=== PATIENT | female | born 1960 | race Caucasian/White ===

== ENCOUNTER 2020-05-02 07:59 | Emergency (ER) | payer OTHER, SELFPAY ==
--- NOTE | 2020-05-02 | ECG_ITS ---
Test Reason : CHEST PAIN Blood Pressure : / mmHG Vent. Rate : 090 BPM Atrial Rate : 090 BPM P-R Int : 146 ms QRS Dur : 078 ms QT Int : 366 ms P-R-T Axes : 066 068 040 degrees QTc Int : 447 ms Normal sinus rhythm Nonspecific ST abnormality Abnormal ECG When compared with ECG of 01-SEP-2017 07:54, ST more depressed Inferior leads Referred By: Generic ED Physician Electronically Signed By:TOYIN BECKETT MD
[2020-05-02 08:13] VITALS: BP 153/79; PULSE 85; RESP 18; TEMP 36.8; O2SAT 98; BMI 23.3
--- NOTE | 2020-05-02 08:16 | ED.CHESTPAIN ---
HPI - Chest Pain General Chief Complaint: Chest Pain Stated Complaint: Multiple Complaints Time Seen by Provider: 05/02/20 08:15 Source: patient Mode of arrival: ambulatory Limitations: no limitations History of Present Illness complaint: chest pain Onset (ago): day(s) (occurred last night after making dinner) Timing of current episode: now resolved Prior episodes: No Onset: during rest Pain location: substernal Pain radiation: none Severity: severe Quality: sharp Relieving factors: other (used her fiance's O2) Exacerbating factors: nothing Associated symptoms: nausea, vomiting, diaphoresis and dyspnea Treatment prior to arrival: oxygen Related Data Allergies Allergy/AdvReac Type Severity Reaction Status Date / Time No Known Allergies Allergy Verified 05/02/20 11:40 Review of Systems Review of Systems: Constitutional : No Weight loss, No Fever, No Chills ENT/Mouth : No sore throat, No Rhinorrhea Eyes: No Eye Pain, No Swelling Cardiovascular : pos Chest Pain, pos SOB, no Dyspnea on Exertion, No Orthopnea, No Edema, No Palpitations Respiratory : No Cough, No Sputum Gastrointestinal : pos Nausea, pos Vomiting, No Diarrhea, No abdominal Pain, No Hematochezia, No Melena Genitourinary : No Dysuria, No Urinary Frequency Musculoskeletal : No joint pain, No Myalgias, No Joint Swelling Skin : No Skin Lesions, No rash Neuro : No Weakness, No Numbness, pos Dizziness, No Headache Psych : No Anxiety/Panic, No Depression Heme/Lymph: No Bruising, No Lymphadenopathy Endocrine : No Polyuria, No Polydipsia All other systems reviewed and are negative [facility] Past Medical History Medical History ADHD Anxiety delivery delivered Hypertension Surgical History H/O: hysterectomy Social History Social History Alcohol intake: current Alcohol intake frequency: a few times a month Smoking Status: Current every day smoker Substance Use Type: Marijuana Advance Directives: No Advance Directives Information Provided: No Physical Exam Vital Signs: Vital Signs: Last Vital Signs Temp 98.3 F 05/02/20 08:13 Pulse 74 05/02/20 09:30 Resp 16 05/02/20 09:30 BP 116/56 L 05/02/20 09:30 Pulse Ox 98 05/02/20 09:30 Body Mass Index 23.3 Appearance: Alert. Oriented X3. No acute distress. Eyes: Pupils equal, round and reactive to light. ENT: Pharynx normal. Neck: Normal inspection. Neck supple. CVS: Normal heart rate and rhythm. Pulses normal. Respiratory: No respiratory distress. Breath sounds normal. Abdomen: Soft and nontender. Skin: Skin warm and dry. Normal skin color. Normal skin turgor. Extremities: No lower extremity edema. No calf ttp Neuro: Oriented X 3. No motor deficit. No sensory deficit. Course Course Course Narrative: [facility] cath August 2017 LMCA: normal LAD mild diffuse disease <30% LCx: normal RCA: miminal luminal irregularities Ramus: normal non obstructive CAD with no more than mild disease given chest pain will obtain CTA chest to r/o dissection, EKG and troponin negative at this time negative CT scan, EKG nonischemic, negative troponin x 2 MDM - Chest Pain MDM Narrative Medical decision making narrative: 59 yo female with hx of HTN and smoker with fam hx of [place] in mom, dad, brother, has had negative cath almost 3 years ago had episode last night of sharp chest pain substernal with n/v diaphoresis/dyspnea resolved but today still feels off the episode lasted a minute, she has no pain now, took ASA this AM, will need EKG, ddimer, troponin, call to [facility] for report, dispo per results and findings. Lab Data Result diagrams: 05/02/20 08:32 05/02/20 08:32 Labs: Lab Results 05/02/20 05/02/20 05/02/20 Range/Units 08:32 08:32 08:32 WBC 11.0 H (4.8-10.8) X10*3/uL RBC 4.51 (4.20-5.50) X10*6/uL Hgb 14.1 (12.0-16.0) g/dl Hct 41.0 (37-47) % MCV 90.9 (80-98) fL MCH 31.3 (27.0-33.0) pg MCHC 34.4 (31.0-35.0) g/dl RDW 13.3 (11.0-16.0) % Plt Count 355 (160-400) X10*3/uL MPV 9.1 L (9.4-12.3) fL Immature Gran % (Auto) 0.6 H (0.0-0.4) % Neut % (Auto) 60.2 (45-73) % Lymph % (Auto) 26.6 (20-40) % Emmet % (Auto) 11.3 H (2-11) % Eos % (Auto) 0.9 (0-4) % Baso % (Auto) 0.4 (0-2) % Lymph # (Auto) 2.9 (1.2-4.9) X10*3/uL Emmet # (Auto) 1.2 (0.1-1.2) X10*3/uL Eos # (Auto) 0.1 (0.0-0.4) X10*3/uL Baso # (Auto) 0.0 (0.0-0.2) X10*3/uL Abs Immat Gran (auto) 0.07 H (0.00-0.03) X10*3/uL Absolute Neuts (auto) 6.6 (2.0-8.3) X10*3/uL Absolute Nucleated RBC 0.000 (0.0-0.012) X10*3/uL Nucleated RBC % (auto) 0.0 (0.0-0.2) /100WBC D-Dimer < 200 NG/ML Sodium 135 (135-145) mmol/L Potassium 3.8 (3.3-5.1) mmol/l Chloride 101 (96-108) mmol/L Carbon Dioxide 23 (22-29) mmol/L Anion Gap 15 (12-20) BUN 13 (9-16) mg/dL Creatinine 0.75 (0.5-1.4) mg/dL Estim Creat Clear Calc 66.8 Estimated GFR > 60 Random Glucose 110 (60-115) mg/dL Calcium 9.4 (8.4-10.2) mg/dL Magnesium 2.1 (1.6-2.6) mg/dL Total Bilirubin 0.2 (0.0-1.0) mg/dL Direct Bilirubin < 0.2 (0.0-0.5) mg/dL AST 20 (5-31) U/L ALT 31 (0-31) U/L Alkaline Phosphatase 82 (39-117) U/L Troponin I High Sens (<3.5-17.0) ng/L B-Natriuretic Peptide (<100) pg/mL Total Protein 7.2 (6.5-8.0) g/dL Albumin 4.6 (3.5-5.0) g/dL Lipase 43 (8-78) U/L 05/02/20 05/02/20 Range/Units 08:32 11:01 WBC (4.8-10.8) X10*3/uL RBC (4.20-5.50) X10*6/uL Hgb (12.0-16.0) g/dl Hct (37-47) % MCV (80-98) fL MCH (27.0-33.0) pg MCHC (31.0-35.0) g/dl RDW (11.0-16.0) % Plt Count (160-400) X10*3/uL MPV (9.4-12.3) fL Immature Gran % (Auto) (0.0-0.4) % Neut % (Auto) (45-73) % Lymph % (Auto) (20-40) % Emmet % (Auto) (2-11) % Eos % (Auto) (0-4) % Baso % (Auto) (0-2) % Lymph # (Auto) (1.2-4.9) X10*3/uL Emmet # (Auto) (0.1-1.2) X10*3/uL Eos # (Auto) (0.0-0.4) X10*3/uL Baso # (Auto) (0.0-0.2) X10*3/uL Abs Immat Gran (auto) (0.00-0.03) X10*3/uL Absolute Neuts (auto) (2.0-8.3) X10*3/uL Absolute Nucleated RBC (0.0-0.012) X10*3/uL Nucleated RBC % (auto) (0.0-0.2) /100WBC D-Dimer NG/ML Sodium (135-145) mmol/L Potassium (3.3-5.1) mmol/l Chloride (96-108) mmol/L Carbon Dioxide (22-29) mmol/L Anion Gap (12-20) BUN (9-16) mg/dL Creatinine (0.5-1.4) mg/dL Estim Creat Clear Calc Estimated GFR Random Glucose (60-115) mg/dL Calcium (8.4-10.2) mg/dL Magnesium (1.6-2.6) mg/dL Total Bilirubin (0.0-1.0) mg/dL Direct Bilirubin (0.0-0.5) mg/dL AST (5-31) U/L ALT (0-31) U/L Alkaline Phosphatase (39-117) U/L Troponin I High Sens < 3.5 < 3.5 (<3.5-17.0) ng/L B-Natriuretic Peptide 27 (<100) pg/mL Total Protein (6.5-8.0) g/dL Albumin (3.5-5.0) g/dL Lipase (8-78) U/L ECG Data ECG #1: Attestation: I personally reviewed and interpreted this ECG as follows: ECG interpretation date: 05/02/20 ECG interpretation time: 08:19 Interpretation: Rate: 90 Rhythm: NSR [place]: normal Normal P waves. Normal MILENA. Normal QRS complex. ST T wave : nonspecific qTC: normal prior studies: no acute ischemia The study has been interpreted contemporaneously by me. . Discharge Plan Discharge Clinical Impression: Chest pain Patient Disposition: Home, Self-Care Instructions: Chest Pain (ED) Additional Instructions: return to ED for any worsening symptoms or concerns call your doctor they might want to repeat a stress test Referrals: Name,MD Deven [Primary Care Provider] - 2 days Stand Alone Forms: Work/School Release
--- NOTE | 2020-05-02 08:17 | XR_ITS ---
EXAMINATION: XR CHEST CLINICAL INFORMATION: Pain. COMPARISON: 08/31/17. TECHNIQUE: Frontal view of the chest was obtained. FINDINGS: No significant abnormality is noted involving the heart, lungs, mediastinum, bony thorax or soft tissues. XR/XR chest 1V IMPRESSION: Unremarkable examination.
[2020-05-02 08:41] LABS: Basophils Percent Auto 0.4 % (0-2); Eosinophils Absolute Auto 0.1 X10*3/uL (0.0-0.4); Eosinophils Percent Auto 0.9 % (0-4); Hemoglobin 14.1 g/dl (12.0-16.0); Imm Gran Abs Auto 0.07 X10*3/uL (0.00-0.03); Imm Gran Pct Auto 0.6 % (0.0-0.4); Lymphocytes Absolute Auto 2.9 X10*3/uL (1.2-4.9); Lymphocytes Percent Auto 26.6 % (20-40); MANUAL DIFF FLAG NO; Mean Corpuscular HGB Conc 34.4 g/dl (31.0-35.0); Mean Corpuscular Hemoglobin 31.3 pg (27.0-33.0); Mean Corpuscular Volume 90.9 fL (80-98); Mean Platelet Volume 9.1 fL (9.4-12.3); Monocytes Absolute Auto 1.2 X10*3/uL (0.1-1.2); Monocytes Percent Auto 11.3 % (2-11); Neutrophils Absolute Auto 6.6 X10*3/uL (2.0-8.3); Neutrophils Percent Auto 60.2 % (45-73); Platelet Count 355 X10*3/uL (160-400); Red Blood Count 4.51 X10*6/uL (4.20-5.50); Red Cell Distribution Width 13.3 % (11.0-16.0)
[2020-05-02] MEDS: ondansetron HCL 4 MG/2 ML VIAL IVPUSH (08:45)
[2020-05-02] MEDS: 0.9 % Sodium Chloride 1,000 ML 999 ML IVCONT (08:47)
[2020-05-02 08:55] LABS: D Dimer < 200 NG/ML
[2020-05-02 09:22] LABS: B Type Natriuretic Peptide 27 pg/mL (<100); Troponin-I High Sensitivity < 3.5 ng/L (<3.5-17.0)
[2020-05-02 09:23] LABS: Alanine Aminotransferase 31 U/L (0-31); Albumin Level 4.6 g/dL (3.5-5.0); Alkaline Phosphatase 82 U/L (39-117); Anion Gap 15 (12-20); Aspartate Amino Transferase 20 U/L (5-31); Bilirubin Direct < 0.2 mg/dL (0.0-0.5); Bilirubin Total 0.2 mg/dL (0.0-1.0); Blood Urea Nitrogen 13 mg/dL (9-16); Calcium 9.4 mg/dL (8.4-10.2); Carbon Dioxide 23 mmol/L (22-29); Chloride 101 mmol/L (96-108); Creatinine Clr Calc Pharmacy 66.8; Estimated Glomerular Filt Rate > 60; Glucose Random 110 mg/dL (60-115); Lipase 43 U/L (8-78); Magnesium 2.1 mg/dL (1.6-2.6); Potassium 3.8 mmol/l (3.3-5.1); Sodium 135 mmol/L (135-145); Total Protein 7.2 g/dL (6.5-8.0)
[2020-05-02 09:30] VITALS: BP 116/56; PULSE 74; RESP 16; O2SAT 98
--- NOTE | 2020-05-02 09:31 | CT_ITS ---
EXAMINATION: CT ANGIOGRAM CHEST CLINICAL INFORMATION: Chest pain. Rule out dissection. COMPARISON: Chest x-ray of same day. TECHNIQUE: Multiple axial images were obtained through the chest after the administration of 70 mL of Omnipaque 350 intravenous contrast. Postprocessing imaging was performed on the acquisition workstation. This CT examination was performed using dose optimization techniques as appropriate, variously including the following: *Automated exposure control *Adjustment of mA and/or kV according to patient size (this includes techniques or standardized protocols for targeted exams where dose is matched to indication/reason for exam; i.e. extremities or head) *Use of iterative reconstruction technique DLP: 317 mGy-cm FINDINGS: There is no evidence of thoracic or abdominal aortic aneurysm. There is no evidence of thoracic aortic dissection. No pulmonary artery embolus identified. LUNGS: There are mild changes of centrilobular emphysema within the upper lobes. There are apical blebs present. There are multiple sub-4 mm density seen bilaterally which are most prominent within the left upper lobe peripherally with a tree-in-bud configuration. No significant bronchial wall thickening. No bronchiectasis. No confluent parenchymal disease. Within the left lower lobe there is a 4 mm subpleural noncalcified density seen on image 391 of 691. Mediastinum: Heart normal size. No pericardial effusion. There are some coronary artery calcifications present. No mediastinal or hilar lymphadenopathy. No significant thoracic aortic abnormality appreciated. There is calcified thrombus seen at the origin of the arch vessels. There appear to be stenoses seen origin of the left carotid and left subclavian arteries which may be greater than 50%. Pleura: No pleural effusion. Upper abdomen: There is fatty infiltration of the liver. Otherwise unremarkable. Osseous structures: No acute destructive bony lesions identified. CT/CT angio chest IMPRESSION: No thoracic aortic aneurysm or dissection. No pulmonary artery embolus.
[2020-05-02] MEDS: iohexoL 350 MG/ML 100 ML INFUS..BTL 70 ML IV (10:21)
[2020-05-02 11:35] LABS: Troponin-I High Sensitivity < 3.5 ng/L (<3.5-17.0)
== END 2020-05-02 11:53 | disposition home or self-care (01) ==
PROVIDERS: Emergency Provider Emergency Medicine; PCP Internal Medicine Geriatric Medicine
DX: R07.9 Chest pain, unspecified (principal); F12.90 Cannabis use, unspecified, uncomplicated; F17.200 Nicotine dependence, unspecified, uncomplicated; Z71.6 Tobacco abuse counseling
CPT/HCPCS: 36415; 71045; 71275; 80048; 80076; 83690; 83735; 83880; 84484; 85025; 85379; 93005; 96361; 96374; 99285; J2405; Q9967

== ENCOUNTER 2020-08-10 15:29 | Emergency (ER) | payer OTHER, SELFPAY ==
--- NOTE | ~2020-08-10 | XR_ITS ---
EXAMINATION: XR CHEST CLINICAL INFORMATION: Pain COMPARISON: Chest x-ray and CTA chest 05/02/2020 TECHNIQUE: Frontal view of the chest was obtained. FINDINGS: Cardiac silhouette is normal in size. Lungs are well aerated. There is no lobar consolidation. No pleural effusion or pneumothorax. XR/XR chest 1V IMPRESSION: Stable examination demonstrating no acute pulmonary pathology.
[2020-08-10 16:29] VITALS: BP 186/79; PULSE 82; RESP 18; TEMP 36.9; O2SAT 99; BMI 25.2
[2020-08-10 16:46] VITALS: BP 148/67; PULSE 74; RESP 20; O2SAT 97
--- NOTE | 2020-08-10 16:55 | ED.GENADULT ---
HPI - General Adult General Chief complaint: General Medical Stated complaint: covid symptoms Time Seen by Provider: 08/10/20 16:54 History of Present Illness HPI narrative: Patient with 2 complaints First complaint is today she has had chest pain that has been lasting for several minutes at a time that feels like pressure that is not related to exertion that does not radiate with no accompanying shortness of breath no sweating no vomiting no palpitations no fainting no syncope Second complaint is 2-3 days of runny nose and cough, no sputum with feeling fatigued and body aches, no known COVID exposure, no shortness of breath no vomiting Related Data Previous Rx's Medication Instructions Recorded doxycycline hyclate 100 mg PO BID 7 Days #14 cap 08/10/20 Allergies Allergy/AdvReac Type Severity Reaction Status Date / Time No Known Allergies Allergy Verified 08/10/20 16:29 Review of Systems Review of Systems: Positives are episodes of pressure-like chest pain today, cough runny nose body aches and fatigue Are no fever no chills no dizziness no weakness no fainting no confusion no headache no neck pain no shortness of breath no heart racing no palpitations no abdominal pain no nausea vomiting no sore throat no flank pain no dysuria no leg swelling no calf pain or swelling, no rash Yes all other systems are reviewed and are negative PMFSH Past Medical History Source: nursing notes reviewed Medical History ADHD Anxiety delivery delivered Hypertension Surgical History H/O: hysterectomy Social History Social History Alcohol intake: current Alcohol intake frequency: a few times a month Smoking Status: Current every day smoker Substance Use Type: Marijuana Advance Directives: No Advance Directives Information Provided: No Physical Exam Vital Signs: Vital Signs: Last Vital Signs Temp 98.5 F 08/10/20 16:29 Pulse 72 08/10/20 20:35 Resp 20 08/10/20 20:35 BP 128/65 08/10/20 20:35 Pulse Ox 98 08/10/20 20:35 Body Mass Index 25.2 General appearance is no acute distressed, comfortable, cooperative, a and O x3 The head is normocephalic atraumatic The pharynx is clear The neck is supple The chest wall is nontender with no pain with a deep breath, the patient is speaking full sentences with no evidence of extra respiratory effort Breath sounds are clear and equal and symmetrical with no adventitious sounds Heart rate and rhythm regular, no murmur heard Abdomen soft nontender Extremities no calf swelling or tenderness, no edema Neuro no facial asymmetry, no motor deficit no sensory deficit, balance and gait are normal, verbal interaction and comprehension are normal Course Course Course Narrative: Patient's workup for her upper respiratory infection had a negative x-ray, COVID testing was negative, and as patient is started coughing and is a long-time smoker she was treated for possible bronchitis with antibiotic First troponin was negative for the patient's chest pain as well as an EKG that showed a normal sinus rhythm with no acute ST changes, the rate 67, QRS was normal duration QT was normal Patient remained comfortable throughout ER visit 21:30 case is signed out to physician billing and accounting staff assistant cecil to follow 2nd troponin results and discharge patient if it is unchanged Medical Decision Making Lab Data Lab results reviewed: Yes I reviewed the patient's lab results. Result diagrams: 08/10/20 18:28 08/10/20 18:28 Labs: Lab Results 08/10/20 08/10/20 08/10/20 Range/Units 18:28 18:28 18:28 WBC 13.1 H (4.8-10.8) X10*3/uL RBC 4.66 (4.20-5.50) X10*6/uL Hgb 14.5 (12.0-16.0) g/dl Hct 42.3 (37-47) % MCV 90.8 (80-98) fL MCH 31.1 (27.0-33.0) pg MCHC 34.3 (31.0-35.0) g/dl RDW 12.7 (11.0-16.0) % Plt Count 381 (160-400) X10*3/uL MPV 9.4 (9.4-12.3) fL Immature Gran % (Auto) 0.6 H (0.0-0.4) % Neut % (Auto) 65.4 (45-73) % Lymph % (Auto) 23.8 (20-40) % [place] % (Auto) 9.0 (2-11) % Eos % (Auto) 0.8 (0-4) % Baso % (Auto) 0.4 (0-2) % Lymph # (Auto) 3.1 (1.2-4.9) X10*3/uL [place] # (Auto) 1.2 (0.1-1.2) X10*3/uL Eos # (Auto) 0.1 (0.0-0.4) X10*3/uL Baso # (Auto) 0.1 (0.0-0.2) X10*3/uL Abs Immat Gran (auto) 0.08 H (0.00-0.03) X10*3/uL Absolute Neuts (auto) 8.5 H (2.0-8.3) X10*3/uL Absolute Nucleated RBC 0.000 (0.0-0.012) X10*3/uL Nucleated RBC % (auto) 0.0 (0.0-0.2) /100WBC Sodium 140 (135-145) mmol/L Potassium 3.4 (3.3-5.1) mmol/L Chloride 102 (96-108) mmol/L Carbon Dioxide 24 (22-29) mmol/L Anion Gap 17 (12-20) BUN 22 H D (9-16) mg/dL Creatinine 0.77 (0.5-1.4) mg/dL Estim Creat Clear Calc 67.6 Estimated GFR > 60 Random Glucose 94 (60-115) mg/dL Calcium 9.5 (8.4-10.2) mg/dL Troponin I High Sens < 3.5 (<3.5-17.0) ng/L Coronavirus (PCR) (Negative) SARS-CoV-2 (PCR) Influenza Type A (PCR) (Negative) Influenza Type B (PCR) (Negative) RSV RNA Qual (PCR) (Negative) 08/10/20 08/10/20 Range/Units 18:28 18:28 WBC (4.8-10.8) X10*3/uL RBC (4.20-5.50) X10*6/uL Hgb (12.0-16.0) g/dl Hct (37-47) % MCV (80-98) fL MCH (27.0-33.0) pg MCHC (31.0-35.0) g/dl RDW (11.0-16.0) % Plt Count (160-400) X10*3/uL MPV (9.4-12.3) fL Immature Gran % (Auto) (0.0-0.4) % Neut % (Auto) (45-73) % Lymph % (Auto) (20-40) % [place] % (Auto) (2-11) % Eos % (Auto) (0-4) % Baso % (Auto) (0-2) % Lymph # (Auto) (1.2-4.9) X10*3/uL [place] # (Auto) (0.1-1.2) X10*3/uL Eos # (Auto) (0.0-0.4) X10*3/uL Baso # (Auto) (0.0-0.2) X10*3/uL Abs Immat Gran (auto) (0.00-0.03) X10*3/uL Absolute Neuts (auto) (2.0-8.3) X10*3/uL Absolute Nucleated RBC (0.0-0.012) X10*3/uL Nucleated RBC % (auto) (0.0-0.2) /100WBC Sodium (135-145) mmol/L Potassium (3.3-5.1) mmol/L Chloride (96-108) mmol/L Carbon Dioxide (22-29) mmol/L Anion Gap (12-20) BUN (9-16) mg/dL Creatinine (0.5-1.4) mg/dL Estim Creat Clear Calc Estimated GFR Random Glucose (60-115) mg/dL Calcium (8.4-10.2) mg/dL Troponin I High Sens (<3.5-17.0) ng/L Coronavirus (PCR) NEGATIVE (Negative) SARS-CoV-2 (PCR) Cancelled Influenza Type A (PCR) NEGATIVE (Negative) Influenza Type B (PCR) NEGATIVE (Negative) RSV RNA Qual (PCR) NEGATIVE (Negative) Discharge Plan Discharge Clinical Impression: Bronchitis Patient Disposition: Home, Self-Care Additional Instructions: Your COVID test was negative, chest x-ray did not show any obvious pneumonia We are treating with doxycycline antibiotic for bronchitis Follow with her doctor for help to try to quit smoking Your chest pain was evaluated with an EKG and troponin testing which were negative, so very unlikely that you have had a heart attack today But very important for further evaluation see your doctor to determine if you need stress testing or any other cardiac workup Return any time any worse condition or any concerns Prescriptions: New doxycycline hyclate 100 mg capsule 100 mg PO BID 7 Days Qty: 14 RF: 0
[2020-08-10 18:18] VITALS: BP 170/81; PULSE 83; RESP 22; O2SAT 100
[2020-08-10 18:38] LABS: MANUAL DIFF FLAG NO
[2020-08-10 18:39] LABS: Basophils Absolute Auto 0.1 X10*3/uL (0.0-0.2); Basophils Percent Auto 0.4 % (0-2); Eosinophils Absolute Auto 0.1 X10*3/uL (0.0-0.4); Eosinophils Percent Auto 0.8 % (0-4); Hematocrit 42.3 % (37-47); Hemoglobin 14.5 g/dl (12.0-16.0); Imm Gran Abs Auto 0.08 X10*3/uL (0.00-0.03); Imm Gran Pct Auto 0.6 % (0.0-0.4); Lymphocytes Absolute Auto 3.1 X10*3/uL (1.2-4.9); Lymphocytes Percent Auto 23.8 % (20-40); Mean Corpuscular HGB Conc 34.3 g/dl (31.0-35.0); Mean Corpuscular Hemoglobin 31.1 pg (27.0-33.0); Mean Corpuscular Volume 90.8 fL (80-98); Mean Platelet Volume 9.4 fL (9.4-12.3); Monocytes Absolute Auto 1.2 X10*3/uL (0.1-1.2); Neutrophils Absolute Auto 8.5 X10*3/uL (2.0-8.3); Neutrophils Percent Auto 65.4 % (45-73); Platelet Count 381 X10*3/uL (160-400); Red Blood Count 4.66 X10*6/uL (4.20-5.50); Red Cell Distribution Width 12.7 % (11.0-16.0); White Blood Count 13.1 X10*3/uL (4.8-10.8)
[2020-08-10 19:08] LABS: Anion Gap 17 (12-20); Blood Urea Nitrogen 22 mg/dL (9-16); Calcium 9.5 mg/dL (8.4-10.2); Carbon Dioxide 24 mmol/L (22-29); Chloride 102 mmol/L (96-108); Creatinine Clr Calc Pharmacy 67.6; Estimated Glomerular Filt Rate > 60; Glucose Random 94 mg/dL (60-115); Potassium 3.4 mmol/L (3.3-5.1); Sodium 140 mmol/L (135-145)
--- NOTE | 2020-08-10 19:10 | ECG_ITS ---
Test Reason : PAIN Blood Pressure : / mmHG Vent. Rate : 067 BPM Atrial Rate : 067 BPM P-R Int : 164 ms QRS Dur : 084 ms QT Int : 428 ms P-R-T Axes : 054 058 033 degrees QTc Int : 452 ms Normal sinus rhythm Nonspecific ST abnormality Abnormal ECG When compared with ECG of 02-MAY-2020 08:12, No significant change was found Referred By: Homer Kamara Electronically Signed By:Kurtis Mcgrath
[2020-08-10 19:14] LABS: Troponin-I High Sensitivity < 3.5 ng/L (<3.5-17.0)
[2020-08-10 19:42] VITALS: BP 128/65; PULSE 71; RESP 12; O2SAT 98
[2020-08-10 20:33] LABS: Influenza A PCR NEGATIVE (Negative); Influenza B PCR NEGATIVE (Negative); Resp Syncy Virus RNA Qual PCR NEGATIVE (Negative); SARS COV2 PCR INHOUSE NEGATIVE (Negative)
[2020-08-10 20:35] VITALS: BP 128/65; PULSE 72; RESP 20; O2SAT 98
[2020-08-10] MEDS: Acetaminophen 325 MG TABLET 650 MG PO (21:11)
[2020-08-10 21:48] LABS: Troponin-I High Sensitivity < 3.5 ng/L (<3.5-17.0)
== END 2020-08-10 23:13 | disposition home or self-care (01) ==
PROVIDERS: Physician Assistant Medical; Emergency Provider Internal Medicine
DX: J40 Bronchitis, not specified as acute or chronic (principal); Z20.822 Contact with and (suspected) exposure to COVID-19; R07.9 Chest pain, unspecified; I10 Essential (primary) hypertension; F17.200 Nicotine dependence, unspecified, uncomplicated
CPT/HCPCS: 0241U; 36415; 71045; 80048; 84484; 85025; 93005; 99283; 99284; U0003

== ENCOUNTER 2020-12-04 11:44 | Emergency (ER) | payer OTHER, SELFPAY ==
--- NOTE | ~2020-12-04 | US_ITS ---
EXAMINATION: RIGHT HIP. ULTRASOUND RIGHT LOWER EXTREMITY VENOUS STUDY. CLINICAL INFORMATION: Right leg pain. COMPARISON: None TECHNIQUE: Right hip and AP pelvis 3 views. Routine grayscale, color and Doppler imaging of right lower extremity was performed. FINDINGS: RIGHT HIP AND AP PELVIS: There is normal symmetry of bilateral SI joints and hip joints. No fracture seen involving the pelvic bones. There are phleboliths seen throughout the pelvis. The soft tissues are normal. ULTRASOUND RIGHT LOWER EXTREMITY: There is normal color flow, compression and augmentation seen in the right common femoral, greater saphenous, superficial femoral, popliteal, posterior tibial and peroneal veins. Small fluid collection medial femoral fossa likely a small Springer's cyst There is no calf edema. Incidental finding of the hypoechoic lymph node measuring 1.5 cm in the proximal thigh region. US/US venous duplex LE RT IMPRESSION: Remarkable AP pelvis and right hip exam. Unremarkable right lower extremity venous study Except for small fluid collection along the medial popliteal fossa any benign-appearing right proximal thigh lymph node.
[2020-12-04 12:19] VITALS: BP 120/70; PULSE 78; RESP 18; TEMP 37.1; O2SAT 98; BMI 24.1
--- NOTE | 2020-12-04 14:21 | ED_ITS ---
HPI - Extremity Problem General Chief complaint: Extremity Injury, Lower Stated complaint: LEG PAIN Time Seen by Provider: 12/04/20 12:59 Source: patient Mode of arrival: ambulatory Limitations: no limitations History of Present Illness HPI Narrative: 60-year-old female with a past medical history of hypertension, anxiety, ADHD presenting to the ED with complaints of right hip pain radiating to her right lower extremity with numbness to the right foot for the past few days worse today. Denies any trauma. Denies any dizziness, headaches, chest pain, shortness of breath, palpitations, dyspnea on exertion, orthopnea, lower extremity edema or any other symptom complaints or concerns at this time. She is requesting an ultrasound of her lower extremity to rule out a DVT. MD Complaint: extremity pain Onset (ago): day(s) Pain Consistency: constant Location: right and lower extremity Quality: other (Intermittent numbness sensation/pain) Radiation: distal Relieving factors: nothing Exacerbating factors: nothing Associated symptoms: denies other symptoms Related Data Previous Rx's Medication Instructions Recorded doxycycline hyclate 100 mg PO BID 7 Days #14 cap 08/10/20 acetaminophen [Tylenol Extra 1,000 mg PO QID PRN #14 tab 12/04/20 Strength] lidocaine HCl [Aspercreme 1 appl TOPICAL BID PRN #120 g 12/04/20 (lidocaine HCl)] naproxen 500 mg PO BID PRN #10 tab 12/04/20 oxycodone 5 mg PO BID PRN #10 tab 12/04/20 prednisone 40 mg PO DAILY 5 Days #10 tab 12/04/20 Allergies Allergy/AdvReac Type Severity Reaction Status Date / Time No Known Allergies Allergy Verified 08/10/20 16:29 Review of Systems Review of Systems: Constitutional : No changes in activity, No lethargy, No recent prior head injury, No agitation, No increased fussiness ENT/Mouth : No Ear Pain, No Nasal discharge/drainage Eyes: No Eye Pain, No Swelling, No Redness, No Foreign Body, No Vision Changes Cardiovascular : No Chest Pain, No SOB Respiratory : No Cough Gastrointestinal : No Nausea, No Vomiting, No abdominal Pain Genitourinary : No Dysuria, No Urinary Frequency, No Urinary Incontinence, No Urgency, No Flank Pain Musculoskeletal : + joint pain, No neck stiffness, No back pain/injury Skin : No lacerations Neuro : Positive numbness, No unsteady gait, No Paresthesias, No Loss of Consciousness, No altered mental status, No Headache Yes all other systems are reviewed and are negative [facility] Past Medical History Attestation statement: The following information was validated with the patient. Medical History ADHD Anxiety delivery delivered Hypertension Surgical History H/O: hysterectomy Social History Social History Alcohol intake: current Alcohol intake frequency: a few times a month Substance Use Type: Marijuana Advance Directives: No Advance Directives Information Provided: Yes Patient : No Physical Exam Vital Signs: Vital Signs: Last Vital Signs Temp 98.7 F 12/04/20 12:19 Pulse 78 12/04/20 12:19 Resp 18 12/04/20 12:19 BP 120/70 12/04/20 12:19 Pulse Ox 98 12/04/20 12:19 Body Mass Index 24.1 vital signs have been reviewed as normal and appeared to be correct. Blood pressure normal. Heart rate normal. Respiration rate normal. Temperature normal. Oxygen saturation normal. Appearance: Alert. Oriented X3. No acute distress. Head: Normal external exam. Normocephalic. Atraumatic. Eyes: PERRLA. EOMI. Conjunctiva and sclera normal. Eyelids normal. ENT: EAC normal. TM's Normal. Pharynx normal. Uvula midline. Moist mucous membranes. Neck: Normal inspection. Neck supple. FROM. No adenopathy. Thyroid Normal. No meningeal signs. No neck mass noted. CVS: Normal heart rate and rhythm. Heart sound normal. Pulses normal throughout. No murmurs/rales/gallops. Respiratory: No respiratory distress. Painless inspiration. Breath sounds normal. No wheezes/rales/rhonchi noted. Chest nontender. No accessory muscle usage noted or decreased air movement noted. Abdomen: Soft and nontender. Bowel sounds normal in all 4 quadrants. No distention noted. No organomegaly noted. No visible injury noted. Back: No CVA tenderness. Full range of motion noted. No rashes/lesion/indura tion/fluctuance or signs of infection noted. Skin: Skin warm and dry. Normal skin color. Normal skin turgor. No rashes/lesions/lacerations noted. Extremities: Patient with tenderness to palpation to right hip joint although patient has full range of motion lacks is severe signs of infection or rashes noted. No lower extremity edema. No calf tenderness is noted. Otherwise all other Extremities exhibit normal range of motion and nontender. Neuro: Oriented X 3. No motor deficit. No sensory deficit. Reflexes normal. Normal steady gait. No focal neuro deficits noted. Vascular: + radial pulses/+ 2 distal pedal pulses/+2 dorsalis pedis b/l. Normal cap refill. No cyanosis noted to upper extremity nails and lower extremity toes nails. Course Course Course Narrative: 60-year-old female with atraumatic right hip pain radiating to her right lower extremity she reports numbness although has full sensation. ultrasound obtained and negative for DVT although revealed Springer cyst. Will DC home with symptomatic treatment along with instructions to return if any new or worsening symptoms to follow up with primary care provider. Patient understands agrees with this plan. MDM - Extremity (Nontraumatic) Imaging Data Ultrasound of right lower extremity and x-ray of righ: Attestation: I personally reviewed and interpreted this imaging study as follows: Radiologist's impression: FINDINGS: RIGHT HIP AND AP PELVIS: There is normal symmetry of bilateral SI joints and hip joints. No fracture seen involving the pelvic bones. There are phleboliths seen throughout the pelvis. The soft tissues are normal. ULTRASOUND RIGHT LOWER EXTREMITY: There is normal color flow, compression and augmentation seen in the right common femoral, greater saphenous, superficial femoral, popliteal, posterior tibial and peroneal veins. Small fluid collection medial femoral fossa likely a small Springer's cyst There is no calf edema. Incidental finding of the hypoechoic lymph node measuring 1.5 cm in the proximal thigh region. XR/XR hip RT w PEL1V IMPRESSION: Remarkable AP pelvis and right hip exam. Unremarkable right lower extremity venous study Except for small fluid collection along the medial popliteal fossa any benign-appearing right proximal thigh lymph node. Discharge Plan Discharge Clinical Impression: Bursitis of hip, right, Springer's cyst of knee, Radiculopathy of leg Patient Disposition: Home, Self-Care Instructions: Hip Bursitis (ED), Bakers Cyst (ED), Lumbar Radiculopathy (ED), Lower Back Exercises (ED) Prescriptions: New prednisone 20 mg tablet 40 mg PO DAILY 5 Days Qty: 10 RF: 0 lidocaine HCl [Aspercreme (lidocaine HCl)] 4 % cream 1 appl topical BID PRN (Reason: pain) Qty: 120 RF: 0 acetaminophen [Tylenol Extra Strength] 500 mg tablet 1,000 mg PO QID PRN (Reason: fever or pain) Qty: 14 RF: 0 naproxen 500 mg tablet 500 mg PO BID PRN (Reason: pain) Qty: 10 RF: 0 oxycodone 5 mg tablet 5 mg PO BID PRN (Reason: pain) Qty: 10 RF: 0 No Action doxycycline hyclate 100 mg capsule 100 mg PO BID 7 Days Qty: 14 RF: 0 Referrals: Deven Solis MD [Primary Care Provider] - 2 days Stand Alone Forms: Work/School Release Discharge Date/Time: 12/04/20 14:56 Print Language: Upper Sorbian
== END 2020-12-04 14:56 | disposition home or self-care (01) ==
PROVIDERS: Emergency Provider Emergency Medicine Emergency Medical Services; PCP Internal Medicine Geriatric Medicine
DX: M70.71 Other bursitis of hip, right hip (principal); M71.21 Synovial cyst of popliteal space [Baker], right knee; M54.10 Radiculopathy, site unspecified; M79.604 Pain in right leg; I10 Essential (primary) hypertension
CPT/HCPCS: 73502; 93971; 99283; 99284

== ENCOUNTER 2020-12-12 07:49 | Emergency (ER) | payer OTHER, SELFPAY ==
[2020-12-12 08:57] VITALS: BP 161/76; PULSE 83; RESP 16; TEMP 36.5; O2SAT 98
--- NOTE | 2020-12-12 09:39 | ED.LOWEXIN ---
HPI - Extremity Injury (Lower) General Chief Complaint: Extremity Injury, Lower Stated Complaint: severe leg pain Time Seen by Provider: 12/12/20 08:41 Source: patient Mode of arrival: ambulatory History of Present Illness HPI Narrative: 60-year-old female with past medical history of hypertension, anxiety, ADHD presenting to the ED complaining of acute on chronic right buttock pain radiating down right lower extremity times months with associated numbness/tingling and weakness. Admits to similar symptoms in the past which she was evaluated in the ED for, diagnosed with hip arthritis and right knee Springer cyst. Denies known injury, trauma or falls. Reports has been taking multiple medications from the ED and PCP without relief. Denies urinary incontinence/retention, fever, chills complaint: hip injury and leg injury Related Data Previous Rx's Medication Instructions Recorded doxycycline hyclate 100 mg PO BID 7 Days #14 cap 08/10/20 acetaminophen [Tylenol Extra 1,000 mg PO QID PRN #14 tab 12/04/20 Strength] lidocaine HCl [Aspercreme 1 appl TOPICAL BID PRN #120 g 12/04/20 (lidocaine HCl)] naproxen 500 mg PO BID PRN #10 tab 12/04/20 oxycodone 5 mg PO BID PRN #10 tab 12/04/20 prednisone 40 mg PO DAILY 5 Days #10 tab 12/04/20 acetaminophen [Tylenol Extra 500 mg PO Q6H PRN #20 tab 12/12/20 Strength] cyclobenzaprine 5 mg PO Q8H PRN 5 Days #14 tab 12/12/20 lidocaine [Lidoderm] 1 patch TOPICAL DAILY PRN #30 ea 12/12/20 MDD remove after 12 hours naproxen 500 mg PO BID PRN 10 Days #20 tab 12/12/20 Allergies Allergy/AdvReac Type Severity Reaction Status Date / Time No Known Allergies Allergy Verified 08/10/20 16:29 Review of Systems Review of Systems: Constitutional: No Fever, No Chills Cardiovascular: No Chest Pain, No SOB Respiratory: No Cough, No Sputum, No Wheezing Gastrointestinal: No Nausea, No Vomiting, No Abdominal pain Genitourinary: No Urinary Incontinence/retention Musculoskeletal: + joint pain, No Myalgias, No Joint Swelling Skin: No Skin Lesions, No rash Neuro: + Weakness, + Numbness, + Paresthesias Yes all other systems are reviewed and are negative Neurologic: Denies Sensory deficit (Neuro) [facility] Past Medical History Attestation statement: The following information was validated with the patient. Medical History ADHD Anxiety delivery delivered Hypertension Surgical History H/O: hysterectomy Social History Social History Alcohol intake: current Alcohol intake frequency: a few times a month Substance Use Type: Marijuana Advance Directives: Yes Advance Directives Information Provided: Yes Advance Directives on File: No Patient : No Physical Exam Vital Signs: Vital Signs: Last Vital Signs Temp 97.7 F 12/12/20 08:57 Pulse 83 12/12/20 08:57 Resp 16 12/12/20 08:57 BP 161/76 H 12/12/20 08:57 Pulse Ox 98 12/12/20 08:57 Body Mass Index 0.2 Const: General: cooperative, healthy appearing and no acute distress Orientation/consciousness: patient oriented x3 Limitations: no limitations HENMT: Head: Yes normal to inspection Ears: hearing grossly normal bilaterally General nose exam: Normal external nose present Face and sinus: Yes normal facial exam Eyes: General: appearance normal, both eyes and all related structures EOM: EOMs intact bilaterally Neck: Neck: Yes normal visual inspection Resp: Effort & Inspection: normal respiratory effort Cardio: Rate: regular rate Peripheral pulses: dorsalis pedis present Back/Spine/Pelvis: Other: No midline thoracic/lumbar spinous tenderness or step-offs. + right buttock tenderness to palpation Skin: Rashes: no rashes Wounds: no wounds Neuro: Other: Strength intact throughout. Sensation intact to light touch. No saddle anesthesia. Ambulating at baseline with cane General: patient oriented x3, gait normal, tone normal and moves all extremities Gait exam (Neuro): Normal gait present Motor exam (neuro): 5/5 motor strength present throughout Sensory Exam: No Sensory deficit (Neuro) Extrem: General: Yes normal to inspection MDM - Extremity Injury (Lower) MDM Narrative Medical decision making narrative: 60-year-old female with past medical history of hypertension, anxiety, ADHD presenting to the ED complaining of acute on chronic right buttock pain radiating down right lower extremity times months with associated numbness/tingling and weakness. On exam vital signs stable, NAD, nontoxic appearing, no midline spinous tenderness throughout, right buttock pain, no saddle anesthesia, sensation intact to light touch, no appreciable weakness. Likely sciatica in addition to patient's previously diagnosed Springer cyst Discussed with patient we will add on muscle relaxers/Lidoderm patches to regimen and have her follow-up with orthopedics Medical Records Attestation: I reviewed the patient's medical records. Discharge Plan Discharge Clinical Impression: Sciatica Qualifiers: Laterality: right Qualified Code(s): M54.31 - Sciatica, right side Patient Disposition: Home, Self-Care Instructions: Sciatica (ED) Additional Instructions: Your pain is likely musculoskeletal Flexeril is a muscle relaxer, take at night as it makes you drowsy, do not drive, drink alcohol, or operate machinery while taking it Naproxen as an anti-inflammatory / pain medication, take with food Lidoderm patches are numbing patches, apply to painful area In addition take Tylenol at home If symptoms persist or worsen, pain becomes unbearable, you developed urinary retention or incontinence, or weakness return to the ED Prescriptions: New lidocaine [Lidoderm] 5 % adhesive patch,medicated 1 patch topical DAILY MDD remove after 12 hours PRN (Reason: pain) Qty: 30 RF: 0 cyclobenzaprine 5 mg tablet 5 mg PO Q8H PRN (Reason: pain (scale score 7-10)) 5 Days Qty: 14 RF: 0 acetaminophen [Tylenol Extra Strength] 500 mg tablet 500 mg PO Q6H PRN (Reason: pain or fever) Qty: 20 RF: 0 naproxen 500 mg tablet 500 mg PO BID PRN (Reason: pain) 10 Days Qty: 20 RF: 0 No Action doxycycline hyclate 100 mg capsule 100 mg PO BID 7 Days Qty: 14 RF: 0 prednisone 20 mg tablet 40 mg PO DAILY 5 Days Qty: 10 RF: 0 lidocaine HCl [Aspercreme (lidocaine HCl)] 4 % cream 1 appl topical BID PRN (Reason: pain) Qty: 120 RF: 0 acetaminophen [Tylenol Extra Strength] 500 mg tablet 1,000 mg PO QID PRN (Reason: fever or pain) Qty: 14 RF: 0 naproxen 500 mg tablet 500 mg PO BID PRN (Reason: pain) Qty: 10 RF: 0 oxycodone 5 mg tablet 5 mg PO BID PRN (Reason: pain) Qty: 10 RF: 0 Referrals: Isabel Rogers PA-C [Physician Entry Level Marketing Representative] - 1 week
[2020-12-12] MEDS: Ketorolac Tromethamine 30 MG/ML VIAL IM (09:48)
== END 2020-12-12 09:59 | disposition home or self-care (01) ==
PROVIDERS: Emergency Provider Emergency Medicine; PCP Internal Medicine Geriatric Medicine
DX: M54.31 Sciatica, right side (principal); I10 Essential (primary) hypertension
CPT/HCPCS: 96372; 99283; 99284; J1885

== ENCOUNTER 2021-01-17 09:00 | Outpatient (RCR) | payer OTHER, SELFPAY ==
--- NOTE | 2021-01-10 11:33 | MHC.PT.EP ---
[facility] [place] [facility] [place] [facility] [place] [facility] [address] Dennis Graham [address] [phone] F: [phone] F: [phone] F: [phone] F: [phone] Physical Therapy Plan of Care Date of Evaluation: Date of Surgery: NA Diagnosis: right hip pain Assessment: The patient arrived with pain in her right hip and associated right radicular pain. She has reduced lumbar ROM, reduced core strength, poor body mechanics and poor posture mechanics which is limited by pain. The pt was given posture recommendations, body mechanics education, and she is showing signs of a posterolateral derangement. I will attempt the Alicja Method with her to alleviate her pain followed by core stabilization. I will give education on proper lifting, sitting, and sleeping mechanics to help prevent future occurrence. Frequency and Duration: The patient will be seen 2x/week x 4 weeks Short Term Goals: 1.Pt to able to demonstrate proper sitting posture with the use of a lumbar roll to decrease aggravating factors. 2.Pt to be able to demonstrate proper posture for common leisure activities such as crocheting and phone/tablet use. 3.For the patient to demonstrate proper upright sitting posture with use of the lumbar roll to improve compliance and carryover. Mcfp Goals: 1.The patient to demonstrate proper lifting mechanics for household chore activities to show improved functional mobility. 2.The patient to report no leg or hip pain in order to show centralization of pain and reduction of lumbar derangement 3. Pt to be able to demonstrate self management of lumbar pain by demonstration of HEP. Treatment Plan: Modalities to reduce pain, spasms and effusion. Manual therapy to restore motion and function. Therapeutic exercise to improve strength and flexibility. Neuromuscular re-education for posture and balance. Therapeutic activities to return to functional activities of daily living. Electronically signed by: Marilou Manuel PT DPT Please sign and return to therapist. Thank you for your referral.
== END 2021-04-29 07:58 | disposition home or self-care (01) ==
LOC: HO.PT 09:00
PROVIDERS: PCP Internal Medicine Geriatric Medicine; Visit Provider Internal Medicine
DX: M25.551 Pain in right hip (principal)
CPT/HCPCS: 97110; 97112; 97140; 97162

== ENCOUNTER 2021-10-03 08:18 | Outpatient (REF) | payer OTHER, SELFPAY ==
--- NOTE | ~2021-10-03 | MM_ITS ---
EXAMINATION: MM SCREENING DIGITAL BREAST TOMOSYNTHESIS, BILATERAL CLINICAL INFORMATION: Screening. Asymptomatic. The lifetime risk of breast cancer based on the Tyrer-Cuzick Model is 8%. COMPARISON: Mammography: 11/21/2018, 09/26/2017, 09/04/2016, 06/04/2015, 02/10/2019, 10/20/2009 TECHNIQUE: Digital breast tomosynthesis is performed in both the craniocaudal and mediolateral oblique views along with computer-aided detection (CAD). Synthesized 2D images are generated from the tomosynthesis. FINDINGS: There are scattered areas of fibroglandular density (ACR BI-RADS breast composition Category b). There are no significant masses, abnormal calcifications, or other abnormalities. There are scattered bilateral stable asymmetries. No developing density. The axilla are unremarkable. Skin contours are smooth. MM/MM tomosynthesis screening BI IMPRESSION: No mammographic evidence of malignancy. ASSESSMENT: BI-RADS 2: Benign RECOMMENDATION: Routine annual mammography screening. This patient's information was entered into a reminder system with a target due date for their next mammogram.
== END 2021-10-03 08:19 | disposition home or self-care (01) ==
LOC: HO.MAMMO 08:18
PROVIDERS: Visit Provider Internal Medicine Geriatric Medicine
DX: Z12.31 Encounter for screening mammogram for malignant neoplasm of breast (principal)
CPT/HCPCS: 77063; 77067

== ENCOUNTER 2021-12-05 07:22 | Outpatient (REF) | payer OTHER, SELFPAY ==
--- NOTE | ~2021-12-05 | XR_ITS ---
EXAMINATION: KNEE, BILATERAL KNEE STANDING, BILATERAL CLINICAL INFORMATION: Pain bilateral knee. COMPARISON: None TECHNIQUE: AP bilateral knee standing. 2 views each knee. FINDINGS: AP Bilateral Knee: There is moderate reduction in medial and lateral compartment joint space both knees without periarticular spurring or bony erosive changes. No visible acute fracture or dislocation seen. Left Knee: There is mild loss of lateral patellofemoral compartment joint space with minimal periarticular spurring. No abnormal joint effusion, loose bodies or bony erosive changes. No fracture or dislocation seen. Right Knee: There is mild reduction in the patellofemoral compartment joint space. No visible acute fracture, dislocation or subluxation seen. No bony erosive changes. No abnormal joint effusion. XR/XR knee standing BI IMPRESSION: Mild degenerative changes medial and lateral compartment and right patellofemoral compartment. No abnormal joint effusion, loose bodies or acute fracture seen.
--- NOTE | ~2021-12-05 | XR_ITS ---
EXAMINATION: KNEE, BILATERAL KNEE STANDING, BILATERAL CLINICAL INFORMATION: Pain bilateral knee. COMPARISON: None TECHNIQUE: AP bilateral knee standing. 2 views each knee. FINDINGS: AP Bilateral Knee: There is moderate reduction in medial and lateral compartment joint space both knees without periarticular spurring or bony erosive changes. No visible acute fracture or dislocation seen. Left Knee: There is mild loss of lateral patellofemoral compartment joint space with minimal periarticular spurring. No abnormal joint effusion, loose bodies or bony erosive changes. No fracture or dislocation seen. Right Knee: There is mild reduction in the patellofemoral compartment joint space. No visible acute fracture, dislocation or subluxation seen. No bony erosive changes. No abnormal joint effusion. XR/XR knee LT 2V IMPRESSION: Mild degenerative changes medial and lateral compartment and right patellofemoral compartment. No abnormal joint effusion, loose bodies or acute fracture seen.
--- NOTE | ~2021-12-05 | XR_ITS ---
EXAMINATION: KNEE, BILATERAL KNEE STANDING, BILATERAL CLINICAL INFORMATION: Pain bilateral knee. COMPARISON: None TECHNIQUE: AP bilateral knee standing. 2 views each knee. FINDINGS: AP Bilateral Knee: There is moderate reduction in medial and lateral compartment joint space both knees without periarticular spurring or bony erosive changes. No visible acute fracture or dislocation seen. Left Knee: There is mild loss of lateral patellofemoral compartment joint space with minimal periarticular spurring. No abnormal joint effusion, loose bodies or bony erosive changes. No fracture or dislocation seen. Right Knee: There is mild reduction in the patellofemoral compartment joint space. No visible acute fracture, dislocation or subluxation seen. No bony erosive changes. No abnormal joint effusion. XR/XR knee RT 2V IMPRESSION: Mild degenerative changes medial and lateral compartment and right patellofemoral compartment. No abnormal joint effusion, loose bodies or acute fracture seen.
== END 2021-12-05 07:23 | disposition home or self-care (01) ==
LOC: HO.HOSX 07:22
PROVIDERS: Visit Provider Physician Assistant
DX: M17.0 Bilateral primary osteoarthritis of knee (principal)
CPT/HCPCS: 73560; 73565; 99202

== ENCOUNTER 2022-04-14 09:24 | Outpatient (REF) | payer OTHER, SELFPAY ==
[2022-04-14 13:16] LABS: Influenza A PCR NEGATIVE (Negative); Influenza B PCR NEGATIVE (Negative); Resp Syncy Virus RNA Qual PCR NEGATIVE (Negative); SARS COV2 PCR INHOUSE POSITIVE (Negative)
== END 2022-04-14 09:25 | disposition home or self-care (01) ==
LOC: HO.LAB 09:24
PROVIDERS: Visit Provider Nurse Practitioner Family
DX: Z20.822 Contact with and (suspected) exposure to COVID-19 (principal); R09.89 Other specified symptoms and signs involving the circulatory and respiratory systems
CPT/HCPCS: 0241U

== ENCOUNTER 2022-10-09 08:14 | Outpatient (REF) | payer OTHER, SELFPAY ==
--- NOTE | ~2022-10-09 | MM_ITS ---
EXAMINATION: MM SCREENING DIGITAL BREAST TOMOSYNTHESIS, BILATERAL CLINICAL INFORMATION: Screening. Asymptomatic. The lifetime risk of breast cancer based on the Tyrer-Cuzick Model is 9.4%. COMPARISON: Mammography: October 03, 2021 and studies dating back to June 04, 2015 TECHNIQUE: Digital breast tomosynthesis is performed in both the craniocaudal and mediolateral oblique views along with computer-aided detection (CAD). Synthesized 2D images are generated from the tomosynthesis. FINDINGS: The breasts are heterogeneously dense, which may obscure small masses (ACR BI-RADS breast composition Category c). There are no significant masses, abnormal calcifications, or other abnormalities. MM/MM tomosynthesis screening BI IMPRESSION: No significant changes from prior exam. ASSESSMENT: BI-RADS 1: Negative RECOMMENDATION: Routine annual mammography screening. This patient's information was entered into a reminder system with a target due date for their next mammogram.
== END 2022-10-09 08:15 | disposition home or self-care (01) ==
LOC: HO.MAMMO 08:14
PROVIDERS: Visit Provider Internal Medicine Geriatric Medicine
DX: Z12.31 Encounter for screening mammogram for malignant neoplasm of breast (principal)
CPT/HCPCS: 77063; 77067

== ENCOUNTER 2023-02-16 10:36 | Outpatient (REF) | payer OTHER, SELFPAY ==
[2023-02-16 13:04] LABS: Vitamin D 25-OH Total 39.9 ng/mL (>30)
== END 2023-02-16 10:37 | disposition home or self-care (01) ==
LOC: HO.HHCL 10:36
PROVIDERS: Visit Provider Internal Medicine Geriatric Medicine
DX: T46.6X5A Adverse effect of antihyperlipidemic and antiarteriosclerotic drugs, initial encounter (principal); G72.0 Drug-induced myopathy
CPT/HCPCS: 36415; 82306

== ENCOUNTER 2023-03-29 13:22 | Outpatient (REF) | payer OTHER, SELFPAY ==
[2023-03-29 14:13] LABS: MANUAL DIFF FLAG NO
[2023-03-29 15:00] LABS: Basophils Absolute Auto 0.1 X10*3/uL (0.0-0.2); Basophils Percent Auto 0.6 % (0-2); Eosinophils Absolute Auto 0.1 X10*3/uL (0.0-0.4); Eosinophils Percent Auto 1.4 % (0-4); Hematocrit 39.8 % (37.0-47.0); Hemoglobin 13.1 g/dl (12.0-16.0); Imm Gran Abs Auto 0.06 X10*3/uL (0.00-0.03); Imm Gran Pct Auto 0.6 % (0.0-0.4); Lymphocytes Absolute Auto 3.1 X10*3/uL (1.2-4.9); Lymphocytes Percent Auto 32.2 % (20-40); Mean Corpuscular HGB Conc 32.9 g/dl (31.0-35.0); Mean Corpuscular Hemoglobin 31.3 pg (27.0-33.0); Mean Corpuscular Volume 95.2 fL (80.0-98.0); Mean Platelet Volume 10.3 fL (9.4-12.3); Monocytes Absolute Auto 1.1 X10*3/uL (0.1-1.2); Monocytes Percent Auto 11.4 % (2-11); Neutrophils Absolute Auto 5.2 x10*3/uL (2.0-8.3); Neutrophils Percent Auto 53.8 % (45-73); Platelet Count 391 X10*3/uL (160-400); Red Blood Count 4.18 X10*6/uL (4.20-5.50); White Blood Count 9.7 X10*3/uL (4.8-10.8)
[2023-03-29 15:37] LABS: Alanine Aminotransferase 21 U/L (0-31); Albumin Level 4.5 g/dL (3.5-5.0); Alkaline Phosphatase 77 U/L (39-117); Anion Gap 16 (12-20); Aspartate Amino Transferase 19 U/L (5-31); Bilirubin Total 0.3 mg/dL (0.0-1.0); Blood Urea Nitrogen 15 mg/dL (9-16); Calcium 9.6 mg/dL (8.4-10.2); Carbon Dioxide 21 mmol/L (22-29); Chloride 105 mmol/L (96-108); Estimated Glomerular Filt Rate > 60; Glucose Random 90 mg/dL (60-115); Sodium 138 mmol/L (135-145); Total Protein 7.2 g/dL (6.5-8.0)
[2023-03-29 15:47] LABS: Thyroid Stimulating Hormone 1.46 uIU/mL (0.32-4.0)
[2023-04-01 15:08] LABS: HCV Log PCR <1.18 NOT DETECTED Log IU/mL (NOT DETECTED); HepC Viral Load <15 NOT DETECTED IU/mL (NOT DETECTED)
== END 2023-03-29 13:23 | disposition home or self-care (01) ==
LOC: HO.LAB 13:22
PROVIDERS: PCP Internal Medicine Geriatric Medicine; Visit Provider Physician Assistant
DX: Z01.818 Encounter for other preprocedural examination (principal); F41.9 Anxiety disorder, unspecified; K58.9 Irritable bowel syndrome, unspecified; R19.8 Other specified symptoms and signs involving the digestive system and abdomen; B19.20 Unspecified viral hepatitis C without hepatic coma; Z79.899 Other long term (current) drug therapy
CPT/HCPCS: 36415; 80053; 84443; 85025; 87522

== ENCOUNTER 2023-03-29 13:22 | Outpatient (AMB) | payer OTHER, SELFPAY ==
[2023-03-29 13:27] VITALS: BP 139/67; PULSE 69; BMI 25.2
--- NOTE | 2023-03-29 13:27 | MHC.OFFVIS ---
Intake Vital Signs 03/29/23 13:27 Height 5 ft 2 in Weight 138 lb 0.15 oz BMI 25.2 BP 139/67 Blood Pressure Location Lt brachial Position Sitting Pulse 69 Intake Visit Reasons: Colonoscopy Screening Intake Note: Patient presents to in office visit today as a new patient for colonoscopy screening. Patient report she believes she had last colonoscopy 10 years ago at [facility]. CC: Patient report she had diarrhea for about 2 months in a row but this subsided about a month and a half ago. She is now having regular BMs. Denies other GI concerns today. 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 she has no nausea, vomiting, hematemesis, hematochezia fevers chills [facility] Medical History delivery delivered Anxiety ADHD Hypertension Surgical History History of carpal tunnel surgery S/P section H/O: hysterectomy Family History Brother Cancer Social History Alcohol intake: current Alcohol intake frequency: a few times a month Tobacco use type: Cigarette Cigarette Packs Per Day: 1 Years Smoked: 30 years Substance Use Type: Marijuana Review of Systems Const Details: All systems reviewed new negative All systems reviewed & are unremarkable except as noted in HPI and below Card Denies chest pain and Denies dyspnea Resp Denies dyspnea Physical Exam Vital Signs: Last Vital Signs Pulse 69 03/29/23 13:27 BP 139/67 1005/23 13:27 BMI result Body Mass Index 25.2 Const General: cooperative, healthy appearing, comfortable and no acute distress Limitations: no limitations Eyes Sclerae: sclerae normal Resp Effort & Inspection: normal respiratory effort and able to speak in complete sentences Auscultation: clear to auscultation bilaterally, no rales, no rhonchi and no wheezes Cardio Rate: regular rate Rhythm: regular rhythm Heart sounds: S1 normal heart sound present and S2 normal heart sound present GI Palpation (GI): Soft to palpation and nontender Auscultation: normal bowel sounds Skin General skin exam: no rashes or lesions noted Extrem General: Yes full ROM Psych Appearance: grossly normal Mental Status: mental status grossly normal Speech and movement: Normal speech and movement present and Clear speech present Affect: normal affect Attitude: cooperative Thought process: Normal thought process present Thought content: Normal thought content present Insight: Good insight present (Psych) Judgement: Good judgement present (Psych) Assessment & Plan Assessment & Plan (1) Encounter for screening colonoscopy: Code(s): Z12.11 - Encounter for screening for malignant neoplasm of colon Plan: Discussed procedure, rare risks, need for escort due to anesthesia Plan Screening colonoscopy MiraLax Gatorade split prep Orders: Orders Complete Blood Count Auto Diff 03/29/23 F41.9 - Anxiety disorder, unspecified, Z12.11 - Encounter for screening for malignant neoplasm of colon Comprehensive Met. Panel 03/29/23 K58.9 - Irritable bowel syndrome without diarrhea Hepatitis C Viral Load 03/29/23 B19.20 - Unspecified viral hepatitis C without hepatic coma Colonoscopy - GI Use Only 03/29/23 Z12.11 - Encounter for screening for malignant neoplasm of colon Thyroid Stimulating Hormone 03/29/23 R19.8 - Other specified symptoms and signs involving the digestive system and abdomen Medications: New bisacodyl (Dulcolax (bisacodyl)) Day before procedure, prep day Take 4 tablets by mouth upon awakening followed by large glass of water 20 mg (4 x 5 mg) PO ONCE 1 day 4 tabs 0RF colonoscopy prep Z12.11 - Encounter for screening for malignant neoplasm of colon polyethylene glycol 3350 (Miralax) Take as directed by mouth the day before your procedure. 238 grams PO ONCE 1 day PRN 238 grams 0RF laxative effect Patient Instructions: Pleasant, somewhat anxious 62-year-old female referred for index screening colonoscopy she has no GI complaints Discussed procedure, rare risks, need for escorted due to anesthesia MiraLax Gatorade split prep literature given Opportunity for questions, agrees to proceed Encourage to call questions or concerns Coding Level of Care Code New Pt Level 3 (37879) Diagnoses Encounter for screening colonoscopy Z12.11 Time Spent (min) 30
== END 2023-03-29 14:25 | disposition home or self-care (01) ==
PROVIDERS: PCP Internal Medicine Geriatric Medicine; Visit Provider Physician Assistant
DX: Z12.11 Encounter for screening for malignant neoplasm of colon (principal); Z01.818 Encounter for other preprocedural examination
CPT/HCPCS: 99203

== ENCOUNTER 2023-07-06 11:34 | Outpatient (REF) | payer OTHER, SELFPAY ==
--- NOTE | ~2023-07-06 | XR_ITS ---
EXAMINATION: XR CHEST CLINICAL INFORMATION: History of smoking, shortness of breath. COMPARISON: Chest radiograph 08/10/2020. TECHNIQUE: 2 views of the chest were obtained. FINDINGS: Normal appearance of the cardiomediastinal silhouette. No focal airspace opacities, pleural effusion or pneumothorax. No acute osseous findings. Visualized upper abdomen is within normal limits. XR/XR chest 2V IMPRESSION: No acute cardiopulmonary findings.
--- NOTE | ~2023-07-06 | XR_ITS ---
EXAMINATION: XR KNEE, RIGHT CLINICAL INFORMATION: Knee pain. COMPARISON: Radiograph right knee 12/05/2021. TECHNIQUE: Four views of the right knee. FINDINGS: No fracture or malalignment. Mild joint space narrowing of the medial and patellofemoral compartments. Subtle vacuum phenomena in the medial compartment. No osseous erosions. No chondrocalcinosis. No joint effusion. XR/XR knee RT 4V IMPRESSION: 1. Subtle vacuum phenomena in the medial compartment that could be seen with underlying meniscal injuries, further evaluation with an MRI as clinically warranted. 2. Mild degenerative osteoarthritis of the medial and patellofemoral compartments.
== END 2023-07-06 11:35 | disposition home or self-care (01) ==
LOC: HO.HHCX 11:34
PROVIDERS: Visit Provider Internal Medicine Geriatric Medicine
DX: R06.09 Other forms of dyspnea (principal); M25.561 Pain in right knee; G89.29 Other chronic pain; F17.210 Nicotine dependence, cigarettes, uncomplicated
CPT/HCPCS: 71046; 73564

== ENCOUNTER 2023-07-06 12:03 | Outpatient (REF) | payer OTHER, SELFPAY ==
[2023-07-06 13:11] LABS: MANUAL DIFF FLAG NO
[2023-07-06 13:23] LABS: Basophils Absolute Auto 0.1 X10*3/uL (0.0-0.2); Basophils Percent Auto 0.6 % (0-2); Eosinophils Absolute Auto 0.1 X10*3/uL (0.0-0.4); Hematocrit 38.4 % (37.0-47.0); Hemoglobin 12.8 g/dl (12.0-16.0); Imm Gran Abs Auto 0.07 X10*3/uL (0.00-0.03); Imm Gran Pct Auto 0.7 % (0.0-0.4); Lymphocytes Absolute Auto 2.6 X10*3/uL (1.2-4.9); Lymphocytes Percent Auto 26.9 % (20-40); Mean Corpuscular HGB Conc 33.3 g/dl (31.0-35.0); Mean Corpuscular Hemoglobin 30.6 pg (27.0-33.0); Mean Corpuscular Volume 91.9 fL (80.0-98.0); Mean Platelet Volume 9.9 fL (9.4-12.3); Monocytes Percent Auto 9.8 % (2-11); Neutrophils Absolute Auto 5.9 x10*3/uL (2.0-8.3); Platelet Count 360 X10*3/uL (160-400); Red Blood Count 4.18 X10*6/uL (4.20-5.50); Red Cell Distribution Width 13.2 % (11.0-16.0); White Blood Count 9.7 X10*3/uL (4.8-10.8)
[2023-07-06 14:09] LABS: Alanine Aminotransferase 24 U/L (0-31); Albumin Level 4.6 g/dL (3.5-5.0); Alkaline Phosphatase 74 U/L (39-117); Anion Gap 13 (12-20); Aspartate Amino Transferase 17 U/L (5-31); Bilirubin Total 0.4 mg/dL (0.0-1.0); Blood Urea Nitrogen 16 mg/dL (9-16); Calcium 9.5 mg/dL (8.4-10.2); Carbon Dioxide 23 mmol/L (22-29); Chloride 105 mmol/L (96-108); Cholesterol 239 mg/dL (<200); Estimated Glomerular Filt Rate > 60; Glucose Random 104 mg/dL (60-115); HDL Cholesterol 88 mg/dL (>40); LDL Cholesterol Calculated 142 mg/dL (<100); Potassium 3.9 mmol/L (3.3-5.1); Sodium 137 mmol/L (135-145); Total Protein 7.4 g/dL (6.5-8.0); Triglycerides 48 mg/dL (<150)
== END 2023-07-06 12:04 | disposition home or self-care (01) ==
LOC: HO.HHCL 12:03
PROVIDERS: Visit Provider Internal Medicine Geriatric Medicine
DX: R07.9 Chest pain, unspecified (principal); R20.2 Paresthesia of skin; R06.09 Other forms of dyspnea
CPT/HCPCS: 36415; 80053; 80061; 85025

== ENCOUNTER 2023-07-20 14:44 | Outpatient (AMB) | payer OTHER, SELFPAY ==
--- NOTE | 2023-07-20 14:46 | AM.OFFWIN_ITS ---
Intake Intake Visit Reasons: EP cough bronchitis masked in lobby Allergies Penicillins Adverse Reaction (Verified 03/29/23 13:31) thrush [facility] Medical History delivery delivered Anxiety ADHD Hypertension Surgical History History of carpal tunnel surgery S/P section H/O: hysterectomy Family History Brother Cancer Social History Alcohol intake: current Alcohol intake frequency: a few times a month Tobacco use type: Cigarette Cigarette Packs Per Day: 1 Years Smoked: 30 years Substance Use Type: Marijuana Coding
[2023-07-20 14:47] VITALS: BP 122/70; PULSE 96; O2SAT 94; BMI 25.6
--- NOTE | 2023-07-20 14:47 | MHC.OFFWIV ---
Intake Vital Signs 07/20/23 14:47 Height 5 ft 2 in Weight 63.503 kg BMI 25.6 BP 122/70 Blood Pressure Location Lt brachial Position Sitting Pulse 96 Pulse Source Pulse Oximeter Pulse Oximetry (%) 94 Oxygen Delivery Method Room Air Intake Visit Reasons: EP cough bronchitis masked in lobby Intake Note: pt is here today for cough bronchitis started 1 week ago Patient Tobacco Use Status: Former Tobacco user Allergies Penicillins Adverse Reaction (Verified 07/20/23 14:52) thrush Do you need a note to return to daycare/school/sports/work: No HPI HPI Comments History of Present Illness Details 1448 63 year old female former smoker, hx of htn presents w/ fatigue, malaise, dry cough on going for a week not improving it was a productive cough now dry and very uncomfortable. Reports its wors at night. Denies fevers, chills, cp , sob, weezing, headache, dizziness, n/v/d, abd pain. No sick contacts . PE faint expiratory wheezing b/l History and physical exam concerning for bronchitis versus viral illness. Unlikely PE, ACS, dissection. No signs of acute respiratory distress Plan- dc w/ atbx, inhaler, steroids. Educated patient on diagnosis and treatment plan, answered all question, patient verbalizes understanding. At this time patient will be discharged home, advised to return with new or worsening symptoms. Educated on worrisome signs and symptoms and when to return. At this time I feel comfortable discharge home. [facility] Medical History delivery delivered Anxiety ADHD Hypertension Surgical History History of carpal tunnel surgery S/P section H/O: hysterectomy Family History Brother Cancer Social History Alcohol intake: current Alcohol intake frequency: a few times a month Patient Tobacco Use Status: Former Tobacco user Tobacco use type: Cigarette Cigarette Packs Per Day: 1 Years Smoked: 30 years Substance Use Type: Marijuana Review of Systems Const Details: Constitutional : No Weight loss, No Fever, No Chills, + Fatigue, + Malaise ENT/Mouth : No sore throat, No Rhinorrhea Eyes: No Eye Pain, No Swelling, No Redness Cardiovascular : No Chest Pain, No SOB, No Dyspnea on Exertion, No Orthopnea, No Edema, No Palpitations Respiratory : + Cough, No Sputum, No Wheezing Gastrointestinal : No Nausea, No Vomiting, No Diarrhea, No Constipation, No abdominal Pain, No Hematochezia, No Melena Genitourinary : No Dysuria, No Urinary Frequency, No Hematuria, Musculoskeletal : No joint pain, No Myalgias, No Joint Swelling Skin : No Skin Lesions, No rash Neuro : No Weakness, No Numbness, No Dizziness, No Headache Psych : No Anxiety/Panic, No Depression All other systems reviewed and are negative All systems reviewed & are unremarkable except as noted in HPI and below Physical Exam Vital Signs: Last Vital Signs Pulse 96 07/20/23 14:47 BP 122/70 07/20/23 14:47 Pulse Ox 94 07/20/23 14:47 Oxygen Delivery Method Room Air 07/20/23 14:47 BMI result Body Mass Index 25.6 vss Appearance: Alert.? Oriented X3.? No acute distress.? Head: Normocephalic, atraumatic, no step-offs or deformities Eyes: Pupils equal, round and reactive to light.? Neck: Normal inspection.? Neck supple.? CVS: Normal heart rate and rhythm.? Pulses normal.? Respiratory: No respiratory distress.? Breath sounds faint expiratory wheezng b/l. .? Abdomen: Soft and nontender.? Skin: Skin warm and dry.? Normal skin color.? Normal skin turgor.? Extremities: No lower extremity edema.? No calf ttp. 5/5 strength to bilateral upper and lower extremities Back: No midline tenderness, no C-spine tenderness, full range of motion, no CVA tenderness bilaterally Neuro: Oriented X 3.? No motor deficit.? No sensory deficit. CN 2-12 intact Assessment & Plan Assessment & Plan (1) Viral illness: Code(s): B34.9 - Viral infection, unspecified Plan Take your medications as prescribed. If you were prescribed antibiotics today, it is important that you take your medication to their entirety, do not skip any doses, do not finish them early. Follow-up with your primary care provider this week. Return to the emergency department with new or worsening symptoms. Such as fevers, chills, chest pain, shortness of breath, nausea, vomiting, dizziness, headache, vision changes, lethargy In case of emergency call 911 Medications: New doxycycline hyclate 100 mg PO BID 14 caps 0RF 7 days benzonatate 100 mg PO BID PRN 14 caps 0RF cough prednisone 40 mg (2 x 20 mg) PO DAILY 10 tabs 0RF 5 days albuterol sulfate 90 mcg/actuation 2 puffs inhalation Q6H PRN 6.7 grams 0RF shortness of breath or wheezing Coding Level of Care Code Est Pt Level 3 (08572) Diagnoses Viral illness B34.9
== END 2023-07-20 16:02 | disposition home or self-care (01) ==
PROVIDERS: PCP Internal Medicine Geriatric Medicine; Visit Provider Physician Assistant
DX: B34.9 Viral infection, unspecified (principal)
CPT/HCPCS: 99213

== ENCOUNTER 2023-07-24 05:15 | Emergency (ER) | payer OTHER, SELFPAY ==
--- NOTE | ~2023-07-24 | XR_ITS ---
EXAMINATION: CHEST 2 VIEWS CLINICAL INFORMATION: productive cough. COMPARISON: 07/06/2023. TECHNIQUE: PA and lateral views of the chest obtained. FINDINGS: The lungs are well expanded. No focal infiltrate, effusion, edema, or pneumothorax. Cardiac and mediastinal silhouettes are within normal limits for technique. No acute bony abnormality seen XR/XR chest 2V IMPRESSION: No evidence of acute disease
[2023-07-24 05:36] VITALS: BP 150/70; PULSE 79; RESP 16; TEMP 37.2; O2SAT 97
[2023-07-24 05:52] VITALS: BMI 24.8
[2023-07-24 06:10] LABS: COVID-19 Test Negative (Negative); IDNOW Serial# 08D9AD1C; IDNOW Serial# 152EDE1D; Influenza A Negative (Negative); Influenza B2 Negative (Negative)
--- NOTE | 2023-07-24 06:36 | ED.GENADULT ---
HPI - General Adult General Chief complaint: Dyspnea Stated complaint: flu like symptoms Time Seen by Provider: 07/24/23 06:35 Source: patient Mode of arrival: ambulatory Limitations: no limitations History of Present Illness HPI narrative: 63 year old female, 30 pack year smoker (recently quit 1 mo ago- using nicotine patch), ADHD, anxiety, hypertension presents to the ED this morning for evaluation of persistent productive cough and shortness of breath x 8 days. Cough is productive of yellow sputum. She was seen at urgent care 5 days ago for these symptoms and prescribed doxycycline, prednisone, albuterol inhaler, and Tessalon Perles that she has been taking without relief of symptoms. Endorses frustration with cough as it is keeping her up at night. Adds that she has bilateral rib pain from coughing. Denies fever, chills, sore throat, ear pain, chest pain, wheezing, dyspnea, hemoptysis, hematemesis, post-tussive vomiting, nausea/vomiting, abdominal pain. Denies recent travel or long car rides. Denies known sick contacts. Related Data Home Medications Medication Instructions Recorded Confirmed amlodipine 10 mg tablet 10 mg PO DAILY 04/29/22 lisinopril 20 mg tablet 20 mg PO DAILY 03/29/23 Previous Rx's Medication Instructions Recorded albuterol sulfate 90 mcg/actuation 2 puff inhalation Q6H PRN 07/20/23 aerosol inhaler shortness of breath or wheezing #6.7 grams benzonatate 100 mg capsule 100 mg PO BID PRN cough #14 caps 07/20/23 doxycycline hyclate 100 mg capsule 100 mg PO BID 7 days #14 caps 07/20/23 lidocaine 4 % topical patch 1 patch topical DAILY PRN pain #15 07/20/23 (AsperFlex (lidocaine)) ea prednisone 20 mg tablet 40 mg (2 x 20 mg) PO DAILY 5 days 07/20/23 #10 tabs Allergies Allergy/AdvReac Type Severity Reaction Status Date / Time Penicillins AdvReac thrush Verified 07/24/23 05:51 Review of Systems Review of Systems: Constitutional: No fever, chills, fatigue, night sweats, weight changes ENT/Mouth: No ear pain, hearing loss, nasal congestion, sinus pain, rhinorrhea, +sore throat, +odynophagia, No dysphagia Eyes: No eye pain, swelling, redness, vision changes, discharge Cardio: No chest pain, palpitations, FLOREZ, orthopnea, peripheral edema Pulm: No SOB, +cough, +sputum, No wheezing, dyspnea, hemoptysis GI: No nausea, vomiting, hematemesis, abdominal pain, diarrhea, constipation, hematochezia, melena : No irregular bleeding, dysuria, frequency, urgency, hesitancy, hematuria, flank pain MSK: No back pain, neck pain, joint pain, myalgias, +rib pain Skin: No lesions, rashes Neuro: No weakness, numbness, paresthesias, LOC, dizziness, headache All other systems reviewed and are negative. [facility] Past Medical History Attestation statement: The following information was validated with the patient. Source: old records reviewed and nursing notes reviewed Medical History delivery delivered Anxiety ADHD Hypertension Surgical History History of carpal tunnel surgery S/P section H/O: hysterectomy Family History Family History Brother Cancer Social History Social History Alcohol intake: current Alcohol intake frequency: a few times a month Patient Tobacco Use Status: Former Tobacco user Tobacco use type: Cigarette Cigarette Packs Per Day: 1 Years Smoked: 30 years Substance Use Type: Marijuana Advance Directives: No Advance Directives Information Provided: No Physical Exam ED Vital Signs: Vital Signs - 24 hr 07/24/23 05:36 Temperature 98.9 F Pulse Rate 79 Respiratory Rate 16 Blood Pressure 150/70 H Pulse Oximetry 97 Oxygen Delivery Method Room Air BMI result Body Mass Index 24.8 Hypertensive, vitals otherwise WNL. Const General: cooperative, healthy appearing, comfortable, no acute distress, alert and awake Orientation/consciousness: patient oriented x3 Limitations: no limitations HENMT Other: + posterior oropharynx without erythema or edema, uvula is midline, no tonsilar exudates or peritonsillar masses, controlling secretions and speaking in complete sentences. Head: Yes normal to inspection, Yes normocephalic and Yes atraumatic General nose exam: Normal external nose present and No nasal discharge present Face and sinus: Yes normal facial exam and Yes sinuses nontender Eyes General: appearance normal, both eyes and all related structures Conjunctivae: conjunctivae normal Sclerae: sclerae normal Pupils: Equal, round and reactive pupils present Neck Other: + no cervical, submandibular or submental LAD. Neck: Yes normal visual inspection and Yes full ROM Chest Chest palpation & inspection: normal inspection of the chest and normal palpation of entire chest wall Resp Effort & Inspection: normal respiratory effort and able to speak in complete sentences Auscultation: clear to auscultation bilaterally, no crackles and no wheezes Cardio Jugular venous distension: no JVD Rate: regular rate Rhythm: regular rhythm Skin General skin exam: no rashes or lesions noted Neuro General: patient oriented x3 and gait normal Cranial nerves: Yes Equal, round and reactive pupils present Extrem General: Yes normal to inspection Course Course Course Narrative: 0750-- patient tested negative for both COVID and influenza. Her checks x-ray does not demonstrate infiltrate or consolidation to suggest pneumonia. There are no signs of pleural effusion on either physical exam or chest x-ray. Patient likely has an upper respiratory infection. She was prescribed doxycycline, prednisone and Tessalon Perles by urgent care a few days ago. I encouraged her to continue these medications to completion. I explained to her that symptoms can last anywhere from 1-3 weeks. She has remained stable throughout her stay in the ED today. Discussed worrisome signs and symptoms of when to return to the ED. All questions answered at this time. Patient is agreeable with disposition and stable for discharge. > given her history of smoking tobacco, I have provided her with a referral to a learning support specialist to establish care. Medications Administered Discontinued Medications Generic Name Dose Route Start Last Admin Trade Name Freq PRN Reason Stop Dose Admin Acetaminophen 975 mg 07/24/23 05:16 07/24/23 06:53 Acetaminophen 325 Mg Tablet PO 07/24/23 05:17 975 mg ONCE ONE Administration Ibuprofen 400 mg 07/24/23 05:16 07/24/23 06:54 Ibuprofen 400 Mg Tablet PO 07/24/23 05:17 400 mg ONCE ONE Administration Medical Decision Making Medical Decision Making [facility] Narrative: 63 year old female, 30 pack year smoker (recently quit 1 mo ago), ADHD, anxiety, hypertension presents to the ED this morning for evaluation of persistent productive cough and shortness of breath x 8 days. Patient hypertensive to 150/70, vitals otherwise WNL. Afebrile. Patient is nontoxic-appearing and in no acute distress. Voice is hoarse. Actively coughing on exam. Anterior, lateral, posterior chest wall nontender to palpation. No crepitus. Lungs are clear to auscultation bilaterally. No wheezes, rhonchi or crackles. RRR. Posterior oropharynx without erythema or edema, uvula midline, no tonsillar edema or exudates, controlling secretions and speaking in complete sentences. No calf tenderness or erythema. Ambulating with steady gait. Clinical concern for viral syndrome, acute bronchitis, upper respiratory infection, pneumonia. Lower suspicion for pleural effusion, electrolyte abnormality, anemia. Unlikely pulmonary embolism, lung abscess, ACS, arrhythmia. Plan for flu and COVID swabs, chest x-ray, re-evaluation. Differential Diagnosis Differential Diagnoses: The differential diagnosis associated with the presentation includes as above. Admission/Observation Not indicated Lab Data MDM Lab Attestation statement: I reviewed the patient's lab results. as above Labs: Lab Results 07/24/23 Range/Units 05:48 COVID-19 ([facility]ER) Negative (Negative) COVID-19 Clin Com See Note Influenza Type A ([facility]) Negative (Negative) Influenza Type B ([facility]) Negative (Negative) Influenza A & B Note See Note Independent Interpretation I performed an independent interpretation of an: Plain X-Ray Interpretation: I personally reviewed chest x-ray and agree with radiologist's interpretation. Radiology Impression Discussion of test interpretation with radiology: I have reviewed the radiologist's reading. Radiologist Impression: XR chest 2V IMPRESSION: No evidence of acute disease External Record Review External record reviewed: Inpatient record Prescription Management I considered prescription management with: Pain Medication, Antibiotic and Other (steroid) Chronic Conditions Patient?s care impacted by: Other (30 pack-year history) Social Determinants Patient?s care significantly limited by Social Determinants of Health including: Other Social Determinant of Health Critical Care Time Critical Care Time Critical Care Time: No Discharge Plan Discharge Clinical Impression: Upper respiratory infection Patient Disposition: Home, Self-Care Instructions: Upper Respiratory Infection (ED), Acute Bronchitis (ED), Viral Syndrome (ED) Additional Instructions: You were evaluated for persistent cough and shortness of breath in the ED today. Your physical exam is benign and your lungs sound clear. You tested negative for both influenza and COVID. Your chest x-ray was normal and does not demonstrate signs of pneumonia, fluid in your lungs, or acute rib fracture. Your symptoms are consistent with an upper respiratory infection. Your symptoms can last anywhere from 1-3 weeks. You may continue taking the medications that were prescribed to you at urgent care. Take Tylenol and ibuprofen as needed for body aches or fevers. If symptoms persist longer than 3 weeks, please follow-up with your primary care provider, return to urgent care, or return to the ED. Given your history tobacco smoking, I have provided you with a referral to a learning support specialist (lung doctor) to establish care. You may call them to make an appointment. They will not call you. [facility] Pulmonology Services: [phone] Prescriptions: No Action amlodipine 10 mg tablet 10 mg PO DAILY doxycycline hyclate 100 mg capsule 100 mg PO BID 7 Days Qty: 14 0RF prednisone 20 mg tablet 40 mg PO DAILY 5 Days Qty: 10 0RF albuterol sulfate 90 mcg/actuation HFA aerosol inhaler 2 puff inhalation Q6H PRN (Reason: shortness of breath or wheezing) Qty: 6.7 0RF benzonatate 100 mg capsule 100 mg PO BID PRN (Reason: cough) Qty: 14 0RF lidocaine [AsperFlex (lidocaine)] 4 % adhesive patch,medicated 1 patch topical DAILY PRN (Reason: pain) Qty: 15 0RF lisinopril 20 mg tablet 20 mg PO DAILY Referrals: [facility] Pulmonology Services [Provider Group] - 10 days Stand Alone Forms: Work/School Release
[2023-07-24] MEDS: Acetaminophen 325 MG TABLET 975 MG PO (06:53)
[2023-07-24] MEDS: Ibuprofen 400 MG TABLET PO (06:54)
== END 2023-07-24 07:58 | disposition home or self-care (01) ==
PROVIDERS: Student in an Organized Health Care Education/Training Program; Emergency Provider Emergency Medicine Emergency Medical Services; PCP Internal Medicine Geriatric Medicine
DX: J06.9 Acute upper respiratory infection, unspecified (principal); R06.02 Shortness of breath; R05.9 Cough, unspecified; Z11.52 Encounter for screening for COVID-19; Z87.891 Personal history of nicotine dependence
CPT/HCPCS: 71046; 87502; 87635; 99283

== ENCOUNTER 2023-09-05 07:30 | Day surgery (SDC) | payer OTHER, SELFPAY ==
[2023-09-03 10:50] VITALS: BMI 25.2
--- NOTE | 2023-09-03 13:38 | HO.ANESPROP2 ---
Documented by User: Francine Oliver NP 09/03/23 13:39 HPI - Anesthesia Eval Consult details Narrative: 63yo F for Colonoscopy PMFSH Active Problems Active Problems: All Active Problems (Updated 09/03/23 @ 10:51 by Elba Ricardo RN) Encounter for screening colonoscopy (Acute) Impacted cerumen, left ear (Acute) Sinusitis (Acute) Viral upper respiratory illness (Acute) Osteoarthritis of knees, bilateral (Acute) Hypertension (Acute) Anxiety (Acute) ADHD (Acute) Past Medical History Medical History Elevated cholesterol delivery delivered Anxiety ADHD Hypertension Family History Family History Brother Cancer Surgical History Surgical History H/O colonoscopy History of carpal tunnel surgery S/P section H/O: hysterectomy Social History Social History Alcohol intake: current Alcohol intake frequency: a few times a month Patient Tobacco Use Status: Former Tobacco user Tobacco use type: Cigarette Cigarette Packs Per Day: 1 Years Smoked: 30 years Substance Use Type: Marijuana Advance Directives: No Advance Directives Information Provided: Yes Meds Allergies Allergy/AdvReac Type Severity Reaction Status Date / Time Penicillins AdvReac thrush Verified 09/05/23 07:56 Home Medications Medication Instructions Recorded Confirmed Last Taken Type lisinopril 20 mg tablet 20 mg PO DAILY 03/29/23 09/05/23 Unknown History amlodipine 10 mg-valsartan 160 mg 1 tab PO QAM 09/03/23 09/05/23 Unknown History tablet atorvastatin 20 mg tablet 20 mg PO Q OTHER DAY 09/03/23 09/05/23 Unknown History dextroamphetamine-amphetamine 15 1 tab PO BID attention deficit 09/03/23 09/05/23 Unknown History mg tablet (Adderall) hyperactivity disorder ezetimibe 10 mg tablet 10 mg PO QAM 09/03/23 09/05/23 Unknown History hydrochlorothiazide 12.5 mg tablet 12.5 mg PO DAILY 09/03/23 09/05/23 Unknown History Exam Height,Weight and Vital Signs: Height 5 ft 2 in Weight 62.596 kg Pertinent Lab Results Pertinent Lab Results: Laboratory Tests 07/06/23 12:07 WBC 9.7 Hgb 12.8 Hct 38.4 Plt Count 360 Sodium 137 Potassium 3.9 Chloride 105 Carbon Dioxide 23 BUN 16 Creatinine 0.74 Assessment and Plan Assessment Anesthesia Assessment: Chart Reviewed Documented by User: Jose Manuel Tinoco MD 09/05/23 08:12 [facility] Past Medical History Medical History Elevated cholesterol delivery delivered Anxiety ADHD Hypertension Family History Family History Brother Cancer Family history of problems with anesthesia: No Surgical History Surgical History H/O colonoscopy History of carpal tunnel surgery S/P section H/O: hysterectomy History of Problems with Anesthesia: No Social History Social History Alcohol intake: current Alcohol intake frequency: a few times a month Patient Tobacco Use Status: Former Tobacco user Tobacco use type: Cigarette Cigarette Packs Per Day: 1 Years Smoked: 30 years Substance Use Type: Marijuana Advance Directives: No Advance Directives Information Provided: Yes Meds Allergies Allergy/AdvReac Type Severity Reaction Status Date / Time Penicillins AdvReac thrush Verified 09/05/23 07:56 Home Medications Medication Instructions Recorded Confirmed Last Taken Type lisinopril 20 mg tablet 20 mg PO DAILY 03/29/23 09/05/23 Unknown History amlodipine 10 mg-valsartan 160 mg 1 tab PO QAM 09/03/23 09/05/23 Unknown History tablet atorvastatin 20 mg tablet 20 mg PO Q OTHER DAY 09/03/23 09/05/23 Unknown History dextroamphetamine-amphetamine 15 1 tab PO BID attention deficit 09/03/23 09/05/23 Unknown History mg tablet (Adderall) hyperactivity disorder ezetimibe 10 mg tablet 10 mg PO QAM 09/03/23 09/05/23 Unknown History hydrochlorothiazide 12.5 mg tablet 12.5 mg PO DAILY 09/03/23 09/05/23 Unknown History Exam Airway Mallampati Class: I TM Dist: >3cm Neck ROM: Full Loose/Missing/Broken Teeth: No Heart: ok Lungs: ok Assessment and Plan Assessment Anesthesia Assessment: Anesthesia Plan Discussed Final Anesthetic Review Family History of Problems with Anesthesia: No History of Problems with Anesthesia: No NPO: Yes ASA Class: II Final Preanesthetic Review: No Changes in Pt Med Stat, Meds/Allgs Chart Reviewed, Consent Obtained/Reviewed and Anes Risks/Benef Reviewed Patient Risk: Low Procedure Risk: Low Anesthetic Plan Anesthetic Plan: MAC: and Agree w/ Assess. and Plan Disposition: Standard PACU
[2023-09-05 08:09] VITALS: BP 114/68; PULSE 85; RESP 16; TEMP 36.8; O2SAT 98; BMI 25.1
[2023-09-05] MEDS: Lactated Ringers 1,000 ML 100 ML IVCONT (08:22)
--- NOTE | 2023-09-05 08:34 | MHC.SHP ---
Pre-Procedural Eval Section A - 24 Hr Update-Section A only Date of Service: 09/05/23 Section B - Complete if H&P > 30 days Chief Complaint: Encounter for screening for malignant neoplasm of Relevant Family History (Specify if Yes): No Relevant Social History: Tobacco Use Present Medications: see Short Stay Collaborative assessment Medical History: Significant History (Elevated cholesterol delivery delivered Anxiety ADHD Hypertension) History of Previous Operations: Relevant previous surgery/procedure and date(s) (H/O colonoscopy History of carpal tunnel surgery S/P section H/O: hysterectomy) Allergies: Allergies Allergy/AdvReac Type Severity Reaction Status Date / Time Penicillins AdvReac thrush Verified 09/05/23 07:56 Review of Systems Sugical H&P ROS: Negative: Constitution, Cardiovascular, Respiratory, Neurological, Psychiatric, Hem-Onc, Allergic/Immunologic, Gastrointestinal, Genitourinary, Musculoskeletal, Integumentary, Endocrine and Eyes/Ears/Nose/Throat Exam Surgical H&P Exam: Normal: HEENT, Normal: Heart, Normal: Lungs, Normal: Extremities, Normal: Abdomen, Normal: Skin and Normal: Neurological Plan Diagnosis/Plan: Unchanged I have reviewed the history and physical and performed a pertinent physical examination on my patient. No changes have occurred unless specified. Time Spent With Patient Time: Total time managing care of this patient today ____ minutes.
--- NOTE | 2023-09-05 08:35 | W.PM.OPN ---
Operative Note Operative Note Date of Service: 09/05/23 Narrative: Operative Information Procedure Description: Colonoscopy Indication: screening Anesthesia: MAC COLONOSCOPY Instrument: Olympus variable stiffness pediatric scope 190L Colonoscopy Monitoring: Vital signs and clinical assessment, continuous EKG monitoring, Pulse oximetry, Carbon Dioxide monitoring and blood pressure monitoring were done throughout the procedure. Colon withdrawal time was 11 minutes. Procedure: The patient was placed in the left lateral decubitis position and pre-procedure medications were administered. After a digital rectal examination of the ano-rectum, the video colonoscope was inserted into the rectum and advanced through the colon to the cecum/TI. The colonoscope was slowly withdrawn in a retrograde panoramic fashion and the colon mucosa was carefully examined including a retroflexed view of the rectum. Findings and interventions are described below. Procedure Difficulty: easy Findings: Terminal Ileum-normal Cecum:normal Ascending Colon: 5-6 mm sessile polyp removed with cold forceps, 8-9 mm sessile polyp removed with cold snare Transverse Colon -normal Descending Colon:normal Sigmoid Colon: moderate diverticulosis Rectum: Retroflexion with small internal hemorrhoids seen, grade I with skin tags, 10 mm sessile polyp removed with cold snare and 5-6 mm sessile polyp removed with cold forceps Anorectum - normal Intervention: cold forceps, cold snare Colon preparation: [place] Bowel Preparation Scale Right colon; 2 Transverse colon: 3 Left colon; 3 (0 = Unprepared colon segment with mucosa not seen due to solid stool that cannot be cleared. 1 = Portion of mucosa of the colon segment seen, but other areas of the colon segment not well seen due to staining, residual stool and/or opaque liquid. 2 = Minor amount of residual staining, small fragments of stool and/or opaque liquid, but mucosa of colon segment seen well. 3 = Entire mucosa of colon segment seen well with no residual staining, small fragments of stool or opaque liquid) Impression and Post Procedure Diagnosis: diverticulosis colon polyps internal hemorrhoids Plan: High fiber diet leaflet Avoid straining at stool, epsom salts and sitz bath, anusol supps or cream Repeat Colonoscopy in 5 years due to polyps or earlier if clinically indicated Above findings were reviewed with the patient and relevant handouts were provided if indicated.
[2023-09-05 08:59] VITALS: BP 101/52; PULSE 74; RESP 16; TEMP 36.3; O2SAT 98
[2023-09-05 09:18] VITALS: BP 103/61; PULSE 67; RESP 18; TEMP 36.1; O2SAT 99
== END 2023-09-05 09:50 | disposition home or self-care (01) ==
PROVIDERS: PCP Internal Medicine Geriatric Medicine; Visit Provider Internal Medicine Gastroenterology
PROC: 0DJD8ZZ Inspection of Lower Intestinal Tract, Via Natural or Artificial Opening Endoscopic (ICD-10-PCS; CPT 45378; principal; 2023-09-05 09:00)
DX: Z12.11 Encounter for screening for malignant neoplasm of colon (principal); D12.2 Benign neoplasm of ascending colon; K62.1 Rectal polyp; K57.30 Diverticulosis of large intestine without perforation or abscess without bleeding; K64.0 First degree hemorrhoids; K64.4 Residual hemorrhoidal skin tags; I10 Essential (primary) hypertension; E78.5 Hyperlipidemia, unspecified; F17.210 Nicotine dependence, cigarettes, uncomplicated; F12.90 Cannabis use, unspecified, uncomplicated; F90.9 Attention-deficit hyperactivity disorder, unspecified type; Z90.710 Acquired absence of both cervix and uterus; Z79.02 Long term (current) use of antithrombotics/antiplatelets; Z79.899 Other long term (current) drug therapy
CPT/HCPCS: 45385; 45380; 88305; J2704

== ENCOUNTER → 2023-09-05 07:30 | Outpatient (BNV) | payer OTHER, SELFPAY | PROVIDERS: PCP Internal Medicine Geriatric Medicine; Visit Provider Internal Medicine Gastroenterology | DX: Z12.11 Encounter for screening for malignant neoplasm of colon (principal); K62.1 Rectal polyp; D12.2 Benign neoplasm of ascending colon; K64.0 First degree hemorrhoids; K57.30 Diverticulosis of large intestine without perforation or abscess without bleeding | CPT/HCPCS: 45380; 45385 ==

== ENCOUNTER 2023-09-12 13:38 | Outpatient (AMB) | payer OTHER, SELFPAY ==
--- NOTE | 2023-09-12 13:42 | A.OFFVIS_ITS ---
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 Accompanied by: Self / Same As Patient Allergies Penicillins Adverse Reaction (Verified 09/12/23 13:47) thrush Medication List - Last Reconciled 09/12/23 by Dana Madden LPN albuterol sulfate 90 mcg/actuation 2 puffs inhalation Q6H PRN amlodipine-valsartan 10-160 mg 1 tab PO QAM aspirin 81 mg PO DAILY atorvastatin 20 mg PO Q OTHER DAY dextroamphetamine-amphetamine 15 mg (Adderall) 1 tab PO BID ezetimibe 10 mg PO QAM hydrochlorothiazide 25 mg PO DAILY lidocaine 4% (AsperFlex (lidocaine)) 1 patch topical DAILY PRN HPI shortness of breath HPI Details Elena is a pleasant 63-year-old female, current 1ppd smoker, with 45+ pack-year history and underlying emphysema, HTN and hyperlipidemia. She was referred by PCP for pulmonary evaluation. She reports worsening dyspnea on moderate exertion, productive cough and intermittent wheezing for the last 3 months. Her PCP also referred her to cardiology for evaluation as she also reports associated dizziness and palpitations. She denies orthopnea, PND or bilateral lower extremity edema. She denies any prior respiratory conditions. She denies any seasonal allergies. She reports multiple family members with asthma. 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 She was a part of the lung screening program through [facility], reporting small nodules that have been stable. Last CT is not available today, however notes it has been over a year since her last scan. . Of note, she has an appointment next week to establish with [facility] lung screening program. [facility] Medical History (Updated 09/12/23 @ 19:51 by Cassandra Boyd NP) Elevated cholesterol delivery delivered Anxiety ADHD Hypertension Surgical History (Updated 09/07/23 @ 09:22 by Kaila Mojica) H/O colonoscopy History of carpal tunnel surgery S/P section H/O: hysterectomy Family History Brother Cancer Social History (Updated 09/12/23 @ 13:50 by Dana Madden LPN) Alcohol intake: current Alcohol intake frequency: a few times a month Patient Tobacco Use Status: Current everyday Tobacco user Tobacco use type: Cigarette Cigarette Packs Per Day: 1 Years Smoked: 30 years Substance Use Type: Marijuana Review of Systems Const Denies chills, Denies excessive sweating, Denies fever(s), Denies headache(s) and Denies night sweats Eyes Denies dry eyes, Denies irritation and Denies itchy eyes ENT Reports Normal hearing present, Denies headache(s), Denies nasal congestion, Denies nasal discharge, Denies post nasal drip and Denies sore throat Card Denies chest pain, Denies chest pain at rest, Denies chest pain with activity, Denies claudication, Denies leg edema, Denies orthopnea and Denies paroxysmal nocturnal dyspnea Resp Denies chest congestion, Denies excessive phlegm production, Denies pain on inspiration, Denies pain with cough, Denies stridor and Reports wheezing Musc Denies myalgias Neuro Reports Normal hearing present and Denies headache(s) Endo Denies excessive sweating Anselmo/Lymph Denies lymphadenopathy Aller/Immun Denies itchy eyes, Denies seasonal rhinorrhea and Reports wheezing Physical Exam Vital Signs: Last Vital Signs Pulse 100 09/12/23 13:43 BP 134/66 09/12/23 13:43 Pulse Ox 100 09/12/23 13:43 Oxygen Delivery Method Room Air 09/12/23 13:43 BMI result Body Mass Index 25.8 Const General: cooperative, healthy appearing, comfortable, no acute distress, well developed and alert Orientation/consciousness: patient oriented x3 Limitations: no limitations HEENT Head: Yes normal to inspection, Yes normocephalic and Yes atraumatic Ears: hearing grossly normal bilaterally and external ears normal Eyes General: appearance normal, both eyes and all related structures Eyelids: Yes eyelids normal Sclerae: sclerae normal EOM: EOMs intact bilaterally Neck Neck: Yes normal visual inspection and Yes no lymphadenopathy Lymphatic: no lymphadenopathy noted Chest Chest palpation & inspection: normal inspection of the chest Resp Effort & Inspection: normal respiratory effort, able to speak in complete sentences, no audible wheezes, no cough, no stridor, not tachypneic, no tripod positioning and no use of accessory muscles Auscultation: clear to auscultation bilaterally Cardio Jugular venous distension: no JVD Rate: regular rate Rhythm: regular rhythm Skin Other: warm, dry General skin exam: no rashes or lesions noted Neuro General: patient oriented x3 Cranial nerves: Yes Normal hearing present Cognition (Neuro): normal cognition Gait exam (Neuro): Normal gait present Extrem General: Yes normal to inspection, Yes capillary refill normal, Yes no clubbing, cyanosis or edema and Yes no pedal edema Psych Appearance: grossly normal and well kempt Speech and movement: Normal speech and movement present and Clear speech present Affect: normal affect Attitude: cooperative Thought process: Normal thought process present Thought content: Normal thought content present Insight: Good insight present (Psych) Judgement: Good judgement present (Psych) Assessment & Plan Assessment & Plan (1) Emphysema of lung: Code(s): J43.9 - Emphysema, unspecified (2) Dyspnea: Code(s): R06.00 - Dyspnea, unspecified (3) Cough: Code(s): R05.9 - Cough, unspecified Plan Elena symptoms are likely due to underlying COPD, unclear severity. Will send for PFT to evaluate. Will empirically trial Breo and she is requesting a refill on albuterol. Inhaler technique reviewed and discussed importance good oral hygiene. Patient would like to hold off on any blood work to rule out possible hypersensitivity pneumonitis related to bird exposure at this time. Patient has upcoming chest CT scheduled next Sunday will review at next visit. All questions were answered and patient is in agreement of plan. Will follow-up to review results and response to inhaler. Orders: Orders PFT pulmonary function test Today J43.9 - Emphysema, unspecified, R06.00 - Dyspnea, unspecified Medications: New fluticasone furoate-vilanterol 100-25 mcg/dose (Breo Ellipta) 1 inh inhalation DAILY 60 ea 3RF Refilled albuterol sulfate 90 mcg/actuation 2 puffs inhalation Q6H PRN 1 ea 3RF shortness of breath or wheezing Coding Level of Care Code New Pt Level 4 (43455) Diagnoses Emphysema of lung J43.9 Dyspnea R06.00 Cough R05.9
[2023-09-12 13:43] VITALS: BP 134/66; PULSE 100; O2SAT 100; BMI 25.8
== END 2023-09-12 14:34 | disposition home or self-care (01) ==
PROVIDERS: PCP Internal Medicine Geriatric Medicine; Visit Provider Nurse Practitioner Family
DX: J43.9 Emphysema, unspecified (principal); R06.00 Dyspnea, unspecified; R05.9 Cough, unspecified
CPT/HCPCS: 99204

== ENCOUNTER → 2023-09-12 13:38 | Outpatient (BNVA) | payer OTHER, SELFPAY | PROVIDERS: PCP Internal Medicine Geriatric Medicine; Visit Provider Nurse Practitioner Family | DX: J43.9 Emphysema, unspecified (principal); R06.00 Dyspnea, unspecified; R05.9 Cough, unspecified | CPT/HCPCS: 99202 ==

== ENCOUNTER 2023-09-18 09:23 | Outpatient (REF) | payer OTHER, SELFPAY ==
[2023-09-18 11:16] LABS: Anion Gap 11 (12-20); Blood Urea Nitrogen 22 mg/dL (9-16); Calcium 9.6 mg/dL (8.4-10.2); Carbon Dioxide 26 mmol/L (22-29); Chloride 104 mmol/L (96-108); Estimated Glomerular Filt Rate > 60; Glucose Random 94 mg/dL (60-115); Potassium 4.1 mmol/L (3.3-5.1); Sodium 137 mmol/L (135-145)
== END 2023-09-18 09:24 | disposition home or self-care (01) ==
LOC: HO.LAB 09:23
PROVIDERS: Absent Provider Internal Medicine Geriatric Medicine; PCP Internal Medicine Geriatric Medicine; Visit Provider Internal Medicine
DX: I10 Essential (primary) hypertension (principal); R06.00 Dyspnea, unspecified; I25.10 Atherosclerotic heart disease of native coronary artery without angina pectoris; F17.200 Nicotine dependence, unspecified, uncomplicated
CPT/HCPCS: 36415; 80048; 93005; 99202

== ENCOUNTER 2023-09-18 09:23 | Outpatient (AMB) | payer OTHER, SELFPAY ==
--- NOTE | 2023-09-18 09:28 | A.OFFVIS_ITS ---
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: No Accompanied by: Self / Same As Patient Allergies Penicillins Adverse Reaction (Verified 09/18/23 09:30) thrush Medication List - Last Reconciled 09/18/23 by Farhat Ashley MD albuterol sulfate 90 mcg/actuation 2 puffs inhalation Q6H PRN amlodipine-valsartan 10-160 mg 1 tab PO QAM aspirin 81 mg PO DAILY atorvastatin 20 mg PO Q OTHER DAY dextroamphetamine-amphetamine 15 mg (Adderall) 1 tab PO BID ezetimibe 10 mg PO QAM fluticasone furoate-vilanterol 100-25 mcg/dose (Breo Ellipta) 1 inh inhalation DAILY hydrochlorothiazide 25 mg PO DAILY lidocaine 4% (AsperFlex (lidocaine)) 1 patch topical DAILY PRN HPI HPI Comments History of Present Illness Details Elena is here for consultation regarding various symptoms. She is a chronic smoker. Based on reason pulmonary notes, she has had dyspnea on exertion accompanied by cough and wheezing. There is suspicion for COPD. From the cardiac standpoint she is concerned that there might be cardiac issues. She does not have any known coronary disease myocardial infarction. She does get short of breath somewhat randomly. Can happen any time. Then it seems that she does cough a lot of mucus. Not having classic angina pectoris. Otherwise, randomly gets dizzy as well. She is here for further evaluation. [facility] Medical History (Updated 09/18/23 @ 09:55 by Farhat Ashley MD) Smoker Elevated cholesterol delivery delivered Anxiety ADHD Hypertension Surgical History H/O colonoscopy History of carpal tunnel surgery S/P section H/O: hysterectomy Family History Brother Cancer Social History Alcohol intake: current Alcohol intake frequency: a few times a month Patient Tobacco Use Status: Current everyday Tobacco user Tobacco use type: Cigarette Cigarette Packs Per Day: 1 Years Smoked: 30 years Substance Use Type: Marijuana Review of Systems Const Denies chills, Denies daytime sleepiness, Reports fatigue, Denies fever(s), Denies frequent falls, Denies night sweats, Denies snoring, Denies weakness, Denies weight gain and Denies weight loss Eyes Denies loss of vision ENT Denies dizziness and Denies hearing loss Card Reports chest pain, Denies chest pain with activity, Denies syncope, Denies rapid heart rate, Denies edema, Denies claudication, Reports leg edema, Reports lightheadedness, Reports palpitations, Reports dyspnea, Denies dyspnea on exertion and Denies orthopnea Resp Denies cough, Denies excessive phlegm production, Reports dyspnea, Denies dyspnea on exertion, Denies snoring and Denies wheezing GI Denies abdominal pain, Denies hematochezia, Denies change in bowel habits, Denies change in stool character, Denies heartburn, Denies nausea and Denies vomiting Denies hematuria, Denies urinary frequency and Denies dysuria Musc Denies arthralgias, Denies muscle weakness, Denies numbness and Denies tingling Skin/Breast Denies nail changes and Denies rash Neuro Denies Abnormal speech present, Denies dizziness, Denies syncope, Denies frequent falls, Denies loss of vision, Denies memory loss, Denies numbness, Denies tingling and Denies weakness Psych Denies depression and Denies memory loss Endo Reports fatigue and Reports palpitations Aller/Immun Denies wheezing Physical Exam Vital Signs: Last Vital Signs Pulse 81 09/18/23 09:30 BP 120/62 09/18/23 09:30 BMI result Body Mass Index 27.0 Const General: comfortable and no acute distress Orientation/consciousness: patient oriented x3 HEENT Other: Unremarkable Head: Yes normal to inspection Neck Neck: Yes normal visual inspection Chest Chest palpation & inspection: normal inspection of the chest Resp Auscultation: clear to auscultation bilaterally Cardio Palpation: normal PMI Heart sounds: S1 normal heart sound present, S2 normal heart sound present, no gallops, no murmurs and no rubs GI Palpation (GI): Soft to palpation Back/Spine/Pelvis Other: unremarkable Skin General skin exam: no rashes or lesions noted Neuro General: patient oriented x3 Speech: No Abnormal speech present Extrem General: Yes normal to inspection Psych Mental Status: mental status grossly normal Office Procedures EKG Details: EKG with sinus rhythm at 75/Min; no significant ST-T changes and otherwise unremarkable[place] [id number], Complete Assessment & Plan Assessment & Plan (1) Dyspnea: Code(s): R06.00 - Dyspnea, unspecified (2) Atherosclerotic cardiovascular disease: Code(s): I25.10 - Atherosclerotic heart disease of [place] coronary artery without angina pectoris (3) Smoker: Code(s): F17.200 - Nicotine dependence, unspecified, uncomplicated Plan Baseline EKG is unremarkable. Symptoms somewhat atypical for coronary disease. However, a prior CTA from 2019 already had reported coronary artery calcification as well as moderate stenosis at the origin of left carotid/subclavian arteries. As it has been several years and she is still smoking, we will pursue further workup for ischemic heart disease. We will get an echocardiogram/stress perfusion imaging study. Carotid Dopplers. Follow-up after the above. Orders: Orders CA echo transthoracic complete Today I25.10 - Atherosclerotic heart disease of [place] coronary artery without angina pectoris, R06.00 - Dyspnea, unspecified CA stress test Today R06.00 - Dyspnea, unspecified, R07.2 - Precordial pain NM cardiolite stress test Today R06.00 - Dyspnea, unspecified, R07.2 - Precordial pain US carotid duplex BI Today I65.23 - Occlusion and stenosis of bilateral carotid arteries Coding Level of Care Code New Pt Level 4 (78112) Diagnoses Dyspnea R06.00 Atherosclerotic cardiovascular disease I25.10 Smoker F17.200 CPT Codes EKG - CPT: 77826-[id number], Complete ([id number])
[2023-09-18 09:30] VITALS: BP 120/62; PULSE 81; BMI 27.0
== END 2023-09-18 09:52 | disposition home or self-care (01) ==
PROVIDERS: PCP Internal Medicine Geriatric Medicine; Visit Provider Internal Medicine
DX: R06.00 Dyspnea, unspecified (principal); I25.10 Atherosclerotic heart disease of native coronary artery without angina pectoris; F17.200 Nicotine dependence, unspecified, uncomplicated
CPT/HCPCS: 93010; 99204

== ENCOUNTER 2023-09-20 10:28 | Outpatient (AMB) | payer OTHER, SELFPAY ==
--- NOTE | 2023-09-20 10:30 | A.OFFVIS_ITS ---
Intake Vital Signs 09/20/23 10:34 Height 5 ft 3 in Weight 141 lb 1.533 oz BMI 25.0 BP 109/54 L Blood Pressure Location Lt brachial Position Sitting Pulse 88 Intake Visit Reasons: S/P [place]; Varela Intake Note: Elena presents in the office as a colonoscopy. CC: No concerns just here for the colonoscopy. Allergies Penicillins Adverse Reaction (Verified 09/20/23 10:34) thrush Medication List - Last Reconciled 09/20/23 by Mara Ray PA-C albuterol sulfate 90 mcg/actuation 2 puffs inhalation Q6H PRN amlodipine-valsartan 10-160 mg 1 tab PO QAM aspirin 81 mg PO DAILY atorvastatin 20 mg PO Q OTHER DAY dextroamphetamine-amphetamine 15 mg (Adderall) 1 tab PO BID ezetimibe 10 mg PO QAM fluticasone furoate-vilanterol 100-25 mcg/dose (Breo Ellipta) 1 inh inhalation DAILY hydrochlorothiazide 25 mg PO DAILY lidocaine 4% (AsperFlex (lidocaine)) 1 patch topical DAILY PRN lorazepam 0.5 mg PO DAILY HPI HPI Comments History of Present Illness Details A 63 y/o female f/u after colonoscopy with polypectomy- Tolerated well No GI complaints Reviewed procedure, path and recommendations No N/V/D/ abdominal pain- PFSH Medical History (Updated 09/20/23 @ 10:43 by Mara Ray PA-C) Smoker Elevated cholesterol delivery delivered Anxiety ADHD Hypertension Surgical History H/O colonoscopy History of carpal tunnel surgery S/P section H/O: hysterectomy Family History Brother Cancer Social History Alcohol intake: current Alcohol intake frequency: a few times a month Patient Tobacco Use Status: Current everyday Tobacco user Tobacco use type: Cigarette Cigarette Packs Per Day: 1 Years Smoked: 30 years Substance Use Type: Marijuana Review of Systems Const All systems reviewed & are unremarkable except as noted in HPI and below Card Denies chest pain GI Denies abdominal pain Physical Exam Vital Signs: Last Vital Signs Pulse 88 09/20/23 10:34 BP 109/54 L 09/20/23 10:34 BMI result Body Mass Index 25.0 Const General: cooperative, healthy appearing, comfortable and no acute distress Orientation/consciousness: patient oriented x3 Limitations: no limitations Resp Effort & Inspection: normal respiratory effort and able to speak in complete sentences Skin General skin exam: no rashes or lesions noted Neuro General: patient oriented x3 Extrem General: Yes full ROM Psych Appearance: grossly normal and well kempt Mental Status: mental status grossly normal Speech and movement: Normal speech and movement present and Clear speech present Affect: normal affect Attitude: cooperative Thought process: Normal thought process present Thought content: Normal thought content present Insight: Good insight present (Psych) Judgement: Good judgement present (Psych) Results Reviewed Results Reviewed: Impression and Post Procedure Diagnosis: diverticulosis colon polyps internal hemorrhoids Plan: High fiber diet leaflet Avoid straining at stool, epsom salts and sitz bath, anusol supps or cream Repeat Colonoscopy in 5 years due to polyps or earlier if clinically indicated Above findings were reviewed with the patient and relevant handouts were provided if indicated. ge/Sex: 63/F Attending: Payton Varela MD : 1960 Submitted by: Payton Varela MD Copies to: Deven Solis MD MR #: [id number] Status: [facility] Collected: 09/05/23 Location: [facility] Received: 09/05/23 Diagnosis A. Colon, ascending, polypectomies: Fragments of tubular adenomata; negative for high-grade dysplasia or carcinoma. B. Rectum, polypectomy: Hyperplastic mucosal polyp. Clinical History Pre-Op Dx: Encounter for screening for malignant neoplasm of colon Post-Op Dx: Colon polyps, diverticulosis, internal hemorrhoids, skin tags Microscopic Description A, B. Microscopic sections reviewed. Material Received A. Ascending colon polyps B. Rectal polyp Gross Description Received in 2 parts. A. Received in formalin labeled ?ascending colon polyps? are fragments of yellow-huynh, pink-huynh and red pink tissue ranging from 0.1-0.5 cm in greatest dimension, forming an aggregate measuring 1.0 x 0.8 x 0.2 cm which is wrapped in lens paper and entirely submitted for microscopic examination, multiple pieces in cassette A. B received in formalin labeled ?rectal polyp? are 4 fragments of pink white and red pink tissue measuring 0.3-1.1 cm in greatest dimension which are wrapped in lens paper and entirely submitted for microscopic examination, 4 pieces in cassette B. [facility] Copies To Payton Varela MD [address] [place] [address] Dr. Salgado, ROBERTA [id number] Patient: Elena Solis Age/Sex: 63/F MR#: [id number] Page 1 of 2 Assessment & Plan Assessment & Plan (1) Tubular adenoma of colon: Code(s): D12.6 - Benign neoplasm of colon, unspecified Plan: 5 year repeat (2) Diverticulosis of colon: Code(s): K57.30 - Diverticulosis of large intestine without perforation or abscess without bleeding Plan: ER protocol HFD (3) Hyperplastic colon polyp: Code(s): K63.5 - Polyp of colon Plan 5 years repeat colon ER protocol/ diver tic Patient Instructions: HFD Avoid strain with hemorrhoids Diverticulosis/itis- ER protocol Repeat colonoscopy 5 years Coding Level of Care Code Est Pt Level 3 (69913) Diagnoses Tubular adenoma of colon D12.6 Diverticulosis of colon K57.30 Hyperplastic colon polyp K63.5 Time Spent (min) 20
[2023-09-20 10:34] VITALS: BP 109/54; PULSE 88; BMI 25.0
== END 2023-09-20 11:04 | disposition home or self-care (01) ==
PROVIDERS: PCP Internal Medicine Geriatric Medicine; Visit Provider Physician Assistant
DX: D12.6 Benign neoplasm of colon, unspecified (principal); K57.30 Diverticulosis of large intestine without perforation or abscess without bleeding; K63.5 Polyp of colon
CPT/HCPCS: 99213

== ENCOUNTER 2023-09-20 14:51 | Outpatient (REF) | payer OTHER, SELFPAY ==
--- NOTE | ~2023-09-20 | US_ITS ---
EXAMINATION: US EXTRACRANIAL CAROTID DUPLEX, BILATERAL CLINICAL INFORMATION: Carotid arteries, occlusion COMPARISON: None available. TECHNIQUE: Real-time ultrasound and Doppler techniques (integrating B-mode 2-D vascular images, Doppler spectral analysis and color-flow Doppler imaging) were utilized to interrogate the extracranial carotid arteries, the vertebral arteries and proximal subclavian arteries bilaterally. The degree of stenosis is determined by criteria similar to NASCET. FINDINGS: Right Side: 1. There is mild atherosclerotic plaque seen in the bifurcation/proximal ICA region. 2. The common carotid artery PSV proximally is 87 cm/s and distally 84 cm/s. 3. The proximal internal carotid artery velocities are 86 cm/s systolic and 24 cm/s diastolic. 4. The proximal external carotid artery PSV is 151 cm/s. 5. The vertebral artery shows antegrade flow. 6. The subclavian artery waveforms are normal. Left Side: 1. There is mild atherosclerotic plaque seen in the bifurcation/proximal ICA region. 2. The common carotid artery PSV proximally is 101 cm/s and distally 93 cm/s. 3. The proximal internal carotid artery velocities are 114 cm/s systolic and 37 cm/s diastolic. 4. The proximal external carotid artery PSV is 126 cm/s. 5. The vertebral artery shows antegrade flow. 6. The subclavian artery waveforms are normal. US/US carotid duplex BI IMPRESSION: 1. RIGHT: Minimal, non-hemodynamically significant stenosis of the proximal right internal carotid artery corresponding to a 0-49% stenosis by velocity criteria. 2. LEFT: Minimal, non-hemodynamically significant stenosis of the proximal left internal carotid artery corresponding to a 0-49% stenosis by velocity criteria.
== END 2023-09-20 14:52 | disposition home or self-care (01) ==
LOC: HO.US 14:51
PROVIDERS: PCP Internal Medicine Geriatric Medicine; Visit Provider Internal Medicine
DX: I65.23 Occlusion and stenosis of bilateral carotid arteries (principal)
CPT/HCPCS: 93880; 99212

== ENCOUNTER → 2023-10-19 07:58 | Outpatient (REF) | payer OTHER, SELFPAY ==
--- NOTE | ~2023-10-19 | NM_ITS ---
Exercise Myocardial perfusion study Indication: Precordial chest pain Technique: The patient was brought in for an exercise perfusion study on 10/19/2023. Patient performed exercise as per Jose David protocol and was injected 25 mCi of sestamibi was given intravenously one target HR was achieved. Images were obtained using the SPECT gamma camera interlaced with the gating device. Images were obtained in supine position. Resting perfusion study was performed on 10/25/2023. Patient was administered 25 mCi of sestamibi intravenously at rest. Images were then obtained in supine position. Images obtained with and without CT attenuation. Total DLP 90 mGy-cm. Images were processed with the software and compared side to side in short axis, horizontal long axis and vertical long axis views. Findings: The stress perfusion study showed non attenuated images show minimally reduced uptake in the basal septum of the LV myocardium as well as the basal inferior wall and very small area. Remainder of the LV myocardium is normally perfused. Attenuation corrected images show normal uptake of radiotracer in all segments of LV myocardium.. The gated study shows normal LV systolic function with calculated LVEF of 68%. LV cavity is normal in size. The gated study shows normal systolic wall thickening and contraction of all segments. There is no transient ischemic dilation. Resting study shows both attenuated as well as images show overall normal uptake of radiotracer in all segments of LV myocardium.. Gating at rest reveals normal systolic wall motion with ejection fraction at 73%. The findings are consistent with likely normal myocardial perfusion. NM/NM cardiolite stress test Impression: 1. Normal myocardial perfusion 2. Gated LVEF is 68% 3. Transient ischemic dilatation not present Stress EKG is negative for ischemia
--- NOTE | 2023-10-19 08:02 | CA_ITS ---
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 Study Quality: Adequate ECG Rhythm: Sinus Conclusions: - 1. Normal LV ejection fraction 60 65% with grade 1 diastolic dysfunction 2. Normal cardiac valvular Dopplers 3. Normal RV systolic pressure 4. No gross pericardial effusion Findings Left Ventricle Normal left ventricular size, thickness, and systolic function. The visually estimated ejection fraction is between 60-65%. Spectral Doppler is indicative of an impaired relaxation filling pattern. E/E prime ratio is <8, consistent with normal filling pressures. Right Ventricle Normal right ventricular cavity size and systolic function. Atria Both atria are normal in size. There is lipomatous hypertrophy of the interatrial septum. There is no evidence of interatrial shunt. Aortic Valve Normal aortic valve structure and function. There is no aortic valve stenosis. There is no aortic valve regurgitation. Mitral Valve Normal mitral valve structure and function. There is trace mitral valve regurgitation. There is no mitral valve stenosis. Pulmonic Valve The pulmonic valve is likely normal. Tricuspid Valve Normal tricuspid valve structure. There is trace tricuspid valve regurgitation. The right ventricular systolic pressure is normal. The right ventricular systolic pressure is 15 mmHg. Normal right atrial pressure. There is no evidence of pulmonary hypertension. Great Vessels All visible segments of the aorta are normal in size. The pulmonary artery was not well visualized. Small plaque is seen in the sino tubular ridge. Venous The inferior vena cava is normal in size and collapses greater than 50% with inspiration. Pericardium/Pleural There is no evidence of pericardial effusion. Prior Study Comparison No significant change compared to prior study dated: 09/04/2017. Measurements 2D Linear Measurements IVSd: 1.00 0.6-0.9/0.6-1.0 cm LVIDd: 3.55 3.9-5.3/4.2-5.9 cm LVIDd Index: 2.18 2.4-3.2/2.2-3.1 cm/m2 LVIDs: 2.22 2.0-3.6 cm LVPWd: 1.06 0.7-1.1 cm Ao Root: 2.40 2.1-3.5 cm LA Diam: 3.20 2.7-3.8/3.0-4.0 cm LAIDs Index: 1.96 1.5-2.3 cm/m2 LV Mass: 136.80 67-162/88-224 g LV Mass Index: 83.93 43-95/49-115 g/m2 LVOT Diam: 2.00 3.0+(-)1.3 cm Mitral Valve MV Pk E: 0.53 MV PK A: 0.73 MV Decel Time: 180.00 E/A: 0.70 E'Lateral: 8.49 E'Medial: 6.09 E/E' Med: 8.70 E/E' Lat: 6.20 PHT: 63.00 MVA PHT: 3.49 Decel [place]: 2.80 Aortic Valve AoV Pk Vik: 1.47 AoV Mn Vik: 0.89 AoV VTI: 0.27 AoV Pk Grad: 9.00 Aov Mn Grad: 4.00 LIZBETH Cont.VTI: 2.73 LVOT LVOT Pk Vik: 1.26 LVOT Mn Vik: 0.78 LVOT VTI: 0.24 LVOT Pk Grad: 6.00 LVOT Mn Grad: 3.00 LVOT Diam: 2.00 LVOT Area: 3.14 Diastolic Function MV Pk E: 0.53 MV Pk A: 0.73 E/A: 0.70 E'Medial: 6.09 E/E' Med: 8.70 E' Laterial: 8.49 E/E' Lat: 6.20 Right Ventricle TAPSE (mm): 17.00 TVS' Vik: 9.00 Tricuspid Valve TR Pk Vik: 1.70 TR Pk Grad: 12.00 RA Press: 3.00 RVSP: 15.00 Great Vessels Aorta Ao Root-2D: 2.40 2.0-3.7 cm Ao Asc: 2.60 2.1-3.4 cm Pulmonary Valve PV Pk Vik: 1.17 Peak PV Grad: 5.00 Updated in Other Vendor System with Status of Final Peter Hagen MD electronically signed on 10/20/2023 5:38:33 AM with status of Final
--- NOTE | 2023-10-19 08:02 | CA_ITS ---
Acquisition Time: 2023-10-19 09:48:49 Total Exercise Time: 00:06:10 Test Indications: Dyspnea CP Medications: ALBUTEROL AMLODIPINE/VALSARTAN ASA ADDERALL EZITIMIBE BREO ELLIPTA Protocol: AMRITA Max HR: 148 BPM 94% of Pred: 157 BPM Max BP: 144/072 mmHG Max Work Load: 7.2 METS Exercise stress test with exercise 6 min 10 sec of Amrita protocol achieving 88% MPHR, with mild to moderate SOB, without arrhythmias, wityh normotensive resposne to exercise, without EKG changes. Breathing returned to baseline with rest. Nuclear images pending. Test reviewed with Dr. Hagen. Referred By: Farhat Ashley Overread By: Imani Castellanos
== END ==
LOC: HO.CARD 07:58
PROVIDERS: PCP Internal Medicine Geriatric Medicine; Visit Provider Internal Medicine
DX: R07.2 Precordial pain (principal); R06.00 Dyspnea, unspecified; I25.10 Atherosclerotic heart disease of native coronary artery without angina pectoris
CPT/HCPCS: 78452; 93017; 93306; A9500

== ENCOUNTER → 2023-10-19 08:02 | Outpatient (BNV) | payer OTHER, SELFPAY | PROVIDERS: PCP Internal Medicine Geriatric Medicine; Visit Provider Internal Medicine Cardiovascular Disease | DX: R07.2 Precordial pain (principal) | CPT/HCPCS: 78452; 93016; 93018; 93306; 93320; 93350 ==

== ENCOUNTER 2023-10-26 09:41 | Outpatient (REF) | payer OTHER, SELFPAY ==
--- NOTE | 2023-10-26 14:47 | PFT_ITS ---
Flows: FEV1: 100 % of predicted at 2.33 L FVC: 102 % of predicted at 2.96 L FEV1/FVC: 77 % Bronchodilator response: Absent Volumes: Total lung capacity: 126 % of predicted at 6.17 L Residual volume: 183 % of predicted at 3.17 L Slow vital capacity: 95 % of predicted at 3.00 L Expiratory reserve volume: 93 % of predicted at 0.71 L Diffusion capacity: Normal Impression: No obstructive or restrictive ventilatory defect. No bronchodilator response. Increased residual volume suggests air trapping. Increased total lung capacity suggests hyperinflation. MTDD
[2023-10-26 15:48] VITALS: PULSE 77; RESP 16; O2SAT 100
== END 2023-10-26 09:42 | disposition home or self-care (01) ==
LOC: HO.RESP 09:41
PROVIDERS: PCP Internal Medicine Geriatric Medicine; Visit Provider Nurse Practitioner Family
DX: R06.00 Dyspnea, unspecified (principal); J43.9 Emphysema, unspecified
CPT/HCPCS: 94010; 94640; 94727; 94729

== ENCOUNTER → 2023-10-26 14:47 | Outpatient (BNV) | payer OTHER, SELFPAY | PROVIDERS: PCP Internal Medicine Geriatric Medicine; Visit Provider Internal Medicine Pulmonary Disease | DX: J43.9 Emphysema, unspecified (principal) | CPT/HCPCS: 94060; 94727; 94729 ==

== ENCOUNTER 2023-11-09 10:53 | Outpatient (AMB) | payer OTHER, SELFPAY ==
--- NOTE | 2023-11-09 08:23 | MHC.OFFVIS ---
Intake Visit Reasons: Former Smoker Intake Note: Initial visit for this 63yo current smoker with a 40+PYH. Patient started smoking at age 16 for 47 years at 1ppd. . Denies marijuana use. Denies second hand smoke exposure. Denies exposure to chemicals or substances like asbestos. . Denies known family history of lung cancer. Denies personal history of cancers. . Reports chest CT in prior in 2021. Was previously in the [facility]. CTA of chest 05/02/2020 at [facility] showed no suspicious nodules . Denies recent travel outside the [place]. Denies recent respiratory illness or recent hospitalization for respiratory issues. Reports testing positive for COVID. 03/2022 Admits receiving COVID Vaccine. x 4. . Denies fever, chills, new/worsening cough, hemoptysis, hoarseness or dysphagia. Denies significant chest pain, significant dyspnea or unintentional weight loss. Patient Lung Cancer Screening Questionnaire reviewed with patient by provider. . Shared Decision Making Completed. Patient meets criteria. Discussed in detail with patient, the risk vs benefit of LDCT screening. Patient consents to proceed with scan. Discussed smoking cessation. Allergies Penicillins Adverse Reaction (Verified 09/20/23 10:34) thrush [facility] Medical History (Updated 11/09/23 @ 11:12 by Mayra Akhtar PA-C) Atherosclerotic cardiovascular disease Hypertension Elevated cholesterol Nicotine dependence, cigarettes, uncomplicated Emphysema of lung ADHD Anxiety Tubular adenoma of colon Surgical History (Updated 11/09/23 @ 11:08 by Mayra Akhtar PA-C) History of colonoscopy History of hysterectomy History of History of carpal tunnel surgery Family History Brother Cancer Social History (Updated 11/09/23 @ 11:13 by Mayra Akhtar PA-C) Alcohol intake: current Alcohol intake frequency: a few times a month Patient Tobacco Use Status: Current everyday Tobacco user Tobacco use type: Cigarette Cigarette Packs Per Day: 1 Years Smoked: (onset 16yo, 1ppd x 47yrs, 40+PYH) Substance Use Type: Marijuana Assessment & Plan Assessment & Plan (1) Nicotine dependence, cigarettes, uncomplicated: Comment: (current smoker, onset 16yo, 1ppd x 47yrs, 40pyh) Code(s): F17.210 - Nicotine dependence, cigarettes, uncomplicated Category: Medical Plan: - SDM visit completed today in office. - Patient meets criteria for LDCT for lung cancer screening purposes and is asymptomatic. - Smoking cessation counseling offered. Patients can always call [phone]. - Will arrange for a LDCT scan of the chest for screening purposes at [facility]. - Risks, benefits, and alternatives were discussed in detail and the patient agrees to proceed. - Risks discussed include but are not limited to: radiation exposure, anxiety during testing and while awaiting results, false negatives, false positives and possibility of additional intervention such as further imaging or surgical procedures for benign disease. - Benefits are obviously detection of lung cancer at an early stage which can lead to improved outcomes. - Discussed the importance of screening program compliance with adherence to yearly LDCT scan as scheduled - or sooner interval scans for personalized screening regimen. - Discussed follow up plan. Our office will send a letter discussing results and if needed set up phone call and office visit based on CT findings. - Patient educated on results categorization and the management decisions for suspicious findings potentially found on the screening LDCT scan. Any patient with a Lung RADS score of 3 or 4 will be reviewed by a multidisciplinary team at [facility] to form a plan of action in regards to scan findings. - If further work up is warranted for a suspicious lung finding this will be followed by the Lung Cancer Screening program in conjunction with the Thoracic Surgery Department at [facility]. - A copy of the office note and LDCT will be sent to the patient's PCP - as well as documentation on any associated further plans of care. - Incidental findings on LDCT are the PCP's responsibility. These findings are indicated with an S finding on the LDCT Assessment. A note discussing the findings will be sent to the PCP who is then responsible for further management. - All questions answered.? Coding Level of Care Code Lung Cancer Screening G0296 Diagnoses Nicotine dependence, cigarettes, uncomplicated F17.210
== END 2023-11-09 11:18 | disposition home or self-care (01) ==
PROVIDERS: PCP Internal Medicine Geriatric Medicine; Referring Provider Internal Medicine Geriatric Medicine; Visit Provider Physician Assistant Medical
DX: F17.210 Nicotine dependence, cigarettes, uncomplicated (principal)
CPT/HCPCS: G0296

== ENCOUNTER → 2023-11-09 10:53 | Outpatient (BNVA) | payer OTHER, SELFPAY | PROVIDERS: PCP Internal Medicine Geriatric Medicine; Visit Provider Physician Assistant Medical | DX: Z12.2 Encounter for screening for malignant neoplasm of respiratory organs (principal); F17.210 Nicotine dependence, cigarettes, uncomplicated; Z86.16 Personal history of COVID-19; Z71.6 Tobacco abuse counseling | CPT/HCPCS: G0296 ==

== ENCOUNTER 2023-11-09 11:32 | Outpatient (REF) | payer OTHER, SELFPAY ==
--- NOTE | ~2023-11-09 | CT_ITS ---
EXAMINATION: CT LOW-DOSE SCREENING CHEST WITHOUT CONTRAST CLINICAL INFORMATION: Personal history of nicotine dependence. The patient is a current smoker with a 35 pack-year history of smoking. COMPARISON: X-ray chest 07/24/2023. CT chest 05/02/2020. TECHNIQUE: Multidetector volumetric CT imaging of the chest is performed on a Siemens SOMATOM Definition scanner without contrast using low dose technique. Additional 2D coronal and sagittal reformatted images and axial 3D maximum intensity projection (MIP) images are generated on the CT workstation. This CT examination was performed using dose optimization techniques as appropriate, variously including the following: *Automated exposure control *Adjustment of mA and/or kV according to patient size (this includes techniques or standardized protocols for targeted exams where dose is matched to indication/reason for exam; i.e. extremities or head) *Use of iterative reconstruction technique TOTAL EXAM DLP: 41 mGy-cm. CTDIvol: 1.21 mGy. FINDINGS: PULMONARY NODULES: At least 4-5 pulmonary nodules are present the largest measuring 3 mm. As an example, there is a 3 mm left upper lobe nodule abutting the major fissure which is unchanged (5:144 compare prior 6:168). At the time of the prior study, there was some tree-in-bud nodularity seen in the upper lobes which has resolved. LUNGS: Lungs bilaterally symmetrically expanded. Linear scarring is present at the right lung base. Mild emphysematous changes are present. Mild diffuse bronchial thickening is seen. No effusion or pneumothorax. Central airways patent. MEDIASTINUM: No mediastinal, hilar or axillary adenopathy or free fluid collection. CORONARY ARTERY CALCIFICATION: Mild. THYROID GLAND: Unremarkable to the extent seen. CARDIOVASCULAR STRUCTURES: Aortic and heart size normal. No pericardial effusion. CHEST WALL/AXILLA: Unremarkable. UPPER ABDOMEN: Hepatic steatosis is again seen. Included portions of the solid organs in the upper abdomen otherwise unremarkable on noncontrast imaging. OSSEOUS STRUCTURES: No suspicious focal findings. CT/CT lung screening IMPRESSION: 1. Pulmonary nodules measuring up to 3 mm. 2. Mild emphysema and bronchial thickening. 3. Hepatic steatosis. 4. Incidental findings (s category): No significant new incidental findings. ASSESSMENT: 1. Lung-RADS Category 2: Benign appearance or behavior of nodules. N/A RECOMMENDATION: Continued routine annual low-dose CT lung screening in 1 year is recommended. An order for CT CHEST LOW DOSE CANCER SCREENING ([id number]) can be placed.
== END 2023-11-09 11:33 | disposition home or self-care (01) ==
LOC: HO.CT 11:32
PROVIDERS: PCP Internal Medicine Geriatric Medicine; Visit Provider Nurse Practitioner Family
DX: Z87.891 Personal history of nicotine dependence (principal)
CPT/HCPCS: 71271

== ENCOUNTER 2023-12-05 09:54 | Outpatient (AMB) | payer OTHER, SELFPAY ==
[2023-12-05 10:05] VITALS: BP 110/58; PULSE 70; O2SAT 100; BMI 23.6
--- NOTE | 2023-12-05 10:05 | MHC.OFFVIS ---
Vital Signs 12/05/23 10:05 Height 5 ft 3 in Weight 133 lb 6 oz BMI 23.6 BP 110/58 L Blood Pressure Location Rt brachial Position Sitting Pulse 70 Pulse Source Pulse Oximeter Pulse Oximetry (%) 100 Oxygen Delivery Method Room Air Intake Visit Reasons: shortness of breath Allergies Penicillins Adverse Reaction (Verified 12/05/23 10:09) thrush HPI HPI shortness of breath: Details: Elena is a pleasant 63-year-old female, current 1ppd smoker, with 45+ pack-year history and underlying emphysema, HTN and hyperlipidemia. She was started on Breo for dyspnea on moderate exertion, productive cough and intermittent wheezing. She was able to use Breo x 1 month with good relief of symptoms, however had issues with insurance coverage. Today she presents to review PFT and chest CT. She denies any visits to urgent care or hospitalizations since the last visit. At this time patient denies any respiratory symptoms. Of note, she reports left sided neck pain that developed a week ago with associated radiating pain towards left shoulder which started after quick movements while driving. She denies any accidents or trauma. She denies any weakness, numbness or tingling of BUE. She ahs been using heat, stretching, ibuprofen and tylenol PRN with moderate effect. On exam patient with significant taut bands of left trapezius muscle. Will send tizanidine to use PRN. Advised to start with 1/2 tab as medication can be sedating and instructed patient to avoid operating heavy machinery after using. She is aware if symptoms persist to follow up with PCP and if worsen seek urgent/emergent care. [facility] Medical History (Updated 11/09/23 @ 11:12 by Mayra Akhtar PA-C) Atherosclerotic cardiovascular disease Hypertension Elevated cholesterol Nicotine dependence, cigarettes, uncomplicated Emphysema of lung ADHD Anxiety Tubular adenoma of colon Surgical History (Updated 11/09/23 @ 11:08 by Mayra Akhtar PA-C) History of colonoscopy History of hysterectomy History of History of carpal tunnel surgery Family History Brother Cancer Social History Alcohol intake: current Alcohol intake frequency: a few times a month Patient Tobacco Use Status: Current everyday Tobacco user Tobacco use type: Cigarette Cigarette Packs Per Day: 1 Years Smoked: (onset 16yo, 1ppd x 47yrs, 40+PYH) Substance Use Type: Marijuana Review of Systems Const Denies chills, Denies excessive sweating, Denies fever(s), Denies headache(s) and Denies night sweats Eyes Denies dry eyes, Denies irritation and Denies itchy eyes ENT Reports Normal hearing present, Denies headache(s), Denies nasal congestion, Denies nasal discharge, Reports neck pain, Denies post nasal drip and Denies sore throat Card Denies chest pain, Denies chest pain at rest, Denies chest pain with activity, Denies claudication, Denies leg edema, Denies dyspnea, Denies dyspnea on exertion, Denies orthopnea and Denies paroxysmal nocturnal dyspnea Resp Denies chest congestion, Denies cough, Denies excessive phlegm production, Denies pain on inspiration, Denies pain with cough, Denies dyspnea, Denies dyspnea on exertion, Denies stridor and Denies wheezing Musc Reports neck pain Neuro Reports Normal hearing present and Denies headache(s) Endo Denies excessive sweating Anselmo/Lymph Denies lymphadenopathy Aller/Immun Denies itchy eyes, Denies seasonal rhinorrhea and Denies wheezing Physical Exam Vital Signs: Last Vital Signs Pulse 70 12/05/23 10:05 BP 110/58 L 12/05/23 10:05 Pulse Ox 100 12/05/23 10:05 Oxygen Delivery Method Room Air 12/05/23 10:05 BMI result Body Mass Index 23.6 Const General: cooperative, healthy appearing, comfortable, no acute distress, well developed and alert Orientation/consciousness: patient oriented x3 Limitations: no limitations HEENT Head: Yes normal to inspection, Yes normocephalic and Yes atraumatic Ears: hearing grossly normal bilaterally and external ears normal Eyes General: appearance normal, both eyes and all related structures Eyelids: Yes eyelids normal Sclerae: sclerae normal EOM: EOMs intact bilaterally Neck Other: decreased ROM with left lateral movement, equal strength of BUE. Neck: Yes normal visual inspection and Yes no lymphadenopathy Lymphatic: no lymphadenopathy noted Chest Chest palpation & inspection: normal inspection of the chest Resp Effort & Inspection: normal respiratory effort, able to speak in complete sentences, no audible wheezes, no cough, no stridor, not tachypneic, no tripod positioning and no use of accessory muscles Auscultation: clear to auscultation bilaterally Cardio Jugular venous distension: no JVD Rate: regular rate Rhythm: regular rhythm Skin Other: warm, dry General skin exam: no rashes or lesions noted Neuro General: patient oriented x3 Cranial nerves: Yes Normal hearing present Cognition (Neuro): normal cognition Gait exam (Neuro): Normal gait present Extrem General: Yes normal to inspection, Yes capillary refill normal, Yes no clubbing, cyanosis or edema and Yes no pedal edema Psych Appearance: grossly normal and well kempt Speech and movement: Normal speech and movement present and Clear speech present Affect: normal affect Attitude: cooperative Thought process: Normal thought process present Thought content: Normal thought content present Insight: Good insight present (Psych) Judgement: Good judgement present (Psych) Assessment & Plan Assessment & Plan (1) COPD (chronic obstructive pulmonary disease): Code(s): J44.9 - Chronic obstructive pulmonary disease, unspecified Category: Medical (2) Emphysema of lung: Code(s): J43.9 - Emphysema, unspecified Category: Medical (3) Nicotine dependence, cigarettes, uncomplicated: Comment: (current smoker, onset 16yo, 1ppd x 47yrs, 40pyh) Code(s): F17.210 - Nicotine dependence, cigarettes, uncomplicated Category: Medical Plan Reviewed PFT which revealed no obstructive or restrictive ventilatory defect. FEV1/FVC 77%, FEV1 100% There was no bronchodilator response. Increased residual volume, 183%, suggests air trapping. Increased total lung capacity, 126%, suggests hyperinflation. DLCO 83%. Given the amount of air trapping and hyperinflation, will send in inhaler to use. Will send AirDuo in place of Breo. Chest CT results not officially read by radiologist, however no signs of ILD seen. Will call patient with results once read. Patient apart of of [facility] program and will have scan next year. All questions were answered and patient is in agreement of plan. Will follow-up to review results and response to inhaler. Medications: New tizanidine 4 mg PO Q6-8H PRN 20 tabs 0RF muscle spasticity fluticasone propion-salmeterol 113-14 mcg/actuation (AirDuo RespiClick) 1 inh inhalation BID 1 ea 6RF Coding Level of Care Code Est Pt Level 4 (20027) Diagnoses COPD (chronic obstructive pulmonary disease) J44.9 Emphysema of lung J43.9 Nicotine dependence, cigarettes, uncomplicated F17.210
== END 2023-12-05 10:37 | disposition home or self-care (01) ==
PROVIDERS: PCP Internal Medicine Geriatric Medicine; Visit Provider Nurse Practitioner Family
DX: J44.9 Chronic obstructive pulmonary disease, unspecified (principal); J43.9 Emphysema, unspecified; F17.210 Nicotine dependence, cigarettes, uncomplicated
CPT/HCPCS: 99214

== ENCOUNTER → 2023-12-05 09:54 | Outpatient (BNVA) | payer OTHER, SELFPAY | PROVIDERS: PCP Internal Medicine Geriatric Medicine; Visit Provider Nurse Practitioner Family | DX: J44.9 Chronic obstructive pulmonary disease, unspecified (principal); J43.9 Emphysema, unspecified; F17.210 Nicotine dependence, cigarettes, uncomplicated | CPT/HCPCS: 99212 ==

== ENCOUNTER 2023-12-14 17:00 | Emergency (ER) | payer OTHER, SELFPAY ==
--- NOTE | 2023-12-14 | ECG_ITS ---
Test Reason : neck and left arm pain Blood Pressure : / mmHG Vent. Rate : 098 BPM Atrial Rate : 098 BPM P-R Int : 146 ms QRS Dur : 068 ms QT Int : 324 ms P-R-T Axes : 041 037 051 degrees QTc Int : 413 ms Normal sinus rhythm Normal ECG When compared with ECG of 10-AUG-2020 19:38, No significant change was found Referred By: Generic ED Physician Electronically Signed By:Kurtis Mcgrath
[2023-12-14 17:13] VITALS: BP 129/100; PULSE 88; RESP 18; TEMP 36.8; O2SAT 100; BMI 22.7
--- NOTE | 2023-12-14 17:13 | ED_ITS ---
HPI - General Adult General Chief complaint: Chest Pain Stated complaint: Chest pain with L arm pain and numbness Source: patient Mode of arrival: ambulatory Limitations: no limitations History of Present Illness ED Provider: Rosalva Shah PA-C HPI narrative: Patient is a 63 year old assigned female at with a history of HTN, CAD, COPD, and diverticulosis presenting to the emergency department today with back pain that radiates into her chest and neck. Patient states that she was given a shot of Toradol yesterday and that helped briefly. Patient denies any dizziness, lightheadedness, abdominal pain, nausea, vomiting, fever, chills, blurry vision, double vision, loss of vision, difficulty breathing, shortness of breath, night sweats, pain with urination, increased urinary frequency, increased urinary urgency, blood in her urine or stool, syncope or a near syncopal episode, recent trauma or falls, bowel incontinence, bladder incontinence, or any other complaints at this time. Relieving factors: none Exacerbating factors: none Associated symptoms: denies other symptoms Treatments prior to arrival: none Related Data Home Medications ?Medication ?Instructions ?Recorded ?Confirmed amlodipine 10 mg-valsartan 160 mg 1 tab PO QAM 09/03/23 09/18/23 tablet atorvastatin 20 mg tablet 20 mg PO Q OTHER DAY 09/03/23 09/18/23 dextroamphetamine-amphetamine 15 1 tab PO BID attention deficit 09/03/23 09/18/23 mg tablet (Adderall) hyperactivity disorder ezetimibe 10 mg tablet 10 mg PO QAM 09/03/23 09/18/23 aspirin 81 mg chewable tablet 81 mg PO DAILY 09/12/23 09/18/23 hydrochlorothiazide 12.5 mg tablet 25 mg PO DAILY 09/12/23 09/18/23 lorazepam 0.5 mg tablet 0.5 mg PO DAILY 09/20/23 Previous Rx's ?Medication ?Instructions ?Recorded lidocaine 4 % topical patch 1 patch topical DAILY PRN pain #15 07/20/23 (AsperFlex (lidocaine)) ea albuterol sulfate 90 mcg/actuation 2 puff inhalation Q6H PRN 09/12/23 aerosol inhaler shortness of breath or wheezing #1 ea fluticasone furoate 100 1 inh inhalation DAILY #60 ea 09/12/23 mcg-vilanterol 25 mcg/dose inhalation powder (Breo Ellipta) fluticasone 113 mcg-salmeterol 14 1 inh inhalation BID #1 ea 12/05/23 mcg/actuation breath activated powdr (AirDuo RespiClick) tizanidine 4 mg tablet 4 mg PO Q6-8H PRN muscle 12/05/23 spasticity #20 tabs Allergies Allergy/AdvReac Type Severity Reaction Status Date / Time Penicillins AdvReac thrush Verified 12/14/23 17:16 Review of Systems 2 Constitutional: Constitutional: Reports no additional constitutional complaints, Denies chills, Denies fever(s) and Denies night sweats Eyes: Eyes: Reports no additional eye complaints, Denies blurry vision, Denies change in vision, Denies diplopia, Denies eye discharge, Denies loss of vision and Denies eye pain ENT: Denies dizziness Cardiovascular: Cardiovascular: Reports no additional cardiovascular complaints, Reports chest pain, Denies lightheadedness, Denies Loss of Consciousness and Denies dyspnea Respiratory: Respiratory: Reports no additional respiratory complaints and Denies dyspnea Gastrointestinal: Gastrointestinal: Reports no additional gastrointestinal complaints, Denies abdominal pain, Denies melena, Denies hematochezia, Denies change in bowel habits and Denies change in stool character Genitourinary: Genitourinary: Denies hematuria, Denies urinary frequency, Denies dysuria, Denies urinary incontinence, Denies urinary hesitancy and Denies urinary urgency Musculoskeletal: Musculoskeletal: Reports no additional musculoskeletal complaints, Reports back pain, Denies numbness and Denies tingling Neurologic: Denies dizziness, Denies loss of vision, Denies numbness and Denies tingling Psychiatric: Psychiatric: Reports no additional psychiatric complaints Endocrine: Endocrine: Reports no additional endocrine complaints Hematologic/Lymphatic: Hematologic/Lymphatic: Reports no additional hematologic/lymphatic complaints Allergic/Immunologic: Allergic/Immunologic: Reports no additional allergic/immunologic complaints [facility] Past Medical History Attestation statement: The following information was validated with the patient. Source: old records reviewed and nursing notes reviewed Medical History Atherosclerotic cardiovascular disease Hypertension Elevated cholesterol Nicotine dependence, cigarettes, uncomplicated Emphysema of lung ADHD Anxiety Tubular adenoma of colon Surgical History History of colonoscopy History of hysterectomy History of History of carpal tunnel surgery Family History Family History Brother Cancer Social History Social History Alcohol intake: current Alcohol intake frequency: a few times a month Patient Tobacco Use Status: Current everyday Tobacco user Tobacco use type: Cigarette Cigarette Packs Per Day: 1 Years Smoked: (onset 16yo, 1ppd x 47yrs, 40+PYH) Substance Use Type: Marijuana Advance Directives: No Advance Directives Information Provided: No Do you have a plan to hurt others: No Plan Physical Exam ED Vital Signs: Vital Signs - 24 hr 12/14/23 17:13 Temperature 98.3 F Pulse Rate 88 Respiratory Rate 18 Blood Pressure 129/100 H Pulse Oximetry 100 Oxygen Delivery Method Room Air BMI result Body Mass Index 22.7 Const General: cooperative, no acute distress, alert and awake Nutritional Appearance: well nourished Orientation/consciousness: patient oriented x3 Limitations: no limitations HENMT Head: Yes normal to inspection and Yes atraumatic Ears: hearing grossly normal bilaterally and external ears normal General nose exam: Normal external nose present, no nasal discharge noted and no epistaxis Face and sinus: Yes normal facial exam, No abrasion and No laceration Mouth: Normal oral and palatal mucosa present, no drooling and no muffled voice Eyes General: appearance normal, both eyes and all related structures Periorbital: periorbital findings normal Eyelids: Yes eyelids normal Conjunctivae: conjunctivae normal Pupils: Equal, round and reactive pupils present EOM: EOMs intact bilaterally Neck Neck: Yes normal visual inspection, Yes full ROM and Yes no lymphadenopathy Chest Chest palpation & inspection: normal inspection of the chest Resp Effort & Inspection: normal respiratory effort and able to speak in complete sentences GI Inspection: Yes normal to inspection Neuro General: patient oriented x3 and moves all extremities Cranial nerves: Yes Equal, round and reactive pupils present Cognition (Neuro): normal cognition Motor exam (neuro): 5/5 motor strength present throughout Sensory Exam: Normal double simultaneous stimulation for sensation Coordination: [id number] test normal Extrem General: Yes normal to inspection, Yes full ROM and Yes capillary refill normal Psych Appearance: grossly normal Mental Status: mental status grossly normal Affect: normal affect Attitude: cooperative Thought process: Normal thought process present Thought content: Normal thought content present Insight: Good insight present (Psych) Course Course Course Narrative: RME performed by Rosalva Shah PA-C. Patient is a 63 year old assigned female at presenting to the emergency department with back pain. Patient states she is having severe back pain that radiates into her entire spine and into her neck. Patient states it has been worse over the last 2 days but has been going on for 2 weeks. Detailed physical exam and review of systems are deferred to the can striper. EKG and labs ordered. Patient placed back in the waiting room pending room availability and results. Medical Decision Making Medical Decision Making MDM Narrative: Patient is a 63 year old assigned female at with a history of HTN, CAD, COPD, and diverticulosis presenting to the emergency department today with back pain. Patient's limited physical exam performed in triage was unremarkable. Patient's blood work showed an elevated WBC count of 18.4, BUN 36, CR of 2.34, elevated AST of 93, ALT of 123, and alk phos of 146. Patient's EKG was unremarkable. Patient left the department without completing treatment. Patient left the department before myself or any of the other emergency department clinicians could explain to or review with the patient; physical exam findings, test results, need or lack there of for additional testing, need or lack there of for a procedure to be performed, need or lack there of for hospital admission / transfer, need or lack there of for prescription medication, treatment options, or a treatment plan. Given the patient's concerning labs, I attempted to call her to instruct her to return to the ER however, she did not answer and her voicemail would not let me leave a message. I called her primary contact listed, Diandra her daughter, who is currently in [place] but stated she would try to get ahold of her mother (the patient) and tell her to return to the ER. radar signal processing engineer aware of contact attempts made. Differential Diagnosis Differential Diagnoses: The differential diagnosis associated with the presentation includes Kidney failure [facility]IGUEL [facility]GEL Back pain Pyelonephritis Admission/Observation Consideration of admission/observation: Escalation of care including admission/observation considered Patient would have been admitted to the hospital had she completed her work up and it had any findings where hospital admission was appropriate, her clinical presentation warranted hospital admission, had myself or any other emergency laborer drying department had the ability to discuss need or lack there of for hospital admission, and the patient hadn't left the department without completing treatment. Lab Data [facility] Lab Attestation statement: I reviewed the patient's lab results. My interpretation of these results are in the [facility] Rationale portion of this note. 12/14/23 18:10 12/14/23 18:10 Labs: Lab Results 12/14/23 Range/Units 18:10 WBC 18.4 H (4.8-10.8) X10*3/uL RBC 4.21 (4.20-5.50) X10*6/uL Hgb 13.4 (12.0-16.0) g/dl Hct 38.4 (37.0-47.0) % MCV 91.2 (80.0-98.0) fL MCH 31.8 (27.0-33.0) pg MCHC 34.9 (31.0-35.0) g/dl RDW 13.2 (11.0-16.0) % Plt Count 386 (160-400) X10*3/uL MPV 9.4 (9.4-12.3) fL Immature Gran % (Auto) 1.0 H (0.0-0.4) % Neut % (Auto) 75.1 H (45-73) % Lymph % (Auto) 12.7 L (20-40) % [place] % (Auto) 10.1 (2-11) % Eos % (Auto) 0.7 (0-4) % Baso % (Auto) 0.4 (0-2) % Lymph # (Auto) 2.3 (1.2-4.9) X10*3/uL [place] # (Auto) 1.9 H (0.1-1.2) X10*3/uL Eos # (Auto) 0.1 (0.0-0.4) X10*3/uL Baso # (Auto) 0.1 (0.0-0.2) X10*3/uL Abs Immat Gran (auto) 0.18 H (0.00-0.03) X10*3/uL Absolute Neuts (auto) 13.8 H (2.0-8.3) x10*3/uL Absolute Nucleated RBC 0.000 (0.0-0.012) X10*3/uL Nucleated RBC % (auto) 0.0 (0.0-0.2) /100WBC Smear Tech's Comments VERIFIED Sodium 135 (135-145) mmol/L Potassium 4.9 (3.3-5.1) mmol/L Chloride 103 (96-108) mmol/L Carbon Dioxide 19 L (22-29) mmol/L Anion Gap 18 (12-20) BUN 36 H (9-16) mg/dL Creatinine 2.34 H (0.5-1.4) mg/dL Estim Creat Clear Calc 20.3 Estimated GFR 21 Random Glucose 101 (60-115) mg/dL Calcium 9.8 (8.4-10.2) mg/dL Magnesium 2.6 (1.6-2.6) mg/dL Total Bilirubin 0.3 (0.0-1.0) mg/dL AST 93 H (5-31) U/L ALT 123 H (0-31) U/L Alkaline Phosphatase 146 H (39-117) U/L Troponin I High Sens < 2.7 (<3.5-17.0) ng/L Total Protein 7.5 (6.5-8.0) g/dL Albumin 4.4 (3.5-5.0) g/dL Influenza Type A (PCR) NEGATIVE (Negative) Influenza Type B (PCR) NEGATIVE (Negative) RSV RNA Qual (PCR) NEGATIVE (Negative) SARS-CoV-2 RNA (RT-PCR) NEGATIVE (Negative) Independent Interpretation I performed an independent interpretation of an: EKG Interpretation: Vent. Rate: 098 BPM Atrial Rate: 098 BPM P-R Int: 146 ms QRS Dur: 068 ms QT Int: 324 ms P-R-T Axes: 041 037 051 degrees QTc Int: 413 ms Normal sinus rhythm Normal ECG When compared with ECG of 10-AUG-2020 19:38, No significant change was found DD/ [id number] Discharge Plan Discharge Clinical Impression: Back pain Patient Disposition: Left W/O Completing Treatment Prescriptions: No Action atorvastatin 20 mg tablet 20 mg PO Q OTHER DAY dextroamphetamine-amphetamine [Adderall] 15 mg tablet 1 tab PO BID ezetimibe 10 mg tablet 10 mg PO QAM amlodipine-valsartan 10-160 mg tablet 1 tab PO QAM hydrochlorothiazide 12.5 mg tablet 25 mg PO DAILY lidocaine [AsperFlex (lidocaine)] 4 % adhesive patch,medicated 1 patch topical DAILY PRN (Reason: pain) Qty: 15 0RF tizanidine 4 mg tablet 4 mg PO Q6-8H PRN (Reason: muscle spasticity) Qty: 20 0RF fluticasone propion-salmeterol [AirDuo RespiClick] 113-14 mcg/actuation aerosol powdr breath activated 1 inh inhalation BID Qty: 1 6RF lorazepam 0.5 mg tablet 0.5 mg PO DAILY aspirin 81 mg tablet,chewable 81 mg PO DAILY albuterol sulfate 90 mcg/actuation HFA aerosol inhaler 2 puff inhalation Q6H PRN (Reason: shortness of breath or wheezing) Qty: 1 3RF fluticasone furoate-vilanterol [Breo Ellipta] 100-25 mcg/dose blister with device 1 inh inhalation DAILY Qty: 60 3RF Discharge Date/Time: 12/14/23 18:32
[2023-12-14 18:18] LABS: Basophils Absolute Auto 0.1 X10*3/uL (0.0-0.2); Basophils Percent Auto 0.4 % (0-2); Eosinophils Absolute Auto 0.1 X10*3/uL (0.0-0.4); Eosinophils Percent Auto 0.7 % (0-4); Hematocrit 38.4 % (37.0-47.0); Hemoglobin 13.4 g/dl (12.0-16.0); Imm Gran Abs Auto 0.18 X10*3/uL (0.00-0.03); Lymphocytes Absolute Auto 2.3 X10*3/uL (1.2-4.9); Lymphocytes Percent Auto 12.7 % (20-40); MANUAL DIFF FLAG SCAN; Mean Corpuscular HGB Conc 34.9 g/dl (31.0-35.0); Mean Corpuscular Hemoglobin 31.8 pg (27.0-33.0); Mean Corpuscular Volume 91.2 fL (80.0-98.0); Mean Platelet Volume 9.4 fL (9.4-12.3); Monocytes Absolute Auto 1.9 X10*3/uL (0.1-1.2); Monocytes Percent Auto 10.1 % (2-11); Neutrophils Absolute Auto 13.8 x10*3/uL (2.0-8.3); Neutrophils Percent Auto 75.1 % (45-73); Platelet Count 386 X10*3/uL (160-400); Red Blood Count 4.21 X10*6/uL (4.20-5.50); Red Cell Distribution Width 13.2 % (11.0-16.0); SCAN SMEAR FLAG 1; White Blood Count 18.4 X10*3/uL (4.8-10.8)
[2023-12-14 18:41] LABS: Alanine Aminotransferase 123 U/L (0-31); Albumin Level 4.4 g/dL (3.5-5.0); Alkaline Phosphatase 146 U/L (39-117); Anion Gap 18 (12-20); Aspartate Amino Transferase 93 U/L (5-31); Bilirubin Total 0.3 mg/dL (0.0-1.0); Blood Urea Nitrogen 36 mg/dL (9-16); Calcium 9.8 mg/dL (8.4-10.2); Carbon Dioxide 19 mmol/L (22-29); Chloride 103 mmol/L (96-108); Creatinine Clr Calc Pharmacy 20.3; Estimated Glomerular Filt Rate 21; Glucose Random 101 mg/dL (60-115); Magnesium 2.6 mg/dL (1.6-2.6); Potassium 4.9 mmol/L (3.3-5.1); Sodium 135 mmol/L (135-145); Total Protein 7.5 g/dL (6.5-8.0)
[2023-12-14 18:51] LABS: SLIDE REVIEW VERIFIED
[2023-12-14 18:52] LABS: Troponin-I High Sensitivity < 2.7 ng/L (<3.5-17.0)
[2023-12-14 19:06] LABS: Influenza A PCR NEGATIVE (Negative); Influenza B PCR NEGATIVE (Negative); Resp Syncy Virus RNA Qual PCR NEGATIVE (Negative); SARS COV2 PCR INHOUSE NEGATIVE (Negative)
== END 2023-12-14 18:32 | disposition left against medical advice (07) ==
PROVIDERS: Physician Assistant Medical; Emergency Provider Emergency Medicine; PCP Internal Medicine Geriatric Medicine
DX: R07.89 Other chest pain (principal); M54.2 Cervicalgia; M54.50 Low back pain, unspecified; M79.602 Pain in left arm; I25.10 Atherosclerotic heart disease of native coronary artery without angina pectoris; Z03.818 Encounter for observation for suspected exposure to other biological agents ruled out; Z79.899 Other long term (current) drug therapy
CPT/HCPCS: 0241U; 36415; 80053; 83735; 84484; 85025; 93005; 99283

== ENCOUNTER → 2023-12-14 17:02 | Outpatient (BNV) | payer OTHER, SELFPAY | PROVIDERS: Emergency Provider Emergency Medicine; PCP Internal Medicine Geriatric Medicine; Visit Provider Internal Medicine Cardiovascular Disease | DX: I10 Essential (primary) hypertension (principal); M54.2 Cervicalgia | CPT/HCPCS: 93010 ==

== ENCOUNTER 2023-12-14 21:07 | Inpatient (IN) | payer OTHER, SELFPAY ==
--- NOTE | ~2023-12-14 | XR_ITS ---
EXAMINATION: XR CHEST CLINICAL INFORMATION: Pain. COMPARISON: 07/24/2023 TECHNIQUE: Frontal view of the chest was obtained. FINDINGS: The cardiomediastinal silhouette is within normal limits and stable. There is lingular and right lung base scarring and/or minimal subsegmental atelectasis. The lungs are otherwise clear. There are no significant pleural effusions. The bony structures are osteopenic. Soft tissues are unremarkable XR/XR chest 1V IMPRESSION: Lingular and right lung base scarring and/or minimal subsegmental atelectasis. No evidence for active cardiopulmonary disease.
--- NOTE | ~2023-12-14 | CT_ITS ---
EXAMINATION: CT ABDOMEN AND PELVIS WITHOUT CONTRAST CLINICAL INFORMATION: Renal failure. COMPARISON: 01/19/2020. TECHNIQUE: Multidetector volumetric imaging was performed from the superior aspect of the liver through the pubic symphysis. Sagittal and coronal reformatted images were obtained on the technologist's workstation. This CT examination was performed using dose optimization techniques as appropriate, variously including the following: *Automated exposure control *Adjustment of mA and/or kV according to patient size (this includes techniques or standardized protocols for targeted exams where dose is matched to indication/reason for exam; i.e. extremities or head) *Use of iterative reconstruction technique DLP: 398 mGy-cm FINDINGS: LUNG BASES: There is scarring at the lung bases. LIVER, GALLBLADDER, AND BILIARY TREE: The liver is normal in size, shape, and attenuation. No focal hepatic lesion or biliary ductal dilatation is present. Gallbladder appears to be mildly distended. No definite calcified gallstones are seen. PANCREAS: Unremarkable. SPLEEN: Unremarkable. ADRENAL GLANDS: There is left adrenal gland thickening and nodularity KIDNEYS AND URETERS: The kidneys are normal in size, shape, and attenuation. No hydronephrosis, hydroureter, or calculi seen. No perinephric stranding. BLADDER: Unremarkable. GASTROINTESTINAL TRACT: There is retained stool. The appendix is visualized and is within normal limits. ABDOMINAL WALL: No significant hernia is appreciated. LYMPH NODES: Normal. VASCULAR: There is atherosclerotic plaque of the abdominal aorta. PELVIC VISCERA: Unremarkable. OSSEOUS STRUCTURES: There is mild bilateral hip degenerative change. CT/CT abdomen pelvis wo IV con IMPRESSION: 1. No evidence of renal stone or hydronephrosis. 2. Mildly distended gallbladder. No definite calcified gallstones are seen. If there is clinical concern of cholecystitis, this could be further evaluated with ultrasound. 3. Retained stool throughout the colon. Fleischner guidelines were followed.
[2023-12-14 21:09] VITALS: BP 126/63; PULSE 86; RESP 20; TEMP 37; O2SAT 99; BMI 24.1
--- NOTE | 2023-12-14 23:27 | ED.GENADULT ---
HPI - General Adult General Chief complaint: Recheck/Abnormal Lab/Rx Stated complaint: Abnormal labs Time Seen by Provider: 12/14/23 23:21 Source: patient Mode of arrival: ambulatory Limitations: no limitations History of Present Illness ED Provider: audrey LEON narrative: Complaining of pain in left upper back in the shoulder area for last 1 week was seen at PCP office yesterday was given Toradol shot was seen here earlier today but left without been treated lab showed leukocytosis of 18,000 with left shift and creatinine of 2.34 from previous 0.77 in 09/15 no fever no chills no cough no use of steroid no urinary complaint no prolonged use of NSAIDs patient noted to have decreased urine output for last few weeks Related Data Home Medications ?Medication ?Instructions ?Recorded ?Confirmed amlodipine 10 mg-valsartan 160 mg 1 tab PO QAM 09/03/23 09/18/23 tablet atorvastatin 20 mg tablet 20 mg PO Q OTHER DAY 09/03/23 09/18/23 dextroamphetamine-amphetamine 15 1 tab PO BID attention deficit 09/03/23 09/18/23 mg tablet (Adderall) hyperactivity disorder ezetimibe 10 mg tablet 10 mg PO QAM 09/03/23 09/18/23 aspirin 81 mg chewable tablet 81 mg PO DAILY 09/12/23 09/18/23 hydrochlorothiazide 12.5 mg tablet 25 mg PO DAILY 09/12/23 09/18/23 lorazepam 0.5 mg tablet 0.5 mg PO DAILY 09/20/23 Previous Rx's ?Medication ?Instructions ?Recorded lidocaine 4 % topical patch 1 patch topical DAILY PRN pain #15 07/20/23 (AsperFlex (lidocaine)) ea albuterol sulfate 90 mcg/actuation 2 puff inhalation Q6H PRN 09/12/23 aerosol inhaler shortness of breath or wheezing #1 ea fluticasone furoate 100 1 inh inhalation DAILY #60 ea 09/12/23 mcg-vilanterol 25 mcg/dose inhalation powder (Breo Ellipta) fluticasone 113 mcg-salmeterol 14 1 inh inhalation BID #1 ea 12/05/23 mcg/actuation breath activated powdr (AirDuo RespiClick) tizanidine 4 mg tablet 4 mg PO Q6-8H PRN muscle 12/05/23 spasticity #20 tabs Allergies Allergy/AdvReac Type Severity Reaction Status Date / Time Penicillins AdvReac thrush Verified 12/14/23 21:13 [facility] Past Medical History Medical History Atherosclerotic cardiovascular disease Hypertension Elevated cholesterol Nicotine dependence, cigarettes, uncomplicated Emphysema of lung ADHD Anxiety Tubular adenoma of colon Surgical History History of colonoscopy History of hysterectomy History of History of carpal tunnel surgery Family History Family History Brother Cancer Social History Social History Alcohol intake: current Alcohol intake frequency: does not drink Patient Tobacco Use Status: Current everyday Tobacco user Tobacco use type: Cigarette Cigarette Packs Per Day: 1 Years Smoked: (onset 16yo, 1ppd x 47yrs, 40+PYH) Smoked in Last 30 Days: Yes Use of substances other than those prescribed or required for medical reasons: No Substance Use Type: Marijuana Advance Directives: No Advance Directives Information Provided: No Do you have a plan to hurt others: No Plan Nutrition Risks: No Nutritional Risk Physical Exam ED Vital Signs: Vital Signs - 24 hr 12/14/23 21:09 12/15/23 01:41 12/15/23 02:21 Temperature 98.6 F 97.7 F 98.2 F Pulse Rate 86 65 65 Respiratory Rate 20 16 16 Blood Pressure 126/63 97/51 L 104/57 L Pulse Oximetry 99 98 98 Oxygen Delivery Method Room Air Room Air Room Air BMI result Body Mass Index 24.1 Appearance: Alert. Oriented X3. No acute distress. Eyes: No pallor or icterus ENT: Pharynx normal. Oral Mucosa moist Neck: Normal inspection. Neck supple. CVS: Normal heart rate and rhythm. Pulses normal. Respiratory: No respiratory distress. Equal air entry bilateral, no wheezing/rales/rhonchi Abdomen: Soft and nontender. Bowel sounds are present, no mass palpable, no CVA tenderness Skin: Skin warm and dry. Normal skin color. Normal skin turgor. Extremities: No lower extremity edema. No calf tenderness diffuse tenderness left scapular area Neuro: Oriented X 3. No motor deficit. No sensory deficit.No cerebellar signs , cranial nerves II-XII intact Medications Administered Generic Name Dose Route Start Last Admin Trade Name Freq PRN Reason Stop Dose Admin Acetaminophen 650 mg 12/15/23 03:54 12/15/23 06:35 Acetaminophen 325 Mg Tablet PO 650 mg Q6H PRN Administration Pain, Mild (Pain Scale 1-3), fever or headache Nicotine 14 mg 12/15/23 04:05 12/15/23 06:02 Nicotine 14 Mg Patch.Td24 TRANSDERMA 14 mg DAILY RICARDO Administration Discontinued Medications Generic Name Dose Route Start Last Admin Trade Name Freq PRN Reason Stop Dose Admin Sodium Chloride 1,000 mls @ 999 mls/hr 12/15/23 00:34 12/15/23 02:20 Ns IV 12/15/23 01:34 Infused .Q1H1M ONE Infusion Lorazepam 1 mg 12/15/23 06:20 12/15/23 06:35 Lorazepam 1 Mg Tablet PO 12/15/23 06:21 1 mg ONCE ONE Administration Morphine Sulfate 4 mg 12/15/23 02:13 12/15/23 02:20 Morphine Sulfate 4 Mg/Ml Cartridge IVPUSH 12/15/23 02:14 4 mg ONCE ONE Administration Protocol Medical Decision Making Medical Decision Making [facility] Narrative: Patient's history of hypertension noted to have MIGUEL ANGEL which which is new year's lab showed normal kidney functions in 09/15 no known nephrotoxic agent use does not take NSAIDs very often urine shows significant proteinuria CT scan negative for any obstructive uropathy. Patient is asymptomatic will admit for further evaluation Differential Diagnosis Differential Diagnoses: The differential diagnosis associated with the presentation includes MIGUEL ANGEL/CKD/obstructive uropathy Admission/Observation Consideration of admission/observation: Escalation of care including admission/observation considered Consult Healthcare Provider Management of the patient was discussed with: Hospitalist Lab Data [facility] Lab Attestation statement: I reviewed the patient's lab results. 12/15/23 05:02 12/15/23 05:02 Labs: Lab Results 12/14/23 12/14/23 12/15/23 Range/Units 23:52 23:53 00:41 Sodium 136 (135-145) mmol/L Potassium 4.3 (3.3-5.1) mmol/L Chloride 103 (96-108) mmol/L Carbon Dioxide 21 L (22-29) mmol/L Anion Gap 16 (12-20) BUN 37 H (9-16) mg/dL Creatinine 2.56 H (0.5-1.4) mg/dL Estim Creat Clear Calc 20.2 Estimated GFR 19 Random Glucose 99 (60-115) mg/dL Lactic Acid 0.5 (0.5-2.0) mmol/L Calcium 9.0 D (8.4-10.2) mg/dL Urine Color Yellow Urine Appearance Cloudy Urine pH 5.5 (5.0-9.0) Ur Specific [place] 1.015 (1.005-1.025) Urine Protein 30 (1+) H (Neg-Trace) mg/dL Urine Glucose (UA) Negative (Negative) mg/dL Urine Ketones Negative (Negative) mg/dL Urine Blood Trace H (Negative) Urine Nitrite Negative (Negative) Ur Leukocyte Esterase Trace H (Negative) Urine RBC 0-2 (0-2) /HPF Urine WBC 11-20 H (0-5) /HPF Ur Squamous Epith Cells >20 (0-2) /HPF Urine Bacteria None Seen (None Seen) Hyaline Casts 11-20 (0-2) /LPF U Random Total Protein 30 H (<12) mg/dL Ur Random Sodium 42.0 mmol/L Urine Creatinine 99.49 mg/dL Radiology Impression Discussion of test interpretation with radiology: I have reviewed the radiologist's reading. Radiologist Impression: [place] [id number] CT Scan Report Signed Patient: Elena Solis MR#: [id number] : 1960 Acct:[id number] Age/Sex: 63 / F ADM Date: 12/14/23 Loc: HO.ED Attending Dr: Ordering Physician: Kirk Cuello MD Date of Service: 12/15/23 Procedure(s): CT abdomen pelvis wo IV con Accession Number(s): [id number] cc: Will,Deven THOMPSON; Kirk Cuello MD~ EXAMINATION: CT ABDOMEN AND PELVIS WITHOUT CONTRAST CLINICAL INFORMATION: Renal failure. COMPARISON: 01/19/2020. TECHNIQUE: Multidetector volumetric imaging was performed from the superior aspect of the liver through the pubic symphysis. Sagittal and coronal reformatted images were obtained on the technologist's workstation. This CT examination was performed using dose optimization techniques as appropriate, variously including the following: *Automated exposure control *Adjustment of mA and/or kV according to patient size (this includes techniques or standardized protocols for targeted exams where dose is matched to indication/reason for exam; i.e. extremities or head) *Use of iterative reconstruction technique DLP: 398 mGy-cm FINDINGS: LUNG BASES: There is scarring at the lung bases. LIVER, GALLBLADDER, AND BILIARY TREE: The liver is normal in size, shape, and attenuation. No focal hepatic lesion or biliary ductal dilatation is present. Gallbladder appears to be mildly distended. No definite calcified gallstones are seen. PANCREAS: Unremarkable. SPLEEN: Unremarkable. ADRENAL GLANDS: There is left adrenal gland thickening and nodularity KIDNEYS AND URETERS: The kidneys are normal in size, shape, and attenuation. No hydronephrosis, hydroureter, or calculi seen. No perinephric stranding. BLADDER: Unremarkable. GASTROINTESTINAL TRACT: There is retained stool. The appendix is visualized and is within normal limits. ABDOMINAL WALL: No significant hernia is appreciated. LYMPH NODES: Normal. VASCULAR: There is atherosclerotic plaque of the abdominal aorta. PELVIC VISCERA: Unremarkable. OSSEOUS STRUCTURES: There is mild bilateral hip degenerative change. CT/CT abdomen pelvis wo IV con IMPRESSION: 1. No evidence of renal stone or hydronephrosis. 2. Mildly distended gallbladder. No definite calcified gallstones are seen. If there is clinical concern of cholecystitis, this could be further evaluated with ultrasound. 3. Retained stool throughout the colon. Fleischner guidelines were followed. Discharge Plan Discharge Clinical Impression: Acute kidney injury Patient Disposition: Admitted As Inpatient
[2023-12-15] LABS: Appearance Urine Cloudy; Color Urine Yellow; Glucose Urine UA Negative (Negative); Leukocyte Esterase Urine Trace (Negative); Nitrite Urine Negative (Negative); PH 5.5 (5.0-9.0); Specific Gravity - Urine 1.015 (1.005-1.025); UMIC TRIGGER UACC YES; Urine Blood Trace (Negative); Urine Ketones Negative (Negative); Urine Protein 30 (1+) mg/dL (Neg-Trace)
[2023-12-15 00:11] LABS: Bacteria Urine None Seen (None Seen); RBC Urine 0-2 /HPF (0-2); Squamous Epithelial Cell Urine >20 /HPF (0-2); UACC Culture Trigger YES
[2023-12-15 00:11] LABS: Lactic Acid 0.5 mmol/L (0.5-2.0)
[2023-12-15] MEDS: 0.9 % Sodium Chloride 1,000 ML 999 ML IV (00:42)
[2023-12-15 01:02] LABS: Anion Gap 16 (12-20); Blood Urea Nitrogen 37 mg/dL (9-16); Carbon Dioxide 21 mmol/L (22-29); Chloride 103 mmol/L (96-108); Creatinine Clr Calc Pharmacy 20.2; Estimated Glomerular Filt Rate 19; Glucose Random 99 mg/dL (60-115); Potassium 4.3 mmol/L (3.3-5.1); Sodium 136 mmol/L (135-145)
[2023-12-15 01:41] VITALS: BP 97/51; PULSE 65; RESP 16; TEMP 36.5; O2SAT 98
[2023-12-15] MEDS: Morphine Sulfate 4 MG/ML CARTRIDGE IVPUSH (02:20)
[2023-12-15 02:21] VITALS: BP 104/57; PULSE 65; RESP 16; TEMP 36.8; O2SAT 98
--- NOTE | 2023-12-15 03:56 | P.HPHOSP_ITS ---
History of Present Illness Date of Service: 12/15/23 Chief Complaint: Abnormal labs This is a 63-year-old female with pertinent history of tobacco use disorder, COPD not on home oxygen, hypertension, mood disorder, mixed hyperlipidemia who was brought to the emergency department for evaluation of abnormal labs. Patient presented to the ER in the morning on the day of presentation but left without being seen. She was called back to the ER as her creatinine was found to be elevated. Patient states she is been having neck pain that has been ongoing for the last 2 weeks. It has gotten progressively worse over the last 1 week. Patient has occasional shooting pain in her left upper extremity. Patient went to her PCP's office and was given Toradol shot. Patient states she never has had any kidney issues. No fever, chills, cough, chest discomfort, palpitations, shortness of breath, abdominal pain, dysuria, changes in urinary habits. In the emergency department, creatinine found to be 2.56 Review of Systems 2 Constitutional: Constitutional: Reports no additional constitutional complaints Cardiovascular: Cardiovascular: Reports no additional cardiovascular complaints Respiratory: Respiratory: Reports no additional respiratory complaints Gastrointestinal: Gastrointestinal: Reports no additional gastrointestinal complaints Genitourinary: Genitourinary: Reports no additional female genitourinary complaints [facility] Medical History Atherosclerotic cardiovascular disease Hypertension Elevated cholesterol Nicotine dependence, cigarettes, uncomplicated Emphysema of lung ADHD Anxiety Tubular adenoma of colon Family History Brother Cancer Surgical History History of colonoscopy History of hysterectomy History of History of carpal tunnel surgery Social History Alcohol intake: current Alcohol intake frequency: a few times a month Patient Tobacco Use Status: Current everyday Tobacco user Tobacco use type: Cigarette Cigarette Packs Per Day: 1 Years Smoked: (onset 16yo, 1ppd x 47yrs, 40+PYH) Substance Use Type: Marijuana Advance Directives: No Advance Directives Information Provided: No Do you have a plan to hurt others: No Plan Meds Allergies Allergy/AdvReac Type Severity Reaction Status Date / Time Penicillins AdvReac thrush Verified 12/14/23 21:13 Home Medications ?Medication ?Instructions ?Recorded ?Confirmed ?Last Taken ?Type amlodipine 10 mg-valsartan 160 mg 1 tab PO QAM 09/03/23 09/18/23 Unknown History tablet atorvastatin 20 mg tablet 20 mg PO Q OTHER DAY 09/03/23 09/18/23 Unknown History dextroamphetamine-amphetamine 15 1 tab PO BID attention deficit 09/03/23 09/18/23 Unknown History mg tablet (Adderall) hyperactivity disorder ezetimibe 10 mg tablet 10 mg PO QAM 09/03/23 09/18/23 Unknown History aspirin 81 mg chewable tablet 81 mg PO DAILY 09/12/23 09/18/23 Unknown History hydrochlorothiazide 12.5 mg tablet 25 mg PO DAILY 09/12/23 09/18/23 Unknown History lorazepam 0.5 mg tablet 0.5 mg PO DAILY 09/20/23 Unknown History Physical Exam 2 Vital Signs and Narrative: Vital Signs: Last Vital Signs Temp 97.7 F 12/15/23 01:41 Pulse 65 12/15/23 01:41 Resp 16 12/15/23 01:41 BP 97/51 L 12/15/23 01:41 Pulse Ox 98 12/15/23 01:41 O2 Del Method Room Air 12/15/23 01:41 BMI result Body Mass Index 24.1 Middle-aged female lying in bed in no distress Neck supple, no JVD Regular rate and rhythm, S1-S2 heard Regular breath sounds bilaterally, no wheezing or crackles appreciated Abdomen soft nontender, no guarding, no rigidity Patient is awake, alert and oriented to self, place, time and person ; no focal motor deficit Psych: Normal mood No pedal edema Results Labs 12/15/23 00:41 Labs: Laboratory Results - last 24 hr 12/14/23 12/14/23 12/15/23 23:52 23:53 00:41 Anion Gap 16 Estim Creat Clear Calc 20.2 Estimated GFR 19 Random Glucose 99 Lactic Acid 0.5 Calcium 9.0 D Urine Color Yellow Urine Appearance Cloudy Urine pH 5.5 Ur Specific [place] 1.015 Urine Protein 30 (1+) H Urine Glucose (UA) Negative Urine Ketones Negative Urine Blood Trace H Urine Nitrite Negative Ur Leukocyte Esterase Trace H Urine RBC 0-2 Urine WBC 11-20 H Ur Squamous Epith Cells >20 Urine Bacteria None Seen Hyaline Casts 11-20 Imaging Radiologist's Impressions: Impressions Chest X-Ray 12/15/23 00:10 IMPRESSION: Lingular and right lung base scarring and/or minimal subsegmental atelectasis. No evidence for active cardiopulmonary disease. Abdomen/Pelvis CT 12/15/23 00:55 IMPRESSION: 1. No evidence of renal stone or hydronephrosis. 2. Mildly distended gallbladder. No definite calcified gallstones are seen. If there is clinical concern of cholecystitis, this could be further evaluated with ultrasound. 3. Retained stool throughout the colon. Fleischner guidelines were followed. Assessment and Plan (1) Acute kidney injury: Status: Acute Plan This is a 63-year-old female with pertinent history of tobacco use disorder, COPD not on home oxygen, hypertension, mood disorder, mixed hyperlipidemia who was brought to the emergency department for evaluation of abnormal labs. #. Acute kidney injury stage II: Given IV crystalloids in the ER. No obstruction on imaging. Consulting Nephrology. Received Toradol shot at PCP's office. Urine studies pending. Avoid nephrotoxins #. Leukocytosis, likely reactive. No indication of bacterial infection #. Asymptomatic pyuria: No indication for antibiotics #. Neck pain with ?neuropathy: Tylenol p.r.n.. Avoid NSAIDs. Will need outpatient imaging and follow-up #. Mixed hyperlipidemia: On statin and ezetimibe #. Tobacco use disorder: Counseled regarding cessation. Ordered nicotine patch while in the hospital #. COPD: No exacerbation during admission. Continue home inhaler #. Hypertension: Hold valsartan and hydrochlorothiazide in the setting of MIGUEL ANGEL #. Mood disorder: Continue home mood stabilizers Med rec pending DVT prophylaxis: Lovenox Full code Admit as inpatient and will require two night minimum hospital stay for with monitoring of kidney function (as above), which is not possible in a lesser acute setting. Quality Stroke Does the patient have a stroke diagnosis?: No VTE Prior VTE?: No VTE Risk Level:: Medical - moderate - high VTE Device Contraindication: Treatment Not Indicated VTE Drug Contraindication: N/A - Med Ordered
[2023-12-15 04:35] LABS: Creatinine Urine 99.49 mg/dL; Total Protein Urine Random 30 mg/dL (<12)
[2023-12-15 05:18] LABS: Basophils Absolute Auto 0.1 X10*3/uL (0.0-0.2); Basophils Percent Auto 0.5 % (0-2); Eosinophils Absolute Auto 0.2 X10*3/uL (0.0-0.4); Eosinophils Percent Auto 1.1 % (0-4); Hematocrit 32.8 % (37.0-47.0); Hemoglobin 11.5 g/dl (12.0-16.0); Imm Gran Abs Auto 0.08 X10*3/uL (0.00-0.03); Imm Gran Pct Auto 0.6 % (0.0-0.4); Lymphocytes Absolute Auto 1.8 X10*3/uL (1.2-4.9); MANUAL DIFF FLAG SCAN; Mean Corpuscular HGB Conc 35.1 g/dl (31.0-35.0); Mean Corpuscular Hemoglobin 31.9 pg (27.0-33.0); Mean Corpuscular Volume 91.1 fL (80.0-98.0); Mean Platelet Volume 9.5 fL (9.4-12.3); Monocytes Absolute Auto 1.5 X10*3/uL (0.1-1.2); Monocytes Percent Auto 11.7 % (2-11); Neutrophils Absolute Auto 9.4 x10*3/uL (2.0-8.3); Neutrophils Percent Auto 72.1 % (45-73); Platelet Count 307 X10*3/uL (160-400); Red Cell Distribution Width 13.2 % (11.0-16.0); SCAN SMEAR FLAG 1; White Blood Count 13.1 X10*3/uL (4.8-10.8)
[2023-12-15 05:30] LABS: Anion Gap 14 (12-20); Blood Urea Nitrogen 34 mg/dL (9-16); Calcium 8.5 mg/dL (8.4-10.2); Carbon Dioxide 19 mmol/L (22-29); Chloride 108 mmol/L (96-108); Creatinine Clr Calc Pharmacy 24.9; Estimated Glomerular Filt Rate 24; Glucose Random 88 mg/dL (60-115); Potassium 4.2 mmol/L (3.3-5.1); Sodium 137 mmol/L (135-145)
[2023-12-15 05:36] LABS: SLIDE REVIEW VERIFIED
[2023-12-15 05:50] VITALS: BP 123/65; PULSE 71; RESP 16; TEMP 36.6; O2SAT 97
[2023-12-15] MEDS: Nicotine 14 MG PATCH.TD24 TRANSDERMA (06:02)
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
[2023-12-15] MEDS: LORazepam 1 MG TABLET PO (06:35)
[2023-12-15] MEDS: Acetaminophen 325 MG TABLET 650 MG PO (06:35)
[2023-12-15] MEDS: 0.9 % Sodium Chloride Flush 3 ML SYRINGE IVFLUSH (07:19)
[2023-12-15 08:00] VITALS: BP 114/56; PULSE 71; RESP 18; TEMP 36; O2SAT 98
--- NOTE | 2023-12-15 08:40 | PHA.MEDREC ---
Pharmacy Consult ? Medication Reconciliation Pharmacy has completed the medication reconciliation. Spoke with patient to confirm medications. She no longer takes atorvastatin or ezetimibe. Currently not taking any muscle relaxers. Uses her inhalers prn and not using Breo. She last took her pain medications yesterday and her maintenance medications day before yesterday. Patient reported that she is aware her prescription for Adderall is BID but she forgets to take her second dose so has been taking once daily.
[2023-12-15 09:11] VITALS: BMI 23.4
[2023-12-15] MEDS: Amphetamine Mixed Salts 10 MG TABLET 15 MG PO (09:23)
[2023-12-15] MEDS: Enoxaparin Sodium 30 MG/0.3 ML SYRINGE SUBCUT (09:23)
[2023-12-15] MEDS: Aspirin 81 MG TAB.CHEW PO (09:23)
--- NOTE | 2023-12-15 10:56 | PM.DS ---
DS: Providers Provider Date of Service: 12/15/23 Date of admission: 12/15/23 03:55 Primary care physician: Deven Solis MD Consults: 12/15/23 03:54 Consult to Nephrology Routine Consulting Provider: [facility] Reason for consultation: MIGUEL ANGEL DS: Diagnosis Discharge Diagnosis (1) Acute kidney injury: Status: Acute DS: Summary Hospital Course Hospital Course: from initial hpi: 63-year-old female with pertinent history of tobacco use disorder, COPD not on home oxygen, hypertension, mood disorder, mixed hyperlipidemia who was brought to the emergency department for evaluation of abnormal labs. Patient presented to the ER in the morning on the day of presentation but left without being seen. She was called back to the ER as her creatinine was found to be elevated. Patient states she is been having neck pain that has been ongoing for the last 2 weeks. It has gotten progressively worse over the last 1 week. Patient has occasional shooting pain in her left upper extremity. Patient went to her PCP's office and was given Toradol shot. Patient states she never has had any kidney issues. No fever, chills, cough, chest discomfort, palpitations, shortness of breath, abdominal pain, dysuria, changes in urinary habits. In the emergency department, creatinine found to be 2.56 hospital course: Patient was admitted for acute kidney injury likely due to NSAID use. Her ARB, HCTZ were held as was her ibuprofen. Hemoglobin improved from 2.5 down to 2. She will continue to hold meds and repeat labs next week and follow-up with Nephrology. Her leukocytosis was likely reactive, pyuria was asymptomatic no indication for antibiotics but this should be monitored as outpatient. For hyperlipidemia was continue on statin. For COPD she remained stable. For hypertension meds held as above. Time Attestation Discharge Coordination Time (in mins): 33 Quality: Safe Use of Opioids Does Pt have an Active Cancer Diagnosis on the Problem List?: No Quality: Stroke Does the patient have a stroke diagnosis?: No Physical Exam Vital Signs: Vital Signs: Last Vital Signs Temp 96.8 F 12/15/23 08:00 Pulse 71 12/15/23 08:00 Resp 18 12/15/23 08:00 BP 114/56 L 12/15/23 08:00 Pulse Ox 98 12/15/23 08:00 O2 Del Method Room Air 12/15/23 08:00 BMI result Body Mass Index 23.4 General: AO X 3, no acute distress Resp: CTA bilateral, no accessory muscles used CVS: S1,S2,RRR GI: soft, non tender, non distended Neuro: motor grossly intact, alert Psych: appropriate affect, appropriate insight DS: Data Data Completed and Pending Labs on day of discharge: Laboratory Results - last 24 hr 12/14/23 12/14/23 12/15/23 23:52 23:53 00:41 WBC RBC Hgb Hct MCV MCH MCHC RDW Plt Count MPV Immature Gran % (Auto) Neut % (Auto) Lymph % (Auto) [place] % (Auto) Eos % (Auto) Baso % (Auto) Lymph # (Auto) [place] # (Auto) Eos # (Auto) Baso # (Auto) Abs Immat Gran (auto) Absolute Neuts (auto) Absolute Nucleated RBC Nucleated RBC % (auto) Smear Tech's Comments Sodium 136 Potassium 4.3 Chloride 103 Carbon Dioxide 21 L Anion Gap 16 BUN 37 H Creatinine 2.56 H Estim Creat Clear Calc 20.2 Estimated GFR 19 Random Glucose 99 Lactic Acid 0.5 Calcium 9.0 D Urine Color Yellow Urine Appearance Cloudy Urine pH 5.5 Ur Specific [place] 1.015 Urine Protein 30 (1+) H Urine Glucose (UA) Negative Urine Ketones Negative Urine Blood Trace H Urine Nitrite Negative Ur Leukocyte Esterase Trace H Urine RBC 0-2 Urine WBC 11-20 H Ur Squamous Epith Cells >20 Urine Bacteria None Seen Hyaline Casts 11-20 U Random Total Protein 30 H Ur Random Sodium 42.0 Urine Creatinine 99.49 12/15/23 05:02 WBC 13.1 H RBC 3.60 L Hgb 11.5 L Hct 32.8 L MCV 91.1 MCH 31.9 MCHC 35.1 H RDW 13.2 Plt Count 307 MPV 9.5 Immature Gran % (Auto) 0.6 H Neut % (Auto) 72.1 Lymph % (Auto) 14.0 L [place] % (Auto) 11.7 H Eos % (Auto) 1.1 Baso % (Auto) 0.5 Lymph # (Auto) 1.8 [place] # (Auto) 1.5 H Eos # (Auto) 0.2 Baso # (Auto) 0.1 Abs Immat Gran (auto) 0.08 H Absolute Neuts (auto) 9.4 H Absolute Nucleated RBC 0.000 Nucleated RBC % (auto) 0.0 Smear Tech's Comments VERIFIED Sodium 137 Potassium 4.2 Chloride 108 Carbon Dioxide 19 L Anion Gap 14 BUN 34 H Creatinine 2.08 H Estim Creat Clear Calc 24.9 Estimated GFR 24 Random Glucose 88 Lactic Acid Calcium 8.5 Urine Color Urine Appearance Urine pH Ur Specific [place] Urine Protein Urine Glucose (UA) Urine Ketones Urine Blood Urine Nitrite Ur Leukocyte Esterase Urine RBC Urine WBC Ur Squamous Epith Cells Urine Bacteria Hyaline Casts U Random Total Protein Ur Random Sodium Urine Creatinine Discharge Plan Discharge Anticipated Discharge Date/Time: 12/15/23 10:52 Patient Disposition: Home, Self-Care Discharge Diagnosis: miguel angel from nsaid Referrals: Rober Zhang MD [Physician] - 1 Week Name,MD Deven [Primary Care Provider] - 1 Week Discharge Medications: Continued dextroamphetamine-amphetamine [Adderall] 15 mg tablet 1 tab PO DAILY Patient Comments: patient is aware rx is written for BID but forgets to take second dose. melatonin 3 mg Tablet 3 mg PO BEDTIME PRN (Reason: Sleep) oxycodone-acetaminophen 5-325 mg tablet 1 tab PO Q8H PRN (Reason: severe pain) fluticasone propion-salmeterol [AirDuo RespiClick] 113-14 mcg/actuation aerosol powdr breath activated 1 inh inhalation BID PRN (Reason: Shortness Of Breath Or Wheezing) lorazepam 0.5 mg tablet 0.5 mg PO DAILY PRN (Reason: Anxiety) aspirin 81 mg tablet,chewable 81 mg PO DAILY albuterol sulfate 90 mcg/actuation HFA aerosol inhaler 2 puff inhalation Q6H PRN (Reason: shortness of breath or wheezing) Qty: 1 3RF Held hydrochlorothiazide 25 mg tablet 25 mg PO DAILY Hold Instructions: Resume on 12/21/23. amlodipine-valsartan 10-320 mg tablet 1 tab PO QAM Hold Instructions: Resume on 12/21/23. Discontinued ibuprofen 800 mg tablet 800 mg PO TID PRN (Reason: Pain) Diet: Advance to usual diet Activity on Discharge: As tolerated Stand Alone Forms: Patient Portal Discharge page Print Language: Togolese Other Ambulatory Orders: Basic Metabolic Panel (Routine) Timeframe: 5 Days Facility: [facility] - Location: Laboratory Ordered By: Holger Jesin Care Plan Goals: manage miguel angel Health Concerns: miguel angel Plan of Treatment: hold nsaids and bp meds for now, recheck labs next week Assessment: see above Patient Instructions: Acute Kidney Injury (GEN)
[2023-12-15 11:31] LABS: EOS Counted 0 CELLS; EOS QC POS YES; EOS Stain Quality OK YES; WBC, Counted 100 CELLS
--- NOTE | 2023-12-15 11:46 | MHC.CM.PN ---
PT LIVES ALONE AND IS INDEPENDENT WITH CARE SHE HAS NO DME AND NO SERVICES SHE DECLINES TO COMPLETE A HCP TODAY, BUT DID ACCEPT DOCUMENT AND INFO PCP: KEITH NAME PT WILL DC HOME TODAY WITH NO SERVICES VIA PRIVATE TRANSPORT
--- NOTE | 2023-12-15 11:58 | PM.EVENT ---
Event Note Date of Service: 12/15/23 Event Note: 63 yr old woman with HTN on Amlodipine and HCTZ now with MIGUEL ANGEL Baseline cr 0.67 h/o NSAIDS use Creatinine is improving CT kidneys are unremarkable Keep I > O Avoid NSAIDS Needs out pt followup if discharged Time Spent With Patient Time: Total time managing care of this patient today ____ minutes.
[2023-12-18 23:58] LABS: Urea, Random Urine 262 mg/dL
== END 2023-12-15 12:27 | disposition home or self-care (01) | DRG 469 ==
LOC: HO.ED 23:21 → HO.EDOVER 12-15 03:59 → HO.S3 12-15 08:00
PROVIDERS: Admitting Provider Student in an Organized Health Care Education/Training Program; Emergency Provider Internal Medicine; PCP Internal Medicine Geriatric Medicine; Visit Provider Internal Medicine
DX: N17.9 Acute kidney failure, unspecified (principal); E78.2 Mixed hyperlipidemia; T39.395A Adverse effect of other nonsteroidal anti-inflammatory drugs [NSAID], initial encounter; F17.210 Nicotine dependence, cigarettes, uncomplicated; I25.10 Atherosclerotic heart disease of native coronary artery without angina pectoris; J43.9 Emphysema, unspecified; Z71.6 Tobacco abuse counseling; I10 Essential (primary) hypertension; M54.2 Cervicalgia; Z79.899 Other long term (current) drug therapy
CPT/HCPCS: 36415; 71045; 74176; 80048; 81001; 81003; 82570; 83605; 84156; 84300; 84540; 85025; 85999; 87040; 87086; 99285; J1650; J2270

== ENCOUNTER → 2023-12-15 03:55 | Outpatient (BNV) | payer OTHER, SELFPAY | PROVIDERS: Admitting Provider Student in an Organized Health Care Education/Training Program; Emergency Provider Internal Medicine; PCP Internal Medicine Geriatric Medicine; Visit Provider Student in an Organized Health Care Education/Training Program | DX: N17.9 Acute kidney failure, unspecified (principal) | CPT/HCPCS: 99235; 99499 ==

== ENCOUNTER 2023-12-17 09:02 | Outpatient (AMB) | payer OTHER, SELFPAY ==
[2023-12-17 09:17] VITALS: BP 100/62; PULSE 96; BMI 22.7
--- NOTE | 2023-12-17 09:17 | MHC.OFFVIS ---
Vital Signs 12/17/23 09:17 Height 5 ft 3 in Weight 128 lb 4.944 oz BMI 22.7 BP 100/62 Blood Pressure Location Rt brachial Position Sitting Pulse 96 Pulse Source Pulse Oximeter Intake Visit Reasons: f/up carotid/ echo/ mibi/ HS Compensation And Benefits Advisor Required: No Allergies Penicillins Adverse Reaction (Verified 12/17/23 09:19) thrush Medication List - Last Reconciled 12/17/23 by Mary Cha NP-C dextroamphetamine-amphetamine 15 mg (Adderall) 1 tab PO DAILY oxycodone-acetaminophen 5-325 mg 1 tab PO Q8H PRN HPI HPI f/up carotid/ echo/ mibi/ HS: Details: Elena is a 63-year-old female past medical history of hypertension, hyperlipidemia, smoking who is having cardiac evaluation for her symptom of shortness of breath. On last visit an echocardiogram, stress test and carotid ultrasound were ordered. Today she reports that she continues to have some shortness of breath with activity. She continues to smoke daily. She has been experiencing significant discomfort in her neck and trapezius region. She states that she has a pinched nerve and is currently undergoing evaluation and treatment. She was seen in the emergency room on 12/13 for this pain. They did find that her kidney tests were elevated. She was taken off her antihypertensives and NSAIDs. She continues to have pain at this time. She has no chest discomfort at rest or with activity. No shortness of breath at rest, PND, orthopnea or edema. No presyncope, syncope, falls. She has follow-up with Nephrology later this week. [facility] Medical History Atherosclerotic cardiovascular disease Hypertension Elevated cholesterol Nicotine dependence, cigarettes, uncomplicated Emphysema of lung ADHD Anxiety Tubular adenoma of colon Surgical History History of colonoscopy History of hysterectomy History of History of carpal tunnel surgery Family History Brother Cancer Social History Household Members: None Housing: House Do you presently have visiting nurse or other home services: No Alcohol intake: current Alcohol intake frequency: does not drink Patient Tobacco Use Status: Current everyday Tobacco user Tobacco use type: Cigarette Cigarette Packs Per Day: 1 Years Smoked: (onset 16yo, 1ppd x 47yrs, 40+PYH) Substance Use Type: Marijuana service: No Review of Systems Const All systems reviewed & are unremarkable except as noted in HPI and below ENT Denies dizziness Card Denies chest pain, Denies chest pain at rest, Denies chest pain with activity, Denies rapid heart rate, Denies pedal edema, Denies edema, Denies leg edema, Denies lightheadedness, Denies palpitations, Denies dyspnea, Reports dyspnea on exertion and Denies orthopnea Resp Denies cough, Denies dyspnea and Reports dyspnea on exertion GI Denies hematochezia and Denies change in stool character Musc Details: left lateral neck and trapezius pain Denies abnormal gait, Denies limited range of motion, Denies muscle cramps, Denies muscle weakness, Denies numbness, Denies radiating pain into limb, Denies stiffness and Denies tingling Neuro Denies abnormal gait, Denies dizziness, Denies numbness and Denies tingling Endo Denies palpitations Physical Exam Vital Signs: Last Vital Signs Pulse 96 12/17/23 09:17 BP 100/62 12/17/23 09:17 BMI result Body Mass Index 22.7 Const General: cooperative, healthy appearing, comfortable and no acute distress Orientation/consciousness: patient oriented x3 Neck Neck: Yes normal visual inspection and Yes no JVD Resp Effort & Inspection: normal respiratory effort Auscultation: clear to auscultation bilaterally, no crackles, no rales, no rhonchi and no wheezes Cardio Jugular venous distension: no JVD Rate: regular rate Rhythm: regular rhythm Heart sounds: S1 normal heart sound present, S2 normal heart sound present, no murmurs and no rubs Neuro General: patient oriented x3 Extrem General: Yes normal to inspection and No no pedal edema Psych Appearance: grossly normal Mental Status: mental status grossly normal Speech and movement: Normal speech and movement present Assessment & Plan Assessment & Plan (1) Dyspnea: Code(s): R06.00 - Dyspnea, unspecified Category: Medical Plan: Report of shortness of breath with activity. She has long-term history of smoking and continues to smoke currently. She has undergone cardiac evaluation for this symptom. A chest CTA done 05/02/2020 showed coronary artery calcifications and evidence of left carotid and left subclavian stenosis. Echocardiogram done 10/19/2023 shows EF 60-65%, grade 1 diastolic dysfunction, normal valves. A exercise nuclear stress test done 10/19/2023 showed exercise 6 minutes 10 seconds with [id number] shortness of breath, no EKG changes and normal myocardial perfusion imaging. EKG done 12/14/2023 shows normal sinus rhythm with no acute ST or T-wave abnormalities. Test results reviewed with her in detail. On exam she has no clinical signs of heart failure. She likely has some mild coronary artery atherosclerosis but no significant stenosis identified. She does have mild diastolic dysfunction but no evidence of fluid overload. Overall no clear cardiac causes for her shortness of breath. She most likely has some COPD as she has history of chronic and current smoking. Reviewed this with her and she states understanding. Recommend aspirin 81 mg daily if okay with Nephrology. Recommend use of statin therapy. She tells me she has had difficulty with statin intolerance. This is being followed by her PCP. She has an upcoming PCP visit and will further discuss with him at that time. If she is intolerant to statins, Zetia can be tried or PCSK9 inhibitor used. In follow-up will arrange cardiology visit 6 months, sooner if needed. And to reassess symptoms and cardiac risk factor modification. (2) Atherosclerotic cardiovascular disease: Code(s): I25.10 - Atherosclerotic heart disease of mohe[place] coronary artery without angina pectoris Category: Medical Plan: As above (3) Carotid arterial disease: Code(s): I77.9 - Disorder of arteries and arterioles, unspecified Category: Medical Plan: Carotid ultrasound done on 09/20/2023 showing right and left internal carotid arteries 0-49% stenosis. Recommend aspirin and statin use. (4) Smoker: Code(s): F17.200 - Nicotine dependence, unspecified, uncomplicated Category: Social Hx Plan: Benefit of smoking cessation reviewed with her and she does state understanding. She states she has not able to quit at this time as she is undergoing significant pain with her pinched nerve in the neck. Smoking cessation at this time would cause her increased stress. (5) Hypertension: Code(s): I10 - Essential (primary) hypertension Category: Medical Plan: Her amlodipine/valsartan and hydrochlorothiazide medications were held when she was in the emergency room on 12/13 -12/14 due to MIGUEL ANGEL with creatinine up to 2.56. She was also taking NSAIDs at that time which were placed on hold. She has a follow-up with Nephrology on 12/20. Her blood pressure is low today at 100/62. Will continue to hold her medications. Restarting antihypertensives can be done by her obstetrics nurse. Plan Time spent on chart review, documentation, interview and assessment Coding Level of Care Code Est Pt Level 4 (08396) Diagnoses Dyspnea R06.00 Atherosclerotic cardiovascular disease I25.10 Carotid arterial disease I77.9 Smoker F17.200 Hypertension I10 Time Spent (min) 30
== END 2023-12-17 09:44 | disposition home or self-care (01) ==
PROVIDERS: PCP Internal Medicine Geriatric Medicine; Visit Provider Nurse Practitioner Family
DX: R06.00 Dyspnea, unspecified (principal); I25.10 Atherosclerotic heart disease of native coronary artery without angina pectoris; I77.9 Disorder of arteries and arterioles, unspecified; F17.200 Nicotine dependence, unspecified, uncomplicated; I10 Essential (primary) hypertension
CPT/HCPCS: 99214

== ENCOUNTER → 2023-12-17 09:02 | Outpatient (BNVA) | payer OTHER, SELFPAY | PROVIDERS: PCP Internal Medicine Geriatric Medicine; Visit Provider Nurse Practitioner Family | DX: I25.10 Atherosclerotic heart disease of native coronary artery without angina pectoris (principal); R06.00 Dyspnea, unspecified; I77.9 Disorder of arteries and arterioles, unspecified; I10 Essential (primary) hypertension; F17.200 Nicotine dependence, unspecified, uncomplicated | CPT/HCPCS: 99212 ==

== ENCOUNTER 2023-12-21 10:51 | Outpatient (AMB) | payer OTHER, SELFPAY ==
[2023-12-21 10:56] VITALS: BP 130/60; PULSE 86; O2SAT 98; BMI 24.5
--- NOTE | 2023-12-21 10:56 | HO.NEPHOV ---
Vital Signs 12/21/23 10:56 Height 5 ft 3 in Weight 138 lb 6 oz BMI 24.5 BP 130/60 Blood Pressure Location Rt brachial Position Sitting Pulse 86 Pulse Source Pulse Oximeter Pulse Oximetry (%) 98 Oxygen Delivery Method Room Air Intake Visit Reasons: MIGUEL ANGEL/ Pt seen [place] [facility] [place] 12[place]15.23 Shop Assistant Required: No Accompanied by: Self / Same As Patient Allergies Penicillins Adverse Reaction (Verified 01/03/24 09:50) thrush HPI Comments Details: I had the privilege of seeing Elena in consultation for MIGUEL ANGEL. She has H/O hypertension. She has been having pain in left upper back in the shoulder area for last 1 week and was seen at PCP. She received Toradol . She preented to ER but left without been treated. Blood work showed showed leukocytosis of 18,000 with left shift and creatinine of 2.34 from previous 0.77 in 09/15 . She had no fever, chills , cough, urinary symptoms. She has been taking NSAIDs. She noted to have decreased urine output for last few weeks. She has no edema, hematuria, sore throat, sinusitis, epistaxis, hemoptysis or new skin rashes. She did not have any new active complaints at the time of this office visit. [facility] Medical History Atherosclerotic cardiovascular disease Hypertension Elevated cholesterol Nicotine dependence, cigarettes, uncomplicated Emphysema of lung ADHD Anxiety Tubular adenoma of colon Surgical History History of colonoscopy History of hysterectomy History of History of carpal tunnel surgery Family History Brother Cancer Social History Household Members: None Housing: House Do you presently have visiting nurse or other home services: No Alcohol intake: current Alcohol intake frequency: does not drink Patient Tobacco Use Status: Current everyday Tobacco user Tobacco use type: Cigarette Cigarette Packs Per Day: 1 Years Smoked: (onset 16yo, 1ppd x 47yrs, 40+PYH) Substance Use Type: Marijuana service: No Review of Systems Const All systems reviewed & are unremarkable except as noted in HPI and below Physical Exam Vital Signs: Last Vital Signs Pulse 86 12/21/23 10:56 BP 130/60 12/21/23 10:56 Pulse Ox 98 12/21/23 10:56 Oxygen Delivery Method Room Air 12/21/23 10:56 BMI result Body Mass Index 24.5 Const General: comfortable and no acute distress Orientation/consciousness: patient oriented x3 HEENT Head: Yes normocephalic Mouth: Normal oral and palatal mucosa present Eyes EOM: EOMs intact bilaterally Neck Neck: Yes supple Resp Auscultation: clear to auscultation bilaterally Cardio Jugular venous distension: no JVD Rate: regular rate GI Palpation (GI): Soft to palpation Auscultation: normal bowel sounds General: Yes no CVA tenderness Back/Spine/Pelvis Back: no CVA tenderness Skin General skin exam: no rashes or lesions noted Neuro General: patient oriented x3 and moves all extremities Extrem General: Yes no pedal edema Results Reviewed Nephrology Results: Hgb 10.7 g/dl (12.0-16.0) L 01/04/24 WBC 9.1 X10*3/uL (4.8-10.8) 01/04/24 Plt Count 441 X10*3/uL (160-400) H 01/04/24 Sodium 139 mmol/L (135-145) 01/04/24 Potassium 3.7 mmol/L (3.3-5.1) 01/04/24 Chloride 108 mmol/L (96-108) 01/04/24 Carbon Dioxide 25 mmol/L (22-29) 01/04/24 BUN 18 mg/dL (9-16) H 01/04/24 Creatinine 0.76 mg/dL (0.5-1.4) 01/04/24 Calcium 9.4 mg/dL (8.4-10.2) 01/03/24 Urine Protein Negative mg/dL (Neg-Trace) 12/21/23 Urine Creatinine 48.24 mg/dL 12/21/23 Protein/Creatinin Ratio TNP 12/21/23 Renal US 01/03/24 Assessment & Plan Assessment & Plan (1) Acute kidney injury: Code(s): N17.9 - Acute kidney failure, unspecified Category: Medical Plan Elena has MIGUEL ANGEL likely due to tubular injury. She has H/O vascular disease and hypertension. She has been taking NSAID's. Differential diagnosis include GN/AIN, though unlikely. I asked her not to take any NSAID's, ACEI/ARB/Diuretics and remain well hydrated. Detailed work up including imaging studies has been ordered. All these have been discussed. If she does not clinically improve, she may need a renal biopsy. Further management is pending evolving data. Answered all questions. F/U given for 2 weeks Orders: Orders Complement C4 12/21/23 N17.9 - Acute kidney failure, unspecified Phospholipase A2 Receptor Pnl 12/21/23 N17.9 - Acute kidney failure, unspecified Hepatitis B Surface Antibody 12/21/23 N17.9 - Acute kidney failure, unspecified Creatinine 12/21/23 N17.9 - Acute kidney failure, unspecified Calcium 12/21/23 N17.9 - Acute kidney failure, unspecified Electrolytes 2 Weeks N17.9 - Acute kidney failure, unspecified Anti DNA DS Antibody 12/21/23 N17.9 - Acute kidney failure, unspecified JOSUÉ Reflex Titer and Pattern 12/21/23 N17.9 - Acute kidney failure, unspecified Proteinase 3 PR3 Antibodies 12/21/23 N17.9 - Acute kidney failure, unspecified Myeloperoxidase Antibody 12/21/23 N17.9 - Acute kidney failure, unspecified Anti Glomerular Basement Memb 12/21/23 N17.9 - Acute kidney failure, unspecified Immunofixation Pnl, Serum 12/21/23 N17.9 - Acute kidney failure, unspecified Complement C3 12/21/23 N17.9 - Acute kidney failure, unspecified Hepatitis B Core Antibody 12/21/23 N17.9 - Acute kidney failure, unspecified Blood Urea Nitrogen 12/21/23 N17.9 - Acute kidney failure, unspecified Electrolytes 12/21/23 N17.9 - Acute kidney failure, unspecified UA and rflx microscopic 12/21/23 N17.9 - Acute kidney failure, unspecified Protein Creatinine Ratio, Ur 12/21/23 N17.9 - Acute kidney failure, unspecified US renal BI 12/21/23 N17.9 - Acute kidney failure, unspecified, I77.9 - Disorder of arteries and arterioles, unspecified US renal doppler 12/21/23 N17.9 - Acute kidney failure, unspecified, I77.9 - Disorder of arteries and arterioles, unspecified Creatinine 2 Weeks N17.9 - Acute kidney failure, unspecified Blood Urea Nitrogen 2 Weeks N17.9 - Acute kidney failure, unspecified Complete Blood Count Auto Diff 12/21/23 N17.9 - Acute kidney failure, unspecified Prothrombin Time INR 12/21/23 N17.9 - Acute kidney failure, unspecified Coding Level of Care Code New Pt Level 4 (36431) Diagnoses Acute kidney injury N17.9
== END 2023-12-21 11:35 | disposition home or self-care (01) ==
PROVIDERS: PCP Internal Medicine Geriatric Medicine; Visit Provider Internal Medicine Nephrology
DX: N17.9 Acute kidney failure, unspecified (principal)
CPT/HCPCS: 99204

== ENCOUNTER → 2023-12-21 10:51 | Outpatient (BNVA) | payer OTHER, SELFPAY | PROVIDERS: PCP Internal Medicine Geriatric Medicine; Visit Provider Internal Medicine Nephrology | DX: N17.9 Acute kidney failure, unspecified (principal) | CPT/HCPCS: 99202 ==

== ENCOUNTER 2023-12-21 11:39 | Outpatient (REF) | payer OTHER, SELFPAY ==
[2023-12-21 13:37] LABS: Appearance Urine Clear; Color Urine Yellow; Glucose Urine UA Negative (Negative); Leukocyte Esterase Urine Negative (Negative); Nitrite Urine Negative (Negative); PH 5.5 (5.0-9.0); Specific Gravity - Urine 1.015 (1.005-1.025); Urine Blood Negative (Negative); Urine Ketones Negative (Negative); Urine Protein Negative (Neg-Trace)
[2023-12-21 13:46] LABS: Hemoglobin 10.9 g/dl (12.0-16.0); Mean Corpuscular HGB Conc 34.1 g/dl (31.0-35.0); Mean Corpuscular Hemoglobin 31.4 pg (27.0-33.0); Mean Corpuscular Volume 92.2 fL (80.0-98.0); Mean Platelet Volume 9.7 fL (9.4-12.3); Platelet Count 529 X10*3/uL (160-400); Red Blood Count 3.47 X10*6/uL (4.20-5.50); Red Cell Distribution Width 13.9 % (11.0-16.0)
[2023-12-21 13:51] LABS: INTERNATIONAL NORM RATIO 0.8 (0.9-1.1); Prothrombin Time 9.7 SEC (11.1-13.3)
[2023-12-21 14:21] LABS: Atypical Lymph Absolute Manual 0.3 x10*3/uL; Atypical Lymphs Percent Manual 2 % (0-6); Band Neutrophils Percent 3 % (3-5); Lymphocytes Absolute Manual 3.1 X10*3/uL (1.2-4.9); Lymphocytes Percent Manual 18 % (20-40); Monocytes Absolute Manual 0.7 X10*3/uL (0.1-1.2); Monocytes Percent Manual 4 % (2-11); Neutrophils Absolute Manual 12.9 X10*3/uL (2.0-8.3); Neutrophils Percent Manual 73 % (45-73)
[2023-12-21 14:25] LABS: Acanthocytes 1+ (0-2) /OIF; Platelet Estimate INCREASED (NORMAL); RBC Morphology NOTED
[2023-12-21 14:26] LABS: Platelet Morphology Comment NORMAL
[2023-12-21 14:35] LABS: Anion Gap 12 (12-20); Blood Urea Nitrogen 27 mg/dL (9-16); Calcium 9.2 mg/dL (8.4-10.2); Carbon Dioxide 26 mmol/L (22-29); Chloride 104 mmol/L (96-108); Estimated Glomerular Filt Rate > 60; Potassium 4.2 mmol/L (3.3-5.1); Sodium 138 mmol/L (135-145)
[2023-12-21 14:40] LABS: Creatinine Urine 48.24 mg/dL; Total Protein Urine Random < 7 mg/dL (<12)
[2023-12-21 14:56] LABS: HBS Num1 0.32 mIU/mL (0-7.99); HBc Num1 0.07 S/CO (0.00-0.79); Hepatitis B Core Antibody Nonreactive (Nonreactive); ~Hepatitis B Surface Antibody NONREACTIVE (Nonreactive)
[2023-12-24 08:58] LABS: Complement C3 134 mg/dL (83-193)
[2023-12-25 06:59] LABS: Anti DNA DS Antibody 2 IU/mL; Anti Glomerular Basement Memb <1.0 AI; Myeloperoxidase Antibody <1.0 AI; Proteinase 3 PR3 Antibodies <1.0 AI
[2023-12-25 11:07] LABS: IgA 172 mg/dL (70-320); IgG 643 mg/dL (600-1540); IgM 54 mg/dL (50-300)
[2023-12-25 15:27] LABS: Anti Nuclear Antibody Screen NEGATIVE (NEGATIVE)
[2023-12-30 01:38] LABS: Phospholipase A2 IgG ELISA <4 RU/mL; Phospholipase A2 IgG IFA NEGATIVE (NEGATIVE)
== END 2023-12-21 11:40 | disposition home or self-care (01) ==
LOC: HO.10HDL 11:39
PROVIDERS: Visit Provider Internal Medicine Nephrology
DX: N17.9 Acute kidney failure, unspecified (principal)
CPT/HCPCS: 36415; 80051; 81003; 82310; 82565; 82570; 82784; 83520; 84156; 84520; 85007; 85027; 85610; 86021; 86038; 86160; 86225; 86255; 86334; 86704; 86706

== ENCOUNTER 2024-01-03 08:14 | Outpatient (REF) | payer OTHER, SELFPAY ==
--- NOTE | ~2024-01-03 | US_ITS ---
EXAMINATION: ULTRASOUND RENAL WITH DOPPLER CLINICAL INFORMATION: Acute kidney failure COMPARISON: The abdomen from 12/13/2023 TECHNIQUE: Real-time grayscale, color Doppler, and duplex Doppler evaluation of the kidneys and renal vasculature was performed. FINDINGS: RENAL MEASUREMENTS: Right: 9.8 x 4.3 x 4.3 cm (Sag x AP x TV). Posterior cortex interpolar region measuring 3 mm. No hydronephrosis. Left: 9.4 x 6.8 x 4.4 cm (Sag x AP x TV). No nephrolithiasis or hydronephrosis. DOPPLER INTERROGATION: Aorta: 120 cm/sec (of note velocities greater than 100 cm/s cannot be used to calculate the RAR) RIGHT: Main Renal Artery: Proximal: 116 cm/sec Mid: 103 cm/sec Distal: 70 cm/sec Resistive Index: Upper Pole Segmental: 0.73 Inter Polar Segmental: 0.76 Lower Pole Segmental: 0.74 Right renal vein is patent. LEFT: Main Renal Artery: Proximal: 95 cm/sec Mid: 97 cm/sec Distal: 56 cm/sec Resistive Index: Upper Pole Segmental: 0.74 Inter Polar Segmental: 0.78 Lower Pole Segmental: 0.72 Left renal vein is patent. Renal-Aortic Ratio (RAR): Right: Not applicable secondary to mid aortic velocity greater than 100 cm/s. Left: Not applicable secondary to mid aortic velocity greater than 100 cm/s. US/US renal doppler IMPRESSION: 1. Of note mid aortic velocity greater than 100 cm precluding calculation of RAR. 2. No sonographic evidence of renal artery stenosis. 3. Right-sided nephrolithiasis without hydronephrosis. 4. No left-sided nephrolithiasis or hydronephrosis.
--- NOTE | ~2024-01-03 | US_ITS ---
EXAMINATION: ULTRASOUND RENAL WITH DOPPLER CLINICAL INFORMATION: Acute kidney failure COMPARISON: The abdomen from 12/13/2023 TECHNIQUE: Real-time grayscale, color Doppler, and duplex Doppler evaluation of the kidneys and renal vasculature was performed. FINDINGS: RENAL MEASUREMENTS: Right: 9.8 x 4.3 x 4.3 cm (Sag x AP x TV). Posterior cortex interpolar region measuring 3 mm. No hydronephrosis. Left: 9.4 x 6.8 x 4.4 cm (Sag x AP x TV). No nephrolithiasis or hydronephrosis. DOPPLER INTERROGATION: Aorta: 120 cm/sec (of note velocities greater than 100 cm/s cannot be used to calculate the RAR) RIGHT: Main Renal Artery: Proximal: 116 cm/sec Mid: 103 cm/sec Distal: 70 cm/sec Resistive Index: Upper Pole Segmental: 0.73 Inter Polar Segmental: 0.76 Lower Pole Segmental: 0.74 Right renal vein is patent. LEFT: Main Renal Artery: Proximal: 95 cm/sec Mid: 97 cm/sec Distal: 56 cm/sec Resistive Index: Upper Pole Segmental: 0.74 Inter Polar Segmental: 0.78 Lower Pole Segmental: 0.72 Left renal vein is patent. Renal-Aortic Ratio (RAR): Right: Not applicable secondary to mid aortic velocity greater than 100 cm/s. Left: Not applicable secondary to mid aortic velocity greater than 100 cm/s. US/US renal BI IMPRESSION: 1. Of note mid aortic velocity greater than 100 cm precluding calculation of RAR. 2. No sonographic evidence of renal artery stenosis. 3. Right-sided nephrolithiasis without hydronephrosis. 4. No left-sided nephrolithiasis or hydronephrosis.
== END 2024-01-03 08:15 | disposition home or self-care (01) ==
LOC: HO.US 08:14
PROVIDERS: PCP Internal Medicine Geriatric Medicine; Visit Provider Internal Medicine Nephrology
DX: N17.9 Acute kidney failure, unspecified (principal); I77.9 Disorder of arteries and arterioles, unspecified
CPT/HCPCS: 76775; 93975

== ENCOUNTER 2024-01-03 09:23 | Emergency (ER) | payer OTHER, SELFPAY ==
--- NOTE | ~2024-01-03 | XR_ITS ---
EXAMINATION: XR CERVICAL SPINE CLINICAL INFORMATION: Pain radiating from neck into shoulder and down her left arm. COMPARISON: None available. TECHNIQUE: 3 views of the cervical spine were obtained. FINDINGS: The vertebral bodies and posterior elements are anatomically aligned in the sagittal projection. Vertebral body heights are preserved. There is mild narrowing of the C4-C5 and C5-C6 intervertebral disc spaces. There are endplate sclerotic changes and anterior osteophytosis at these levels. The C1-C2 relationship is anatomic. The dens is intact. The prevertebral soft tissue is normal in appearance. The paraspinal soft tissue is unremarkable. Lung apices are clear. XR/XR cervical spine 2V IMPRESSION: No acute osseous cervical spine abnormality. There is mild degenerative disc disease at C4-C5 and C5-C6.
[2024-01-03 09:47] VITALS: BP 142/103; PULSE 84; RESP 16; TEMP 36.9; O2SAT 96; BMI 23.9
--- NOTE | 2024-01-03 09:51 | ECG_ITS ---
Test Reason : CHEST PAIN Blood Pressure : / mmHG Vent. Rate : 081 BPM Atrial Rate : 081 BPM P-R Int : 170 ms QRS Dur : 072 ms QT Int : 398 ms P-R-T Axes : 053 051 051 degrees QTc Int : 462 ms Normal sinus rhythm Normal ECG When compared with ECG of 14-DEC-2023 17:02, No significant change was found Referred By: Generic ED Physician Electronically Signed By:Kurtis Mcgrath
[2024-01-03 10:12] LABS: MANUAL DIFF FLAG NO
[2024-01-03 10:18] LABS: Basophils Percent Auto 0.5 % (0-2); Eosinophils Absolute Auto 0.1 X10*3/uL (0.0-0.4); Eosinophils Percent Auto 1.8 % (0-4); Hematocrit 31.8 % (37.0-47.0); Hemoglobin 10.7 g/dl (12.0-16.0); Imm Gran Abs Auto 0.08 X10*3/uL (0.00-0.03); Imm Gran Pct Auto 1.1 % (0.0-0.4); Lymphocytes Absolute Auto 1.5 X10*3/uL (1.2-4.9); Lymphocytes Percent Auto 20.2 % (20-40); Mean Corpuscular HGB Conc 33.6 g/dl (31.0-35.0); Mean Corpuscular Hemoglobin 31.7 pg (27.0-33.0); Mean Corpuscular Volume 94.1 fL (80.0-98.0); Mean Platelet Volume 8.8 fL (9.4-12.3); Monocytes Absolute Auto 0.8 X10*3/uL (0.1-1.2); Monocytes Percent Auto 10.4 % (2-11); Neutrophils Absolute Auto 4.8 x10*3/uL (2.0-8.3); Platelet Count 400 X10*3/uL (160-400); Red Blood Count 3.38 X10*6/uL (4.20-5.50); Red Cell Distribution Width 15.7 % (11.0-16.0); White Blood Count 7.3 X10*3/uL (4.8-10.8)
[2024-01-03 10:29] LABS: Anion Gap 11 (12-20); Blood Urea Nitrogen 14 mg/dL (9-16); Calcium 9.4 mg/dL (8.4-10.2); Carbon Dioxide 27 mmol/L (22-29); Chloride 109 mmol/L (96-108); Creatinine Clr Calc Pharmacy 57.4; Estimated Glomerular Filt Rate > 60; Glucose Random 172 mg/dL (60-115); Potassium 3.7 mmol/L (3.3-5.1); Sodium 143 mmol/L (135-145)
[2024-01-03] MEDS: Lidocaine 4 % Patch ADH..PATCH 1 PATCH TRANSDERMA (12:52)
[2024-01-03] MEDS: Acetaminophen 325 MG TABLET 975 MG PO (12:52)
--- NOTE | 2024-01-03 12:54 | PC.NURSE ---
pt medicated for 8/10 pain per order
--- NOTE | 2024-01-03 12:56 | ED_ITS ---
HPI - General Adult General Chief complaint: Back Pain/Injury Stated complaint: upper back pain Time Seen by Provider: 01/03/24 12:38 Source: patient Mode of arrival: ambulatory Limitations: no limitations History of Present Illness ED Provider: Conor RODRIGUEZ HPI narrative: This is a 63 year old female with history of MIGUEL ANGEL, hypertension, COPD, anxiety, ADHD presenting with left sided neck pain and stiffness x 1 month. Denies trauma or injury to the area. She reports she has been seen multiple times for the same chief complaint and has been prescribed multiple medications including diazepam (didnt help with spasms), tramadol ( didnt help the pain), prednisone ( made her hyper), muscle relaxers ( she didnt like the way they made her feel and they didnt help), and gabapentin (didnt tollerate made her feel bad) with minimal relief. She has associated paresthesias going down the left arm intermittently and affected all of the fingers. Denies fevers, chills, chest pain, sob, urinary or bowel dysfunction. Scheduled to have an outpatient MRI for this but has yet to see a specialist. Related Data Home Medications ?Medication ?Instructions ?Recorded ?Confirmed dextroamphetamine-amphetamine 15 1 tab PO DAILY attention deficit 09/03/23 12/17/23 mg tablet (Adderall) hyperactivity disorder oxycodone-acetaminophen 5 mg-325 1 tab PO Q8H PRN severe pain 12/15/23 12/17/23 mg tablet prednisone 20 mg tablet 40 mg PO DAILY 12/21/23 Previous Rx's ?Medication ?Instructions ?Recorded morphine 15 mg immediate release 15 mg PO Q6H PRN pain 5 days #10 01/03/24 tablet tabs Allergies Allergy/AdvReac Type Severity Reaction Status Date / Time Penicillins AdvReac thrush Verified 01/03/24 09:50 Review of Systems 2 Review of Systems: Yes all other systems are reviewed and are negative PMFSH Past Medical History Attestation statement: The following information was validated with the patient. Source: old records reviewed and nursing notes reviewed Medical History Atherosclerotic cardiovascular disease Hypertension Elevated cholesterol Nicotine dependence, cigarettes, uncomplicated Emphysema of lung ADHD Anxiety Tubular adenoma of colon Surgical History History of colonoscopy History of hysterectomy History of History of carpal tunnel surgery Family History Family History Brother Cancer Social History Social History Household Members: None Housing: House Do you presently have visiting nurse or other home services: No Alcohol intake: current Alcohol intake frequency: does not drink Patient Tobacco Use Status: Current everyday Tobacco user Tobacco use type: Cigarette Cigarette Packs Per Day: 1 Years Smoked: (onset 16yo, 1ppd x 47yrs, 40+PYH) Substance Use Type: Marijuana Advance Directives: No Advance Directives Information Provided: Yes service: No Physical Exam ED Vital Signs: Vital Signs - 24 hr 01/03/24 09:47 Temperature 98.4 F Pulse Rate 84 Respiratory Rate 16 Blood Pressure 142/103 H Pulse Oximetry 96 Oxygen Delivery Method Nasal Cannula BMI result Body Mass Index 23.9 vss error patient is 96% on room air not nasal canula. Appearance: Alert.? Oriented X3.? No acute distress.? Head: Normocephalic, atraumatic, no step-offs or deformities Eyes: Pupils equal, round and reactive to light.? Neck: Normal inspection.? Neck supple.?+ ttp along left paraspinous muscles b/l L>R. Neck ROM slightly decreased secondary to pain. No meningeal signs CVS: Normal heart rate and rhythm.? Pulses normal.? Respiratory: No respiratory distress.? Breath sounds normal.? Skin: Skin warm and dry.? Normal skin color.? Normal skin turgor.? Extremities: No lower extremity edema.? No calf ttp. 5/5 strength to bilateral upper and lower extremities. 2+ and symmetric radial pulses bilaterally. Capillary refill < 2 seconds. 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 ROM slightly decreased secondary to pain. Neuro: Oriented X 3.? No motor deficit.? No sensory deficit. CN 2-12 intact Course Reevaluation(s) Reevaluation #1: CBC with a normocytic anemia appears to be around her baseline. Chemistry with no acute findings requiring intervention. Negative troponin, EKG nonischemic. Renal ultrasound from today which was done outpatient results US/US renal doppler IMPRESSION: 1. Of note mid aortic velocity greater than 100 cm precluding calculation of RAR. 2. No sonographic evidence of renal artery stenosis. 3. Right-sided nephrolithiasis without hydronephrosis. 4. No left-sided nephrolithiasis or hydronephrosis. X-ray of the neck was ordered per patient request. Time: 13:40 Reevaluation #2: Patient feels better after morphine, diazepam. On re-evaluation pain 0/10. Patient feeling much better. Educated patient on diagnosis and treatment plan, answered all question, patient verbalizes understanding. At this time patient will be discharged home, advised to return with new or worsening symptoms. Educated on worrisome signs and symptoms and when to return. At this time I feel comfortable discharge home. Time: 15:23 Medications Administered Discontinued Medications Generic Name Dose Route Start Last Admin Trade Name Terrance PRN Reason Stop Dose Admin Acetaminophen 975 mg 01/03/24 12:40 01/03/24 12:52 Acetaminophen 325 Mg Tablet PO 01/03/24 12:41 975 mg ONCE ONE Administration Diazepam 2 mg 01/03/24 12:55 01/03/24 13:24 Diazepam 2 Mg Tablet PO 01/03/24 12:56 2 mg ONCE ONE Administration Lidocaine 1 patch 01/03/24 12:38 01/03/24 12:52 Lidocaine 4 % Patch Adh..Patch TRANSDERMA 01/03/24 12:39 1 patch ONCE ONE Administration Protocol Morphine Sulfate 15 mg 01/03/24 13:07 01/03/24 13:24 Morphine Sulfate Immed Release 15 Mg Tablet PO 01/03/24 13:08 15 mg ONCE ONE Administration Medical Decision Making Medical Decision Making MDM Narrative: 63 year old female presenting with left sided neck pain, stiffness, and paresthetsias down the right arm x 1 month. PE + ttp along left paraspinous muscles. Neck ROM slightly decreased secondary to pain. 2+ and symmetric radial pulses bilaterally. Capillary refill < 2 seconds. Hx and PE concerning for cervical paraspinous muscle spams vs strain vs cervical radiculopathy. Unlikely cervical spine fracture, epidural abscess, cauda equina, neurovascular compromise, cervical mylopathy, meningitis, encephalitis. Unlikley PE or ACS Plan - labs, imaging, pain control Differential Diagnosis Differential Diagnoses: The differential diagnosis associated with the presentation includes Hx and PE concerning for cervical paraspinous muscle spams vs strain vs cervical radiculopathy. Unlikely cervical spine fracture, epidural abscess, cauda equina, neurovascular compromise, cervical mylopathy, meningitis, encephalitis. Unlikley PE or ACS Admission/Observation Consideration of admission/observation: Escalation of care including admission/observation considered possible Lab Data [facility] Lab Attestation statement: I reviewed the patient's lab results. 01/03/24 10:08 01/03/24 10:08 Labs: Lab Results 01/03/24 Range/Units 10:08 WBC 7.3 (4.8-10.8) X10*3/uL RBC 3.38 L (4.20-5.50) X10*6/uL Hgb 10.7 L (12.0-16.0) g/dl Hct 31.8 L (37.0-47.0) % MCV 94.1 (80.0-98.0) fL MCH 31.7 (27.0-33.0) pg MCHC 33.6 (31.0-35.0) g/dl RDW 15.7 (11.0-16.0) % Plt Count 400 (160-400) X10*3/uL MPV 8.8 L (9.4-12.3) fL Immature Gran % (Auto) 1.1 H (0.0-0.4) % Neut % (Auto) 66.0 (45-73) % Lymph % (Auto) 20.2 (20-40) % Eddy % (Auto) 10.4 (2-11) % Eos % (Auto) 1.8 (0-4) % Baso % (Auto) 0.5 (0-2) % Lymph # (Auto) 1.5 (1.2-4.9) X10*3/uL Eddy # (Auto) 0.8 (0.1-1.2) X10*3/uL Eos # (Auto) 0.1 (0.0-0.4) X10*3/uL Baso # (Auto) 0.0 (0.0-0.2) X10*3/uL Abs Immat Gran (auto) 0.08 H (0.00-0.03) X10*3/uL Absolute Neuts (auto) 4.8 (2.0-8.3) x10*3/uL Absolute Nucleated RBC 0.000 (0.0-0.012) X10*3/uL Nucleated RBC % (auto) 0.0 (0.0-0.2) /100WBC Sodium 143 (135-145) mmol/L Potassium 3.7 (3.3-5.1) mmol/L Chloride 109 H (96-108) mmol/L Carbon Dioxide 27 (22-29) mmol/L Anion Gap 11 L (12-20) BUN 14 (9-16) mg/dL Creatinine 0.83 (0.5-1.4) mg/dL Estim Creat Clear Calc 57.4 Estimated GFR > 60 Random Glucose 172 H (60-115) mg/dL Calcium 9.4 (8.4-10.2) mg/dL Troponin I High Sens < 2.7 (<3.5-17.0) ng/L Independent Interpretation I performed an independent interpretation of an: EKG (Vent. Rate : 081 BPM Atrial Rate : 081 BPM P-R Int : 170 ms QRS Dur : 072 ms QT Int : 398 ms P-R-T Axes : 053 051 051 degrees QTc Int : 462 ms Normal sinus rhythm Normal ECG When compared with ECG of 14-DEC-2023 17:02, No significant change was found), Plain X-Ray and Ultrasound (US/US renal doppler IMPRESSION: 1. Of note mid aortic velocity greater than 100 cm precluding calculation of RAR. 2. No sonographic evidence of renal artery stenosis. 3. Right-sided nephrolithiasis without hydronephrosis. 4. No left-sided nephrolithiasis or hydronephrosis.) Radiology Impression Discussion of test interpretation with radiology: I have reviewed the radiologist's reading. Prescription Management I considered prescription management with: Pain Medication (safe narcotic handeling/ consumption gone over w/patient) Chronic Conditions Patient?s care impacted by: Hypertension and Other (ADHD, neck pain chronci , miguel angel, cad, copd, anxiety) Critical Care Time Critical Care Time Critical Care Time: Yes Total Critical Care Time: 35 Attestation: I attest to this time spent taking care of the patient, obtaining history, physical, reviewing labs, imaging, speaking to my attending, specialist or hospitalist. Discharge Plan Discharge Clinical Impression: Cervical radiculopathy Patient Disposition: Home, Self-Care Instructions: Cervical Radiculopathy (ED), Chronic Neck Pain (DC) Additional Instructions: Take your medications as prescribed. If you were prescribed antibiotics today, it is important that you take your medication to their entirety, do not skip any doses, do not finish them early. Follow-up with your primary care provider this week. Return to the emergency department with new or worsening symptoms. Such as fevers, chills, chest pain, shortness of breath, nausea, vomiting, dizziness, headache, vision changes, lethargy In case of emergency call 911 A narcotic has been sent to your pharmacy please take this as prescribed. Do not take more than the prescribed dose. Narcotic medications can cause addiction. Please do not mix them with alcohol. Do not take them while driving or operating machinery. Do not take them with any other narcotics. Do not share them with friends or family. They can cause constipation. Take them only for severe pain. US/US renal doppler ( these were ordered by your PCP but here are the results follow up with PCP) IMPRESSION: 1. Of note mid aortic velocity greater than 100 cm precluding calculation of RAR. 2. No sonographic evidence of renal artery stenosis. 3. Right-sided nephrolithiasis without hydronephrosis. 4. No left-sided nephrolithiasis or hydronephrosis. Prescriptions: New morphine 15 mg tablet 15 mg PO Q6H PRN (Reason: pain) 5 Days Qty: 10 0RF Rx Instructions: Partial Fill upon patient request. No Action dextroamphetamine-amphetamine [Adderall] 15 mg tablet 1 tab PO DAILY Patient Comments: patient is aware rx is written for BID but forgets to take second dose. oxycodone-acetaminophen 5-325 mg tablet 1 tab PO Q8H PRN (Reason: severe pain) prednisone 20 mg tablet 40 mg PO DAILY Referrals: [facility] [Provider Group] - 1 week Name,MD Deven [Primary Care Provider] - 1 day Print Language: Frisian
[2024-01-03 13:04] LABS: Troponin-I High Sensitivity < 2.7 ng/L (<3.5-17.0)
[2024-01-03] MEDS: diazePAM 2 MG TABLET PO (13:24)
[2024-01-03] MEDS: Morphine Sulfate Immed Release 15 MG TABLET PO (13:24)
--- NOTE | 2024-01-03 13:25 | PC.NURSE ---
pt medicated for 8/10 lr shoulder/back pain per order
[2024-01-03 15:25] VITALS: BP 142/103; PULSE 84; RESP 16; TEMP 36.9; O2SAT 96
== END 2024-01-03 15:26 | disposition home or self-care (01) ==
PROVIDERS: Physician Assistant; Emergency Provider Emergency Medicine; PCP Internal Medicine Geriatric Medicine
DX: M54.12 Radiculopathy, cervical region (principal); M54.2 Cervicalgia; F17.210 Nicotine dependence, cigarettes, uncomplicated
CPT/HCPCS: 36415; 72040; 80048; 84484; 85025; 93005; 99283; 99284

== ENCOUNTER → 2024-01-03 09:51 | Outpatient (BNV) | payer OTHER, SELFPAY | PROVIDERS: Emergency Provider Emergency Medicine; PCP Internal Medicine Geriatric Medicine; Visit Provider Internal Medicine Cardiovascular Disease | DX: R07.9 Chest pain, unspecified (principal) | CPT/HCPCS: 93010 ==

== ENCOUNTER 2024-01-04 11:26 | Outpatient (REF) | payer OTHER, SELFPAY ==
[2024-01-04 13:30] LABS: MANUAL DIFF FLAG NO
[2024-01-04 13:38] LABS: Basophils Absolute Auto 0.1 X10*3/uL (0.0-0.2); Basophils Percent Auto 0.7 % (0-2); Eosinophils Absolute Auto 0.2 X10*3/uL (0.0-0.4); Eosinophils Percent Auto 1.7 % (0-4); Hematocrit 32.9 % (37.0-47.0); Hemoglobin 10.7 g/dl (12.0-16.0); Imm Gran Abs Auto 0.06 X10*3/uL (0.00-0.03); Imm Gran Pct Auto 0.7 % (0.0-0.4); Lymphocytes Absolute Auto 2.4 X10*3/uL (1.2-4.9); Lymphocytes Percent Auto 26.7 % (20-40); Mean Corpuscular HGB Conc 32.5 g/dl (31.0-35.0); Mean Corpuscular Hemoglobin 31.3 pg (27.0-33.0); Mean Corpuscular Volume 96.2 fL (80.0-98.0); Mean Platelet Volume 9.2 fL (9.4-12.3); Monocytes Percent Auto 10.8 % (2-11); Neutrophils Absolute Auto 5.4 x10*3/uL (2.0-8.3); Neutrophils Percent Auto 59.4 % (45-73); Platelet Count 441 X10*3/uL (160-400); Red Blood Count 3.42 X10*6/uL (4.20-5.50); Red Cell Distribution Width 15.5 % (11.0-16.0); White Blood Count 9.1 X10*3/uL (4.8-10.8)
[2024-01-04 13:50] LABS: Anion Gap 10 (12-20); Blood Urea Nitrogen 18 mg/dL (9-16); Carbon Dioxide 25 mmol/L (22-29); Chloride 108 mmol/L (96-108); Estimated Glomerular Filt Rate > 60; Potassium 3.7 mmol/L (3.3-5.1); Sodium 139 mmol/L (135-145)
== END 2024-01-04 11:27 | disposition home or self-care (01) ==
LOC: HO.10HDL 11:26
PROVIDERS: Visit Provider Internal Medicine Nephrology
DX: N17.9 Acute kidney failure, unspecified (principal)
CPT/HCPCS: 36415; 80051; 82565; 84520; 85025

== ENCOUNTER 2024-01-07 10:14 | Outpatient (AMB) | payer OTHER, SELFPAY ==
[2024-01-07 10:15] VITALS: BP 140/74; PULSE 89; O2SAT 97; BMI 23.7
--- NOTE | 2024-01-07 10:15 | HO.NEPHOV_ITS ---
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 She has H/O hypertension. She recently had pain in left upper back in the shoulder area and was seen at PCP. She received Toradol at that time. Blood work at that time showed showed leukocytosis of 18,000 with left shift and creatinine of 2.34 from previous 0.77 in 09/15 . She had no fever, chills , cough, urinary symptoms. She has been taking NSAIDs. She noted to have decreased urine output for last few weeks. She has no edema, hematuria, sore throat, sinusitis, epistaxis, hemoptysis or new skin rashes. Her renal function has settled to baseline now [facility] Medical History Atherosclerotic cardiovascular disease Hypertension Elevated cholesterol Nicotine dependence, cigarettes, uncomplicated Emphysema of lung ADHD Anxiety Tubular adenoma of colon Surgical History History of colonoscopy History of hysterectomy History of History of carpal tunnel surgery Family History Brother Cancer Social History Household Members: None Housing: House Do you presently have visiting nurse or other home services: No Alcohol intake: current Alcohol intake frequency: does not drink Patient Tobacco Use Status: Current everyday Tobacco user Tobacco use type: Cigarette Cigarette Packs Per Day: 1 Years Smoked: (onset 16yo, 1ppd x 47yrs, 40+PYH) Substance Use Type: Marijuana service: No Physical Exam Vital Signs: Last Vital Signs Pulse 89 01/07/24 10:15 BP 140/74 H 01/07/24 10:15 Pulse Ox 97 01/07/24 10:15 Oxygen Delivery Method Room Air 01/07/24 10:15 BMI result Body Mass Index 23.7 Const General: comfortable and no acute distress Orientation/consciousness: patient oriented x3 HEENT Head: Yes normocephalic Mouth: Normal oral and palatal mucosa present Eyes EOM: EOMs intact bilaterally Neck Neck: Yes supple Resp Auscultation: clear to auscultation bilaterally Cardio Jugular venous distension: no JVD Rate: regular rate GI Palpation (GI): Soft to palpation Auscultation: normal bowel sounds General: Yes no CVA tenderness Back/Spine/Pelvis Back: no CVA tenderness Skin General skin exam: no rashes or lesions noted Neuro General: patient oriented x3 and moves all extremities Extrem General: Yes no pedal edema Results Reviewed Nephrology Results: Hgb 10.7 g/dl (12.0-16.0) L 01/04/24 WBC 9.1 X10*3/uL (4.8-10.8) 01/04/24 Plt Count 441 X10*3/uL (160-400) H 01/04/24 Sodium 139 mmol/L (135-145) 01/04/24 Potassium 3.7 mmol/L (3.3-5.1) 01/04/24 Chloride 108 mmol/L (96-108) 01/04/24 Carbon Dioxide 25 mmol/L (22-29) 01/04/24 BUN 18 mg/dL (9-16) H 01/04/24 Creatinine 0.76 mg/dL (0.5-1.4) 01/04/24 Calcium 9.4 mg/dL (8.4-10.2) 01/03/24 Urine Protein Negative mg/dL (Neg-Trace) 12/21/23 Urine Creatinine 48.24 mg/dL 12/21/23 Protein/Creatinin Ratio TNP 12/21/23 Renal US 01/03/24 Assessment & Plan Assessment & Plan (1) Hypertension: Code(s): I10 - Essential (primary) hypertension Category: Medical Qualifiers: Hypertension type: primary hypertension Qualified Code(s): I10 - Essential (primary) hypertension (2) Renal stone: Code(s): N20.0 - Calculus of kidney Category: Medical Plan Elena had MIGUEL ANGEL likely due to tubular injury which has resolved. She has H/O vascular disease and hypertension. She has been taking NSAID's. I asked her not to take any NSAID's and remain well hydrated. Detailed work up including imaging studies were negative. she does not need a renal biopsy. She has a renal calculus on the right side. I started her on Amlodipine 5 mg daily. Further management is pending evolving data. Answered all questions. F/U given for 1 month Medications: New amlodipine 5 mg PO DAILY 30 tabs 3RF Coding Level of Care Code Est Pt Level 4 (23203) Diagnoses Primary hypertension I10 Hypertension type: primary hypertension Renal stone N20.0
== END 2024-01-07 10:43 | disposition home or self-care (01) ==
PROVIDERS: PCP Internal Medicine Geriatric Medicine; Visit Provider Internal Medicine Nephrology
DX: I10 Essential (primary) hypertension (principal); N20.0 Calculus of kidney
CPT/HCPCS: 99214

== ENCOUNTER → 2024-01-07 10:14 | Outpatient (BNVA) | payer OTHER, SELFPAY | PROVIDERS: PCP Internal Medicine Geriatric Medicine; Visit Provider Internal Medicine Nephrology | DX: I10 Essential (primary) hypertension (principal); N20.0 Calculus of kidney | CPT/HCPCS: 99212 ==

== ENCOUNTER 2024-01-10 08:45 | Outpatient (AMB) | payer OTHER, SELFPAY ==
--- NOTE | 2024-01-10 08:52 | MHC.OFFVIS ---
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 Pt states she has had this pain/weakness for 3 weeks. Patient rpeorts that she has had pain and weakness until December 02, denies injury. At the beginning she was having severe muscle spasms, which she has taken muscle relaxers for. She has tried and failed prednisone, Tramadol and Morphine. currently she is taking Tizanadine. She has some stiffness of the neck and explains that she is having a deep throbbing pain of the anterior and posterioir aspects of the shoulder that radiates down the left arm. MRI of the neck is booked for January 20, she states that her MRI is booked here at [facility] but I do not see anything. Allergies Penicillins Adverse Reaction (Verified 01/07/24 10:17) thrush Gabapentin Adverse Reaction (Uncoded 01/10/24 08:58) Vomiting Medication List - Last Reconciled 01/10/24 by Negrita Alexander MD amlodipine 5 mg PO DAILY dextroamphetamine-amphetamine 15 mg (Adderall) 1 tab PO DAILY tizanidine mg PO HPI Comments Details: She says that she had gone to ED due to left sided neck pain but found also to have MIGUEL ANGEL due to NSAIDs. No inciting injuries. She maybe was driving in traffic the day before. Started December 02, with severe spasms for 2 weeks. [place] on left anterior chest, left lateral neck, left trapezius, goes down to left hand. Left hand gets numb. 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 When she drives, holding steering wheel, left hand gets numb. Usually gets worse while driving home and stays with her rest of the night. Neck stiffness when she wakes up in the morning. Treatment done so far: TENS Cannot take NSAIDs (see below) and cannot tolerate prednisone or gabapentin. Scheduled January 20 at [facility]. Has been referred to PT, wants to go to [place]. Hospitalist note 12/15/23: Patient was admitted for acute kidney injury likely due to NSAID use. History of tobacco use disorder, COPD, hypertension, mood disorder, mixed hyperlipidemia. 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 Zhang 01/07/24: Elena had MIGUEL ANGEL likely due to tubular injury which has resolved. She has H/O vascular disease and hypertension. She has been taking NSAID's. I asked her not to take any NSAID's and remain well hydrated. [facility] Medical History Atherosclerotic cardiovascular disease Hypertension Elevated cholesterol Nicotine dependence, cigarettes, uncomplicated Emphysema of lung ADHD Anxiety Tubular adenoma of colon Surgical History History of colonoscopy History of hysterectomy History of History of carpal tunnel surgery Family History Brother Cancer Social History Household Members: None Housing: House Do you presently have visiting nurse or other home services: No Alcohol intake: current Alcohol intake frequency: does not drink Patient Tobacco Use Status: Current everyday Tobacco user Tobacco use type: Cigarette Cigarette Packs Per Day: 1 Years Smoked: (onset 16yo, 1ppd x 47yrs, 40+PYH) Substance Use Type: Marijuana service: No Review of Systems Const All systems reviewed & are unremarkable except as noted in HPI and below Physical Exam Vital Signs: BMI result Body Mass Index 23.7 Constitutional: Patient appears to be in no acute distress, well nourished and well developed. Patient was appropriately conversant and oriented. Good historian. MSK: Inspection reveals appropriate head and neck positioning. No pain with palpation over the neck musculature. Trapezius are not tight. No palpable lymph nodes in neck and under arm. No scapular winging. Cervical ROM was full. Spurling's sign positive left, positive cross findings to right. Bilateral shoulder, elbow and wrist ROM WNL. No ligamentous laxity or crepitance. No increased effusion. Negative Gonzalez sign, negative empty can sign, negative speed's test. No specific abnormalities or instability found on inspection and palpation of the spine and extremities. Lumbar ROM was full. Strength is 5/5 in all muscle groups tested. No increased tone noted. Neurological: Neurologic examination of the upper and lower extremities was nonfocal with intact sensation, muscle stretch reflexes and without focal motor deficits . Menjivar?s negative bilaterally. Babinski was down going bilaterally. Clonus was negative. Gait is non-antalgic without loss of balance. Results Reviewed Results Reviewed: I independently reviewed the results of the following: Cervical spine x-ray Showed decreased disc spaces and loss of lordosis. rdering Physician: Ronni Perdomo Date of Service: 01/03/24 Procedure(s): XR cervical spine 2V Accession Number(s): [id number] cc: Ronni Perdomo; Name,Deven THOMPSON~ EXAMINATION: XR CERVICAL SPINE CLINICAL INFORMATION: Pain radiating from neck into shoulder and down her left arm. COMPARISON: None available. TECHNIQUE: 3 views of the cervical spine were obtained. FINDINGS: The vertebral bodies and posterior elements are anatomically aligned in the sagittal projection. Vertebral body heights are preserved. There is mild narrowing of the C4-C5 and C5-C6 intervertebral disc spaces. There are endplate sclerotic changes and anterior osteophytosis at these levels. The C1-C2 relationship is anatomic. The dens is intact. The prevertebral soft tissue is normal in appearance. The paraspinal soft tissue is unremarkable. Lung apices are clear. XR/XR cervical spine 2V IMPRESSION: No acute osseous cervical spine abnormality. There is mild degenerative disc disease at C4-C5 and C5-C6. I reviewed records from the following: Hospitalist Nephrology Assessment & Plan Assessment & Plan (1) Cervical radiculopathy: Code(s): M54.12 - Radiculopathy, cervical region Category: Medical (2) Cervical spondylosis: Code(s): M47.812 - Spondylosis without myelopathy or radiculopathy, cervical region Category: Medical Plan Exam suggestive of left cervical radiculopathy. No signs of myelopathy or neurologic findings on exam. She is scheduled for MRI on January 20 which would be helpful to determine whether there is a left-sided disc herniation and nerve impingement. She is unfortunately unable to take NSAIDs, prednisone or gabapentin. She wants to explore option for injection. She is also leaving for vacation in January 31 and would lose money if she is unable to go. I switched tizanidine to Flexeril; cyclobenzaprine is not renally excreted. She may take 10 mg q.h.s., up to twice a day, side effects and precautions discussed. MRI scheduled for January 20. Requested/referral to pain management, if she can get cervical TFE, on the week after she gets MRI or before January 31. Of course if MRI shows any severe spinal stenosis, she will be referred to neuro spine. In the meantime, no heavy lifting. Advised no prolonged driving. Assessment and plan discussed with patient, and patient was agreeable. All questions were answered thoroughly. We will see her back on January 22. Negrita Alexander MD, MALORIE Board Certified, [place] Board of Physical Medicine and Rehabilitation (ABPMR) Board Certified, [place] Board of Electrodiagnostic Medicine (ABEM) Orders: Referrals Pain Management Referral M47.812 - Spondylosis without myelopathy or radiculopathy, cervical region, M54.12 - Radiculopathy, cervical region Medications: New cyclobenzaprine take at night, can take in the morning if not driving 10 mg PO BID PRN 30 tabs 0RF muscle spasm Coding Level of Care Code New Pt Level 4 (40970) Diagnoses Cervical radiculopathy M54.12 Cervical spondylosis M47.812
[2024-01-10 08:53] VITALS: BMI 23.7
== END 2024-01-10 09:24 | disposition home or self-care (01) ==
PROVIDERS: PCP Internal Medicine Geriatric Medicine; Visit Provider Physical Medicine & Rehabilitation
DX: M54.12 Radiculopathy, cervical region (principal); M47.812 Spondylosis without myelopathy or radiculopathy, cervical region
CPT/HCPCS: 99204

== ENCOUNTER → 2024-01-10 08:45 | Outpatient (BNVA) | payer OTHER, SELFPAY | PROVIDERS: PCP Internal Medicine Geriatric Medicine; Visit Provider Physical Medicine & Rehabilitation | DX: M54.12 Radiculopathy, cervical region (principal); M47.812 Spondylosis without myelopathy or radiculopathy, cervical region | CPT/HCPCS: 99202 ==

== ENCOUNTER 2024-01-21 18:03 | Outpatient (REF) | payer OTHER, SELFPAY ==
--- NOTE | ~2024-01-21 | MR_ITS ---
MR CERVICAL SPINE WITHOUT CONTRAST CLINICAL INFORMATION: Radicular pain in the left arm. COMPARISON: None available. TECHNIQUE: Multiplanar multisequence MR imaging of the cervical spine obtained without IV contrast. FINDINGS: There is mild degenerative anterior subluxation of C7 on T1 in the setting of advanced facet arthropathy at this level. Cervical alignment is otherwise maintained. The vertebral body heights are maintained. There are multilevel endplate osteophytes. Craniocervical junction is unremarkable. The partially visualized intracranial compartment is unremarkable. There is no bone marrow edema. There are no acute fractures. No significant extra spinal soft tissue findings. C2-C3: Disc contour is normal. No central canal stenosis and no foraminal stenosis. C3-C4: Slight annular disc bulge. Uncovertebral joint spurring and facet arthropathy results in mild left-sided foraminal encroachment. No central canal and no right foraminal stenosis. C4-C5: Uncovertebral joint spurring and advanced facet arthropathy results in severe left and mild right foraminal stenosis. No central canal stenosis. C5-C6: Uncovertebral joint spurring and advanced facet arthropathy results in severe left and [id number] right foraminal stenosis. C6-C7: A left foraminal disc protrusion results in severe left-sided foraminal stenosis and compression of the exiting left C7 nerve root. No central canal and right foraminal stenosis. C7-T1: Posterior disc contour is normal. Advanced left-sided facet arthropathy results in mild left-sided foraminal encroachment. At T1-T2, there is mild anterior subluxation along with disc osteophyte advanced facet arthropathy results in severe bilateral foraminal stenosis. MR/MR cervical spine wo con IMPRESSION: * At C6-C7, a left foraminal disc protrusion results in severe left-sided foraminal stenosis and compression of the exiting left C7 nerve root. * Multifactorial degenerative changes result in severe left C4-C5, severe left and [id number]-ps-rnqnkhbb right C5-C6, and severe bilateral T1-T2 foraminal stenosis. * There is mild degenerative anterior subluxation of C7 on T1 in the setting of advanced facet arthropathy at this level. Electronically signed by: Jose Carlos Wade MD 02/15/2024 04:16 PM EDT
== END 2024-01-21 18:04 | disposition home or self-care (01) ==
LOC: HO.MRI 18:03
PROVIDERS: PCP Internal Medicine Geriatric Medicine; Visit Provider Internal Medicine Geriatric Medicine
DX: M79.2 Neuralgia and neuritis, unspecified (principal); R29.898 Other symptoms and signs involving the musculoskeletal system
CPT/HCPCS: 72141

== ENCOUNTER 2024-01-23 11:44 | Outpatient (AMB) | payer OTHER, SELFPAY ==
--- NOTE | 2024-01-23 11:47 | A.OFFVIS_ITS ---
Vital Signs 01/23/24 11:48 Height 5 ft 3 in Weight 134 lb BMI 23.7 Intake Visit Reasons: MRI Review Intake Note: Elena is a 63 yo female who presents today for review of cervical spine MRI. Allergies Penicillins Adverse Reaction (Verified 01/23/24 11:49) thrush Gabapentin Adverse Reaction (Uncoded 01/23/24 11:49) Vomiting HPI Comments Details: She says that she had gone to ED due to left sided neck pain but found also to have MIGUEL ANGEL due to NSAIDs. No inciting injuries. She maybe was driving in traffic the day before. Started December 02, with severe spasms for 2 weeks. [place] on left anterior chest, left lateral neck, left trapezius, goes down to left hand. Left hand gets numb. 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 When she drives, holding steering wheel, left hand gets numb. Usually gets worse while driving home and stays with her rest of the night. Neck stiffness when she wakes up in the morning. Treatment done so far: TENS Cannot take NSAIDs (see below) and cannot tolerate prednisone or gabapentin. Scheduled January 20 at [facility]. Has been referred to PT, wants to go to [place]. Hospitalist note 12/15/23: Patient was admitted for acute kidney injury likely due to NSAID use. History of tobacco use disorder, COPD, hypertension, mood disorder, mixed hyperlipidemia. 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 She has H/O vascular disease and hypertension. She has been taking NSAID's. I asked her not to take any NSAID's and remain well hydrated. Has been feeling better for a week now. No more pain. 0/10 pain. Clicking once in a while on neck. Numbness on left arm, still comes/goes throughout the day. But no more throbbing. Not dropping things. [facility] Medical History (Updated 01/23/24 @ 12:21 by Negrita Alexander MD) Cervical spondylosis Atherosclerotic cardiovascular disease Hypertension Elevated cholesterol Nicotine dependence, cigarettes, uncomplicated Emphysema of lung ADHD Anxiety Tubular adenoma of colon Surgical History History of colonoscopy History of hysterectomy History of History of carpal tunnel surgery Family History Brother Cancer Social History Household Members: None Housing: House Do you presently have visiting nurse or other home services: No Alcohol intake: current Alcohol intake frequency: does not drink Patient Tobacco Use Status: Current everyday Tobacco user Tobacco use type: Cigarette Cigarette Packs Per Day: 1 Years Smoked: (onset 16yo, 1ppd x 47yrs, 40+PYH) Substance Use Type: Marijuana service: No Physical Exam Vital Signs: BMI result Body Mass Index 23.7 Constitutional: Patient appears to be in no acute distress, well nourished and well developed. Patient was appropriately conversant and oriented. Good historian. MSK: Inspection reveals appropriate head and neck positioning. No pain with palpation over the neck musculature. Trapezius are not tight. No palpable lymph nodes in neck and under arm. No scapular winging. Cervical ROM was full. Spurling's sign positive left, positive cross findings to right. Bilateral shoulder, elbow and wrist ROM WNL. No ligamentous laxity or crepitance. No increased effusion. Negative Gonzalez sign, negative empty can sign, negative speed's test. No specific abnormalities or instability found on inspection and palpation of the spine and extremities. Lumbar ROM was full. Strength is 5/5 in all muscle groups tested. No increased tone noted. Neurological: Neurologic examination of the upper and lower extremities was nonfocal with intact sensation, muscle stretch reflexes and without focal motor deficits . Menjivar?s negative bilaterally. Babinski was down going bilaterally. Clonus was negative. Gait is non-antalgic without loss of balance. Results Reviewed Results Reviewed: Independently reviewed MRI films. No official reading it. Left-sided cervical disc prolapse seen, C6-7 level. Resulting moderate stenosis. Assessment & Plan Assessment & Plan (1) Cervical disc herniation: Code(s): M50.20 - Other cervical disc displacement, unspecified cervical region Category: Medical (2) Cervical radiculitis: Code(s): M54.12 - Radiculopathy, cervical region Category: Medical Plan MRI did show a disc prolapse left-sided C6-7 which most likely explains and is consistent with her symptoms. She is getting better though, pain is now resolved. She continues to have paresthesias in left arm and positive Spurling sign. No other signs of myelopathy or neurologic deficits. Pain management has not called her to schedule for injection, but would still encourage her to consider injection if they do call. She is going for vacation to [facility]. Advised against any activity that would cause sudden acceleration/deceleration of cervical spine such as bungee jumping, rigorous slides, etc.. Patient verbalizes understanding and agreement. Discussed red flags watch out for and to seek urgent care if needed. She is unable to take steroids or NSAIDs. She will take with her Flexeril and Tylenol. As she is getting better in terms of pain, we will hold off on your spine surge ry referral. Re-evaluate after vacation. Assessment and plan discussed with patient, and patient was agreeable. All questions were answered thoroughly. Follow up in 2 weeks after her vacation. Total of 30 minutes spent today including chart review, results review, history taking, physical examination, discussion of assessment and plan, and coordination of care. [ ] Negrita Alexander MD, MALORIE Board Certified, [place] Board of Physical Medicine and Rehabilitation (ABPMR) Board Certified, [place] Board of Electrodiagnostic Medicine (ABEM) Coding Level of Care Code Est Pt Level 4 (99141) Diagnoses Cervical disc herniation M50.20 Cervical radiculitis M54.12
[2024-01-23 11:48] VITALS: BMI 23.7
== END 2024-01-23 12:27 | disposition home or self-care (01) ==
PROVIDERS: PCP Internal Medicine Geriatric Medicine; Visit Provider Physical Medicine & Rehabilitation
DX: M50.223 Other cervical disc displacement at C6-C7 level (principal); M54.12 Radiculopathy, cervical region
CPT/HCPCS: 99214

== ENCOUNTER → 2024-01-23 11:44 | Outpatient (BNVA) | payer OTHER, SELFPAY | PROVIDERS: PCP Internal Medicine Geriatric Medicine; Visit Provider Physical Medicine & Rehabilitation | DX: M50.20 Other cervical disc displacement, unspecified cervical region (principal); M54.12 Radiculopathy, cervical region | CPT/HCPCS: 99212 ==

== ENCOUNTER 2024-02-15 08:14 | Outpatient (AMB) | payer OTHER, SELFPAY ==
[2024-02-15 08:28] VITALS: BP 144/68; PULSE 83; O2SAT 99; BMI 23.9
--- NOTE | 2024-02-15 08:28 | MHC.OFFVIS ---
Vital Signs 02/15/24 08:28 Height 5 ft 3 in Weight 135 lb BMI 23.9 BP 144/68 H Blood Pressure Location Lt brachial Position Sitting Pulse 83 Pulse Source Pulse Oximeter Pulse Oximetry (%) 99 Oxygen Delivery Method Room Air Intake Visit Reasons: Radiculopathy, cervical region Allergies Penicillins Adverse Reaction (Verified 02/15/24 08:29) thrush Gabapentin Adverse Reaction (Uncoded 02/15/24 08:29) Vomiting Medication List - Last Reconciled 02/15/24 by Sapna Zazueta amlodipine 5 mg PO DAILY cyclobenzaprine 10 mg PO BID PRN dextroamphetamine-amphetamine 15 mg (Adderall) 1 tab PO DAILY HPI Comments Details: Elena is a very pleasant 63-year-old female who presents to the office today for evaluation management of her left neck pain. She has been suffering with this pain for approximately 8 weeks. Denies inciting injury. Endorses left sided neck pain with radiation down the left arm to the fingers. Multiple episodes daily of shooting electrical pain down the arm to the hand. Also endorses some mild weakness and numbness of the left arm. She was evaluated by physiatry and referred here for consideration of epidural steroid injection at C6-7. Recent x-ray reviewed, results as per below. She had an MRI last month, results are pending. Patient has been taking nonsteroidal anti-inflammatory medications with minimal improvement. She was previously prescribed oral prednisone which did not improve her pain and gave her oral side effects. Recently admitted to the hospital for acute kidney injury secondary to overuse of nonsteroidal anti-inflammatory medications. Therefore she is no longer able to take these. Trialed muscle relaxers which helped with some neck stiffness but did not help with the pain or the radicular symptoms. She has been doing home exercise program with lifting limitations as advised by campground manager without resolution of her symptoms. Pain today is rated as a 4/10, constant throughout the day. In terms of muscle damage condition is described as numbness, aching, hot, burning, shooting, pins and needles. 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 Denies current use of blood thinners. Denies pacemaker, defibrillator or the implantable devices. [facility] Medical History (Updated 01/23/24 @ 12:21 by Negrita Alexander MD) Cervical spondylosis Atherosclerotic cardiovascular disease Hypertension Elevated cholesterol Nicotine dependence, cigarettes, uncomplicated Emphysema of lung ADHD Anxiety Tubular adenoma of colon Surgical History History of colonoscopy History of hysterectomy History of History of carpal tunnel surgery Family History Brother Cancer Social History Household Members: None Housing: House Do you presently have visiting nurse or other home services: No Alcohol intake: current Alcohol intake frequency: does not drink Patient Tobacco Use Status: Current everyday Tobacco user Tobacco use type: Cigarette Cigarette Packs Per Day: 1 Years Smoked: (onset 16yo, 1ppd x 47yrs, 40+PYH) Substance Use Type: Marijuana service: No Review of Systems Const All systems reviewed & are unremarkable except as noted in HPI and below Physical Exam Vital Signs: Last Vital Signs Pulse 83 02/15/24 08:28 BP 144/68 H 02/15/24 08:28 Pulse Ox 99 02/15/24 08:28 Oxygen Delivery Method Room Air 02/15/24 08:28 BMI result Body Mass Index 23.9 General: awake, alert, oriented. Answers questions appropriately. Fully engaged in examination. Skin: warm, dry, intact HEENT: Normocephalic. Hearing intact. Cardiac: External chest normal in appearance. Respiratory: No cough, audible wheezing or stridor. Abdomen: without gross distension. MS: No obvious swelling or deformities. Able to transition from sit to stand unassisted. Ambulates with bilaterally normal heel strike and toe off Cervical Spine: Visible inspection without gross abnormality Nontender to palpation over paraspinal muscles Nontender to palpation over cervical vertebrae ROM intact Spurling compression test negative. Elvey's tension test negative Lhermitte's test negative. BUE strength 5/5 DTR symmetrical and intact bilaterally. 2+ radial pulses. Neurological: Oriented to person, place, time and situation. Thought process intact. No gait abnormalities appreciated. Psychiatric: Appropriate mood and affect. Good judgment and insight. Results Reviewed Results Reviewed: 01/21/24 MRI cervical spine pending 01/03/24 XR/XR cervical spine 2V FINDINGS: The vertebral bodies and posterior elements are anatomically aligned in the sagittal projection. Vertebral body heights are preserved. There is mild narrowing of the C4-C5 and C5-C6 intervertebral disc spaces. There are endplate sclerotic changes and anterior osteophytosis at these levels. The C1-C2 relationship is anatomic. The dens is intact. The prevertebral soft tissue is normal in appearance. The paraspinal soft tissue is unremarkable. Lung apices are clear. IMPRESSION: No acute osseous cervical spine abnormality. There is mild degenerative disc disease at C4-C5 and C5-C6. Assessment & Plan Assessment & Plan (1) Cervical spondylosis: Code(s): M47.812 - Spondylosis without myelopathy or radiculopathy, cervical region Category: Medical (2) Cervical disc herniation: Code(s): M50.20 - Other cervical disc displacement, unspecified cervical region Category: Medical (3) Cervical radiculopathy: Code(s): M54.12 - Radiculopathy, cervical region Category: Medical Plan Elena is a very pleasant 63-year-old female who presented to the office today for evaluation and management of her chronic left neck pain History, physical exam and provocative testing consistent with cervical radiculopathy. Patient has exhausted conservative therapy including home exercise program, nonsteroidal anti-inflammatory medications, oral steroids, ckee-pwa-zntlrar medications, rest and ice. Discussed at length the patient's diagnosis and treatment options. We will schedule for left C6-7 parasagittal epidural steroid injection under fluoroscopy guidance with local anesthetic. All questions and concerns were answered, patient agrees with plan. Follow up after injection, sooner if needed Coding Level of Care Code New Pt Level 4 (53108) Diagnoses Cervical spondylosis M47.812 Cervical disc herniation M50.20 Cervical radiculopathy M54.12
== END 2024-02-15 09:00 | disposition home or self-care (01) ==
PROVIDERS: PCP Internal Medicine Geriatric Medicine; Visit Provider Registered Nurse Emergency
DX: M47.812 Spondylosis without myelopathy or radiculopathy, cervical region (principal); M50.20 Other cervical disc displacement, unspecified cervical region; M54.12 Radiculopathy, cervical region
CPT/HCPCS: 99204

== ENCOUNTER → 2024-02-15 08:14 | Outpatient (BNVA) | payer OTHER, SELFPAY | PROVIDERS: PCP Internal Medicine Geriatric Medicine; Visit Provider Registered Nurse Emergency | DX: M50.20 Other cervical disc displacement, unspecified cervical region (principal); M47.22 Other spondylosis with radiculopathy, cervical region | CPT/HCPCS: 99202 ==

== ENCOUNTER 2024-02-26 13:53 | Outpatient (AMB) | payer OTHER, SELFPAY ==
--- NOTE | 2024-02-26 13:54 | MHC.OFFVIS ---
Intake Visit Reasons: OV-Follow up for the spine Intake Note: Elena is a 63 year old female who presents to the office today for a follow up spine. Pt states she is still experiencing pain and is having issues with neck stiffness which is starting to give her migraines. Pt states the light is starting to bother her eyes. Pt states she saw pain management and will be getting a steroid injection once pain management makes the appt. Allergies Penicillins Adverse Reaction (Verified 02/26/24 13:55) thrush Gabapentin Adverse Reaction (Uncoded 02/26/24 13:55) Vomiting Medication List - Last Reconciled 02/26/24 by Negrita Alexander MD amlodipine 5 mg PO DAILY cyclobenzaprine 10 mg PO BID PRN dextroamphetamine-amphetamine 15 mg (Adderall) 1 tab PO DAILY HPI Comments Details: December 2023 - She says that she had gone to ED due to left sided neck pain but found also to have MIGUEL ANGEL due to NSAIDs. No inciting injuries. She maybe was driving in traffic the day before. Started December 02, with severe spasms for 2 weeks. [place] on left anterior chest, left lateral neck, left trapezius, goes down to left hand. Left hand gets numb. 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 When she drives, holding steering wheel, left hand gets numb. Usually gets worse while driving home and stays with her rest of the night. Neck stiffness when she wakes up in the morning. Treatment done so far: TENS Cannot take NSAIDs (see below) and cannot tolerate prednisone or gabapentin. Scheduled January 20 at [facility]. Has been referred to PT, wants to go to [place]. Hospitalist note 12/15/23: Patient was admitted for acute kidney injury likely due to NSAID use. History of tobacco use disorder, COPD, hypertension, mood disorder, mixed hyperlipidemia. Senior Credit Officer note Dr. Zhang 01/07/24: Elena had MIGUEL ANGEL likely due to tubular injury which has resolved. She has H/O vascular disease and hypertension. She has been taking NSAID's. I asked her not to take any NSAID's and remain well hydrated. 01/23/24 - Has been feeling better for a week now. No more pain. 0/10 pain. Clicking once in a while on neck. Numbness on left arm, still comes/goes throughout the day. But no more throbbing. Not dropping things. Today 02/26/24 - neck stiffness, clicks, difficulty with movement, getting headaches, affecting vision; still with left arm numbness. [facility] Medical History (Updated 01/23/24 @ 12:21 by Negrita Alexander MD) Cervical spondylosis Atherosclerotic cardiovascular disease Hypertension Elevated cholesterol Nicotine dependence, cigarettes, uncomplicated Emphysema of lung ADHD Anxiety Tubular adenoma of colon Surgical History History of colonoscopy History of hysterectomy History of History of carpal tunnel surgery Family History Brother Cancer Social History Household Members: None Housing: House Do you presently have visiting nurse or other home services: No Alcohol intake: current Alcohol intake frequency: does not drink Patient Tobacco Use Status: Current everyday Tobacco user Tobacco use type: Cigarette Cigarette Packs Per Day: 1 Years Smoked: (onset 16yo, 1ppd x 47yrs, 40+PYH) Substance Use Type: Marijuana service: No Physical Exam Constitutional: Patient appears to be in no acute distress, well nourished and well developed. Patient was appropriately conversant and oriented. Good historian. MSK: Inspection reveals appropriate head and neck positioning. Trapezius tender bilateral. No scapular winging. Cervical ROM was full but had difficulty with extension, causing tightness on right side. Spurling's sign positive left, positive cross findings to right. Bilateral shoulder, elbow and wrist ROM WNL. No ligamentous laxity or crepitance. No increased effusion. Negative Gonzalez sign, negative empty can sign, negative speed's test. No specific abnormalities or instability found on inspection and palpation of the spine and extremities. Strength is 5/5 in all muscle groups tested. No increased tone noted. Neurological: Neurologic examination of the upper and lower extremities was nonfocal with intact sensation, muscle stretch reflexes and without focal motor deficits . Menjivar?s negative bilaterally. Babinski was down going bilaterally. Clonus was negative. Gait is non-antalgic without loss of balance. Results Reviewed Results Reviewed: reviewed notes from Pain Management Ordering Physician: Name,Deven THOMPSON Date of Service: 01/21/24 Procedure(s): MR cervical spine wo con Accession Number(s): [id number] cc: Name,Deven THOMPSON~ MR CERVICAL SPINE WITHOUT CONTRAST CLINICAL INFORMATION: Radicular pain in the left arm. COMPARISON: None available. TECHNIQUE: Multiplanar multisequence MR imaging of the cervical spine obtained without IV contrast. FINDINGS: There is mild degenerative anterior subluxation of C7 on T1 in the setting of advanced facet arthropathy at this level. Cervical alignment is otherwise maintained. The vertebral body heights are maintained. There are multilevel endplate osteophytes. Craniocervical junction is unremarkable. The partially visualized intracranial compartment is unremarkable. There is no bone marrow edema. There are no acute fractures. No significant extra spinal soft tissue findings. C2-C3: Disc contour is normal. No central canal stenosis and no foraminal stenosis. C3-C4: Slight annular disc bulge. Uncovertebral joint spurring and facet arthropathy results in mild left-sided foraminal encroachment. No central canal and no right foraminal stenosis. C4-C5: Uncovertebral joint spurring and advanced facet arthropathy results in severe left and mild right foraminal stenosis. No central canal stenosis. C5-C6: Uncovertebral joint spurring and advanced facet arthropathy results in severe left and bwmc-mz-vliaxcge right foraminal stenosis. C6-C7: A left foraminal disc protrusion results in severe left-sided foraminal stenosis and compression of the exiting left C7 nerve root. No central canal and right foraminal stenosis. C7-T1: Posterior disc contour is normal. Advanced left-sided facet arthropathy results in mild left-sided foraminal encroachment. At T1-T2, there is mild anterior subluxation along with disc osteophyte advanced facet arthropathy results in severe bilateral foraminal stenosis. MR/MR cervical spine wo con IMPRESSION: * At C6-C7, a left foraminal disc protrusion results in severe left-sided foraminal stenosis and compression of the exiting left C7 nerve root. * Multifactorial degenerative changes result in severe left C4-C5, severe left and xtfo-pf-opcoazby right C5-C6, and severe bilateral T1-T2 foraminal stenosis. * There is mild degenerative anterior subluxation of C7 on T1 in the setting of advanced facet arthropathy at this level. Electronically signed by: Jose Carlos Wade MD 02/15/2024 04:16 PM EDT RP Assessment & Plan Assessment & Plan (1) Cervical disc herniation: Code(s): M50.20 - Other cervical disc displacement, unspecified cervical region Category: Medical (2) Cervical radiculitis: Code(s): M54.12 - Radiculopathy, cervical region Category: Medical Plan MRI showed a disc prolapse left-sided C6-7 consistent with her symptoms. Though either better or she has adapted, her exam continues to show positive spurling sign and she have paresthesias in left arm and positive Spurling sign. No other signs of myelopathy or neurologic deficits. Seen by Pain Management, TFE pending insurance approval. She is unable to take gabapentin, steroids or NSAIDs. She admits needing to take Flexeril QID without relief. Will change to baclofen 5mg TID prn. Discussed side effects. At this point, referring her to neurospine to get their opinion for surgical need. Assessment and plan discussed with patient, and patient was agreeable. All questions were answered thoroughly. Follow up after injection or neurospine consult. Negrita Alexander MD, MALORIE Board Certified, [place] [employer] and Rehabilitation (ABPMR) Board Certified, [place] [employer] Electrodiagnostic Medicine (ABEM) Orders: Referrals Neurosurgery Referral M50.20 - Other cervical disc displacement, unspecified cervical region, M54.12 - Radiculopathy, cervical region Medications: New baclofen 5 mg PO TID PRN 30 tabs 0RF muscle spasm Discontinued cyclobenzaprine take at night, can take in the morning if not driving Discontinued Reason: Doctor's Order 10 mg PO BID PRN 30 tabs 0RF muscle spasm Coding Level of Care Code Est Pt Level 4 (26899) Diagnoses Cervical disc herniation M50.20 Cervical radiculitis M54.12
== END 2024-02-26 14:23 | disposition home or self-care (01) ==
PROVIDERS: PCP Internal Medicine Geriatric Medicine; Visit Provider Physical Medicine & Rehabilitation
DX: M50.20 Other cervical disc displacement, unspecified cervical region (principal); M54.12 Radiculopathy, cervical region
CPT/HCPCS: 99214

== ENCOUNTER → 2024-02-26 13:53 | Outpatient (BNVA) | payer OTHER, SELFPAY | PROVIDERS: PCP Internal Medicine Geriatric Medicine; Visit Provider Physical Medicine & Rehabilitation | DX: M50.20 Other cervical disc displacement, unspecified cervical region (principal); M54.12 Radiculopathy, cervical region | CPT/HCPCS: 99212 ==

== ENCOUNTER 2024-03-03 10:11 | Outpatient (REF) | payer OTHER, SELFPAY ==
[2024-03-03 12:21] LABS: Anion Gap 13 (12-20); Blood Urea Nitrogen 14 mg/dL (9-16); Calcium 9.7 mg/dL (8.4-10.2); Carbon Dioxide 26 mmol/L (22-29); Chloride 105 mmol/L (96-108); Estimated Glomerular Filt Rate > 60; Glucose Random 111 mg/dL (60-115); Potassium 3.9 mmol/L (3.3-5.1); Sodium 140 mmol/L (135-145)
== END 2024-03-03 10:12 | disposition home or self-care (01) ==
LOC: HO.HHCL 10:11
PROVIDERS: Referring Provider Internal Medicine; Visit Provider Internal Medicine Geriatric Medicine
DX: I10 Essential (primary) hypertension (principal)
CPT/HCPCS: 36415; 80048

== ENCOUNTER 2024-03-05 15:07 | Emergency (ER) | payer OTHER, SELFPAY ==
--- NOTE | ~2024-03-05 | CT_ITS ---
EXAMINATION: CT HEAD WITHOUT CONTRAST CLINICAL INFORMATION: Hypertension and headaches COMPARISON: None available. TECHNIQUE: Contiguous axial imaging was performed from the skull base to vertex without intravenous administration of contrast. This CT examination was performed using dose optimization techniques as appropriate, variously including the following: *Automated exposure control *Adjustment of mA and/or kV according to patient size (this includes techniques or standardized protocols for targeted exams where dose is matched to indication/reason for exam; i.e. extremities or head) *Use of iterative reconstruction technique DLP: 544 mGy-cm FINDINGS: No intra or extra-axial fluid collection or hemorrhage, mass, or mass effect. Calvarium intact. CT/CT head/brain wo IV con IMPRESSION: No acute intracranial pathology. Electronically signed by: Jacob Cooper MD 03/05/2024 04:54 PM EDT
--- NOTE | 2024-03-05 15:26 | ECG_ITS ---
Test Reason : HTN Blood Pressure : / mmHG Vent. Rate : 088 BPM Atrial Rate : 088 BPM P-R Int : 168 ms QRS Dur : 064 ms QT Int : 358 ms P-R-T Axes : 059 041 012 degrees QTc Int : 433 ms Poor data quality, interpretation may be adversely affected Normal sinus rhythm Possible Left atrial enlargement Nonspecific ST abnormality Abnormal ECG When compared with ECG of 03-JAN-2024 09:58, Nonspecific ST abnormality is now Present Referred By: Ronni Perdomo Electronically Signed By:SHAWNA ENGLE
[2024-03-05 15:31] VITALS: BP 169/78; PULSE 92; RESP 16; TEMP 36.7; O2SAT 99; BMI 24.1
--- NOTE | 2024-03-05 15:31 | ED.GENADULT ---
HPI - General Adult General Chief complaint: General Medical Stated complaint: ref by pcp for hypertension Time Seen by Provider: 03/05/24 18:01 Source: patient Mode of arrival: ambulatory Limitations: no limitations History of Present Illness ED Provider: audrey LEON narrative: Patient's history of hypertension taking amlodipine recently added losartan 1 week ago 50 mg daily comes here as blood pressure been elevated in 170/80 range with diffuse headache patient does have history of migraine not taking any medication no nausea no vomiting no focal deficit Related Data Home Medications ?Medication ?Instructions ?Recorded ?Confirmed dextroamphetamine-amphetamine 15 1 tab PO DAILY attention deficit 09/03/23 02/26/24 mg tablet (Adderall) hyperactivity disorder Previous Rx's ?Medication ?Instructions ?Recorded amlodipine 5 mg tablet 5 mg PO DAILY #30 tabs 01/07/24 baclofen 5 mg tablet 5 mg PO TID PRN muscle spasm #30 02/26/24 tabs tdaujecmfq-dgwkypnxulxwk-oimpsfeg 1 tab PO Q6H PRN haeadace #20 tabs 03/05/24 50 mg-325 mg-40 mg tablet hydrochlorothiazide 25 mg tablet 25 mg PO QAM #30 tabs 03/05/24 Allergies Allergy/AdvReac Type Severity Reaction Status Date / Time Penicillins AdvReac thrush Verified 03/05/24 15:34 Gabapentin AdvReac Vomiting Uncoded 03/05/24 15:34 Review of Systems Review of Systems: Yes all other systems are reviewed and are negative [facility] Past Medical History Medical History Cervical spondylosis Atherosclerotic cardiovascular disease Hypertension Elevated cholesterol Nicotine dependence, cigarettes, uncomplicated Emphysema of lung ADHD Anxiety Tubular adenoma of colon Surgical History History of colonoscopy History of hysterectomy History of History of carpal tunnel surgery Family History Family History Brother Cancer Social History Social History Household Members: None Housing: House Do you presently have visiting nurse or other home services: No Alcohol intake: current Alcohol intake frequency: does not drink Patient Tobacco Use Status: Current everyday Tobacco user Tobacco use type: Cigarette Cigarette Packs Per Day: 1 Years Smoked: (onset 16yo, 1ppd x 47yrs, 40+PYH) Substance Use Type: Marijuana Advance Directives: No Advance Directives Information Provided: Yes service: No Physical Exam ED Vital Signs: Vital Signs - 24 hr 03/05/24 15:31 03/05/24 18:57 03/05/24 18:57 Temperature 98.1 F 98.2 F 98.2 F Pulse Rate 92 82 82 Respiratory Rate 16 18 18 Blood Pressure 169/78 H 179/73 H 179/73 H Pulse Oximetry 99 Oxygen Delivery Method Room Air BMI result Body Mass Index 24.1 Appearance: Alert. Oriented X3. No acute distress. Eyes: PERRLA, No Nystagmus ENT: Pharynx normal. Oral Mucosa moist Neck: Normal inspection. Neck supple. CVS: Normal heart rate and rhythm. Pulses normal. Respiratory: No respiratory distress. Equal air entry bilateral, no wheezing/rales/rhonchi Abdomen: Soft and nontender. Bowel sounds are present, no mass palpable, no CVA tenderness Skin: Skin warm and dry. Normal skin color. Normal skin turgor. Extremities: No lower extremity edema. No calf tenderness Neuro: Oriented X 3. No motor deficit. No sensory deficit.No cerebellar signs , cranial nerves II-XII intact Course Course Course Narrative: This is an RME done by PINKY Perdomo: Additional HPI, ROS, PE not included below will be deferred to primary provider. 63yo F with PMHx HTN, MIGUEL ANGEL, COPD presenting upon referral from PCP for HTN, CP, LARA with photophobia. [id number]. Endorses palpitations, dizziness. Denies fevers, chills, N/V, SOB, dyspnea. Appearance: Alert.? Oriented X3.? No acute cardiopulmonary distress distress.? Head: Normocephalic, atraumatic CVS: Pulses normal.?BP 169/78 Respiratory: No respiratory distress.? Skin: ? Normal skin color. Neuro: Oriented X 3.? Medical Decision Making Medical Decision Making MDM Narrative: Patient's headache with history of migraine headache with elevated blood pressure on losartan and amlodipine will add hydrochlorothiazide repeat blood pressure was 139/79 will prescribe Fioricet for headaches CT head is negative for SAH Differential Diagnosis Differential Diagnoses: The differential diagnosis associated with the presentation includes Lab Data MDM Lab Attestation statement: I reviewed the patient's lab results. 03/05/24 16:07 03/05/24 16:07 Labs: Lab Results 03/05/24 Range/Units 16:07 WBC 10.7 (4.8-10.8) X10*3/uL RBC 4.16 L D (4.20-5.50) X10*6/uL Hgb 13.1 D (12.0-16.0) g/dl Hct 37.8 (37.0-47.0) % MCV 90.9 (80.0-98.0) fL MCH 31.5 (27.0-33.0) pg MCHC 34.7 (31.0-35.0) g/dl RDW 13.7 (11.0-16.0) % Plt Count 363 (160-400) X10*3/uL MPV 9.2 L (9.4-12.3) fL Immature Gran % (Auto) 0.6 H (0.0-0.4) % Neut % (Auto) 65.9 (45-73) % Lymph % (Auto) 21.0 (20-40) % [place] % (Auto) 10.8 (2-11) % Eos % (Auto) 1.1 (0-4) % Baso % (Auto) 0.6 (0-2) % Lymph # (Auto) 2.2 (1.2-4.9) X10*3/uL [place] # (Auto) 1.2 (0.1-1.2) X10*3/uL Eos # (Auto) 0.1 (0.0-0.4) X10*3/uL Baso # (Auto) 0.1 (0.0-0.2) X10*3/uL Abs Immat Gran (auto) 0.06 H (0.00-0.03) X10*3/uL Absolute Neuts (auto) 7.1 (2.0-8.3) x10*3/uL Absolute Nucleated RBC 0.000 (0.0-0.012) X10*3/uL Nucleated RBC % (auto) 0.0 (0.0-0.2) /100WBC PT 11.1 (11.1-13.3) SEC INR 0.9 (0.9-1.1) Sodium 139 (135-145) mmol/L Potassium 3.7 (3.3-5.1) mmol/L Chloride 106 (96-108) mmol/L Carbon Dioxide 27 (22-29) mmol/L Anion Gap 10 L (12-20) BUN 23 H (9-16) mg/dL Creatinine 0.81 (0.5-1.4) mg/dL Estim Creat Clear Calc 58.7 Estimated GFR > 60 Random Glucose 136 H (60-115) mg/dL Calcium 9.5 (8.4-10.2) mg/dL Magnesium 2.1 (1.6-2.6) mg/dL Total Bilirubin 0.3 (0.0-1.0) mg/dL AST 20 (5-31) U/L ALT 26 (0-31) U/L Alkaline Phosphatase 87 (39-117) U/L Troponin I High Sens < 2.7 (<3.5-17.0) ng/L Total Protein 7.1 (6.5-8.0) g/dL Albumin 4.3 (3.5-5.0) g/dL Independent Interpretation I performed an independent interpretation of an: EKG and CT Scan Interpretation: Normal sinus rhythm heart rate 88 beats per minute nonspecific STT wave changes no acute ischemia Radiology Impression Discussion of test interpretation with radiology: I have reviewed the radiologist's reading. Discharge Plan Discharge Clinical Impression: Migraine Hypertension Qualifiers: Hypertension type: primary hypertension Qualified Code(s): I10 - Essential (primary) hypertension Patient Disposition: Home, Self-Care Instructions: Migraine Headache (ED), Chronic Hypertension (ED) Additional Instructions: Continue your medication for blood pressure as prescribed by PCP Will add hydrochlorothiazide 25 mg daily in a.m. for better control of blood pressure Fioricet 1 tablet every 8hours for headache Follow with PCP Prescriptions: New dewcakbrxm-xrcvswszghtgy-prkj 50-325-40 mg tablet 1 tab PO Q6H PRN (Reason: haeadace) Qty: 20 0RF hydrochlorothiazide 25 mg tablet 25 mg PO QAM Qty: 30 0RF No Action dextroamphetamine-amphetamine [Adderall] 15 mg tablet 1 tab PO DAILY Patient Comments: patient is aware rx is written for BID but forgets to take second dose. amlodipine 5 mg tablet 5 mg PO DAILY Qty: 30 3RF baclofen 5 mg tablet 5 mg PO TID PRN (Reason: muscle spasm) Qty: 30 0RF Interventions: ED Discharge Assessment Last Done: 03/05/24 18:57 Discharge Date/Time: 03/05/24 18:58 Print Language: Greenlandic
[2024-03-05 16:13] LABS: MANUAL DIFF FLAG NO
[2024-03-05 16:14] LABS: Basophils Absolute Auto 0.1 X10*3/uL (0.0-0.2); Basophils Percent Auto 0.6 % (0-2); Eosinophils Absolute Auto 0.1 X10*3/uL (0.0-0.4); Eosinophils Percent Auto 1.1 % (0-4); Hematocrit 37.8 % (37.0-47.0); Hemoglobin 13.1 g/dl (12.0-16.0); Imm Gran Abs Auto 0.06 X10*3/uL (0.00-0.03); Imm Gran Pct Auto 0.6 % (0.0-0.4); Lymphocytes Absolute Auto 2.2 X10*3/uL (1.2-4.9); Mean Corpuscular HGB Conc 34.7 g/dl (31.0-35.0); Mean Corpuscular Hemoglobin 31.5 pg (27.0-33.0); Mean Corpuscular Volume 90.9 fL (80.0-98.0); Mean Platelet Volume 9.2 fL (9.4-12.3); Monocytes Absolute Auto 1.2 X10*3/uL (0.1-1.2); Monocytes Percent Auto 10.8 % (2-11); Neutrophils Absolute Auto 7.1 x10*3/uL (2.0-8.3); Neutrophils Percent Auto 65.9 % (45-73); Platelet Count 363 X10*3/uL (160-400); Red Blood Count 4.16 X10*6/uL (4.20-5.50); Red Cell Distribution Width 13.7 % (11.0-16.0); White Blood Count 10.7 X10*3/uL (4.8-10.8)
[2024-03-05 16:19] LABS: INTERNATIONAL NORM RATIO 0.9 (0.9-1.1); Prothrombin Time 11.1 SEC (11.1-13.3)
[2024-03-05 16:29] LABS: Alanine Aminotransferase 26 U/L (0-31); Albumin Level 4.3 g/dL (3.5-5.0); Alkaline Phosphatase 87 U/L (39-117); Anion Gap 10 (12-20); Aspartate Amino Transferase 20 U/L (5-31); Bilirubin Total 0.3 mg/dL (0.0-1.0); Blood Urea Nitrogen 23 mg/dL (9-16); Calcium 9.5 mg/dL (8.4-10.2); Carbon Dioxide 27 mmol/L (22-29); Chloride 106 mmol/L (96-108); Creatinine Clr Calc Pharmacy 58.7; Estimated Glomerular Filt Rate > 60; Glucose Random 136 mg/dL (60-115); Magnesium 2.1 mg/dL (1.6-2.6); Potassium 3.7 mmol/L (3.3-5.1); Sodium 139 mmol/L (135-145); Total Protein 7.1 g/dL (6.5-8.0)
[2024-03-05 16:40] LABS: Troponin-I High Sensitivity < 2.7 ng/L (<3.5-17.0)
[2024-03-05 18:57] VITALS: BP 179/73; PULSE 82; RESP 18; TEMP 36.8
== END 2024-03-05 18:58 | disposition home or self-care (01) ==
PROVIDERS: Physician Assistant; Emergency Provider Internal Medicine; PCP Internal Medicine Geriatric Medicine
DX: G43.909 Migraine, unspecified, not intractable, without status migrainosus (principal); I10 Essential (primary) hypertension; F90.9 Attention-deficit hyperactivity disorder, unspecified type; Z79.899 Other long term (current) drug therapy
CPT/HCPCS: 36415; 70450; 80053; 83735; 84484; 85025; 85610; 93005; 99284

== ENCOUNTER 2024-03-07 08:53 | Outpatient (AMB) | payer OTHER, SELFPAY ==
--- NOTE | 2024-03-07 08:55 | HO.SPINEOV ---
Intake Visit Reasons: neck pain, left arm numbness Intake Note: Ms. Solis is here today c/o neck pain and numbness on the left arm. 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 HPI: On 12/03/2023 she developed acute pain in her neck radiating to his shoulder down to her left arm into her hand. The pain was excruciating. The patient was crying. She was put on steroids which gave her side effects and anti-inflammatory drugs which resulted in acute kidney failure. Kidney function has recovered. The pain improved and is now present intermittently but frequently during the day. She may turn her head towards the right side and developed radiating pain down her left arm with numbness. No weakness. She also developed severe migraine-type headaches. She also notices pain under her right axilla. She scheduled to undergo an epidural steroid injection on April 10. 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 She currently is asymptomatic. She is able to move her neck in all directions without difficulties. Neurological exam is intact for motor sensation reflexes. Radiological Studies: MRI done at [facility] shows severe left C6 and C7 foraminal stenosis due to disc osteophyte complex. At C6-7 there is also moderate right C7 foraminal stenosis. Impression/Plan: This 63-year-old female is clinically suffering from a C7 radiculopathy. Her clinical symptoms have improved over time but they are still significant when they occur. I advised her to continue her conservative measurements in the hope that further improvement occurs. I would like to follow up in 6 weeks. I advised against chiropractic therapy. Thank you for allowing me to participate in your patients care. total time spent was 50 minutes in counseling ,coordination of plan, personal review of imaging, surgical decision making and subsequent plan Connor Rodgers MD, PhD Spine Fellowship Trained Neurosurgeon Director, [facility] Coding Level of Care Code New Pt Level 4 (81007) Diagnoses Cervical disc herniation M50.20
== END 2024-03-07 09:33 | disposition home or self-care (01) ==
PROVIDERS: PCP Internal Medicine Geriatric Medicine; Referring Provider Physical Medicine & Rehabilitation; Visit Provider Neurological Surgery
DX: M50.20 Other cervical disc displacement, unspecified cervical region (principal)
CPT/HCPCS: 99204

== ENCOUNTER → 2024-03-07 08:53 | Outpatient (BNVA) | payer OTHER, SELFPAY | PROVIDERS: PCP Internal Medicine Geriatric Medicine; Visit Provider Neurological Surgery | DX: M50.20 Other cervical disc displacement, unspecified cervical region (principal) | CPT/HCPCS: 99202 ==

== ENCOUNTER 2024-04-04 11:20 | Outpatient (AMB) | payer OTHER, SELFPAY ==
--- NOTE | 2024-04-04 11:38 | A.SPINEOV_ITS ---
Intake Visit Reasons: Discuss sx Intake Note: Ms. 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 She developed an acute cervical radiculopathy in November and fortunately her symptoms have greatly improved to a point that she has intermittent headaches and minimal intermittent discomfort in her left arm. Her question is if she should go an epidural steroid injection that was scheduled for next week. I told her to hold off as her body seems to take care of the symptoms. She will revisit me when symptoms returned. I spent 50 minutes in this consult. Connor Rodgers MD, PhD Spine Fellowship Trained Neurosurgeon Director, [facility] Coding Level of Care Code Est Pt Level 2 (93875) Diagnoses Cervical radiculitis M54.12
== END 2024-04-04 12:00 | disposition home or self-care (01) ==
PROVIDERS: PCP Internal Medicine Geriatric Medicine; Visit Provider Neurological Surgery
DX: M54.12 Radiculopathy, cervical region (principal)
CPT/HCPCS: 99212

== ENCOUNTER → 2024-04-04 11:20 | Outpatient (BNVA) | payer OTHER, SELFPAY | PROVIDERS: PCP Internal Medicine Geriatric Medicine; Visit Provider Neurological Surgery | DX: M54.12 Radiculopathy, cervical region (principal) | CPT/HCPCS: 99212 ==

== ENCOUNTER 2024-04-08 06:16 | Outpatient (REF) | payer OTHER, SELFPAY | END 2024-04-08 06:17 | disposition home or self-care (01) | LOC: CF 06:16 | PROVIDERS: Visit Provider Anesthesiology | DX: Z13.89 Encounter for screening for other disorder (principal) ==

== ENCOUNTER 2024-06-06 09:55 | Outpatient (AMB) | payer OTHER, SELFPAY ==
[2024-06-06 09:56] VITALS: BP 118/64; PULSE 84; O2SAT 98; BMI 23.8
--- NOTE | 2024-06-06 09:56 | A.OFFVIS_ITS ---
Vital Signs 06/06/24 09:56 Height 5 ft 3 in Weight 134 lb 4 oz BMI 23.8 BP 118/64 Blood Pressure Location Lt brachial Position Sitting Pulse 84 Pulse Source Pulse Oximeter Pulse Oximetry (%) 98 Oxygen Delivery Method Room Air Intake Visit Reasons: shortness of breath Allergies Penicillins Adverse Reaction (Verified 06/06/24 09:59) thrush Gabapentin Adverse Reaction (Uncoded 06/06/24 09:59) Vomiting HPI HPI shortness of breath: Details: Elena is a pleasant 63-year-old female, current 1ppd smoker, with 45+ pack-year history and underlying emphysema, HTN and hyperlipidemia. She was started on Breo however had issues with insurance coverage, switched to AirDuo and albuterol MDI witht suboptimal effect. She continues to reports dyspnea, wheezing and productive cough with yellow sputum with associated chest congestion. She denies any fevers, or chills. Of note, she is struggling with s moking cessation, has a prescription for Wellbutrin but has not used consistently, not interested in NRT at this time. [facility] Medical History Cervical spondylosis Atherosclerotic cardiovascular disease Hypertension Elevated cholesterol Nicotine dependence, cigarettes, uncomplicated Emphysema of lung ADHD Anxiety Tubular adenoma of colon Surgical History History of colonoscopy History of hysterectomy History of History of carpal tunnel surgery Family History Brother Cancer Social History Household Members: None Housing: House Do you presently have visiting nurse or other home services: No Alcohol intake: current Alcohol intake frequency: does not drink Patient Tobacco Use Status: Current everyday Tobacco user Tobacco use type: Cigarette Cigarette Packs Per Day: 1 Years Smoked: (onset 16yo, 1ppd x 47yrs, 40+PYH) Substance Use Type: Marijuana service: No Review of Systems Const Denies chills, Denies excessive sweating, Denies fever(s), Denies headache(s) and Denies night sweats Eyes Denies dry eyes, Denies irritation and Denies itchy eyes ENT Reports Normal hearing present, Denies headache(s), Denies nasal congestion, Denies nasal discharge, Denies post nasal drip and Denies sore throat Card Denies chest pain, Denies chest pain at rest, Denies chest pain with activity, Denies claudication, Denies leg edema, Denies orthopnea and Denies paroxysmal nocturnal dyspnea Resp Denies excessive phlegm production, Denies pain on inspiration, Denies pain with cough and Denies stridor Musc Denies myalgias Neuro Reports Normal hearing present and Denies headache(s) Endo Denies excessive sweating Anselmo/Lymph Denies lymphadenopathy Aller/Immun Denies itchy eyes and Denies seasonal rhinorrhea Physical Exam Vital Signs: Last Vital Signs Pulse 84 06/06/24 09:56 BP 118/64 06/06/24 09:56 Pulse Ox 98 06/06/24 09:56 Oxygen Delivery Method Room Air 06/06/24 09:56 BMI result Body Mass Index 23.8 Const General: cooperative, healthy appearing, comfortable, no acute distress, well developed and alert Orientation/consciousness: patient oriented x3 Limitations: no limitations HEENT Head: Yes normal to inspection, Yes normocephalic and Yes atraumatic Ears: hearing grossly normal bilaterally and external ears normal Eyes General: appearance normal, both eyes and all related structures Eyelids: Yes eyelids normal Sclerae: sclerae normal EOM: EOMs intact bilaterally Neck Neck: Yes normal visual inspection and Yes no lymphadenopathy Lymphatic: no lymphadenopathy noted Chest Chest palpation & inspection: normal inspection of the chest Resp Effort & Inspection: normal respiratory effort, able to speak in complete sentences, no audible wheezes, Actively coughing Quality: productive, no stridor, not tachypneic, no tripod positioning and no use of accessory muscles Auscultation: diminished lung sounds Cardio Jugular venous distension: no JVD Rate: regular rate Rhythm: regular rhythm Skin Other: warm, dry General skin exam: no rashes or lesions noted Neuro General: patient oriented x3 Cranial nerves: Yes Normal hearing present Cognition (Neuro): normal cognition Gait exam (Neuro): Normal gait present Extrem General: Yes normal to inspection, Yes capillary refill normal, Yes no clubbing, cyanosis or edema and Yes no pedal edema Psych Appearance: grossly normal and well kempt Speech and movement: Normal speech and movement present and Clear speech present Affect: normal affect Attitude: cooperative Thought process: Normal thought process present Thought content: Normal thought content present Insight: Good insight present (Psych) Judgement: Good judgement present (Psych) Assessment & Plan Assessment & Plan (1) COPD (chronic obstructive pulmonary disease): Code(s): J44.9 - Chronic obstructive pulmonary disease, unspecified Category: Medical (2) Emphysema of lung: Code(s): J43.9 - Emphysema, unspecified Category: Medical (3) Nicotine dependence, cigarettes, uncomplicated: Comment: (current smoker, onset 16yo, 1ppd x 47yrs, 40pyh) Code(s): F17.210 - Nicotine dependence, cigarettes, uncomplicated Category: Medical Plan Will treat bronchitic symptoms with azithromycin. Suboptimal effect on current regimen, will switch to Trelegy. Patient aware if symptoms do not improve to call office. Discussed smoking cessation and patient will attempt wellbutrin. All questions were answered and patient is in agreement of plan. Will follow-up in 6-8 weeks or sooner if needed. Medications: New qqxwbjylrzm-cmxuyxbbm-ryykbnck 200-62.5-25 mcg (Trelegy Ellipta) 1 inh inhalatio n DAILY 28 ea 6RF albuterol sulfate 90 mcg/actuation 2 puffs inhalation Q4-6H PRN 1 ea 6RF shortness of breath or wheezing azithromycin For 250 mg dose pack: take 500 mg today (day 1), then 250 mg for 4 days (days 2-5) PO 6 tabs 0RF Coding Level of Care Code Est Pt Level 4 (72104) Diagnoses COPD (chronic obstructive pulmonary disease) J44.9 Emphysema of lung J43.9 Nicotine dependence, cigarettes, uncomplicated F17.210
== END 2024-06-06 10:32 | disposition home or self-care (01) ==
PROVIDERS: PCP Internal Medicine Geriatric Medicine; Visit Provider Nurse Practitioner Family
DX: J44.9 Chronic obstructive pulmonary disease, unspecified (principal); J43.9 Emphysema, unspecified; F17.210 Nicotine dependence, cigarettes, uncomplicated
CPT/HCPCS: 99214

== ENCOUNTER → 2024-06-06 09:55 | Outpatient (BNVA) | payer OTHER, SELFPAY | PROVIDERS: PCP Internal Medicine Geriatric Medicine; Visit Provider Nurse Practitioner Family | DX: J44.9 Chronic obstructive pulmonary disease, unspecified (principal); J43.9 Emphysema, unspecified; F17.210 Nicotine dependence, cigarettes, uncomplicated | CPT/HCPCS: 99212 ==

== ENCOUNTER → 2024-07-18 09:52 | Outpatient (BNVA) | payer OTHER, SELFPAY | PROVIDERS: PCP Internal Medicine Geriatric Medicine; Visit Provider Nurse Practitioner Family | DX: J44.9 Chronic obstructive pulmonary disease, unspecified (principal); J43.9 Emphysema, unspecified; F17.210 Nicotine dependence, cigarettes, uncomplicated | CPT/HCPCS: 99212 ==

== ENCOUNTER 2024-08-15 11:22 | Outpatient (REF) | payer OTHER, SELFPAY ==
--- OUTSIDE RECORDS SUMMARY | 2024-08-15 12:28 | XMS_ITS | Encounter Summary ---
Author Organization [employer] [facility] Address [address] [place] [address] [address] [place] [address] Care Team Providers Care Engineer Byproduct Name Role Phone Name, Deven THOMPSON Primary Care Provider [phone] Encounter Details Date Type Department Care Team (Late st Contact Info) Description 11/27/[address] [address] Name, MD Deven [address] [place] [id number] Social History Tobacco Use Types Packs/Day Years Used Date Smoking Tobacco: Every Day Cigarettes Smokeless Tobacco: Never PHQ-2 Answer Date Recorded Patient Health Questionnaire-2 Score 0 08/24/2022 Depression Answer Date Recorded Patient Health Questionnaire-2 Score 0 08/24/2022 Comments Unknown Sex and Gender Information Value Date Recorded Sex Assigned at Female 04/24/2022 10:21 AM EDT Legal Sex Female 10:21 AM EDT Gender Identity Female 04/24/2022 10:21 AM EDT Sexual Orientation Straight 04/24/2022 10 :21 AM EDT documented as of this encounter Plan of Treatment Upcoming Encounters Date Type Department Care Team (Late st Contact Info) Description 08/19/2024 9:30 AM EST Telemedicine [address] [id number] 09/24/2024 10:00 AM EDT Office Visit [address] [address] Name, MD Deven [address] [place] [phone] documented as of this encounter Procedures Procedure Name Priority Date/Time Associated Diagnosis Comments COLONOSCOPY Routine 03/27/2013 documented in this encounter Results * Colonoscopy (03/27/2013) Colonoscopy Normal Normal Narrative Marcela Jacobs - 03/27/2013 Repeat in 10 years Historical Provider HEALTH MAINTENANCE Final Result documented in this encounter Visit Diagnoses Not on filedocumented in this encounter Care Teams Engineer Byproduct Relationship Specialty Start Date End Date Name, MD Deven [address] [place] [address] PCP - General Family Medicine 09/28/15 documented as of this encounter
--- OUTSIDE RECORDS SUMMARY | 2024-08-15 12:28 | XMS_ITS | Encounter Summary ---
Author Organization [employer] Address [address] [facility] [address] [place] [address] Care Team Providers Care Recycling Manager Name Role Phone Name, Deven THOMPSON Primary Care Provider [phone] Encounter Details Date Type Department Care Team (Late st Contact Info) Description 07/22/2024 Telephone [facility] [address] [place] [address] Reba Goodson RN [address] [place] [address] Social History Tobacco Use Types Packs/Day Years Used Date Smoking Tobacco: Every Day Cigarettes Smokeless Tobacco: Never Alcohol Use Standard Drinks/Week Comments Yes 3 (1 standard drink = 0.6 oz pur e alcohol) occasionally Depression Answer Date Recorded Patient Health Questionnaire-9 Score 0 09/07/2023 Patient Health Questionnaire-9 Score 0 09/07/2023 Last PHQ-9: Questionnaire Data Not on file 0 09/07/2023 Housing Stability Answer Date Recorded What is your housing situation today? I have kb [place] 08/31/[address] you li ve. Do you have problems with any of the following? None of the above 08/31/2023 Food Insecurity Answer Date Recorded Within the past 12 months, y ou worried that your food would run out before you got money to buy more: Never True 08/31/2023 Within the past 12 months,th e food you bought just didn't last and you didn't have enough money to get more: Never True 01/2024 Transportation Answer Date Recorded In the past 12 months, has l ack of transportation kept you from medical appts, meetings, work or from getting things needed for daily living? No 08/31/2023 Utilities Answer Date Recorded In the past 12 months, has t he electric, gas, oil or water company threatened to shut off services in your home? No 08/31/2023 Depression Answer Date Recorded Patient Health Questionnaire-2 Score 0 09/07/2023 Comments Unknown Sex and Gender Information Value Date Recorded Sex Assigned at Female 04/24/2022 10:21 AM EDT Legal Sex Female 10:21 AM EDT Gender Identity Female 04/24/2022 10:21 AM EDT Sexual Orientation Straight 04/24/2022 10 :21 AM EDT documented as of this encounter Miscellaneous Notes * Telephone Encounter - Reba Goodson RN - 07/22/2024 1:32 PM EST T/C to pt to advise of PCP recommendation and to schedule f/u televisit with [place] team nurse in tw[place]. No answer, v/m left to return call to [place] team nurses. * Telephone Encounter - Reba Goodson RN - 07/22/2024 1:28 PM EST ----- Message from Deven Solis MD sent at 07/22/2024 12:39 PM EST ----- I would recommend she continue on her current medications. I would like her to check blood pressureat home every day. Give her a repeat televisit in a couple of weeks. Have her recheck BMP prior to her next appointment. ----- Message ----- From: Reba Goodson RN Sent: 07/22/2024 11:06 AM EST To: Deven Solis MD Pt seen today for BP check. BP improved. Please review note and advise prn. documented in this encounter Plan of Treatment Upcoming Encounters Date Type Department Care Team (Late st Contact Info) Description 08/19/2024 9:30 AM EST Telemedicine [facility] [address] [place] [phone] 09/24/2024 10:00 AM EDT Office Visit [facility] [address] [place] [address] Name, MD Deven [address] [place] [address] documented as of this encounter Visit Diagnoses Not on filedocumented in this encounter Additional Health Concerns Assessment Noted Time PHQ-9 Depression Total Score: 0 09/07/19 24 10:27 AM EDT documented as of this encounter Care Teams Recycling Manager Relationship Specialty Start Date End Date Name, MD Deven [address] [place] [id number] PCP - General Family Medicine 09/28/15 documented as of this encounter
--- OUTSIDE RECORDS SUMMARY | 2024-08-15 12:28 | XMS_ITS | Clinical Summary ---
Author Organization [employer] Address [address] [place] [address] [address] [place] [address] Care Team Providers Care Trademark Paralegal Name Role Phone Name, Deven THOMPSON Primary Care Provider [phone] Allergies Active Allergy Reactions Criticality Noted Date Comments Penicillins 09/05/2023 Other Reaction(s): thrush Medications albuterol 108 (90 Base) MCG/ACT inhalerIndicatio ns:Other cough Inhale 2 puffs every 6 (six) hours if needed for wheezing. 18 g 2 07/26/2023 Active baclofen (Lioresal) 10 MG tablet Take 1 tablet (10 mg) by mouth 3 times daily for 10 days. 30 tablet 12/25/2023 Active amphetamine-dext roamphetamine (Adderall) 15 MG tabletIndication s:Hypertension, unspecified type Take 1 tablet (15 mg) by mouth 2 times daily. 02/28/2024 Active losartan (Cozaar) 50 MG tabletIndication s:Hypertension, unspecified type Take 1 tablet (50 mg) by mouth Once per day. 30 tablet 11 03/04/2024 Active amLODIPine (Norvasc) 10 MG tabletIndication s:Hypertension, unspecified type TAKE 1 TABLET BY MOUTH EVERY DAY 90 tablet 1 06/27/2024 Active Active Problems Problem Noted Date Diagnosed Date Muscle spasm 01/08/2024 Assessment & Plan (01/20/2024 3:55 PM EDT): Muscle spasm persistent since 12/02, upcoming visit with ortho, Films reviewed, MRI ordered but not yet scheduled. Spasms keeping pt awake, trial tizandidine Acute kidney injury 01/04/2024 Carotid arterial disease 01/04/2024 COPD (chronic obstructive pulmonary disease) 05/2024 Emphysema of lung 01/04/2024 Cough 01/04/2024 Diverticulosis of colon 01/04/2024 Hyperplastic colon polyp 01/04/2024 Tubular adenoma of colon 01/04/2024 Atherosclerotic cardiovascular disease Cervical radiculopathy 01/04/2024 Torticollis, acquired 12/10/2023 Assessment & Plan (12/10/2023 7:16 PM EDT): Reviewed supportive measures, add ibuprofen with food to acetminophen, prn diazepam for muscle spasm Medication Indications, side effects and duration of therapy reviewed, pt aware to call clinic for worsening symptoms or failure to resolve Springer's cyst of knee 09/06/2023 Bronchitis 09/06/2023 Bursitis of hip, right 09/06/2023 Chest pain 09/06/2023 Encounter for screening colonoscopy 09/06/2023 Impacted cerumen, left ear 09/06/2023 Osteoarthritis of knees, bilateral 09/06/2023 Radiculopathy of leg 09/06/2023 Sciatica 09/06/2023 Sinusitis 09/06/2023 Viral upper respiratory illness 09/06/2023 Attention deficit disorder of adult with hyperac tivity 01/29/2023 Chronic hoarseness 01/29/2023 Current smoker 01/29/2023 Uterine leiomyoma 08/24/2022 Disorder of joint of spine 08/24/2022 History of colonoscopy 08/24/2022 Overview (08/24/2022): Normal back in 2012 H/O total hysterectomy 08/24/2022 Overview (08/24/2022): With BSO 2016 at [facility] for fibroid uterus Coronary artery disease invo lving [place] coronary artery of [place] heart without angina pectoris 09/26/2017 Overview (08/24/2022): She has minimal disease on cardiac cath 2017 Dyspnea on exertion 09/26/2017 Assessment & Plan (07/26/2023 7:16 PM EST): 06/2023 CBC chem wnl , TSH wnl -CXR 07/06/2023:The lungs are well expanded. No focal infiltrate, effusion, edema, or pneumothorax. Cardiac and mediastinal silhouettes are within normal limits for technique. No acute bony abnormality seen No evidence of acute disease Pt reports symptoms are similar every time when starts statin and would like to avoid taking medication because make her feel sick , pt thinks significantly improved after stopped med. This can be confounding with recent ATB and steroids that she received that cause improvement of her symptoms , also pt recently stopped smoking and this also can cause at beginning increase in mucus production and may explain some symptoms . Pt also used to smoke tobacco and her FLOREZ and wheezing can represent COPD dx. -Encouraged pt to continue to stop smoking tobacco -referred today for PFT and refilled albuterol prn started at hospital until have PFT results -referred to cards by PCP -have apt for 08/2023 -will hold on resuming statins for now -pt has apt w PCP this month in 3 weeks and can discuss then other possibilities for her HLD as zetia -p20 today ,got already last covid 19 booster and flu vaccine in 02/2023 -Advise pt to check at vaccine clinic or her px for RSV vaccine -alarm signs and symptoms discussed Exercise-induced angina 09/12/2017 Anxiety 04/15/2012 Right leg pain 04/15/2012 Hypertension 01/08/2010 Assessment & Plan (01/20/2024 3:55 PM EDT): Above goal today, recent nan, trending labs to normal, Monitor bp, in care with cardiology Hold nsaids, Increase amlodipine to 10 mg Assessment & Plan (07/26/2023 7:18 PM EST): Mild elevated BP today-recently completed steroids that can affect her BP -pt has f up w PCP in 3 weeks -will have BP f up then ADHD 01/08/2007 Tobacco dependence syndrome 01/08/1978 Encounters Date Type Department Care Team Description 08/05/2024 Telephone [facility] MEDICINE [address] [place] [address] Reba Goodson RN 07/25/[address] [address] Reba Goodson, CAROLINE 07/22/2024 10:30 AM EST Clinical Support [facility] [place] [address] Reba Goodson, RN Hypertension, unspecified type 07/22/[address] [address] Reba Goodson, CAROLINE 07/22/2024 Travel 07/15/[address] [address] Deven Solis MD Nurse Triage 06/27/[address] [address] Name, MD Deven Hypertension, unspecified type from Last 3 Months Immunizations Name Administration Dates Next Due Hep A, Adult 05/28/2012 Hep B, adult 05/28/2012 Influenza injectable quadriv alent IIV4 with preservative 06/23/2017 Influenza injectable quadriv alent preservative free 02/27/2023,03/24/2022,03/05/2021,03/03 Influenza, Split (incl. valorie fied surface antigen) 04/15/2012 Moderna Covid-19 Vaccine 12+ 03/14/2023 Pfizer Covid-19 Vaccine 12+ Bivalent 03/24/2022 Pfizer Covid-19 Vaccine 12+ delta-sucrose (Amin Cap) 10/06/2021 Pneumococcal Conjugate PCV 20 07/26/2023 Pneumococcal Polysaccharide PPSV23 11/19/2014, Td (adult), unspecified 08/19/2001 Tdap 09/15/2020 Zoster, Recombinant 03/05/2021 Social History Tobacco Use Types Packs/Day Years Used Date Smoking Tobacco: Every Day Cigarettes Smokeless Tobacco: Never Tobacco Cessation:Ready to Q uit: No; Counseling Given: Yes Alcohol Use Standard Drinks/Week Comments Yes 3 [...] Orientation Straight 04/24/2022 10 :21 AM EDT Last Filed Vital Signs Vital Sign Reading Time Taken Comments Blood Pressure 126/68 07/22/2024 11:00 AM EST Pulse 87 07/22/2024 10:58 AM EST Temperature 36.1 ??C (96.9 ??F) 11/23/2023 11:14 AM E DT Respiratory Rate 18 07/22/2024 10:58 AM EST Oxygen Saturation 97% 07/22/2024 10:58 AM EST Room air Inhaled Oxygen Concentration - - Weight 64 kg (141 lb) 07/22/2024 10:58 AM EST Height 160 cm (5' 3 ) 01/08/2024 3:37 PM EDT Body Mass Index 24.98 01/08/2024 3:37 PM EDT Plan of Treatment Upcoming Encounters Date Type Department Care Team (Late st Contact Info) Description 08/19/2024 9:30 AM EST Telemedicine [facility] MEDICINE [address] [place] [address] 09/24/2024 10:00 AM EDT Office Visit [facility] MEDICINE [address] [place] [address] Name, [place] [address] Health Maintenance Due Date Last Done Comments CT Colonography 1960 FIT DNA/Cologuard 1960 FIT 1960 FOBT 1960 HIV Screening 1960 Sigmoidoscopy 1960 Alcohol/Substance Use Screening 1972 Pap Smear 1981 Cervical Cancer Screening 1990 HPV/Cotest 1990 Hepatitis B Vaccines (2 of 3 - 19+ 3-dose series) 06/25/2012 05/28/2012 Hepatitis A Vaccines (2 of 2 - Risk 2-dose series) 11/26/2012 05/28/2012 RSV Patients and Patients Aged 60 years or older (1 - Risk 60-74 years 1-dose series) 2020 Zoster Vaccines (2 of 2) 04/30/2021 03/05/2021 SDOH Screening 08/30/2024 08/31/2023 Depression Screening 09/06/2024 09/07/2023, 09/07/19 24 Mammogram 10/09/2024 10/09/2022, 0412/2022, 10/03/2021, Additional history exists Tobacco Screening 07/22/2025 07/22/2024 Lipid Panel 07/06/2028 07/06/2023, 03/0 07/2022, 01/10/2021 Colonoscopy 09/04/2028 09/05/2023, 03/27/2013 Colorectal Cancer Screening 09/04/2028 DTaP/Tdap/Td Vaccines (2 - Td or Tdap) 09/15/2030 09/15/2020, 08/19/2001 Hepatitis C Screening Completed 03/29/2023 Pneumococcal Vaccine: 50+ Years Completed 07/26/2023, 11/19/2014, 04/15/2012 COVID-19 Vaccine Completed 02/21/2024, , 03/24/2022, Additional history exists Influenza Vaccine Completed 02/21/2024, , 03/24/2022, Additional history exists HIB Vaccines Aged Out No longer eligi ble based on patient's age to complete this topic HPV Vaccines Aged Out No longer eligi ble based on patient's age to complete this topic IPV Vaccines Aged Out No longer eligi ble based on patient's age to complete this topic Meningococcal Vaccine Aged Out No wilian gato eligible based on patient's age to complete this topic RSV under 20 months Aged Out No longe r eligible based on patient's age to complete this topic Rotavirus Vaccines Aged Out No longer eligible based on patient's age to complete this topic Procedures Procedure Name Priority Date/Time Associated Diagnosis Comments COLONOSCOPY Routine 09/05/2023 LIPID PANEL, STANDARD Routine 07/06/2023 12:07 PM EST Chest tightness FLOREZ (dyspnea on exertion) HEPATITIS C VIRAL RNA, QUANTITATIVE, REAL-TIME PCR Routine 03/29/2023 2:11 PM EDT BI MAMMOGRAM SCREENING TOMOSYNTHESIS BILATERAL Routine 10/09/2022 8:32 AM EDT from Last 3 Months or Most Recently Relevant to Health Maintenance Results * (ABNORMAL) Colonoscopy (09/05/2023) Colonoscopy Abnormal(A ) Normal us Deven Solis MD HEALTH MAINTENANCE Final Result * (ABNORMAL) Lipid Panel, Standard (07/06/2023 12:07 PM EST) Triglycerides 48 <150 mg/dL [facility] Comment:Desirable Triglyceri de: less than 150 mg/dLBorderline High Triglyceride 150-199 mg/dLHigh Triglyceride: 200-499 mg/dLVery High Triglyceride: greater than or equal to 5OO mg/dL Cholesterol 239(H) <200 mg/dL [facility] Comment:Desirable Cholestero l: less than 200 mg/dLBorderline High Cholesterol: 200-239 mg/dLHigh Cholesterol: greater than 239 mg/dL LDL Cholesterol Calculated 142(H) <100 mg/dL [facility] Comment:Desirable LDL: less than 100 mg/dLNear Optimal/Above Optimal LDL: 110- 129 mg/dLBorderline High LDL: 130-159 mg/dLHigh LDL: 160-189 mg/dLVery High LDL: greater than or equal to 190 mg/dL HDL Cholesterol 88 >40 mg/dL [facility] Comment:Desirable HDL: great er than 40 mg/dL Note: This HDL assay may give artificially low results in patients with liver disease. Blood Venous blood specimen / Unknown 07/06/2023 12:07 PM EST 07/06/2023 1:09 PM EST us Deven Solis MD LAB BLOOD ORDERABLES Final Resul t [facility] [address] [place] [address] [phone] * Hepatitis C Viral RNA, Quantitative, Real-Time PCR (03/29/2023 2:11 PM EDT) Hepatitis C Viral Load <15 NOT DETECTED NOT DETECTED IU/mL [facility] HCV Log PCR <1.18 NOT DETECTED NOT DETECTED Log IU/mL [facility] Comment:This test was perfor med using Real-Time Polymerase ChainReaction.Reportable Range: 15 IU/mL to 100,000,000 IU/mL(1.18 Log IU/mL to 8.00 Log IU/mL).The analytical performance characteristics of thisassay have been determined by [email or web address].The modifications have not been cleared or approved bythe FDA. This assay has been validated pursuant to theCLIA regulations and is used for clinical purposes.For more information on this test, go to:http://education.[employer]/faq/OBY19z3(This link is being provided for informational/educational purposes only.)THIS TEST WAS PERFORMED AT:[facility] [place] [phone] THURSTON MD 03/29/2023 2:11 PM EDT 03/29/2023 2:11 PM EDT us [facility] External Provider LAB BLO OD ORDERABLES Final Result [facility] [address] [place] [address] [phone] * BI Mammogram Screening Tomosynthesis Bilateral (10/09/2022 8:32 AM EDT) Anatomical Region Laterality Modality Breast Bilateral Mammography 10/09/2022 8:32 AM EDT Narrative 10/10/2022 12:47 PM EDT ? [facility] ? [address] ?[place] [address] ? Mammography Report ? Signed ? Patient: Irma,Elena L ?MR#: [id number] ?? 51 ? : 1960 ?Acct:[id number] ? Age/Sex: 62 / F ?ADM Date: 10/09/22 ? Loc: HO.MAMMO ? Attending Dr: Deven Name MD ? Ordering Physician: Name,Deven MD ?Results: 1Negative ? Date of Service: 10/09/22 ?Follow Up: 1 Year From Orig ?? inal Mammogram ? Procedure(s): MM tomosynthesis screening BI ?? Accession Number(s): [id number] ? cc: Name,Deven ? EXAMINATION: ?? MM SCREENING DIGITAL BREAST TOMOSYNTHESIS, BILATERAL ? CLINICAL INFORMATION: ? Screening. Asymptomatic. ? The lifetime risk of breast cancer based on the Tyrer-Cuzick Model is ?? 9.4%. ? COMPARISON: ?? Mammography: October 03, 2021 and studies dating back to June 04, ?? 2015 ? TECHNIQUE: ?? Digital breast tomosynthesis is performed in both the craniocaudal and ?? mediolateral oblique views along with computer-aided detection (CAD). ?? Synthesized 2D images are generated from the tomosynthesis. ? FINDINGS: ?? The breasts are heterogeneously dense, which may obscure small masses ?? (ACR BI-RADS breast composition Category c). ? There are no significant masses, abnormal calcifications, or other ?? abnormalities. ? MM/MM tomosynthesis screening BI ?? IMPRESSION: ?? No significant changes from prior exam. ? ASSESSMENT: ? BI-RADS 1: Negative ? RECOMMENDATION: ?? Routine annual mammography screening. ? This patient's information was entered into a reminder system with a ?? target due date for their next mammogram. ? Dictated By: ?Dipak Acosta MD ? Signed By: ?<Electronically signed by Dipak Acosta MD in OV> ?10/10/22 1244 ? DD/ 0832 ? TD/TT: ? Vacuum Tank Tender: SK ? Procedure Note Becki, Image - 10/10/2022 [facility] [address] [place] [address] Mammography Report Signed Patient: Elena Solis LMR#: [id number] 51 : 1Acct:[id number] Age/Sex: 62 / FADM Date: 10/09/22 Loc: [facility] Attending Dr: Deven Solis MD Ordering Physician: Deven Solisults: 1Negative Date of Service: 10/09/22Follow Up: 1 Year From Orig inal Mammogram Procedure(s): MM tomosynthesis screening BI Accession Number(s): [id number] cc: Deven Solis MD EXAMINATION: MM SCREENING DIGITAL BREAST TOMOSYNTHESIS, BILATERAL CLINICAL INFORMATION: Screening. Asymptomatic. The lifetime risk of breast cancer based on the Tyrer-Cuzick Model is 9.4%. COMPARISON: Mammography: October 03, 2021 and studies dating back to June 04, 2015 TECHNIQUE: Digital breast tomosynthesis is performed in both the craniocaudal and mediolateral oblique views along with computer-aided detection (CAD). Synthesized 2D images are generated from the tomosynthesis. FINDINGS: The breasts are heterogeneously dense, which may obscure small masses (ACR BI-RADS breast composition Category c). There are no significant masses, abnormal calcifications, or other abnormalities. MM/MM tomosynthesis screening BI IMPRESSION: No significant changes from prior exam. ASSESSMENT: BI-RADS 1: Negative RECOMMENDATION: Routine annual mammography screening. This patient's information was entered into a reminder system with a target due date for their next mammogram. Dictated By: Dipak Acosta MD Signed By: <Electronically signed by Dipak Acosta MD in OV> 10/10/22 1244 DD/ 0832 TD/TT: Vacuum Tank Tender: [facility] External Provider IMG BI PROCEDURES Edited Result - Final from Last 3 Months or Most Recently Relevant to Health Maintenance [place] [address] [address] DIRECT Care Teams Trademark Paralegal Relationship Specialty Start Date End Date Name, MD Deven [address] [place], [place] [phone] PCP - General Family Medicine 09/28/15
--- OUTSIDE RECORDS SUMMARY | 2024-08-15 12:28 | XMS_ITS | Encounter Summary ---
Author Organization [employer] Address [address] [facility] [address]t [place] [address] Care Team Providers Care Affirmative Action Officer Name Role Phone Name, Deven THOMPSON Primary Care Provider Encounter Details Date Type Department Care Team (Latest Contact Info) Description 07/22/2024 Travel Social History Tobacco Use Types Packs/Day Years [...] Info) Description 08/19/2024 9:30 AM EST Telemedicine [facility] MEDICINE [address] [place] [address] 09/24/2024 10:00 AM EDT Office Visit [address] [address] Name, MD Deven [address] [place] [address] documented as of this encounter Visit Diagnoses Not on filedocumented in this encounter Additional Health Concerns Assessment Noted Time PHQ-9 Depression Total Score: 0 09/07/19 24 10:27 AM EDT documented as of this encounter Care Teams Affirmative Action Officer Relationship Specialty Start Date End Date Name, MD Deven [address] [place] [phone] PCP - General Family Medicine 09/28/15 documented as of this encounter
--- OUTSIDE RECORDS SUMMARY | 2024-08-15 12:28 | XMS_ITS | Encounter Summary ---
Author Organization [employer] Address [address] [place] [address] [address]t [place] [address] Care Team Providers Care Base Loader Name Role Phone Name, Deven THOMPSON Primary Care Provider [phone] Reason for Visit * Reason Onset Date Comments Nurse Triage 03/05/2024 Encounter Details Date Type Department Care Team ([facility] st Contact Info) Description 03/05/2024 Telephone [facility] MEDICINE [address] [place] [address] Name, MD Deven [address] [place] [address] Nurse Triage Social History Tobacco Use Types Packs/Day Years [...] encounter Miscellaneous Notes * Telephone Encounter - Lidia Culver RN - 03/05/2024 1:48 PM EDT Triage call Pt reports high blood pressure. Pt was seen 02/28/24 OV regarding high blood pressure. Pt does have nurse visit scheduled for 03/17/24. Pt is calling with concern about blood pressure continuing to be high. BP this morning was 168/91 and this afternoon BP was 177/72. Pt sx of headache but, no other noted sx. Pt is drinking adequate liquids. Pt has taken amlodipine 10mg and losartan 50mg as directed by PCP. Pt is calling asking to be seen. Pt has spoken with blue team nurseMayra, who recommended ED visit if blood pressure continues to be high. Pt is advised to go to ED for evaluation as suggested by blue team nurse. Pt asks if [facility] preferred, Pt lives in [place] and is closer to [facility]. Advised to go to which ever ED is convenient for Pt, [facility] is able to obtain reports as needed. Pt agreed with this plan and will go to ED. Protocol Used: Blood Pressure - High (Adult) Protocol-Based Disposition: See in Office or Video Visit Today Video visit not offered Positive Triage Question: * Patient wants to be seen * All higher-acuity triage questions were negative Care Advice Discussed: * High Blood Pressure * High Blood Pressure - Lifestyle Changes * How to Check Your Blood Pressure? * Reasons To Call Back - Headache, blurred vision, difficulty talking, or difficulty walking occurs - Chest pain or difficulty breathing occurs - You want to go into the office for a blood pressure check - You become worse * Telephone Encounter - Jhonatan Agosto - 03/05/2024 1:18 PM EDT Symptom: High Blood Pressure - Caller Reports Outcome: Talk to a nurse or provider within 15 minutes Reason: Sudden increase within the past 24 hours The caller accepted this outcome documented in this encounter Plan of Treatment Upcoming Encounters Date Type Department Care Team (Late st Contact Info) Description 08/19/2024 9:30 AM EST Telemedicine [address] [address] 09/24/2024 10:00 AM EDT Office Visit [address] [address] Name, MD Deven [address] [place] [address] documented as of this encounter Visit Diagnoses Not on filedocumented in this encounter Additional Health Concerns Assessment Noted Time PHQ-9 Depression Total Score: 0 09/07/19 24 10:27 AM EDT documented as of this encounter Care Teams Base Loader Relationship Specialty Start Date End Date NameDeven MD [address] [place] [phone] PCP - General Family Medicine 09/28/15 documented as of this encounter
--- OUTSIDE RECORDS SUMMARY | 2024-08-15 12:28 | XMS_ITS | Encounter Summary ---
Author Organization [employer] Address [address] [place] [address] [address] [place] [address] Care Team Providers Care Dental Professional Name Role Phone Name, Deven THOMPSON Primary Care Provider [phone] Reason for Visit * Reason Comments Blood Pressure Check Encounter Details Date Type Department Care Team (Latest Contact Info) Description 07/22/2024 10:30 AM EST Clinical Support [facility] MEDICINE [address] [place], [place] [phone] Reba Goodson, CAROLINE [address] [place], [place] [phone] Hypertension, unspecified type Social History Tobacco Use Types Packs/Day Years [...] AM EDT documented as of this encounter Last Filed Vital Signs Vital Sign Reading Time Taken Comments Blood Pressure 126/68 07/22/2024 11:00 AM EST Pulse 87 07/22/2024 10:58 AM EST Temperature - - Respiratory Rate 18 07/22/2024 10:58 AM EST Oxygen Saturation 97% 07/22/2024 10:58 AM EST Room air Inhaled Oxygen Concentration - - Weight 64 kg (141 lb) 07/22/2024 10:58 AM EST Height - - Body Mass Index 24.98 01/08/2024 3:37 PM EDT documented in this encounter Progress Notes * Reba Goodson RN - 07/22/2024 10:30 AM EST S: Pt here for nurse visit for BP Check. Pt reports that home bp readings have been ranging 140-170/ 79-103. Reports BP yesterday morning while lying bed was 152/63. Pt reports that her pulmonologistFranko Tobar MD rx her cefpodoxime Pro 200 mg tab one tab po bid Qty 14 on 07/18/24 for the mucus inher lungs. States she will not be taking this medication after rx is finished. Pt denies headache, chest pain, sob, dizziness and visual changes now. Pt reports that she did experience a severe headache with dizziness this morning. Reports symptoms resolved with aspirin. Reports that she normally eats chicken, vegetables and a starch. States she is working to reduce dietary sodium. Reports that she recently began exercising (dance, low aerobic and toning) after losing muscle mass to a neck injury. Reports that she smokes a pack of cigarettes per day. States that she has patches at home and has changed her lifestyle to smoke a few less cigarettes per day. O: Pt currently rx Amlodipine sulfate 10 mg po daily and Losartan potassium 50 mg po daily. Reportsthat she takes these medications daily and took them this morning. A: BP today wnl 128/68 left arm, sitting; 126/68 right arm, sitting; P 87; R 18; O2 97% room air; Wt 141.0 lb. P: Pt advised to take medications as rx. Pt encouraged to adhere to low sodium diet. Pt encouraged to increase amount and frequency of exercise as tolerated. Encouraged to continue with lifestyle changes and smoking cessation. documented in this encounter Plan of Treatment Upcoming Encounters Date Type Department Care Team (Late st Contact Info) Description 08/19/2024 9:30 AM EST Telemedicine [facility] MEDICINE [address] [place] [address] 09/24/2024 10:00 AM EDT Office Visit [address] [address] Name, MD Deven [address] [place] [address] documented as of this encounter Visit Diagnoses Diagnosis Hypertension, unspecified type documented in this encounter Additional Health Concerns Assessment Noted Time PHQ-9 Depression Total Score: 0 09/07/19 24 10:27 AM EDT documented as of this encounter Care Teams Dental Professional Relationship Specialty Start Date End Date NameDeven MD [address] [place] [address] PCP - General Family Medicine 09/28/15 documented as of this encounter
--- OUTSIDE RECORDS SUMMARY | 2024-08-15 12:28 | XMS_ITS | Encounter Summary ---
Author Organization [employer] Address [address] [facility] 7t [place] [address] Care Team Providers Care Automatic Bow Maker Machine Tender Name Role Phone Name, Deven THOMPSON Primary Care Provider [phone] Encounter Details Date Type Department Care Team (Late st Contact Info) Description 07/25/2024 Telephone [facility] [address] [place] [address] Reba Goodson RN [address] [place] [address] Social History Tobacco Use Types Packs/Day Years [...] Telephone Encounter - Reba Goodson RN - 07/25/2024 11:41 AM EST 2nd call placed to pt. Advised of PCP recommendations to continue current BP medications, check BP at home, f/u tele with RN in 2 weeks and complete BMP prior to next appt. Pt verbalized understanding. States she hates to check her blood pressure due to anxiety when BP is high. However, pt agrees to start checking BP daily at home. Pt agrees to f/u televisit with RN 08/05/24. Pt agrees to check BMP prior to schedule PE. documented in this encounter Plan of Treatment Upcoming Encounters Date Type Department Care Team (Late st Contact Info) Description 08/19/2024 9:30 AM EST Telemedicine [facility] [address] [place] [address] 09/24/2024 10:00 AM EDT Office Visit [facility] [address] [place] [address] Name, MD Deven [address] [place] [address] documented as of this encounter Visit Diagnoses Not on filedocumented in this encounter Additional Health Concerns Assessment Noted Time PHQ-9 Depression Total Score: 0 09/07/19 24 10:27 AM EDT documented as of this encounter Care Teams Automatic Bow Maker Machine Tender Relationship Specialty Start Date End Date Name, MD Deven [address] [place] [address] PCP - General Family Medicine 09/28/15 documented as of this encounter
--- OUTSIDE RECORDS SUMMARY | 2024-08-15 12:28 | XMS_ITS | Encounter Summary ---
Author Organization [employer] Address [address] [facility] 7t [place] [address] Care Team Providers Care Production Line Technician Name Role Phone Name, Deven THOMPSON Primary Care Provider [phone] Encounter Details Date Type Department Care Team (Late st Contact Info) Description 08/05/2024 Telephone [facility] [address] [place] [address] Reba Goodson RN [address] [place] [address] Social History Tobacco Use Types Packs/Day Years [...] Telephone Encounter - Reba Goodson RN - 08/05/2024 9:39 AM EST T/C to pt for nurse televisit. Pt states that she has not been checking her blood pressure as she was getting funky readings. Pt states she ordered another bp cuff which she now has. Pt states she has been feeling well, eating healthy and exercising. Pt states that she started taking 10cc ozempic (not for weight loss) rx by [facility] [place]. Pt states she believes this will lower her BP. Pt agrees to reschedule televisit in 2 weeks. Pt agrees to check BP at home daily. documented in this encounter Plan of Treatment Upcoming Encounters Date Type Department Care Team (Late st Contact Info) Description 08/19/2024 9:30 AM EST Telemedicine [facility] [address] [place] [address] 09/24/2024 10:00 AM EDT Office Visit [facility] [address] [place] [address] Name, MD Deven [address] [place] [address] documented as of this encounter Visit Diagnoses Not on filedocumented in this encounter Additional Health Concerns Assessment Noted Time PHQ-9 Depression Total Score: 0 09/07/19 24 10:27 AM EDT documented as of this encounter Care Teams Production Line Technician Relationship Specialty Start Date End Date Name, MD Deven [address] [place] [address] PCP - General Family Medicine 09/28/15 documented as of this encounter
--- OUTSIDE RECORDS SUMMARY | 2024-08-15 12:28 | XMS_ITS | Encounter Summary ---
Author Organization [employer] Address [address] [place] [address] 7t [place] [address] Care Team Providers Care Carpenter Bridge Name Role Phone Name, Deven THOMPSON Primary Care Provider [phone] Reason for Visit * Reason Onset Date Comments Nurse Triage 07/15/2024 Encounter Details Date Type Department Care Team ([facility] st Contact Info) Description 07/15/2024 Telephone [facility] [address] [place] [address] Name, MD Deven [address] [place] [address] Nurse Triage Social History Tobacco Use Types [...] Telephone Encounter - Reba Goodson RN - 07/16/2024 9:49 AM EST Images from the original note were not included. [facility] Caller: Unspecified (Yesterday, 9:09 AM) Please give her appt with nurses for BP recheck, if BP is still above 140/90 I will add hydrochlorothiazide to her meds. I would do starting dose of combination losartan/hydrochlorothiazide and keep her on the same dose of amlodipine T/C to pt who agrees to BP check with Blue team RN 07/22/24 at 10:30a. * Telephone Encounter - Sophia Gentile RN - 07/15/2024 4:37 PM EST Call returned to Elena Solis to triage below. Reports having elevated blood pressure that is chronic. Per pt SBP average 152-160 and DBP average 80s-90s. Pt denies any LARA, CP, SOB or dizziness. Ptreports taking BP meds as prescribed. No SE to report. Pt advised that no OV to r/s missed appt. Pton Recall for Physical. Agrees to first physical slot in September. Pt placed on wait list. Advised to return call if BP becomes more elevated or Sx develop. Pt agrees. Sent to PCP to review if would like pt seen for Nurse Visit BP check before appt in September. Future Appointments Date Time Provider Department Center 09/24/2024 10:00 AM Deven Solis MD MEDICINE [facility] Insurance verified as active per Real Time Eligibility in [facility]. Protocol Used: Information Only Call - No Triage (Adult) Protocol-Based Disposition: See in Office or Video Visit within 2 Weeks Positive Triage Question: * Requesting regular office appointment and adult stable (no new symptoms, not getting worse) * All higher-acuity triage questions were negative Care Advice Discussed: * Reasons To Call Back - New symptoms develop - You have more questions - You become worse * Telephone Encounter - Juanita Schwab - 07/15/2024 9:08 AM EST Symptom: High Blood Pressure - Caller Reports Outcome: Schedule a same-day appointment or talk to a nurse or provider today Reason: Caller denied all higher acuity questions The caller accepted this outcome. Contact pt at [phone] documented in this encounter Plan of Treatment Upcoming Encounters Date Type Department Care Team (Late st Contact Info) Description 08/19/2024 9:30 AM EST Telemedicine [address] [address] 09/24/2024 10:00 AM EDT Office Visit [address] [address] Deven Solis MD [address] [place] [address] documented as of this encounter Visit Diagnoses Not on filedocumented in this encounter Additional Health Concerns Assessment Noted Time PHQ-9 Depression Total Score: 0 09/07/19 24 10:27 AM EDT documented as of this encounter Care Teams Carpenter Bridge Relationship Specialty Start Date End Date Deven Solis MD [address] [place] [address] PCP - General Family Medicine 09/28/15 documented as of this encounter
[2024-08-15 13:44] LABS: Anion Gap 12 (12-20); Blood Urea Nitrogen 14 mg/dL (9-16); Calcium 9.4 mg/dL (8.4-10.2); Carbon Dioxide 25 mmol/L (22-29); Chloride 103 mmol/L (96-108); Estimated Glomerular Filt Rate > 60; Glucose Random 96 mg/dL (60-115); Potassium 3.9 mmol/L (3.3-5.1); Sodium 136 mmol/L (135-145)
== END 2024-08-15 11:23 | disposition home or self-care (01) ==
LOC: HO.HHCL 11:22
PROVIDERS: Visit Provider Internal Medicine Geriatric Medicine
DX: I10 Essential (primary) hypertension (principal)
CPT/HCPCS: 36415; 80048

== ENCOUNTER 2024-09-08 11:22 | Outpatient (REF) | payer OTHER, SELFPAY ==
[2024-09-08 13:38] LABS: Anion Gap 12 (12-20); Blood Urea Nitrogen 17 mg/dL (9-16); Calcium 8.9 mg/dL (8.4-10.2); Carbon Dioxide 25 mmol/L (22-29); Chloride 106 mmol/L (96-108); Estimated Glomerular Filt Rate > 60; Glucose Random 98 mg/dL (60-115); Potassium 3.7 mmol/L (3.3-5.1); Sodium 139 mmol/L (135-145)
== END 2024-09-08 11:23 | disposition home or self-care (01) ==
LOC: HO.HHCL 11:22
PROVIDERS: Visit Provider Internal Medicine Geriatric Medicine
DX: I10 Essential (primary) hypertension (principal)
CPT/HCPCS: 36415; 80048

== ENCOUNTER 2024-09-24 10:34 | Outpatient (REF) | payer OTHER, SELFPAY ==
[2024-09-24 12:07] LABS: Alanine Aminotransferase 16 U/L (0-31); Albumin Level 4.4 g/dL (3.5-5.0); Alkaline Phosphatase 66 U/L (39-117); Anion Gap 9 (12-20); Aspartate Amino Transferase 18 U/L (5-31); Bilirubin Total 0.3 mg/dL (0.0-1.0); Blood Urea Nitrogen 13 mg/dL (9-16); Calcium 9.2 mg/dL (8.4-10.2); Carbon Dioxide 27 mmol/L (22-29); Chloride 104 mmol/L (96-108); Cholesterol 226 mg/dL (<200); Estimated Glomerular Filt Rate > 60; Glucose Random 101 mg/dL (60-115); HDL Cholesterol 86 mg/dL (>40); LDL Cholesterol Calculated 126 mg/dL (<100); Potassium 3.2 mmol/L (3.3-5.1); Sodium 137 mmol/L (135-145); Total Protein 7.1 g/dL (6.5-8.0); Triglycerides 71 mg/dL (<150)
--- OUTSIDE RECORDS SUMMARY | 2024-09-24 12:29 | XMS_ITS | Clinical Summary ---
Author Organization [employer] Address [address] [place] [address] 7t [place] [address] Care Team Providers Care Performance Makeup Artist Name Role Phone Name, Deven THOMPSON Primary Care Provider [phone] Allergies Active Allergy Reactions Criticality Noted Date Comments Penicillins 09/05/2023 Other Reaction(s): thrush Medications albuterol 108 (90 Base) MCG/ACT inhalerIndicatio ns:Other cough Inhale 2 puffs every 6 (six) hours if needed for wheezing. 18 g 2 4 Active amphetamine-dext roamphetamine (Adderall) 15 MG tabletIndication s:Hypertension, unspecified type Take 1 tablet (15 mg) by mouth 2 times daily. 4 Active amLODIPine (Norvasc) 10 MG tabletIndication s:Hypertension, unspecified type TAKE 1 TABLET BY MOUTH EVERY DAY 90 tablet 1 5 Active losartan-hydroCH LOROthiazide (Hyzaar) 100-12.5 MG tablet Take 1 tablet by mouth Once per day. 30 tablet 11 5 08/20/19 26 Active PARoxetine (Paxil) 20 MG tabletIndication s:Depression with anxiety Take 1 tablet (20 mg) by mouth in the morning for 14 days. 14 tablet 5 10/09/19 25 Active ezetimibe (Zetia) 10 MG tablet Take 1 tablet (10 mg) by mouth Once per day. 30 tablet 11 5 09/25/19 26 Active potassium chloride ER (Micro-K) 10 MEQ ER capsule Take 1 capsule (10 mEq) by mouth Once per day. Do not crush or chew. 30 capsule 5 09/25/19 26 Active baclofen (Lioresal) 10 MG tablet Take 1 tablet (10 mg) by mouth 3 times daily for 10 days. 30 tablet 4 09/25/19 25 Discontinu ed(Therapy completed) sertraline (Zoloft) 25 MG tablet Take 1 tablet (25 mg) by mouth Once per day for 7 days, THEN 2 tablets (50 mg) Once per day. 67 tablet 2 5 09/25/19 25 Discontinu ed(Ineffec tive) Active Problems Problem Noted Date Diagnosed Date [...] 08/24/2022 Overview (08/24/2022): [place] [facility] Coronary artery disease invo lving koi coronary artery of koi heart without angina pectoris 09/26/2017 Overview (08/24/2022): [...] Encounters Date Type Department Care Team Description 09/24/2024 10:00 AM EDT Office Visit [facility] [address] [place] [address] Deven Solis MD Hypertension, unspecified type (Primary Dx); Depression with anxiety; Tobacco use; High cholesterol; Statin myopathy 09/24/2024 Travel 09/17/2024 Patient Outreach [facility] [address] [place] [address] Deven Solis MD Pre-visit Planning (SDOH negative, Tobacco screening positive. ) 09/16/2024 Telephone [facility] [address] [place] [address] Lashay Hyman, CAROLINE Error (VOID this visit) 09/05/2024 9:30 AM EDT Telemedicine [facility] [address] [place] [address] Lashay Hyman, RN Hypertension, unspecified type 09/05/2024 Telephone [facility] [address] [place] [address] Lashay Hyman, CAROLINE 09/05/2024 Telephone [facility] [address] [place] [address] Lashay Hyman, CAROLINE 08/21/2024 Telephone [facility] [address] [place] [address] Deven Solis MD 08/20/2024 Telephone [facility] [address] [place] [address] Deven Solis MD 08/19/2024 9:30 AM EST Telemedicine [facility] [address] [facility] [place] [address] Reba Goodson, RN Hypertension, unspecified type 08/05/2024 Telephone [facility] [address] [facility] [place] [address] Reba Goodson, CAROLINE 07/25/2024 Telephone [facility] [address] [facility] [place] [address] Reba Goodson, CAROLINE 07/22/2024 10:30 AM EST Clinical Support [facility] [address] [facility] [place] [address] Reba Goodson, CAROLINE Hypertension, unspecified type 07/22/2024 Telephone [facility] [address] [facility] [place] [address] Reba Goodson, CAROLINE 07/22/2024 Travel 07/15/[address] [address] Deven Solis MD Nurse Triage 06/27/2024 Refill [facility] [address] [facility] [place] [address] Deven Solis MD Hypertension, unspecified type from Last 3 Months [...] Tobacco: Never Tobacco Cessation:Ready to Q uit: Not Asked; Counseling Given: Not Answered Alcohol Use Standard Drinks/Week Comments Yes 3 (1 standard drink = 0.6 oz pur e alcohol) occasionally Depression Answer Date Recorded Patient Health Questionnaire-9 Score 14 09/24/2024 Patient Health Questionnaire-9 Score 14 09/24/2024 Last PHQ-9: Questionnaire Data Not on file 0 09/24/2024 Housing Stability Answer Date Recorded What is your housing situation today? I have kb marina 09/17/[address] you li ve. Do you have problems with any of the following? None of the above 09/17/2024 Food Insecurity Answer Date Recorded Within the past 12 months, y ou worried that your food would run out before you got money to buy more: Never True 09/17/2024 Within the past 12 months,th e food you bought just didn't last and you didn't have enough money to get more: Never True Transportation Answer Date Recorded In the past 12 months, has l ack of transportation kept you from medical appts, meetings, work or from getting things needed for daily living? No 09/17/2024 Utilities Answer Date Recorded In the past 12 months, has t he electric, gas, oil or water company threatened to shut off services in your home? No 09/17/2024 Depression Answer Date Recorded Patient Health Questionnaire-2 Score 3 09/24/2024 Internet Access Answer Date Recorded Internet Access Q1 Yes 09/17/2024 Internet Access Q2 Not on file 09/17/2024 Comments Unknown Sex and Gender Information Value Date Recorded Sex Assigned at Female 04/24/2022 10:21 AM EDT Legal Sex Female 10:21 AM EDT Gender Identity Female 04/24/2022 10:21 AM EDT Sexual Orientation Straight 04/24/2022 10 :21 AM EDT Last Filed Vital Signs Vital Sign Reading Time Taken Comments Blood Pressure 143/73 09/24/2024 10:01 AM EDT Pulse 76 09/24/2024 10:01 AM EDT Temperature 36.9 ??C (98.4 ??F) 09/24/2024 10:01 AM E DT Respiratory Rate 21 09/24/2024 10:01 AM EDT Oxygen Saturation 99% 09/24/2024 10:01 AM EDT Inhaled Oxygen Concentration - - Weight 61.5 kg (135 lb 9.6 oz) 09/24/2024 10:01 AM EDT Height 160 cm (5' 3 ) 09/24/2024 10:01 AM EDT Body Mass Index 24.02 09/24/2024 10:01 AM EDT Plan of Treatment Upcoming Encounters Date Type Department Care Team (Late st Contact Info) Description 10/16/2024 11:30 AM EDT Telemedicine [facility] [address] [place] [address] Name, MD Deven [address] [place] [address] Health Maintenance Due Date Last Done Comments CT Colonography 1960 FIT DNA/Cologuard 1960 FIT 1960 FOBT 1960 HIV Screening 1960 Sigmoidoscopy 1960 Alcohol/Substance Use Screening 1972 Pap Smear 1981 Cervical Cancer Screening 1990 HPV/Cotest 1990 Hepatitis B Vaccines (2 of 3 - 19+ 3-dose series) 06/25/2012 05/28/2012 RSV Patients and Patients Aged 60 years or older (1 - Risk 60-74 years 1-dose series) 2020 Zoster Vaccines (2 of 2) 04/30/2021 03/05/2021 Mammogram 10/09/2024 10/09/2022, 09/23, 10/03/2021, Additional history exists Depression Monitoring (PHQ-9) 03/26/2025 09/24/2024, 09/24/2024 SDOH Screening 09/17/2025 09/17/2024 Depression Screening 09/24/2025 09/24/2024, 09/25/19 25 Tobacco Screening 09/24/2025 09/24/2024 Colonoscopy 09/04/2028 09/05/2023, 03/27/2013 Colorectal Cancer Screening 09/04/2028 Lipid Panel 09/24/2029 09/24/2024, 06/25, 08/24/2022, Additional history exists DTaP/Tdap/Td Vaccines (2 - Td or Tdap) 09/15/2030 09/15/2020, 08/19/2001 Hepatitis A Vaccines Aged Out 05/28/2012 No long er eligible based on patient's age to complete this topic Hepatitis C Screening Completed 03/29/2023 Pneumococcal Vaccine: [...] Procedure Name Priority Date/Time Associated Diagnosis Comments LIPID PANEL, STANDARD Routine 09/24/2024 10:36 AM EDT Statin myopathy COMPREHENSIVE METABOLIC PANEL Routine 09/24/2024 10:36 AM EDT Statin myopathy BASIC METABOLIC PANEL Routine 09/08/2024 11:25 AM EDT Hypertension, unspecified type BASIC METABOLIC PANEL Routine 08/15/2024 11:23 AM EST Hypertension, unspecified type [I10] HM COLONOSCOPY Routine 09/05/2023 HEPATITIS C VIRAL RNA, QUANTITATIVE, REAL-TIME PCR Routine 03/29/2023 2:11 PM EDT BI MAMMOGRAM SCREENING TOMOSYNTHESIS BILATERAL Routine 10/09/2022 8:32 AM EDT from Last 3 Months or Most Recently Relevant to Health Maintenance Results * (ABNORMAL) Lipid Panel, Standard (09/24/2024 10:36 AM EDT) Triglycerides 71 <150 mg/dL [facility] Comment:Desirable Triglyceri de: less than 150 mg/dLBorderline High Triglyceride 150-199 mg/dLHigh Triglyceride: 200-499 mg/dLVery High Triglyceride: greater than or equal to 5OO mg/dL Cholesterol 226(H) <200 mg/dL [facility] Comment:Desirable Cholestero l: less than 200 mg/dLBorderline High Cholesterol: 200-239 mg/dLHigh Cholesterol: greater than 239 mg/dL LDL Cholesterol Calculated 126(H) <100 mg/dL [facility] Comment:Desirable LDL: less than 100 mg/dLNear Optimal/Above Optimal LDL: 110- 129 mg/dLBorderline High LDL: 130-159 mg/dLHigh LDL: 160-189 mg/dLVery High LDL: greater than or equal to 190 mg/dL HDL Cholesterol 86 >40 mg/dL [facility] Comment:Desirable HDL: great er than 40 mg/dL Note: This HDL assay may give artificially low results in patients with liver disease. Blood Venous blood specimen / Unknown 09/24/2024 10:36 AM EDT 09/24/2024 11:25 AM EDT us Deven Name LAB BLOOD ORDERABLES Final Resul t [facility] [address] [place] [phone] * (ABNORMAL) Comprehensive Metabolic Panel (09/24/2024 10:36 AM EDT) Sodium 137 135 - 145 mmol/L [facility] Potassium 3.2(L) 3.3 - 5.1 mmol/L [facility] Chloride 104 96 - 108 mmol/L [facility] Carbon Dioxide 27 22 - 29 mmol/L [facility] Anion Gap 9(L) 12 - 20 [facility] Urea Nitrogen (BUN) 13 9 - 16 mg/dL [facility] Creatinine, Serum 0.67 0.5 - 1.4 mg/dL [facility] Estimated Glomerular Filt Rate >60 [facility] Comment:Chronic Kidney Disea se: Estimated GFR < 60 mL/min/[id number] Kidney Disease: Estimated GFR < 15 mL/min/1.73m2 Glucose 101 60 - 115 mg/dL [facility] Calcium 9.2 8.4 - 10.2 mg/dL [facility] Bilirubin, Total 0.3 0.0 - 1.0 mg/dL [facility] Aspartate Amino Transferase 18 5 - 31 U/L [facility] Alanine Aminotransferase 16 0 - 31 U/L [facility] Total Protein 7.1 6.5 - 8.0 g/dL [facility] Albumin Level 4.4 3.5 - 5.0 g/dL [facility] Alkaline Phosphatase 66 39 - 117 U/L [facility] Blood Venous blood specimen / Unknown 09/24/2024 10:36 AM EDT 09/24/2024 11:25 AM EDT us Deven Name LAB BLOOD ORDERABLES Final Resul t [facility] [address] [place] [place] [phone] * (ABNORMAL) Basic Metabolic Panel (09/08/2024 11:25 AM EDT) Only the most recent of2 resultswithin the time period is included. Sodium 139 135 - 145 mmol/L [facility] Potassium 3.7 3.3 - 5.1 mmol/L [facility] Chloride 106 96 - 108 mmol/L [facility] Carbon Dioxide 25 22 - 29 mmol/L [facility] Anion Gap 12 12 - 20 [facility] Urea Nitrogen (BUN) 17(H) 9 - 16 mg/dL [facility] Creatinine, Serum 0.63 0.5 - 1.4 mg/dL [facility] Estimated Glomerular Filt Rate >60 [facility] Comment:Chronic Kidney Disea se: Estimated GFR < 60 mL/min/1.46e9Ghslrt Kidney Disease: Estimated GFR < 15 mL/min/1.73m2 Glucose 98 60 - 115 mg/dL [facility] Calcium 8.9 8.4 - 10.2 mg/dL [facility] Blood Venous blood specimen / Unknown 09/08/2024 11:25 AM EDT 09/08/2024 1:07 PM EDT us Deven Solis MD LAB BLOOD ORDERABLES Final Resul t [facility] [address] [place] [address] [phone] * (ABNORMAL) Hm Colonoscopy (09/05/2023) Colonoscopy Abnormal(A ) Normal us Deven Solis MD HEALTH MAINTENANCE Final Result * Hepatitis C Viral RNA, Quantitative, Real-Time PCR (03/29/2023 2:11 PM EDT) Hepatitis C Viral Load <15 NOT DETECTED NOT DETECTED IU/mL [facility] HCV Log PCR <1.18 NOT DETECTED NOT DETECTED Log IU/mL [facility] Comment:This test was perfor med using Real-Time Polymerase ChainReaction.Reportable Range: 15 IU/mL to 100,000,000 IU/mL(1.18 Log IU/mL to 8.00 Log IU/mL).The analytical performance characteristics of thisassay have been determined by [employer].The modifications have not been cleared or approved bythe FDA. This assay has been validated pursuant to theCLIA regulations and is used for clinical purposes.For more information on this test, go to:http://education.Doppelganger/faq/BGH07e0(This link is being provided for informational/educational purposes only.)THIS TEST WAS PERFORMED AT:[employer] [place] [phone] THURSTON MD 03/29/2023 2:11 PM EDT 03/29/2023 2:11 PM EDT us [facility] External Provider LAB BLO OD ORDERABLES Final Result Performing Organization Address [facility]/State/ZIP Co de Phone Number [facility] [address] [place] [phone] * BI Mammogram Screening Tomosynthesis Bilateral (10/09/2022 8:32 AM EDT) Anatomical Region Laterality Modality Breast Bilateral Mammography 10/09/2022 8:32 AM EDT Narrative 10/10/2022 12:47 PM EDT ? [facility] ? [address] ?[place] [address] ? Mammography Report ? Signed ? Patient: Irma,Elena L ?MR#: [id number] ?? 51 ? : 1960 ?Acct:[id number] ? Age/Sex: 62 / F ?ADM Date: 10/09/22 ? Loc: HO.MAMMO ? Attending Dr: Deven Name MD ? Ordering Physician: Name,Deven MD ?Results: 1Negative ? Date of Service: 10/09/ ?Follow Up: 1 Year From Orig ?? inal Mammogram ? Procedure(s): MM tomosynthesis screening BI ?? Accession Number(s): [id number] ? cc: Name,Deven THOMPSON ? EXAMINATION: ?? MM SCREENING DIGITAL BREAST TOMOSYNTHESIS, BILATERAL ? CLINICAL INFORMATION: ? Screening. Asymptomatic. ? The lifetime risk of breast cancer based on the Tyrer-Cuzick Model is ?? 9.4%. ? COMPARISON: ?? Mammography: October 03, 2021 and studies dating back to June 04, ?? 2014 ? TECHNIQUE: ?? Digital breast tomosynthesis is [...] 1244 ? DD/ 0832 ? TD/TT: ? Complex Case Manager: SK ? Procedure Note Becki, Nieves - 10/10/2022 [facility] [address] [place] [address] [place] [address] Mammography Report Signed Patient: Elena Solis LMR#: [id number] [birth year] : 1Acct:[id number] Age/Sex: 62 / FADM Date: 10/09/22 Loc: [place] Attending DrDana Solis MD Ordering Physician: Deven Solisults: 1Negative Date of Service: 10/09/22Follow Up: 1 Year From Orig inal Mammogram Procedure(s): MM tomosynthesis screening BI Accession Number(s): [id number] cc: Deven Solis MD EXAMINATION: MM SCREENING [...] in OV> 10/10/22 1244 DD/ 0832 TD/TT: Complex Case Manager: KATI [facility] External Provider IMG BI PROCEDURES Edited Result - Final from Last 3 Months or Most Recently Relevant to Health Maintenance Insurance [facility] Care Teams Performance Makeup Artist Relationship Specialty Start Date End Date Name, MD Deven [address] [place] [phone] PCP - General Family Medicine 09/28/15
--- OUTSIDE RECORDS SUMMARY | 2024-09-24 12:29 | XMS_ITS | Encounter Summary ---
Author Organization [employer] Address [address] [facility] 7t [place] [address] Care Team Providers Care Server Systems Administrator Name Role Phone Name, Deven THOMPSON Primary Care Provider [phone] Encounter Details Date Type Department Care Team (Latest Contact Info) Description 09/24/2024 Travel Social History Tobacco Use Types Packs/Day [...] Info) Description 10/16/2024 11:30 AM EDT Telemedicine [facility] [address] [place] [address] Name, MD Deven [address] [place] [address] documented as of this encounter Visit Diagnoses Not on filedocumented in this encounter Additional Health Concerns Assessment Noted Time PHQ-9 Depression Total Score: 14 025 10:41 AM EDT documented as of this encounter Care Teams Server Systems Administrator Relationship Specialty Start Date End Date Name, MD Deven [address] [place] [phone] PCP - General Family Medicine 09/28/15 documented as of this encounter
--- OUTSIDE RECORDS SUMMARY | 2024-09-24 12:29 | XMS_ITS | Encounter Summary ---
Author Organization [employer] Address [address] [place] [address] [address] [place] [address] Care Team Providers Care Building Dismantler Name Role Phone Name, Deven THOMPSON Primary Care Provider [phone] Reason for Visit * Reason Onset Date Comments Nurse Triage 03/05/2024 Encounter Details Date Type Department Care Team ([facility] st Contact Info) Description 03/05/2024 Telephone [facility] [address] [place] [address] Name, MD Deven [address] [place] [address] Nurse Triage Social History Tobacco Use Types [...] by blue team nurse. Pt asks if [facility] preferred, Pt lives in [place] and is closer to [facility]. Advised to go to which ever ED is convenient for Pt, [facility] is able to obtain reports as needed. [...] Info) Description 10/16/2024 11:30 AM EDT Telemedicine [facility] [address] [place] [address] NameDeven MD [address] [place] [address] documented as of this encounter Visit Diagnoses Not on filedocumented in this encounter Additional Health Concerns Assessment Noted Time PHQ-9 Depression Total Score: 0 09/07/19 24 10:27 AM EDT documented as of this encounter Care Teams Building Dismantler Relationship Specialty Start Date End Date NameDeven MD [address] [place] [address] PCP - General Family Medicine 09/28/15 documented as of this encounter
--- OUTSIDE RECORDS SUMMARY | 2024-09-24 12:29 | XMS_ITS | Encounter Summary ---
Author Organization [employer] Address [address] [place] [address] 7t [place] [address] Care Team Providers Care Graduate Advisor Name Role Phone Name, Deven THOMPSON Primary Care Provider [phone] Reason for Visit * Reason Comments Hypertension Encounter Details Date Type Department Care Team ([facility] Contact Info) Description 09/24/2024 10:00 AM EDT Office Visit [facility] [address] [place], [place] [phone] Name, MD Deven [address] [place] [address] Hypertension, unspecified type (Primary Dx); Depression with anxiety; Tobacco use; High cholesterol; Statin myopathy Social History Tobacco Use Types Packs/Day Years [...] Mass Index 24.02 09/24/2024 10:01 AM EDT documented in this encounter Progress Notes * Deven Jean MD - 09/24/2024 10:00 AM EDT Subjective Patient ID: Elena Solis is a 64 y.o. female who presents for Hypertension. Patient comes for a follow-up visit. We discussed several issues. BP has been better controlled at home. Recent BMP was unremarkable. She continues to be very depressed and anxious. She stopped checking her BP at home because checking her BP makes her anxious. She is also constantly worried about her job and her family. She talks to her therapist regularly. She is not suicidal. I prescribed her sertraline that she does not think is helping much. In the past she also tried Wellbutrin without anybenefit. She continues to be a heavy smoker. Review of Systems Constitutional: Negative for chills and fever. HENT: Negative for sore throat. Respiratory: Negative for cough, shortness of breath and wheezing. Cardiovascular: Negative for chest pain, palpitations and leg swelling. Gastrointestinal: Negative for abdominal pain. Psychiatric/Behavioral: Negative for self-injury and suicidal ideas. The patient is nervous/anxious. Visit Vitals BP (!) 143/73 (BP Location: Left arm, Patient Position: Sitting, BP Cuff Size: Adult) Pulse 76 Temp 98.4 ??F (36.9 ??C) (Temporal) Resp 21 Ht 5' 3 (1.6 m) Wt 135 lb 9.6 oz (61.5 kg) SpO2 99% BMI 24.02 kg/m?? Smoking Status Every Day BSA 1.65 m?? Objective Physical Exam Constitutional: Appearance: Normal appearance. Cardiovascular: Rate and Rhythm: Normal rate and regular rhythm. Heart sounds: No murmur heard. No gallop. Pulmonary: Effort: Pulmonary effort is normal. No respiratory distress. Breath sounds: Normal breath sounds. No wheezing. Musculoskeletal: Right lower leg: No edema. Left lower leg: No edema. Neurological: Mental Status: She is alert. Lab Results Component Value Date GLUCOSE 98 09/08/2024 NA 139 09/08/2024 K 3.7 09/08/2024 CO2 25 09/08/2024 CL 106 09/08/2024 BUN 17 (H) 09/08/2024 CREATININE 0.63 09/08/2024 Current Outpatient Medications on File Prior to Visit Medication Sig Dispense Refill amLODIPine (Norvasc) 10 MG tablet TAKE 1 TABLET BY MOUTH EVERY DAY 90 tablet 1 amphetamine-dextroamphetamine (Adderall) 15 MG tablet Take 1 tablet (15 mg) by mouth 2 times daily. losartan-hydroCHLOROthiazide (Hyzaar) 100-12.5 MG tablet Take 1 tablet by mouth Once per day. 30 tablet 11 [DISCONTINUED] sertraline (Zoloft) 25 MG tablet Take 1 tablet (25 mg) by mouth Once per day for 7 days, THEN 2 tablets (50 mg) Once per day. 67 tablet 2 albuterol 108 (90 Base) MCG/ACT inhaler Inhale 2 puffs every 6 (six) hours if needed for wheezing. 18 g 2 [DISCONTINUED] baclofen (Lioresal) 10 MG tablet Take 1 tablet (10 mg) by mouth 3 times daily for 10days. 30 tablet 0 No current facility-administered medications on file prior to visit. Assessment/Plan Diagnoses and all orders for this visit: Hypertension, unspecified type Comments: Continue losartan/HCTZ and amlodipine at the same dose Recheck CMP Depression with anxiety Comments: Continue counseling (she has counseling from [facility]) Discontinue sertraline since it has not helped in 2 months I recommended trial of Paxil Follow-up televisit in 2 weeks and increase dose of Paxil then provided she is doing well on the med Orders: - PARoxetine (Paxil) 20 MG tablet; Take 1 tablet (20 mg) by mouth in the morning for 14 days. Tobacco use Comments: She still unable to quit. She is reminded of upcoming appointment for low radiation CT scan of the chest for next month High cholesterol Comments: She is intolerant of statins (muscle pain). I recommended check fasting blood work and consider starting Zetia again. Statin myopathy - Comprehensive Metabolic Panel; Future - Lipid Panel, Standard; Future documented in this encounter Miscellaneous Notes * Addendum Note - Deven Jean MD - 09/24/2024 10:00 AM EDTAddended by: DEVEN JEAN on: 09/24/2024 12:13 PM Modules accepted: Orders documented in this encounter Plan of Treatment Upcoming Encounters Date Type Department Care Team (Late st Contact Info) Description 10/16/2024 11:30 AM EDT Telemedicine [facility] [address] [place] [address] Deven Jean MD [address] [place] [address] documented as of this encounter Procedures Procedure Name Priority Date/Time Associated Diagnosis Comments LIPID PANEL, STANDARD Routine 09/24/2024 10:36 AM EDT Statin myopathy COMPREHENSIVE METABOLIC PANEL Routine 09/24/2024 10:36 AM EDT Statin myopathy documented in this encounter Results * (ABNORMAL) Lipid Panel, Standard (09/24/2024 10:36 AM EDT) Triglycerides 71 <150 mg/dL [facility] Comment:Desirable Triglyceri de: less than 150 mg/dLBorderline High Triglyceride 150-199 mg/dLHigh Triglyceride: 200-499 mg/dLVery High Triglyceride: greater than or equal to 5OO mg/dL Cholesterol 226(H) <200 mg/dL [facility] Comment:Desirable Cholestero l: less than 200 mg/dLBorderline High Cholesterol: 200-239 mg/dLHigh Cholesterol: greater than 239 mg/dL LDL Cholesterol Calculated 126(H) <100 mg/dL [facility] Comment:Desirable LDL: less than 100 mg/dLNear Optimal/Above Optimal LDL: 110- 129 mg/dLBorderline High LDL: 130-159 mg/dLHigh LDL: 160-189 mg/dLVery High LDL: greater than or equal to 190 mg/dL HDL Cholesterol 86 >40 mg/dL [facility] Comment:Desirable HDL: great er than 40 mg/dL Note: This HDL assay may give artificially low results in patients with liver disease. Blood Venous blood specimen / Unknown 09/24/2024 10:36 AM EDT 09/24/2024 11:25 AM EDT us Deven Name MD LAB BLOOD ORDERABLES Final Resul t [facility] [address] [place] [phone] * (ABNORMAL) Comprehensive Metabolic Panel (09/24/2024 10:36 AM EDT) Sodium 137 135 - 145 mmol/L [facility] Potassium 3.2(L) 3.3 - 5.1 mmol/L [facility] Chloride 104 96 - 108 mmol/L [facility] Carbon Dioxide 27 22 - 29 mmol/L [facility] Anion Gap 9(L) 12 - 20 [facility] Urea Nitrogen (BUN) 13 9 - 16 mg/dL [facility] Creatinine, Serum 0.67 0.5 - 1.4 mg/dL [facility] Estimated Glomerular Filt Rate >60 [facility] Comment:Chronic Kidney Disea se: Estimated GFR < 60 mL/min/[id number] Kidney Disease: Estimated GFR < 15 mL/min/1.73m2 Glucose 101 60 - 115 mg/dL [facility] Calcium 9.2 8.4 - 10.2 mg/dL [facility] Bilirubin, Total 0.3 0.0 - 1.0 mg/dL [facility] Aspartate Amino Transferase 18 5 - 31 U/L [facility] Alanine Aminotransferase 16 0 - 31 U/L [facility] Total Protein 7.1 6.5 - 8.0 g/dL [facility] Albumin Level 4.4 3.5 - 5.0 g/dL [facility] Alkaline Phosphatase 66 39 - 117 U/L [facility] Blood Venous blood specimen / Unknown 09/24/2024 10:36 AM EDT 09/24/2024 11:25 AM EDT Deven Jean MD LAB BLOOD ORDERABLES Final Resul t [facility] [address] [place] [phone] documented in this encounter Visit Diagnoses Diagnosis Hypertension, unspecified type- Primary Depression with anxiety Dysthymic disorder Tobacco use High cholesterol Pure hypercholesterolemia Statin myopathy Toxic myopathy documented in this encounter Additional Health Concerns Assessment Noted Time PHQ-9 Depression Total Score: 14 025 10:41 AM EDT documented as of this encounter Care Teams Graduate Advisor Relationship Specialty Start Date End Date Name, MD Deven [address] [place] [address] PCP - General Family Medicine 09/28/15 documented as of this encounter
--- OUTSIDE RECORDS SUMMARY | 2024-09-24 12:29 | XMS_ITS | Encounter Summary ---
Author Organization [employer] [facility] Address [address] [place] [address] [address] [place] [address] Care Team Providers Care Manager Pacu Name Role Phone Name, Deven THOMPSON Primary Care Provider [phone] Encounter Details Date Type Department Care Team (Late st Contact Info) Description 11/27/2022 Abstract [facility] [address] [place] [address] [phone] NameDeven MD [address] [place] [address] [phone] Social History Tobacco Use Types Packs/Day Years [...] Info) Description 10/16/2024 11:30 AM EDT Telemedicine [facility] [address] [place] [phone] Deven Solis MD [address] [place] [address] [phone] documented as of this encounter Procedures Procedure Name Priority Date/Time Associated Diagnosis Comments HM COLONOSCOPY Routine 03/27/2013 documented in this encounter Results * Hm Colonoscopy (03/27/2013) Colonoscopy Normal Normal Narrative Marcela Jacobs - 03/27/2013 Repeat in 10 years Historical Provider HEALTH MAINTENANCE Final Result documented in this encounter Visit Diagnoses Not on filedocumented in this encounter Care Teams Manager Pacu Relationship Specialty Start Date End Date Name, MD Deven [address] [place] [phone] PCP - General Family Medicine 09/28/15 documented as of this encounter
== END 2024-09-24 10:35 | disposition home or self-care (01) ==
LOC: HO.HHCL 10:34
PROVIDERS: Visit Provider Internal Medicine Geriatric Medicine
DX: G72.0 Drug-induced myopathy (principal); T46.6X5A Adverse effect of antihyperlipidemic and antiarteriosclerotic drugs, initial encounter
CPT/HCPCS: 36415; 80053; 80061

== ENCOUNTER 2024-10-17 09:55 | Outpatient (AMB) | payer OTHER, SELFPAY ==
--- NOTE | 2024-10-17 09:42 | A.OFFVIS_ITS ---
Vital Signs 10/17/24 09:59 Height 5 ft 3 in Weight 137 lb BMI 24.3 BP 124/62 Blood Pressure Location Lt brachial Position Sitting Pulse 81 Pulse Source Pulse Oximeter Pulse Oximetry (%) 98 Oxygen Delivery Method Simple Mask Intake Visit Reasons: shortness of breath Covered Buckle Assembler Required: No Sap Gatherer: Sap Gatherer offered & declined Accompanied by: Self / Same As Patient Allergies Penicillins Adverse Reaction (Verified 10/17/24 10:04) thrush Gabapentin Adverse Reaction (Uncoded 10/17/24 10:04) Vomiting Medication List - Last Reconciled 10/17/24 by Dana Madden LPN albuterol sulfate 90 mcg/actuation 2 puffs inhalation Q4-6H PRN amlodipine 5 mg PO DAILY baclofen 5 mg PO TID PRN ewsrypkkub-vpvbesxjcmedi-qkre 50-325-40 mg 1 tab PO Q6H PRN dextroamphetamine-amphetamine 15 mg (Adderall) 1 tab PO DAILY dvjygpbakxd-cdkptfntf-dokxauls 200-62.5-25 mcg (Trelegy Ellipta) 1 inh inhalation DAILY hydrochlorothiazide 25 mg PO QAM losartan-hydrochlorothiazide 100-12.5 mg 1 tab PO DAILY HPI HPI shortness of breath: Details: Elena is a pleasant 64-year-old female, current 1 ppd smoker, with 45+ pack-year history and underlying emphysema, HTN and hyperlipidemia. At baseline, she has been well controlled on Trelegy and albuterol MDI. She had been doing quite well but due to coverage issues with Trelegy she had been without for month. Since this lapse in treatment she has been very congested with productive cough with yellow sputum as well as feeling feverish/chills and wheezing. She feels her dyspnea is at baseline. She denies any known sick contacts. Of note, she has upcoming LDCT to be scheduled in October. 10/2023 LDCT RADS2. [facility] Medical History Cervical spondylosis Atherosclerotic cardiovascular disease Hypertension Elevated cholesterol Nicotine dependence, cigarettes, uncomplicated Emphysema of lung ADHD Anxiety Tubular adenoma of colon Surgical History History of colonoscopy History of hysterectomy History of History of carpal tunnel surgery Family History Brother Cancer Social History Household Members: None Housing: House Do you presently have visiting nurse or other home services: No Alcohol intake: current Alcohol intake frequency: does not drink Patient Tobacco Use Status: Current everyday Tobacco user Tobacco use type: Cigarette Cigarette Packs Per Day: 1 Years Smoked: (onset 16yo, 1ppd x 47yrs, 40+PYH) Substance Use Type: Marijuana service: No Review of Systems Const Denies excessive sweating, Denies headache(s) and Denies night sweats Eyes Denies dry eyes, Denies irritation and Denies itchy eyes ENT Reports Normal hearing present and Denies headache(s) Card Denies chest pain, Denies chest pain at rest, Denies chest pain with activity, Denies claudication, Denies leg edema, Reports dyspnea on exertion, Denies orthopnea and Denies paroxysmal nocturnal dyspnea Resp Reports change in phlegm color, Reports chest congestion, Reports cough, Denies excessive phlegm production, Denies pain on inspiration, Denies pain with cough, Reports dyspnea on exertion, Denies stridor and Reports wheezing Musc Denies myalgias Neuro Reports Normal hearing present and Denies headache(s) Endo Denies excessive sweating Anselmo/Lymph Denies lymphadenopathy Aller/Immun Denies itchy eyes, Denies seasonal rhinorrhea and Reports wheezing Physical Exam Vital Signs: Last Vital Signs Pulse 81 10/17/24 09:59 BP 124/62 10/17/24 09:59 Pulse Ox 98 10/17/24 09:59 Oxygen Delivery Method Simple Mask 10/17/24 09:59 BMI result Body Mass Index 24.3 Const General: cooperative, healthy appearing, comfortable, no acute distress, well developed and alert Orientation/consciousness: patient oriented x3 Limitations: no limitations HEENT Head: Yes normal to inspection, Yes normocephalic and Yes atraumatic Ears: hearing grossly normal bilaterally and external ears normal Eyes General: appearance normal, both eyes and all related structures Eyelids: Yes eyelids normal Sclerae: sclerae normal EOM: EOMs intact bilaterally Neck Neck: Yes normal visual inspection and Yes no lymphadenopathy Lymphatic: no lymphadenopathy noted Chest Chest palpation & inspection: normal inspection of the chest Resp Other: faint inspiratory crackles of RLL Effort & Inspection: normal respiratory effort, able to speak in complete sentences, no audible wheezes, Actively coughing Quality: wet, no stridor, not tachypneic, no tripod positioning and no use of accessory muscles Cardio Jugular venous distension: no JVD Rate: regular rate Rhythm: regular rhythm Skin Other: warm, dry General skin exam: no rashes or lesions noted Neuro General: patient oriented x3 Cranial nerves: Yes Normal hearing present Cognition (Neuro): normal cognition Gait exam (Neuro): Normal gait present Extrem General: Yes normal to inspection, Yes capillary refill normal, Yes no clubbing, cyanosis or edema and Yes no pedal edema Psych Appearance: grossly normal and well kempt Speech and movement: Normal speech and movement present and Clear speech present Affect: normal affect Attitude: cooperative Thought process: Normal thought process present Thought content: Normal thought content present Insight: Good insight present (Psych) Judgement: Good judgement present (Psych) Assessment & Plan Assessment & Plan (1) COPD (chronic obstructive pulmonary disease): Code(s): J44.9 - Chronic obstructive pulmonary disease, unspecified Category: Medical (2) Emphysema of lung: Code(s): J43.9 - Emphysema, unspecified Category: Medical (3) Nicotine dependence, cigarettes, uncomplicated: Comment: (current smoker, onset 16yo, 1ppd x 47yrs, 40pyh) Code(s): F17.210 - Nicotine dependence, cigarettes, uncomplicated Category: Medical Plan Will treat bronchitic symptoms with doxycycline. She is aware to call if no change in symptoms and will send for CXR. At baseline, she reports good control with Trelegy and albuterol MDI, advised to continue. Discussed smoking cessation and patient will attempt to work towards cutting down, currently 1 ppd. She also noted obtaining a new bird and wondering if this may be contributing to worsening control, will send for RAST including bird fancier panel. All questions were answered and patient is in agreement of plan. Will follow-up in 3 months or sooner if needed. Orders: Orders Immunoglobulin E 10/17/24 Z91.09 - Other allergy status, other than to drugs and biological substances Resp Allergy Profile Region I 10/17/24 Z91.09 - Other allergy status, other than to drugs and biological substances Other Ref Test - Misc 10/17/24 Z91.09 - Other allergy status, other than to drugs and biological substances Complete Blood Count Auto Diff 10/17/24 Z91.09 - Other allergy status, other than to drugs and biological substances Medications: New azithromycin For 250 mg dose pack: take 500 mg today (day 1), then 250 mg for 4 days (days 2-5) PO watch and wait 6 tabs 0RF doxycycline hyclate 100 mg PO BID 14 caps 0RF prednisone 40 mg (2 x 20 mg) PO DAILY 10 tabs 0RF Refilled cmjtfnzevgx-nhvxjpric-aukwiddx 200-62.5-25 mcg (Trelegy Ellipta) 1 inh in halation DAILY 28 ea 6RF Coding Level of Care Code Est Pt Level 4 (51404) Diagnoses COPD (chronic obstructive pulmonary disease) J44.9 Emphysema of lung J43.9 Nicotine dependence, cigarettes, uncomplicated F17.210
[2024-10-17 09:59] VITALS: BP 124/62; PULSE 81; O2SAT 98; BMI 24.3
== END 2024-10-17 10:31 | disposition home or self-care (01) ==
LOC: HO.HPSW 09:56
PROVIDERS: PCP Internal Medicine Geriatric Medicine; Visit Provider Nurse Practitioner Family
DX: J44.9 Chronic obstructive pulmonary disease, unspecified (principal); J43.9 Emphysema, unspecified; F17.210 Nicotine dependence, cigarettes, uncomplicated
CPT/HCPCS: 99214

== ENCOUNTER → 2024-10-17 09:55 | Outpatient (BNVA) | payer OTHER, SELFPAY | PROVIDERS: PCP Internal Medicine Geriatric Medicine; Visit Provider Nurse Practitioner Family | DX: J43.9 Emphysema, unspecified (principal); I10 Essential (primary) hypertension; E78.5 Hyperlipidemia, unspecified; F17.210 Nicotine dependence, cigarettes, uncomplicated; Z91.09 Other allergy status, other than to drugs and biological substances | CPT/HCPCS: 99212 ==

== ENCOUNTER 2024-10-17 10:46 | Outpatient (REF) | payer OTHER, SELFPAY ==
--- OUTSIDE RECORDS SUMMARY | 2024-10-17 11:29 | XMS_ITS | Encounter Summary ---
Author Organization [employer] Address [address] [place] [address] [address] [place] [address] Care Team Providers Care Accounts Officer Name Role Phone Name, Deven THOMPSON Primary Care Provider [phone] Reason for Visit * Reason Comments Follow-up Encounter Details Date Type Department Care Team ([facility] Contact Info) Description 10/16/2024 11:30 AM EDT Telemedicine [facility] [address] [place] [phone] Name, MD Deven [address] [place] [address] Depression with anxiety (Primary Dx) Social History Tobacco Use Types Packs/Day Years [...] AM EDT documented as of this encounter Progress Notes * Deven Solis, - 10/16/2024 11:30 AM EDT Subjective Patient ID: Elena Solis is a 64 y.o. female who presents for Follow-up. I called the patient to see how she is doing. At her last appointment she has symptoms of depression and anxiety. She was quite symptomatic. She is not suicidal. I prescribed her a course of Paxil. The patient tells me she has the Paxil for about 3 days and started having nausea and vomiting and she stopped the medication. Today she tells me that she would like to control her symptoms without using any medication. She plans to start exercising more often. She tells me she is already feeling better. She is not interested in referral to behavioral health or try any other medication at this point. She mentioned that she tolerated lorazepam in the past without any side effects but I advised jose g nsjoshua the use of benzos given the multiple side effects associated with this type of medications. I suggested a trial of BuSpar but she is not interested because she describes having side effects to this medication in the past as well. Review of Systems Constitutional: Negative for chills and fever. HENT: Negative for sore throat. Respiratory: Negative for cough, shortness of breath and wheezing. Cardiovascular: Negative for chest pain, palpitations and leg swelling. Gastrointestinal: Negative for abdominal pain. Psychiatric/Behavioral: See HPI Objective Physical Exam Vitals reviewed: Televisit audio only. Assessment/Plan Diagnoses and all orders for this visit: Depression with anxiety Comments: Patient tells me she is feeling better, she is not interested in trying any medication at this point or referral to behavioral health. She plans to try meditation and exercise and she is encouraged to do so. I recommended she call us if her symptoms of depression or anxiety become more severe and she wants to try an SSRI again. documented in this encounter Plan of Treatment Not on file documented as of this encounter Visit Diagnoses Diagnosis Depression with anxiety- Primary Dysthymic disorder documented in this encounter Additional Health Concerns Assessment Noted Time PHQ-9 Depression Total Score: 14 025 10:41 AM EDT documented as of this encounter Care Teams Accounts Officer Relationship Specialty Start Date End Date Name, MD Deven [address] [place] [address] PCP - General Family Medicine 09/28/15 documented as of this encounter
--- OUTSIDE RECORDS SUMMARY | 2024-10-17 11:29 | XMS_ITS | Encounter Summary ---
Author Organization [employer] Address [address] [facility] [address] [place] [address] Care Team Providers Care Polysomnographer Name Role Phone Name, Deven THOMPSON Primary Care Provider [phone] Reason for Visit * Reason Comments Med Change Request Encounter Details Date Type Department Care Team ([facility] Contact Info) Description 10/16/2024 Refill [facility] [address] [place], [place] [phone] Name, MD Deven [address] [place] [address] Social History Tobacco Use Types Packs/Day Years [...] as of this encounter Plan of Treatment Not on file documented as of this encounter Visit Diagnoses Not on filedocumented in this encounter Additional Health Concerns Assessment Noted Time PHQ-9 Depression Total Score: 14 025 10:41 AM EDT documented as of this encounter Care Teams Polysomnographer Relationship Specialty Start Date End Date Name, MD Deven [address] [place] [address] PCP - General Family Medicine 09/28/15 documented as of this encounter
--- OUTSIDE RECORDS SUMMARY | 2024-10-17 11:29 | XMS_ITS | Clinical Summary ---
Author Organization [employer] Address [address] [place] [address] 7t [place] [address] Care Team Providers Care Heel Scourer Name Role Phone Name, Deven THOMPSON Primary Care Provider [phone] Allergies Active Allergy Reactions Criticality Noted Date [...] 30 tablet 11 5 08/20/19 26 Active ezetimibe (Zetia) 10 MG tablet Take [...] 2 5 09/25/19 25 Discontinu ed(Ineffec tive) PARoxetine (Paxil) 20 MG tabletIndication s:Depression with anxiety Take 1 tablet (20 mg) by mouth in the morning for 14 days. 14 tablet 5 10/17/19 25 Discontinu ed(Side effects) Active Problems Problem Noted Date Diagnosed Date [...] 08/24/2022 Overview (08/24/2022): With BSO 2016 at [facility] for fibroid uterus Coronary artery disease invo [place]ving [place] coronary artery of [place] heart without angina pectoris 09/26/2017 Overview (08/24/2022): [...] Encounters Date Type Department Care Team Description 10/16/2024 11:30 AM EDT Telemedicine [facility] [address] [place] [id number] Deven Solis MD Depression with anxiety (Primary Dx) 10/16/2024 Refill [facility] [address] [place] [address] Deven Solis MD 10/16/2024 Travel 10/07/2024 Refill [facility] [address] [place] [address] Deven Solis MD Hypertension, unspecified type 09/24/2024 10:00 AM EDT Office Visit [facility] [address] [place] [address] Deven Solis MD Hypertension, unspecified type (Primary Dx); Depression with anxiety; Tobacco use; High cholesterol; Statin myopathy 09/24/2024 Telephone [facility] [address] [place] [address] Deven Solis MD 09/24/2024 Travel 09/17/2024 Patient Outreach [facility] [address] [place], [place] [id number] Deven Solis MD Pre-visit Planning (SDOH negative, Tobacco screening positive. ) 09/16/2024 Telephone [facility] [address] [place] [address] Lashay Hyman RN Error (VOID this visit) 09/05/2024 9:30 AM EDT Telemedicine [facility] John [place], [place] [address] Lashay Hyman, CAROLINE Hypertension, unspecified type 09/05/2024 Telephone [facility] [address] [place], [place] [address] Lashay Hyman, CAROLINE 09/05/[address] [facility] [address] [place], [place] [address] Lashay Hyman, CAROLINE 08/21/2024 Telephone [facility] [address] [place], [place] [address] NameDeven MD 08/20/2024 Telephone [facility] [address] [place], [place] [address] Name, MD Deven 08/19/2024 9:30 AM EST Telemedicine [facility] [place], [place] [address] Reba Goodson, CAROLINE Hypertension, unspecified type 08/05/[address] [facility] [address] [place], [place] [address] Reba Goodson, CAROLINE 07/25/2024 Telephone [facility] [address] [place], [place] [address] Reba Goodson, CAROLINE 07/22/2024 10:30 AM EST Clinical Support [facility] [place], [place] [address] Reba Goodson, CAROLINE Hypertension, unspecified type 07/22/[address] [facility] John [place], [place] [address] Reba Goodson, CAROLINE 07/22/2024 Travel from Last 3 Months Immunizations Name Administration [...] 09/24/2024 10:01 AM EDT Plan of Treatment Health Maintenance Due Date Last Done Comments [...] 10/09/2024 10/09/2022, 09/23, 10/03/2021, Additional history exists SDOH Screening 09/17/2025 09/17/2024 Depression Screening 09/24/2025 09/24/2024, 09/25/19 Tobacco Screening 09/24/2025 09/24/2024 Colonoscopy 09/04/2028 09/05/2023, [...] 10:36 AM EDT) Triglycerides 71 <150 mg/dL [facility] Comment:Desirable Triglyceri de: less than 150 mg/dLBorderline High Triglyceride 150-199 mg/dLHigh Triglyceride: 200-499 mg/dLVery High Triglyceride: greater than or equal to 5OO mg/dL Cholesterol 226(H) <200 mg/dL [facility] Comment:Desirable Cholestero l: less than 200 mg/dLBorderline High Cholesterol: 200-239 mg/dLHigh Cholesterol: greater than 239 mg/dL LDL Cholesterol Calculated 126(H) <100 mg/dL [facility] Comment:Desirable LDL: less than 100 mg/dLNear Optimal/Above Optimal LDL: 110- 129 mg/dLBorderline High LDL: 130-159 mg/dLHigh LDL: 160-189 mg/dLVery High LDL: greater than or equal to 190 mg/dL HDL Cholesterol 86 >40 mg/dL [facility] Comment:Desirable HDL: great er than 40 mg/dL Note: This HDL assay may give artificially low results in patients with liver disease. Blood Venous blood specimen / Unknown 09/24/2024 10:36 AM EDT 09/24/2024 11:25 AM EDT us Deven Solis MD LAB BLOOD ORDERABLES Final Resul t [facility] [address] [place] [phone] * (ABNORMAL) Comprehensive Metabolic Panel (09/24/2024 10:36 AM EDT) Sodium 137 135 - 145 mmol/L [facility] Potassium 3.2(L) 3.3 - 5.1 mmol/L [facility] Chloride 104 96 - 108 mmol/L [facility] Carbon Dioxide 27 22 - 29 mmol/L [facility] Anion Gap 9(L) 12 - 20 [facility] Urea Nitrogen (BUN) 13 9 - 16 mg/dL [facility] Creatinine, Serum 0.67 0.5 - 1.4 mg/dL [facility] Estimated Glomerular Filt Rate >60 [facility] Comment:Chronic Kidney Disea se: Estimated GFR < 60 mL/min/[id number] Kidney Disease: Estimated GFR < 15 mL/min/1.73m2 Glucose 101 60 - 115 mg/dL [facility] Calcium 9.2 8.4 - 10.2 mg/dL [facility] Bilirubin, Total 0.3 0.0 - 1.0 mg/dL [facility] Aspartate Amino Transferase 18 5 - 31 U/L [facility] Alanine Aminotransferase 16 0 - 31 U/L [facility] Total Protein 7.1 6.5 - 8.0 g/dL [facility] Albumin Level 4.4 3.5 - 5.0 g/dL [facility] Alkaline Phosphatase 66 39 - 117 U/L [facility] Blood Venous blood specimen / Unknown 09/24/2024 10:36 AM EDT 09/24/2024 11:25 AM EDT us Deven Name MD LAB BLOOD ORDERABLES Final Resul t [facility] [address] [place] [phone] * (ABNORMAL) Basic Metabolic Panel (09/08/2024 11:25 AM EDT) Only the most recent of2 resultswithin the time period is included. Sodium 139 135 - 145 mmol/L [facility] Potassium 3.7 3.3 - 5.1 mmol/L [facility] Chloride 106 96 - 108 mmol/L [facility] Carbon Dioxide 25 22 - 29 mmol/L [facility] Anion Gap 12 12 - 20 [facility] Urea Nitrogen (BUN) 17(H) 9 - 16 mg/dL [facility] Creatinine, Serum 0.63 0.5 - 1.4 mg/dL [facility] Estimated Glomerular Filt Rate >60 [facility] Comment:Chronic Kidney Disea se: Estimated GFR < 60 mL/min/1.21z8Amdafq Kidney Disease: Estimated GFR < 15 mL/min/1.73m2 Glucose 98 60 - 115 mg/dL [facility] Calcium 8.9 8.4 - 10.2 mg/dL [facility] Blood Venous blood specimen / Unknown 09/08/2024 11:25 AM EDT 09/08/2024 1:07 PM EDT us Deven Solis MD LAB BLOOD ORDERABLES Final Resul t [facility] [address] [place] [phone] * (ABNORMAL) Hm Colonoscopy (09/05/2023) Colonoscopy Abnormal(A ) Normal us Deven Solis MD HEALTH MAINTENANCE Final Result * Hepatitis C Viral RNA, Quantitative, Real-Time PCR (03/29/2023 2:11 PM EDT) Hepatitis C Viral Load <15 NOT DETECTED NOT DETECTED IU/mL [facility] HCV Log PCR <1.18 NOT DETECTED NOT DETECTED Log IU/mL [facility] Comment:This test was perfor med using Real-Time Polymerase ChainReaction.Reportable Range: 15 IU/mL to 100,000,000 IU/mL(1.18 Log IU/mL to 8.00 Log IU/mL).The analytical performance characteristics of thisassay have been determined by [employer].The modifications have not been cleared or approved bythe FDA. This assay has been validated pursuant to theCLIA regulations and is used for clinical purposes.For more information on this test, go to:http://education.Re.Mu/faq/KCR16m9(This link is being provided for informational/educational purposes only.)THIS TEST WAS PERFORMED AT:[facility] [place] [phone] THURSTON MD 03/29/2023 2:11 PM EDT 03/29/2023 2:11 PM EDT us [facility] External Provider LAB BLO OD ORDERABLES Final Result [facility] [address] [place] [phone] * BI Mammogram Screening Tomosynthesis Bilateral (10/09/2022 8:32 AM EDT) Anatomical Region Laterality Modality Breast Bilateral Mammography 10/09/2022 8:32 AM EDT Narrative 10/10/2022 12:47 PM EDT ? [facility] [place] ? [address] ?[place] [address] ? Mammography Report ? Signed ? Patient: Irma,Elena L ?MR#: [id number] ?? 51 ? : 1960 ?Acct:[id number] ? Age/Sex: 62 / F ?ADM Date: 10/09/22 ? Loc: HO.MAMMO ? Attending Dr: Deven Name MD ? Ordering Physician: Name,Deven MD ?Results: 1Negative ? Date of Service: 10/09/22 ?Follow Up: 1 Year From Orig ?? inal Mammogram ? Procedure(s): MM tomosynthesis screening BI ?? Accession Number(s): [id number] ? cc: Name,Deven MD ? EXAMINATION: ?? MM SCREENING DIGITAL BREAST [...] MD ? Signed By: ?<Electronically signed by iDpak Acosta MD in OV> ?10/10/22 1244 ? DD/ 0832 ? TD/TT: ? Data Conversion Operator: SK ? Procedure Note Becki, Image - 10/10/2022 [facility] [address] [place] [address] Mammography Report Signed Patient: Elena Solis LMR#: [id number] 51 : 1Acct:[id number] Age/Sex: 62 / FADM Date: 10/09/22 Loc: [facility] Attending Dr: Deven Solis MD Ordering Physician: Deven Solisults: 1Negative Date of Service: 10/09/22Follow Up: 1 Year From Orig inal Mammogram Procedure(s): MM tomosynthesis screening BI Accession Number(s): [id number] cc: Deven Solis MD EXAMINATION: MM SCREENING [...] in OV> 10/10/22 1244 DD/ 0832 TD/TT: Data Conversion Operator: KATI [facility] External Provider IMG BI PROCEDURES Edited Result - Final from Last 3 Months or Most Recently Relevant to Health Maintenance Insurance [facility] [place] [id number] Care Teams Heel Scourer Relationship Specialty Start Date End Date Name, MD Deven [address] [place] [phone] PCP - General Family Medicine 09/28/15
--- OUTSIDE RECORDS SUMMARY | 2024-10-17 11:29 | XMS_ITS | Encounter Summary ---
Author Organization [employer] Address [address] [facility] 7t [place] [address] Care Team Providers Care Research Tech Name Role Phone Name, Deven THOMPSON Primary Care Provider [phone] Encounter Details Date Type Department Care Team (Latest Contact Info) Description 10/16/2024 Travel Social History Tobacco Use Types Packs/Day [...] documented as of this encounter Care Teams Research Tech Relationship Specialty Start Date End Date Name, MD Deven [address] [place] [address] PCP - General Family Medicine 09/28/15 documented as of this encounter
--- OUTSIDE RECORDS SUMMARY | 2024-10-17 11:29 | XMS_ITS | Encounter Summary ---
Author Organization [employer] Address [address] [place] [address] 7t [place] [address] Care Team Providers Care Dedicated Driver Name Role Phone Name, Deven THOMPSON Primary Care Provider [phone] Encounter Details Date Type Department Care Team ([facility] st Contact Info) Description 11/27/2022 Abstract [facility] [address] [place] [address] Name, MD Deven [address] [place] [address] Social History Tobacco Use Types Packs/Day Years [...] on file documented as of this encounter Procedures Procedure Name Priority Date/Time Associated Diagnosis Comments COLONOSCOPY Routine 03/27/2013 documented in this encounter Results * Colonoscopy (03/27/2013) Colonoscopy Normal Normal Narrative Marcela Jacobs - 03/27/2013 Repeat in 10 years us Historical Provider HEALTH MAINTENANCE Final Result documented in this encounter Visit Diagnoses Not on filedocumented in this encounter Care Teams Dedicated Driver Relationship Specialty Start Date End Date Name, MD Deven [address] [place] [address] PCP - General Family Medicine 09/28/15 documented as of this encounter
--- OUTSIDE RECORDS SUMMARY | 2024-10-17 11:29 | XMS_ITS | Encounter Summary ---
Author Organization [employer] Address [address] [facility] 7t [place] [address] Care Team Providers Care Museum Preparator Name Role Phone Name, Deven THOMPSON Primary Care Provider Reason for Visit * Reason Comments Med Refill Encounter Details Date Type Department Care Team ([facility] st Contact Info) Description 10/07/2024 Refill [facility] [address] [place], [place] [phone] Name, MD Deven [address] [place] [address] Hypertension, unspecified type Social History Tobacco Use [...] documented as of this encounter Care Teams Museum Preparator Relationship Specialty Start Date End Date Name, MD Deven [address] [place] [address] PCP - General Family Medicine 09/28/15 documented as of this encounter
--- OUTSIDE RECORDS SUMMARY | 2024-10-17 11:29 | XMS_ITS | Encounter Summary ---
Author Organization [employer] Address [address] [place] [address] 7 [place] [address] Care Team Providers Care Lightning Protection Installer Name Role Phone Name, Deven THOMPSON Primary Care Provider [phone] Reason for Visit * Reason Onset Date Comments Nurse Triage 03/05/2024 Encounter Details Date Type Department Care Team ([facility] st Contact Info) Description 03/05/2024 Telephone [facility] [address] [place] [address] Name, MD Deven [address] [place] [address] Nurse Triage Social History Tobacco Use Types [...] by blue team nurse. Pt asks if [facility] preferred, Pt lives in [place] and is closer to [facility]. Advised to go to which ever ED is convenient for Pt, [facility] is able to obtain reports as needed. [...] become worse * Telephone Encounter - Jhonatan Surendra - 03/05/2024 1:18 PM EDT Symptom: High [...] documented as of this encounter Care Teams Lightning Protection Installer Relationship Specialty Start Date End Date Name, MD Deven [address] [place] [address] PCP - General Family Medicine 09/28/15 documented as of this encounter
[2024-10-17 14:08] LABS: MANUAL DIFF FLAG NO
[2024-10-17 14:13] LABS: Basophils Absolute Auto 0.1 X10*3/uL (0.0-0.2); Basophils Percent Auto 0.7 % (0-2); Eosinophils Absolute Auto 0.1 X10*3/uL (0.0-0.4); Eosinophils Percent Auto 1.6 % (0-4); Hematocrit 38.8 % (37.0-47.0); Hemoglobin 13.1 g/dl (12.0-16.0); Imm Gran Abs Auto 0.05 X10*3/uL (0.00-0.03); Imm Gran Pct Auto 0.7 % (0.0-0.4); Lymphocytes Absolute Auto 1.5 X10*3/uL (1.2-4.9); Mean Corpuscular HGB Conc 33.8 g/dl (31.0-35.0); Mean Corpuscular Hemoglobin 31.4 pg (27.0-33.0); Mean Platelet Volume 9.9 fL (9.4-12.3); Monocytes Absolute Auto 0.9 X10*3/uL (0.1-1.2); Monocytes Percent Auto 11.1 % (2-11); Neutrophils Absolute Auto 5.1 x10*3/uL (2.0-8.3); Neutrophils Percent Auto 65.9 % (45-73); Platelet Count 335 X10*3/uL (160-400); Red Blood Count 4.17 X10*6/uL (4.20-5.50); Red Cell Distribution Width 13.7 % (11.0-16.0); White Blood Count 7.7 X10*3/uL (4.8-10.8)
[2024-10-21 03:22] LABS: Class Alternaria alternata 0; Class Aspergillus fumigatus 0; Class Bermuda Grass 0; Class Birch 0; Class Cat Dander 0; Class Cladosporium herbarum 0; Class Cockroach 0; Class Common Ragweed 0; Class Cottonwood 0; Class Derm. pterony 0; Class Dermatophagoides farinae 0; Class Dog Dander 0; Class Elm 0; Class Maple Box Elder 0; Class Mountain Cedar 0; Class Mouse Urine Protein 0; Class Mugwort 0; Class Oak 0; Class Penicillium crysogenum 0; Class Rough Pigweed 0; Class Sheep Sorrel 0; Class Sycamore 0; Class Timothy Grass 0; Class Walnut Tree 0; Class White Ash 0; Class White Mulberry 0; D001 IgE D pteronyssinus <0.10 kU/L; D002 - IgE D farinae <0.10 kU/L; E001 - IgE Cat Dander <0.10 kU/L; E005 - IgE Dog Dander <0.10 kU/L; E072-IgE Mouse Urine <0.10 kU/L; G002 IgE Bermuda Grass <0.10 kU/L; G006 - IgE Timothy Grass <0.10 kU/L; I006-IgE Cockroach, German <0.10 kU/L; Immunoglobulin E 55 kU/L (<OR=114); M001 IgE Penicillium chrysogen <0.10 kU/L; M002 - IgE Cladosporium herbar <0.10 kU/L; M003 - IgE Aspergillus fumigat <0.10 kU/L; M006 - IgE Alternaria alternat <0.10 kU/L; T001 IgE Maple/Box Elder <0.10 kU/L; T003 IgE Common Silver Birch <0.10 kU/L; T006 - IgE Cedar, Mountain <0.10 kU/L; T007 - IgE Oak, White <0.10 kU/L; T008 IgE Elm, American <0.10 kU/L; T010 - IgE Walnut <0.10 kU/L; T011 - IgE Maple Leaf Sycamore <0.10 kU/L; T014 - IgE Cottonwood <0.10 kU/L; T015 - IgE Ash, White <0.10 kU/L; T070 - IgE White Mulberry <0.10 kU/L; W001 - IgE Ragweed, Short <0.10 kU/L; W006 - IgE Mugwort <0.10 kU/L; W014 IgE Pigweed, Common <0.10 kU/L; W018 IgE Sheep Sorrel <0.10 kU/L
[2024-10-22 23:28] LABS: Immunoglobulin E 62 kU/L (<OR=114)
[2024-10-27 17:28] LABS: Canary Droppings Ab Negative (Negative); Chicken Serum Ab Negative (Negative); Cockatiel Droppings Ab Negative (Negative); Finch Droppings Ab Negative (Negative); Parakeet Droppings Ab Negative (Negative); Parakeet Serum Ab Negative (Negative); Parrot Droppings Ab Negative (Negative); Parrot Serum Ab Negative (Negative); Pigeon/Dove Droppings Ab Negative (Negative); Pigeon/Dove Serum Ab Negative (Negative)
== END 2024-10-17 10:47 | disposition home or self-care (01) ==
LOC: HO.WFDLDS 10:46
PROVIDERS: Visit Provider Nurse Practitioner Family
DX: Z91.09 Other allergy status, other than to drugs and biological substances (principal)
CPT/HCPCS: 36415; 82785; 85025; 86003; 86331

== ENCOUNTER 2024-11-13 13:15 | Outpatient (REF) | payer OTHER, SELFPAY ==
--- NOTE | ~2024-11-13 | XR_ITS ---
EXAMINATION: XR CHEST CLINICAL INFORMATION: Z87.01 - Personal history of pneumonia (recurrent) COMPARISON: December 15, 2023. TECHNIQUE: 2 views of the chest were obtained. FINDINGS: No consolidation, pleural effusion or pneumothorax. Cardiomediastinal silhouette size is normal. Calcified plaque thoracic aortic arch. Small marginal osteophyte formation and endplate sclerosis, thoracic spine. Osteopenia versus osteoporosis. Degenerative changes in the acromion clavicular joint. XR/XR chest 2V IMPRESSION: No acute airspace disease. Electronically signed by: Vikash Ritter MD 11/13/2024 01:35 PM EDT
--- OUTSIDE RECORDS SUMMARY | 2024-11-13 13:21 | XMS_ITS | Encounter Summary ---
Author Organization [employer] Address [address] [facility] 7t [place] [address] Care Team Providers Care Single Resource Boss Name Role Phone Name, Deven THOMPSON Primary Care Provider [phone] Encounter Details Date Type Department Care Team ([facility] st Contact Info) Description 11/27/2022 Abstract [facility] [address] [place] [address] Name, MD Deven [address] [place] [address] Social History Tobacco Use Types Packs/Day Years [...] on filedocumented in this encounter Care Teams Single Resource Boss Relationship Specialty Start Date End Date Name, MD Deven [address] [place] [address] PCP - General Family Medicine 09/28/15 documented as of this encounter
== END 2024-11-13 13:16 | disposition home or self-care (01) ==
LOC: HO.XRAY 13:15
PROVIDERS: PCP Internal Medicine Geriatric Medicine; Visit Provider Nurse Practitioner Family
DX: Z87.01 Personal history of pneumonia (recurrent) (principal)
CPT/HCPCS: 71046

== ENCOUNTER → 2024-11-13 13:17 | Outpatient (BNV) | payer OTHER, SELFPAY | PROVIDERS: PCP Internal Medicine Geriatric Medicine; Visit Provider Radiology Diagnostic Radiology | DX: Z87.01 Personal history of pneumonia (recurrent) (principal) | CPT/HCPCS: 71046 ==

== ENCOUNTER 2024-12-18 09:56 | Outpatient (REF) | payer OTHER, SELFPAY ==
--- NOTE | ~2024-12-18 | CT_ITS ---
EXAMINATION: CT LOW-DOSE SCREENING CHEST WITHOUT CONTRAST CLINICAL INFORMATION: 64-year-old female, current smoker, 36 pack years, lung cancer screening. COMPARISON: 11/09/2023 low-dose screening exam. TECHNIQUE: Multidetector volumetric CT imaging of the chest is performed on a Siemens SOMATOM Definition scanner without contrast using low dose technique. Additional 2D coronal and sagittal reformatted images and axial 3D maximum intensity projection (MIP) images are generated on the CT workstation. This CT examination was performed using dose optimization techniques as appropriate, variously including the following: *Automated exposure control *Adjustment of mA and/or kV according to patient size (this includes techniques or standardized protocols for targeted exams where dose is matched to indication/reason for exam; i.e. extremities or head) *Use of iterative reconstruction technique FINDINGS: PULMONARY NODULES: -2 mm nodule lateral right upper lobe (series 5, image 27), unchanged. -3 mm nodule anterior right upper lobe (series 5, image 39), unchanged. -3 mm nodule anterior lateral right upper lobe (series 5, image 37) unchanged. -3 mm nodule anterolateral left upper lobe (series 5, image 35), unchanged. -3 mm subpleural nodule superior segment left lower lobe (series 5, image 53), unchanged. -3 mm subpleural nodule posterior left lower lobe (series 5, image 114), unchanged. -No new or enlarging nodule detected. LUNGS: -Minimal centrilobular emphysema. -Lungs otherwise clear. No abnormal groundglass or consolidative opacities. -Small airways appear normal without thickening. -Central airways are normal. -No pleural effusion or pneumothorax. MEDIASTINUM: -Normal partially imaged thyroid. -No lymphadenopathy or mass in the mediastinum. -Moderately calcified aortic arch and proximal great vessels. No aneurysm. -Heart size normal. No pericardial effusion. -No esophageal abnormality. CORONARY ARTERY CALCIFICATION: Moderate to heavy three-vessel coronary calcification. CHEST WALL/AXILLA: No masses or abnormal lymph nodes. UPPER ABDOMEN: Atheromatous vascular calcification present. Imaged upper abdominal contents otherwise normal. OSSEOUS STRUCTURES: No suspicious focal findings. CT/CT lung screening IMPRESSION: 1. A few scattered stable pulmonary nodules measuring up to 3 mm. No new or enlarging pulmonary nodule. 2. No active lung disease. 3. Ancillary findings as discussed. ASSESSMENT: 1. Lung-RADS Category 2: Benign appearance or behavior of nodules. 2. Lung-RADS Category S: None. RECOMMENDATION: Continued routine annual low-dose CT lung screening in 1 year is recommended. An order for CT CHEST LOW DOSE CANCER SCREENING ([id number]) can be placed. Electronically signed by: Neri Castellanos MD 12/18/2024 10:46 AM EDT
--- OUTSIDE RECORDS SUMMARY | 2024-12-18 11:23 | XMS_ITS | Encounter Summary ---
Author Organization [employer] Address [address] [facility] 7t [place] [address] Care Team Providers Care Felling Bucking Supervisor Name Role Phone Name, Deven THOMPSON Primary Care Provider [phone] Encounter Details Date Type Department Care Team ([facility] st Contact Info) Description 11/27/[address] [facility] [address] [place] [address] Name, MD Deven [address] [place] [address] Social History Tobacco Use Types Packs/Day Years [...] on filedocumented in this encounter Care Teams Felling Bucking Supervisor Relationship Specialty Start Date End Date Name, MD Deven [address] [place] [address] PCP - General Family Medicine 09/28/15 documented as of this encounter
== END 2024-12-18 09:57 | disposition home or self-care (01) ==
LOC: HO.CT 09:56
PROVIDERS: PCP Internal Medicine Geriatric Medicine; Visit Provider Physician Assistant Medical
DX: Z12.2 Encounter for screening for malignant neoplasm of respiratory organs (principal); F17.210 Nicotine dependence, cigarettes, uncomplicated
CPT/HCPCS: 71271

== ENCOUNTER → 2024-12-18 09:58 | Outpatient (BNV) | payer OTHER, SELFPAY | PROVIDERS: PCP Internal Medicine Geriatric Medicine; Visit Provider Radiology Diagnostic Radiology | DX: F17.210 Nicotine dependence, cigarettes, uncomplicated (principal) | CPT/HCPCS: 71271 ==

== ENCOUNTER 2025-01-23 09:43 | Outpatient (AMB) | payer OTHER, SELFPAY ==
--- NOTE | 2025-01-23 09:42 | MHC.OFFVIS ---
Vital Signs 01/23/25 09:44 Height 5 ft 3 in Weight 134 lb 4 oz BMI 23.8 BP 152/74 H Blood Pressure Location Rt brachial Position Sitting Pulse 75 Pulse Source Pulse Oximeter Pulse Oximetry (%) 100 Oxygen Delivery Method Room Air Intake Visit Reasons: shortness of breath Allergies Penicillins Adverse Reaction (Verified 01/23/25 09:48) thrush Gabapentin Adverse Reaction (Uncoded 01/23/25 09:48) Vomiting HPI HPI shortness of breath: Details: Elena is a pleasant 64-year-old female, current 1 ppd smoker, with 45+ pack-year history and underlying emphysema, HTN and hyperlipidemia. She reports good control of respiratory symptoms with the use of Trelegy, requiring albuterol MDI infrequently. Since the last visit she has been treated for pneumonia while on a cruise with complete resolution of symptoms. She denies cough or wheezing and feels her dyspnea is at baseline. She did undergo her annual low-dose CT which revealed resolution of prior pneumonia and read as a RADS 2. [facility] Medical History Cervical spondylosis Atherosclerotic cardiovascular disease Hypertension Elevated cholesterol Nicotine dependence, cigarettes, uncomplicated Emphysema of lung ADHD Anxiety Tubular adenoma of colon Surgical History History of colonoscopy History of hysterectomy History of History of carpal tunnel surgery Family History Brother Cancer Social History Household Members: None Housing: House Do you presently have visiting nurse or other home services: No Alcohol intake: current Alcohol intake frequency: does not drink Patient Tobacco Use Status: Current everyday Tobacco user Tobacco use type: Cigarette Cigarette Packs Per Day: 1 Years Smoked: (onset 16yo, 1ppd x 47yrs, 40+PYH) Substance Use Type: Marijuana service: No Review of Systems Const Denies excessive sweating, Denies headache(s) and Denies night sweats Eyes Denies dry eyes, Denies irritation and Denies itchy eyes ENT Reports Normal hearing present and Denies headache(s) Card Denies chest pain, Denies chest pain at rest, Denies chest pain with activity, Denies claudication, Denies leg edema, Reports dyspnea on exertion, Denies orthopnea and Denies paroxysmal nocturnal dyspnea Resp Denies excessive phlegm production, Denies pain on inspiration, Denies pain with cough, Reports dyspnea on exertion and Denies stridor Musc Denies myalgias Neuro Reports Normal hearing present and Denies headache(s) Endo Denies excessive sweating Anselmo/Lymph Denies lymphadenopathy Aller/Immun Denies itchy eyes and Denies seasonal rhinorrhea Physical Exam Vital Signs: Last Vital Signs Pulse 75 01/23/25 09:44 BP 152/74 H 01/23/25 09:44 Pulse Ox 100 01/23/25 09:44 Oxygen Delivery Method Room Air 01/23/25 09:44 BMI result Body Mass Index 23.8 Const General: cooperative, healthy appearing, comfortable, no acute distress, well developed and alert Orientation/consciousness: patient oriented x3 Limitations: no limitations HEENT Head: Yes normal to inspection, Yes normocephalic and Yes atraumatic Ears: hearing grossly normal bilaterally and external ears normal Eyes General: appearance normal, both eyes and all related structures Eyelids: Yes eyelids normal Sclerae: sclerae normal EOM: EOMs intact bilaterally Neck Neck: Yes normal visual inspection and Yes no lymphadenopathy Lymphatic: no lymphadenopathy noted Chest Chest palpation & inspection: normal inspection of the chest Resp Effort & Inspection: normal respiratory effort, able to speak in complete sentences, no audible wheezes, no stridor, not tachypneic, no tripod positioning and no use of accessory muscles Auscultation: diminished lung sounds Cardio Jugular venous distension: no JVD Rate: regular rate Rhythm: regular rhythm Skin Other: warm, dry General skin exam: no rashes or lesions noted Neuro General: patient oriented x3 Cranial nerves: Yes Normal hearing present Cognition (Neuro): normal cognition Gait exam (Neuro): Normal gait present Extrem General: Yes normal to inspection, Yes capillary refill normal, Yes no clubbing, cyanosis or edema and Yes no pedal edema Psych Appearance: grossly normal and well kempt Speech and movement: Normal speech and movement present and Clear speech present Affect: normal affect Attitude: cooperative Thought process: Normal thought process present Thought content: Normal thought content present Insight: Good insight present (Psych) Judgement: Good judgement present (Psych) Assessment & Plan Assessment & Plan (1) COPD (chronic obstructive pulmonary disease): Code(s): J44.9 - Chronic obstructive pulmonary disease, unspecified Category: Medical (2) Emphysema of lung: Code(s): J43.9 - Emphysema, unspecified Category: Medical (3) Nicotine dependence, cigarettes, uncomplicated: Comment: (current smoker, onset 16yo, 1ppd x 47yrs, 40pyh) Code(s): F17.210 - Nicotine dependence, cigarettes, uncomplicated Category: Medical Plan At this time Elena reports good control of respiratory symptoms using Trelegy and albuterol MDI. Advised to continue. She would likely benefit from nebulized therapy at home, and was given a nebulizer in office today. Will send [employer] p.r.n. Prior chest CT from November 2024 revealed resolution of pneumonia and will have low-dose CT in 1 year through the lung screening program. All questions were answered and patient is in agreement of plan. Will follow-up in 3 months or sooner if needed. Medications: New ipratropium-albuterol 0.5 mg-3 mg(2.5 mg base)/3 mL 3 mL inhalation Q6H PRN 180 mL 2RF wheezing Coding Level of Care Code Est Pt Level 4 (51413) Diagnoses COPD (chronic obstructive pulmonary disease) J44.9 Emphysema of lung J43.9 Nicotine dependence, cigarettes, uncomplicated F17.210
[2025-01-23 09:44] VITALS: BP 152/74; PULSE 75; O2SAT 100; BMI 23.8
--- OUTSIDE RECORDS SUMMARY | 2025-01-23 09:52 | XMS_ITS | Encounter Summary ---
Author Organization [employer] Address [address] [place] [address] Care Team Providers Care Claims Technician Name Role Phone Name, Deven THOMPSON Primary Care Provider [phone] Encounter Details Date Type Department Care Team ([facility] st Contact Info) Description 11/27/2022 Abstract [facility] MEDICINE [address] [place] [address] Name, MD Deven [address] [place] [address] Social History Tobacco Use Types Packs/Day Years [...] on filedocumented in this encounter Care Teams Claims Technician Relationship Specialty Start Date End Date Name, MD Deven [address] [place] [address] PCP - General Family Medicine 09/28/15 documented as of this encounter
== END 2025-01-23 10:08 | disposition home or self-care (01) ==
LOC: HO.HPSW 09:43
PROVIDERS: PCP Internal Medicine Geriatric Medicine; Visit Provider Nurse Practitioner Family
DX: J44.9 Chronic obstructive pulmonary disease, unspecified (principal); J43.9 Emphysema, unspecified; F17.210 Nicotine dependence, cigarettes, uncomplicated
CPT/HCPCS: 99214

== ENCOUNTER → 2025-01-23 09:43 | Outpatient (BNVA) | payer OTHER, SELFPAY | PROVIDERS: PCP Internal Medicine Geriatric Medicine; Visit Provider Nurse Practitioner Family | DX: I10 Essential (primary) hypertension (principal); Z91.09 Other allergy status, other than to drugs and biological substances; J44.9 Chronic obstructive pulmonary disease, unspecified; J43.9 Emphysema, unspecified; F17.210 Nicotine dependence, cigarettes, uncomplicated | CPT/HCPCS: 99212 ==

== ENCOUNTER 2025-03-05 15:32 | Outpatient (REF) | payer OTHER, SELFPAY ==
--- NOTE | ~2025-03-05 | MM_ITS ---
EXAMINATION: MM SCREENING DIGITAL BREAST TOMOSYNTHESIS, BILATERAL CLINICAL INFORMATION: Screening. Asymptomatic. COMPARISON: Comparison made to multiple prior, most recent October 09, 2022, and most remote November 21, 2018. TECHNIQUE: Digital breast tomosynthesis is performed in mediolateral oblique and craniocaudal views along with computer-aided detection (CAD). Synthesized 2D images are generated from the tomosynthesis. FINDINGS: BREAST COMPOSITION: The breasts are heterogeneously dense, which may obscure small masses (ACR BI-RADS breast composition Category c). BILATERAL BREASTS: No significant masses, suspicious calcifications or other abnormalities are seen in either breast. MM/MM tomosynthesis screening BI IMPRESSION: BILATERAL BREASTS: Negative, no mammographic evidence of malignancy. Normal interval follow-up is recommended in 12 months. ASSESSMENT: BI-RADS 1 - Negative RECOMMENDATION: Routine annual mammography screening. FOLLOW-UP: 1 year F/U This examination should not preclude the clinical evaluation of a suspicious palpable abnormality. This patient's information was entered into a reminder system with a target due date for their next mammogram. Electronically signed by: Anayeli Shaw MD 03/09/2025 07:36 PM EDT
--- OUTSIDE RECORDS SUMMARY | 2025-03-05 18:40 | XMS_ITS | Encounter Summary ---
Author Organization [employer] Address [address] [place] [address] Care Team Providers Care Contract Project Manager Name Role Phone Name, Deven THOMPSON Primary Care Provider [phone] Reason for Visit * Reason Comments Med Refill Encounter Details Date Type Department Care Team ([facility] st Contact Info) Description 10/24/2024 Refill [facility] MEDICINE [address] [place], [place] [phone] Name, MD Deven [address] [place] [address] Social History Tobacco Use Types Packs/Day Years [...] documented as of this encounter Care Teams Contract Project Manager Relationship Specialty Start Date End Date Name, MD Deven [address] [place] [address] PCP - General Family Medicine 09/28/15 documented as of this encounter
--- OUTSIDE RECORDS SUMMARY | 2025-03-05 18:40 | XMS_ITS | Encounter Summary ---
Author Organization [employer] Address [address] [facility] [address] [place] [address] Care Team Providers Care Optics Manufacturing Technician Name Role Phone Name, Deven THOMPSON Primary Care Provider [phone] Reason for Visit * Reason Onset Date Comments Nurse Triage 03/05/2024 Encounter Details Date Type Department Care Team ([facility] st Contact Info) Description 03/05/2024 Telephone [facility] MEDICINE [address] [place], [place] [phone] Name, MD Deven [address] [place] [address] Nurse Triage Social History Tobacco Use Types [...] [facility] [place], Pt lives in [place] and is closer to [facility]. Advised to go to which ever ED is convenient for Pt, [facility] is able to obtain reports as needed. [...] documented as of this encounter Care Teams Optics Manufacturing Technician Relationship Specialty Start Date End Date Name, MD Deven [address] [place] [address] PCP - General Family Medicine 09/28/15 documented as of this encounter
--- OUTSIDE RECORDS SUMMARY | 2025-03-05 18:40 | XMS_ITS | Encounter Summary ---
Author Organization [employer] Address [address] [facility] [address] [place] [address] Care Team Providers Care Plastic Press Molder Name Role Phone Name, Deven THOMPSON Primary Care Provider [phone] Encounter Details Date Type Department Care Team ([facility] st Contact Info) Description 11/27/2022 Abstract [facility] MEDICINE [address] [place] [address] Name, MD Deven [address] [place] [address] Social History Tobacco Use Types Packs/Day Years [...] on filedocumented in this encounter Care Teams Plastic Press Molder Relationship Specialty Start Date End Date Name, MD Deven [address] [place] [address] PCP - General Family Medicine 09/28/15 documented as of this encounter
--- OUTSIDE RECORDS SUMMARY | 2025-03-05 18:40 | XMS_ITS | Encounter Summary ---
Author Organization [employer] Address [address] [facility] [place] [address] Care Team Providers Care Lining Cleaner Name Role Phone Name, Deven THOMPSON Primary Care Provider [phone] Reason for Visit * Reason Comments Med Refill Encounter Details Date Type Department Care Team ([facility] st Contact Info) Description 10/07/2024 Refill [facility] MEDICINE [address] [place], [place] [phone] Name, MD Deven [address] [place] [address] Hypertension, unspecified type Social History Tobacco Use [...] documented as of this encounter Care Teams Lining Cleaner Relationship Specialty Start Date End Date Name, MD Deven [address] [place] [address] PCP - General Family Medicine 09/28/15 documented as of this encounter
--- OUTSIDE RECORDS SUMMARY | 2025-03-05 18:40 | XMS_ITS | Encounter Summary ---
Author Organization [employer] Address [address] [place] [address] Care Team Providers Care Field Instructor Name Role Phone Name, Deven THOMPSON Primary Care Provider [phone] Reason for Visit * Reason Comments Med Change Request Encounter Details Date Type Department Care Team ([facility] Contact Info) Description 10/16/[address] [facility] MEDICINE [address] [place], [place] [phone] Name, MD Deven [address] [place] [address] Social History Tobacco Use Types Packs/Day Years [...] documented as of this encounter Care Teams Field Instructor Relationship Specialty Start Date End Date Name, MD Deven [address] [place] [address] PCP - General Family Medicine 09/28/15 documented as of this encounter
--- OUTSIDE RECORDS SUMMARY | 2025-03-05 18:40 | XMS_ITS | Clinical Summary ---
Author Organization [employer] Address [address] [facility] [place] [address] Care Team Providers Care Hog Ringer Name Role Phone Name, Deven THOMPSON Primary Care Provider [phone] Allergies Active Allergy Reactions Criticality Noted Date Comments Penicillins 09/05/2023 Other Reaction(s): thrush Medications albuterol 108 (90 Base) MCG/ACT inhalerIndicatio ns:Other cough Inhale 2 puffs every 6 (six) hours if needed for wheezing. 18 g 2 07/26/2023 Active amphetamine-dext roamphetamine (Adderall) 15 MG tabletIndication s:Hypertension, unspecified type Take 1 tablet (15 mg) by mouth 2 times daily. 02/28/2024 Active losartan-hydroCH LOROthiazide (Hyzaar) 100-12.5 MG tablet Take 1 tablet by mouth Once per day. 30 tablet 08/20/2024 08/20/19 26 Active ezetimibe (Zetia) 10 MG tablet Take 1 tablet (10 mg) by mouth Once per day. 30 tablet 09/24/2024 09/25/19 26 Active potassium chloride ER (Micro-K) 10 MEQ ER capsuleIndicatio ns:Hypokalemia TAKE 1 CAPSULE BY MOUTH EVERY DAY. DO NOT CRUSH OR CHEW. 30 capsule 11/27/2024 Active amLODIPine (Norvasc) 10 MG tabletIndication s:Hypertension, unspecified type Take 1 tablet (10 mg) by mouth Once per day. 90 tablet 1 01/23/2025 Active Active Problems Problem Noted Date Diagnosed Date Encounter for screening mamm ogram for malignant neoplasm of breast 01/21/2025 Muscle spasm 01/08/2024 Assessment & Plan (01/20/2024 [...] fibroid uterus Coronary artery disease invo lving circle coronary artery of circle heart without angina pectoris 09/26/2017 Overview (08/24/2022): [...] Encounters Date Type Department Care Team Description 01/27/2025 Telephone [facility] [address] [place] [address] Bria Sheets ANP 01/23/2025 Orders Only [facility] [address] [place] [address] Bria Sheets ANP Hypertension, unspecified type 01/21/2025 Orders Only [facility] [address] [place] [address] Юлия Sloan NP Encounter for screening mammogram for malignant neoplasm of breast (Primary Dx) 12/18/2024 Telephone [facility] [address] [place] [address] Name, MD Deven 12/18/2024 Orders Only [facility] External Provider, [facility] from Last 3 Months Immunizations Immunization Administration Dates Next Due Hep A, Adult [...] 76 09/24/2024 10:01 AM EDT Temperature 36.9 C (98.4 F) 09/24/2024 10:01 AM EDT Respiratory Rate 21 09/24/2024 10:01 AM EDT [...] 3 - 19+ 3-dose series) 06/25/2012 05/28/2012 Zoster Vaccines (2 of 2) 04/30/2021 03/05/2021 Mammogram 10/09/2024 10/09/2022, 09/23, 10/03/2021, Additional history exists Influenza Vaccine (#1) 2025 , 02/27/2023, 03/24/2022, Additional history exists Depression Monitoring 03/26/2025 09/24/2024, 025 SDOH Screening 09/17/2025 09/17/2024 Disability Screening 09/24/2025 09/24/2024 Tobacco Screening 09/24/2025 09/24/2024 Colonoscopy 09/04/2028 09/05/2023, [...] Completed 02/21/2024, , 03/24/2022, Additional history exists RSV Patients and Patients Aged 60 years or older Completed 02/21/2024 HIB Vaccines Aged Out No longer eligi ble based on patient's age to complete this topic HPV Vaccines Aged Out No longer eligi ble based on patient's age to complete this topic IPV Vaccines Aged Out No longer eligi ble based on patient's age to complete this topic Meningococcal B Vaccine Aged Out No l onger eligible based on patient's age to complete [...] Procedure Name Priority Date/Time Associated Diagnosis Comments LDCT LUNG SCREENING Routine 12/18/2024 1 0:04 AM EDT LIPID PANEL, STANDARD Routine 09/24/2024 10:36 AM EDT Statin myopathy HM COLONOSCOPY Routine 09/05/2023 HEPATITIS C VIRAL RNA, QUANTITATIVE, REAL-TIME PCR Routine 03/29/2023 2:11 PM EDT BI MAMMOGRAM SCREENING TOMOSYNTHESIS BILATERAL Routine 10/09/2022 8:32 AM EDT from Last 3 Months or Most Recently Relevant to Health Maintenance Results * CT Lung Screening Low dose (12/18/2024 10:04 AM EDT) Anatomical Region Laterality Modality Lung Computed Tomogra phy 12/18/2024 10:0 4 AM EDT Narrative 12/18/2024 10:49 AM EDT [place] [id number] CT Scan Report Signed Patient: Elena Solis MR#: [id number] 51 : 1960 Acct:[id number] Age/Sex: 64 / F ADM Date: 12/18/24 Loc: HO.CT Attending Dr: Mayra Akhtar PA-C Ordering Physician: Mayra Akhtar PA-C Date of Service: 12/18/24 Procedure(s): CT lung screening Accession Number(s): [id number] cc: Mayra Akhtar PA-C; Name,Deven THOMPSON Report Number: [id number]: Total DLP = 41.00 mGy-cm EXAMINATION: CT LOW-DOSE SCREENING CHEST WITHOUT CONTRAST CLINICAL INFORMATION: 64-year-old female, current smoker, 36 pack years, lung cancer screening. COMPARISON: 11/09/2023 low-dose screening exam. TECHNIQUE: Multidetector volumetric CT imaging of the chest is performed on a Siemens SOMATOM Definition scanner without contrast using low dose technique. Additional 2D coronal and sagittal reformatted images and axial 3D maximum intensity projection (MIP) images are generated on the CT workstation. This CT examination was performed using dose optimization techniques as appropriate, variously including the following: *Automated exposure control *Adjustment of mA and/or kV according to patient size (this includes techniques or standardized protocols for targeted exams where dose is matched to indication/reason for exam; i.e. extremities or head) *Use of iterative reconstruction technique FINDINGS: PULMONARY NODULES: -2 mm nodule lateral right upper lobe (series 5, image 27), unchanged. -3 mm nodule anterior right upper lobe (series 5, image 39), unchanged. -3 mm nodule anterior lateral right upper lobe (series 5, image 37) unchanged. -3 mm nodule anterolateral left upper lobe (series 5, image 35), unchanged. -3 mm subpleural nodule superior segment left lower lobe (series 5, image 53), unchanged. -3 mm subpleural nodule posterior left lower lobe (series 5, image 114), unchanged. -No new or enlarging nodule detected. LUNGS: -Minimal centrilobular emphysema. -Lungs otherwise clear. No abnormal groundglass or consolidative opacities. -Small airways appear normal without thickening. -Central airways are normal. -No pleural effusion or pneumothorax. MEDIASTINUM: -Normal partially imaged thyroid. -No lymphadenopathy or mass in the mediastinum. -Moderately calcified aortic arch and proximal great vessels. No aneurysm. -Heart size normal. No pericardial effusion. -No esophageal abnormality. CORONARY ARTERY CALCIFICATION: Moderate to heavy three-vessel coronary calcification. CHEST WALL/AXILLA: No masses or abnormal lymph nodes. UPPER ABDOMEN: Atheromatous vascular calcification present. Imaged upper abdominal contents otherwise normal. OSSEOUS STRUCTURES: No suspicious focal findings. CT/CT lung screening IMPRESSION: 1. A few scattered stable pulmonary nodules measuring up to 3 mm. No new or enlarging pulmonary nodule. 2. No active lung disease. 3. Ancillary findings as discussed. ASSESSMENT: 1. Lung-RADS Category 2: Benign appearance or behavior of nodules. 2. Lung-RADS Category S: None. RECOMMENDATION: Continued routine annual low-dose CT lung screening in 1 year is recommended. An order for CT CHEST LOW DOSE CANCER SCREENING ([id number]) can be placed. Electronically signed by: Neri Castellanos MD 12/18/2024 10:46 AM EDT Dictated By: Neri Castellanos MD Signed By: <Electronically signed by Neri Castellanos MD in OV> 12/18/24 1046 DD/ 1004 TD/TT: 12/18/24 1014 [employer] Consultant: Procedure Note Donotuseinterpreter, Image - 12/18/[address] [place] [address] [address] Scan Report Signed Patient: Elena Solis LMR#: [id number] 51 : 1960cct:[id number] Age/Sex: 64 / FADM Date: 12/18/24 Loc: HO.CT Attending Dr: Mayra Akhtar PA-C Ordering Physician: Mayra Akhtar PA-C Date of Service: 12/18/24 Procedure(s): CT lung screening Accession Number(s): [id number] cc: Mayra Akhtar PA-C; Name,Deven THOMPSON Report Number: [id number]: Total DLP = 41.00 mGy-cm EXAMINATION: CT LOW-DOSE SCREENING CHEST WITHOUT CONTRAST CLINICAL INFORMATION: 64-year-old female, current smoker, 36 pack years, lung cancer screening. COMPARISON: 11/09/2023 low-dose screening exam. TECHNIQUE: Multidetector volumetric CT imaging of the chest is performed on a Siemens SOMATOM Definition scanner without contrast using low dose technique. Additional 2D coronal and sagittal reformatted images and axial 3D maximum intensity projection (MIP) images are generated on the CT workstation. This CT examination was performed using dose optimization techniques as appropriate, variously including the following: *Automated exposure control *Adjustment of mA and/or kV according to patient size (this includes techniques or standardized protocols for targeted exams where dose is matched to indication/reason for exam; i.e. extremities or head) *Use of iterative reconstruction technique FINDINGS: PULMONARY NODULES: -2 mm nodule lateral right upper lobe (series 5, image 27), unchanged. -3 mm nodule anterior right upper lobe (series 5, image 39), unchanged. -3 mm nodule anterior lateral right upper lobe (series 5, image 37) unchanged. -3 mm nodule anterolateral left upper lobe (series 5, image 35), unchanged. -3 mm subpleural nodule superior segment left lower lobe (series 5, image 53), unchanged. -3 mm subpleural nodule posterior left lower lobe (series 5, image 114), unchanged. -No new or enlarging nodule detected. LUNGS: -Minimal centrilobular emphysema. -Lungs otherwise clear. No abnormal groundglass or consolidative opacities. -Small airways appear normal without thickening. -Central airways are normal. -No pleural effusion or pneumothorax. MEDIASTINUM: -Normal partially imaged thyroid. -No lymphadenopathy or mass in the mediastinum. -Moderately calcified aortic arch and proximal great vessels. No aneurysm. -Heart size normal. No pericardial effusion. -No esophageal abnormality. CORONARY ARTERY CALCIFICATION: Moderate to heavy three-vessel coronary calcification. CHEST WALL/AXILLA: No masses or abnormal lymph nodes. UPPER ABDOMEN: Atheromatous vascular calcification present. Imaged upper abdominal contents otherwise normal. OSSEOUS STRUCTURES: No suspicious focal findings. CT/CT lung screening IMPRESSION: 1. A few scattered stable pulmonary nodules measuring up to 3 mm. No new or enlarging pulmonary nodule. 2. No active lung disease. 3. Ancillary findings as discussed. ASSESSMENT: 1. Lung-RADS Category 2: Benign appearance or behavior of nodules. 2. Lung-RADS Category S: None. RECOMMENDATION: Continued routine annual low-dose CT lung screening in 1 year is recommended. An order for CT CHEST LOW DOSE CANCER SCREENING ([id number]) can be placed. Electronically signed by: Neri Castellanos MD 12/18/2024 10:46 AM EDT Dictated By: Neri Castellanos MD Signed By: <Electronically signed by Neri Castellanos MD in OV> 12/18/24 1046 DD/ 1004 TD/TT: 12/18/24 1014 [employer] Consultant: [facility] External Provider IMG CT PROCEDURES Final Result * (ABNORMAL) Lipid Panel, Standard (09/24/2024 10:36 AM EDT) Triglycerides 71 <150 mg/dL [facility] Comment:Desirable Triglyceri de: less than 150 mg/dLBorderline High Triglyceride 150-199 mg/dLHigh Triglyceride: 200-499 mg/dLVery High Triglyceride: greater than or equal to 5OO mg/dL Cholesterol 226(H) <200 mg/dL [facility] Comment:Desirable Cholestero l: less than 200 mg/dLBorderline High Cholesterol: 200-239 mg/dLHigh Cholesterol: greater than 239 mg/dL LDL Cholesterol Calculated 126(H) <100 mg/dL [facility] Comment:Desirable LDL: less than 100 mg/dLNear Optimal/Above Optimal LDL: 110- 129 mg/dLBorderline High LDL: 130-159 mg/dLHigh LDL: 160-189 mg/dLVery High LDL: greater than or equal to 190 mg/dL HDL Cholesterol 86 >40 mg/dL [facility] Comment:Desirable HDL: great er than 40 mg/dL Note: This HDL assay may give artificially low results in patients with liver disease. Blood Venous blood specimen / Unknown 09/24/2024 10:36 AM EDT 09/24/2024 11:25 AM EDT us Deven Solis MD LAB BLOOD ORDERABLES Final Resul t [facility] [address] [place] [phone] * (ABNORMAL) Hm Colonoscopy (09/05/2023) Colonoscopy Abnormal(A ) Normal us Deven Solis MD HEALTH MAINTENANCE Final Result * Hepatitis C Viral RNA, Quantitative, Real-Time PCR (03/29/2023 2:11 PM EDT) Hepatitis C Viral Load <15 NOT DETECTED NOT DETECTED IU/mL [facility] HCV Log PCR <1.18 NOT DETECTED NOT DETECTED Log IU/mL [facility] Comment:This test was perfor med using Real-Time Polymerase ChainReaction.Reportable Range: 15 IU/mL to 100,000,000 IU/mL(1.18 Log IU/mL to 8.00 Log IU/mL).The analytical performance characteristics of thisassay have been determined by [employer].The modifications have not been cleared or approved bythe FDA. This assay has been validated pursuant to theCLIA regulations and is used for clinical purposes.For more information on this test, go to:http://education.boo-box/faq/PWI02r9(This link is being provided for informational/educational purposes only.)THIS TEST WAS PERFORMED AT:[facility] [place] [phone] THURSTON MD 03/29/2023 2:11 PM EDT 03/29/2023 2:11 PM EDT [facility] External Provider LAB BLO OD ORDERABLES Final Result [facility] [address] [place] [phone] * BI Mammogram Screening Tomosynthesis Bilateral (10/09/2022 8:32 AM EDT) Anatomical Region Laterality Modality Breast Bilateral Mammography 10/09/2022 8:32 AM EDT Narrative 10/10/2022 12:47 PM EDT [facility] [address] [place] [address] [place] [address] Mammography Report Signed Patient: Elena Solis MR#: [id number] 51 : 1960 Acct:[id number] Age/Sex: 62 / F ADM Date: 10/09/22 Loc: HO.MAMMO Attending Dr: Deven Solis MD Ordering Physician: Deven Solis MD Results: 1Negative Date of Service: 10/09/22 Follow Up: 1 Year From Orig inal Mammogram Procedure(s): MM tomosynthesis screening BI Accession Number(s): [id number] cc: Deven Solis MD EXAMINATION: MM SCREENING [...] in OV> 10/10/22 1244 DD/ 0832 TD/TT: [employer] Consultant: SK Procedure Note Donotuseinterpreter, Image - 10/10/2022 [facility] [address] [place], [place] [address] Mammography Report Signed Patient: Elena Solis LMR#: [id number] [birth year] : 1Acct:[id number] Age/Sex: 62 / FADM Date: 10/09/22 Loc: HO.MAMMO Attending Dr: Deven Solis MD Ordering Physician: Deven Solis MDResults: 1Negative Date of Service: 10/09/22Follow Up: 1 Year From Orig inal Mammogram Procedure(s): MM tomosynthesis screening BI Accession Number(s): [id number] cc: Deven Solis MD EXAMINATION: MM SCREENING [...] in OV> 10/10/22 1244 DD/ 0832 TD/TT: [employer] Consultant: KATI [facility] External Provider IMG BI PROCEDURES Edited Result - Final from Last 3 Months or Most Recently Relevant to Health Maintenance [place] [place] [address] Care Teams Hog Ringer Relationship Specialty Start Date End Date Name, MD Deven [address] [place] [phone] PCP - General Family Medicine 09/28/15
== END 2025-03-05 15:33 | disposition home or self-care (01) ==
LOC: HO.MAMMO 15:32
PROVIDERS: PCP Internal Medicine Geriatric Medicine; Visit Provider Nurse Practitioner Family
DX: Z12.31 Encounter for screening mammogram for malignant neoplasm of breast (principal)
CPT/HCPCS: 77063; 77067

== ENCOUNTER → 2025-03-05 15:34 | Outpatient (BNV) | payer OTHER, SELFPAY | PROVIDERS: PCP Internal Medicine Geriatric Medicine; Visit Provider Radiology Body Imaging | DX: Z12.31 Encounter for screening mammogram for malignant neoplasm of breast (principal) | CPT/HCPCS: 77063; 77067 ==

== ENCOUNTER 2025-06-03 14:25 | Outpatient (REF) | payer OTHER, SELFPAY ==
--- NOTE | ~2025-06-03 | XR_ITS ---
EXAMINATION: XR RIBS, LEFT CLINICAL INFORMATION: Pain to left anterior ribs x3 weeks. No recalled injury. COMPARISON: Chest radiograph 11/13/2024, 12/15/2023. TECHNIQUE: 3 views of the left ribs were obtained. FINDINGS: Lungs are clear. No consolidation, pneumothorax, or pleural effusion. The cardiomediastinal silhouette and pulmonary vasculature are normal. Osseous structures are unremarkable. Ribs are intact. No fractures or rib lesions are identified. XR/XR ribs LT min 3V w CXR1V IMPRESSION: No acute findings of the thorax. No rib fractures or rib lesion. Electronically signed by: Neri Castellanos MD 06/03/2025 02:57 PM EST
--- OUTSIDE RECORDS SUMMARY | 2025-06-03 14:00 | XMS_ITS | Encounter Summary ---
Author Organization [employer] Address [address] [facility] 7t [place] [address] Care Team Providers Care Crib Tender Name Role Phone Name, Deven THOMPSON Primary Care Provider [phone] Reason for Visit * Reason Comments sick visit Encounter Details Date Type Department Care Team ([facility] Contact Info) Description 06/03/2025 2:00 PM EST Office Visit [facility] [address] [place] [address] Patricia Squires MD [address] [place] [address] LUQ pain (Primary Dx); Simple chronic bronchitis (CMS/HCC) (HCC); Dietary counseling; Exercise counseling; Hypertension, unspecified type Social History Tobacco Use [...] your housing situation today? I have kb laina 09/17/[address] you li [...] Sign Reading Time Taken Comments Blood Pressure 150/88 06/03/2025 2:00 PM EST Pulse 78 06/03/2025 2:00 PM EST Temperature 37 C (98.6 F) 06/03/2025 2:00 PM EST Respiratory Rate 20 06/03/2025 2:00 PM EST Oxygen Saturation 97% 06/03/2025 2:00 PM EST Inhaled Oxygen Concentration - - Weight 64.1 kg (141 lb 6.4 oz) 06/03/2025 2:00 P M EST Height 160 cm (5' 3 ) 06/03/2025 2:00 PM EST Body Mass Index 25.05 06/03/2025 2:00 PM EST documented in this encounter Progress Notes * Patricia Squires MD - 06/03/2025 2:00 PM EST SUBJECTIVE: Elena Solis is a 64 y.o. female who presents for acute visit. Denies recent illness, ER visit, or hospitalization. Acute Concerns: Left-sided rib pain - Onset 3 to 4 weeks ago - No antecedent trauma - Pain is bothersome, unable to sleep on left side Fatigue - Onset around the same time as rib pain (3 to 4 weeks ago) - Describes fatigue as sudden, unable to keep eyes open Gastrointestinal symptoms - Daily loose stools for 3 to 4 weeks - Stools accompanied by urgency and sense of explosiveness - Reports bloating and frequent gas - Denies blood or mucus in stool - Loose stools are difficult for everyday life - no one in her immediate [place] with similar symptoms Nausea - Started today - Appetite remains stable - Able to eat and drink without difficulty Recent travel - Traveled to [place] two months ago - Stayed at a resort for one week - Did not leave the resort Colonscopy 202, polyps removed Patient Active Problem List Diagnosis Date Noted Renal stone 06/03/2025 Cervical spondylosis 06/03/2025 Cervical radiculitis 06/03/2025 Cervical disc herniation 06/03/2025 Encounter for screening mammogram for malignant neoplasm of breast 01/21/2025 Muscle spasm 01/08/2024 Acute kidney injury 01/04/2024 Carotid arterial disease 01/04/2024 COPD (chronic obstructive pulmonary disease) ([facility]) 01/04/2024 Emphysema of lung ([facility]) 01/04/2024 Cough 01/04/2024 Diverticulosis of colon 01/04/2024 Hyperplastic colon polyp 01/04/2024 Tubular adenoma of colon 01/04/2024 Atherosclerotic cardiovascular disease 01/04/2024 Cervical radiculopathy 01/04/2024 Torticollis, acquired 12/10/2023 Springer's cyst of knee 09/06/2023 Bronchitis 09/06/2023 Bursitis of hip, right 09/06/2023 Chest pain 09/06/2023 Encounter for screening colonoscopy 09/06/2023 Impacted cerumen, left ear 09/06/2023 Osteoarthritis of knees, bilateral 09/06/2023 Radiculopathy of leg 09/06/2023 Sciatica 09/06/2023 Sinusitis 09/06/2023 Viral upper respiratory illness 09/06/2023 Attention deficit disorder of adult with hyperactivity 01/29/2023 Chronic hoarseness 01/29/2023 Current smoker 01/29/2023 Disorder of joint of spine 08/24/2022 Coronary artery disease involving [place]western [place] coronary artery of [place]western [place]one heart without angina pectoris 09/26/2017 Dyspnea on exertion 09/26/2017 Exercise-induced angina (CMS/HCC) 09/12/2017 Anxiety 04/15/2012 Right leg pain 04/15/2012 Hypertension 01/08/2010 ADHD 01/08/2007 Tobacco dependence syndrome 01/08/1978 History of colonoscopy 08/24/2022 H/O total hysterectomy 08/24/2022 Surgical History[1] Social History Social History Narrative Not on file Review of Systems Constitutional: Negative. Respiratory: Negative. Cardiovascular: Negative. Gastrointestinal: Positive for diarrhea and nausea. Musculoskeletal: Positive for arthralgias and back pain. Psychiatric/Behavioral: The patient is nervous/anxious. OBJECTIVE: Vitals: 06/03/25 1400 BP: (!) 150/88 BP Location: Left arm Patient Position: Sitting BP Cuff Size: Large adult Pulse: 78 Resp: 20 Temp: 98.6 ??F (37 ??C) TempSrc: Oral SpO2: 97% Weight: 141 lb 6.4 oz (64.1 kg) Height: 5' 3 (1.6 m) Physical Exam Vitals and nursing note reviewed. Constitutional: Appearance: Normal appearance. HENT: Head: Normocephalic and atraumatic. Cardiovascular: Rate and Rhythm: Normal rate and regular rhythm. Pulses: Normal pulses. Heart sounds: Normal heart sounds. Pulmonary: Effort: Pulmonary effort is normal. Breath sounds: Normal breath sounds. Abdominal: General: Abdomen is flat. Bowel sounds are normal. There is no distension. Palpations: Abdomen is soft. Tenderness: There is abdominal tenderness. There is no right CVA tenderness, left CVA tenderness, guarding or rebound. Comments: L sided upper quadrant pain with tenderness without guarding or rebound Skin: General: Skin is warm and dry. Neurological: General: No focal deficit present. Mental Status: She is alert and oriented to person, place, and time. Psychiatric: Mood and Affect: Mood normal. Behavior: Behavior normal. ASSESSMENT/PLAN LUQ pain: - Left-sided rib pain for 3 to 4 weeks without antecedent trauma. Associated symptoms include fatigue, daily loose stools with urgency and sense of explosiveness, bloating, frequent gas, and new onset nausea. No blood or mucus in stool. Appetite remains stable. - will obtain CBC< CMP, lipase, ESR, CRP - rib series L sided Xray - consider antibiotics, Bentyl, Imipramine depending on results Problem List Items Addressed This Visit Hypertension Relevant Medications amLODIPine (Norvasc) 10 MG tablet COPD (chronic obstructive pulmonary disease) ([facility]) Relevant Medications ipratropium-albuterol (Duo-Neb) 0.5-2.5 mg/3 mL nebulizer solution Trelegy Ellipta 200-62.5-25 MCG/ACT aerosol powder Other Visit Diagnoses LUQ pain - Primary Relevant Medications ondansetron (Zofran) 4 MG tablet Other Relevant Orders CBC auto differential Comprehensive Metabolic Panel Lipase Sed Rate by Modified Westergren C-reactive Protein XR Ribs 2 Views Left Dietary counseling Exercise counseling Follow Up: per PCP recall or sooner prn Allergies[2] Current Medications[3] [1] History reviewed. No pertinent surgical history. [2] Allergies Allergen Reactions Gabapentin Vomiting Penicillins Other Reaction(s): thrush [3] Current Outpatient Medications: FLUoxetine (PROzac) 20 MG capsule, Take 20 mg by mouth in the morning., Disp: , Rfl: ipratropium-albuterol (Duo-Neb) 0.5-2.5 mg/3 mL nebulizer solution, USE 3 ML VIA NEBULIZER EVERY 6 HOURS NEEDED FOR WHEEZING, Disp: , Rfl: LORazepam (Ativan) 0.5 MG tablet, Take 1 tablet by mouth Once per day., Disp: , Rfl: nicotine (Nicoderm, Step 1) 21 MG/24HR patch, APPLY 1 PATCH TO SKIN ONCE A DAY, Disp: , Rfl: sertraline (Zoloft) 25 MG tablet, TAKE 1 TABLET BY MOUTH ONCE A DAY 60 DAY, Disp: , Rfl: Trelegy Ellipta 200-62.5-25 MCG/ACT aerosol powder , inhale 1 puff by mouth daily, Disp: , Rfl: Xiidra 5 % solution, Administer 1 drop into both eyes 2 times daily., Disp: , Rfl: albuterol 108 (90 Base) MCG/ACT inhaler, Inhale 2 puffs every 6 (six) hours if needed for wheezing., Disp: 18 g, Rfl: 2 amLODIPine (Norvasc) 10 MG tablet, Take 1 tablet (10 mg) by mouth Once per day., Disp: 90 tablet, Rfl: 1 amphetamine-dextroamphetamine (Adderall) 15 MG tablet, Take 1 tablet (15 mg) by mouth 2 times daily., Disp: , Rfl: ezetimibe (Zetia) 10 MG tablet, Take 1 tablet (10 mg) by mouth Once per day., Disp: 30 tablet, Rfl:11 losartan-hydroCHLOROthiazide (Hyzaar) 100-12.5 MG tablet, TAKE 1 TABLET BY MOUTH DAILY, Disp: 30 tablet, Rfl: 11 ondansetron (Zofran) 4 MG tablet, Take 1 tablet (4 mg) by mouth every 8 (eight) hours if needed fornausea or vomiting for up to 7 days., Disp: 20 tablet, Rfl: 0 documented in this encounter Plan of Treatment Not on file documented as of this encounter Procedures Procedure Name Priority Date/Time Associated Diagnosis Comments XR RIBS 3 VIEWS LEFT W CHEST Routine 06/03/2025 2:45 PM EST CBC WITH AUTO DIFFERENTIAL Routine 06/03/2025 2:30 PM EST LUQ pain SED RATE BY MODIFIED WESTERGREN Routine 06/03/2025 2:30 PM EST LUQ pain C-REACTIVE PROTEIN Routine 06/03/2025 2: 30 PM EST LUQ pain LIPASE Routine 06/03/2025 2:30 PM EST LUQ pain COMPREHENSIVE METABOLIC PANEL Routine 06/03/2025 2:30 PM EST LUQ pain documented in this encounter Results * XR Ribs 3 Views Left w/ Chest (06/03/2025 2:45 PM EST) Anatomical Region Laterality Modality Radiographic Archana ging 06/03/2025 2:45 PM EST Narrative 06/03/2025 2:59 PM EST [address] [address] XRay Report Signed Patient: Elena Solis MR#: [id number] 51 : 1960 Acct:[id number] Age/Sex: 64 / F ADM Date: 06/03/25 Loc: HO[facility] Attending Dr: Deven Solis MD Ordering Physician: Patricia Squires Date of Service: 06/03/25 Procedure(s): XR ribs LT min 3V w CXR1V Accession Number(s): [id number] cc: Patricia Squires; Name,Deven THOMPSON Reason for Exam: pain x 3 weeks EXAMINATION: XR RIBS, LEFT CLINICAL INFORMATION: Pain to left anterior ribs x3 weeks. No recalled injury. COMPARISON: Chest radiograph 11/13/2024, 12/15/2023. TECHNIQUE: 3 views of the left ribs were obtained. FINDINGS: Lungs are clear. No consolidation, pneumothorax, or pleural effusion. The cardiomediastinal silhouette and pulmonary vasculature are normal. Osseous structures are unremarkable. Ribs are intact. No fractures or rib lesions are identified. XR/XR ribs LT min 3V w CXR1V IMPRESSION: No acute findings of the thorax. No rib fractures or rib lesion. Electronically signed by: Neri Castellanos MD 06/03/2025 02:57 PM [facility] Dictated By: Neri Castellanos MD Signed By: <Electronically signed by Neri Castellanos MD in OV> 06/03/25 1457 DD/ 1445 TD/TT: 06/03/25 1449 Operations And Maintenance Manager: Procedure Note Donotuseinterpreter, Image - 06/03/[address] [address] XRay Report Signed Patient: Elena Solis LMR#: [id number] [birth year] : 1960cct:[id number] Age/Sex: 64 / FADM Date: 06/03/25 Loc: HO.[facility] Attending Dr: Deven Solis MD Ordering Physician: Particia Squires Date of Service: 06/03/25 Procedure(s): XR ribs LT min 3V w CXR1V Accession Number(s): [id number] cc: Patricia Squires; Name,Deven THOMPSON Reason for Exam: pain x 3 weeks EXAMINATION: XR RIBS, LEFT CLINICAL INFORMATION: Pain to left anterior ribs x3 weeks. No recalled injury. COMPARISON: Chest radiograph 11/13/2024, 12/15/2023. TECHNIQUE: 3 views of the left ribs were obtained. FINDINGS: Lungs are clear. No consolidation, pneumothorax, or pleural effusion. The cardiomediastinal silhouette and pulmonary vasculature are normal. Osseous structures are unremarkable. Ribs are intact. No fractures or rib lesions are identified. XR/XR ribs LT min 3V w CXR1V IMPRESSION: No acute findings of the thorax. No rib fractures or rib lesion. Electronically signed by: Neri Castellanos MD 06/03/2025 02:57 PM EST Dictated By: Neri Castellanos MD Signed By: <Electronically signed by Neri Castellanos MD in OV> 06/03/25 1457 DD/ 1445 TD/TT: 06/03/25 1449 Operations And Maintenance Manager: Result [facility] Patricia Squires MD IMG XR PROCEDURES Final Result * C-reactive Protein (06/03/2025 2:30 PM EST) C Reactive Protein 0.11 < or = 0.50 mg/dL [facility] Blood Venous blood specimen / Unknown 06/03/2025 2:30 PM EST 06/03/2025 4:[address] [facility] Patricia Squires MD LAB BLOOD ORDERABLES Final Res ult Performing Organization Address [facility] Co de Phone Number [facility] [address] [place] [address] [phone] * Sed Rate by Modified Westergren (06/03/2025 2:30 PM EST) Erythrocyte Sedimentation Rate 5 1 - 30 MM/HR [facility] Comment:Patients with polycy themia and many hemoglobin abnormalitiesmay have depressed sed rates whereas patients with anemiamay have elevated sed rates. Blood Venous blood specimen / Unknown 06/03/2025 2:30 PM EST 06/03/2025 4:10 PM EST Patricia Squires MD LAB BLOOD ORDERABLES Final Res ult Performing Organization Address City/State/[facility] Co de Phone Number [facility] [address] [place] [address] [phone] * Lipase (06/03/2025 2:30 PM EST) Lipase 27 8 - 78 U/L [facility] Blood Venous blood specimen / Unknown 06/03/2025 2:30 PM EST 06/03/2025 4:10 PM EST us Patricia Squires MD LAB BLOOD ORDERABLES Final Res ult [facility] [address] [place] [address] [phone] * Comprehensive Metabolic Panel (06/03/2025 2:30 PM EST) Pathologist [facility] Sodium 139 135 - 145 mmol/L [facility] Potassium 3.9 3.3 - 5.1 mmol/L [facility] Chloride 106 96 - 108 mmol/L [facility] Carbon Dioxide 24 22 - 29 mmol/L [facility] Anion Gap 13 12 - 20 [facility] Urea Nitrogen (BUN) 12 9 - 16 mg/dL [facility] Creatinine, Serum 0.67 0.5 - 1.4 mg/dL [facility] Estimated Glomerular Filt Rate >60 [facility] Comment:Chronic Kidney Disea se: Estimated GFR < 60 mL/min/[id number] Kidney Disease: Estimated GFR < 15 mL/min/1.73m2 Glucose 87 60 - 115 mg/dL [facility] Calcium 9.2 8.4 - 10.2 mg/dL [facility] Bilirubin, Total 0.3 0.0 - 1.0 mg/dL [facility] Aspartate Amino Transferase 22 5 - 31 U/L [facility] Alanine Aminotransferase 25 0 - 31 U/L [facility] Total Protein 6.7 6.5 - 8.0 g/dL [facility] Albumin Level 4.5 3.5 - 5.0 g/dL [facility] Alkaline Phosphatase 72 39 - 117 U/L [facility] Blood Venous blood specimen / Unknown 06/03/2025 2:30 PM EST 06/03/2025 4:10 PM EST us Patricia Squires MD LAB BLOOD ORDERABLES Final Res ult [facility] [address] [place], [place] [phone] * (ABNORMAL) CBC auto differential (06/03/2025 2:30 PM EST) White Blood Count 9.9 4.8 - 10.8 X10*3/uL [facility] Red Blood Count 3.96(L) 4.20 - 5.50 X10*6/uL [facility] Hemoglobin 12.4 12.0 - 16.0 g/dl [facility] Hematocrit 37.5 37.0 - 47.0 % [facility] Mean Corpuscular Volume 94.7 80.0 - 98.0 fL [facility] Mean Corpuscular Hemoglobin 31.3 27.0 - 33.0 pg [facility] Mean Corpuscular HGB Conc 33.1 31.0 - 35.0 g/dl [facility] Red Cell Distribution Width 13.7 11.0 - 16.0 % [facility] Platelet Count 371 160 - 400 X10*3/uL [facility] Mean Platelet Volume 10.2 9.4 - 12.3 fL [facility] Neutrophils Percent Auto 59.7 45 - 73 % [facility] Imm Gran Pct Auto 0.7(H) 0.0 - 0.4 % [facility] Lymphocytes Percent Auto 26.9 20 - 40 % [facility] Monocytes Percent Auto 10.4 2 - 11 % [facility] Eosinophils Percent Auto 1.6 0 - 4 % [facility] Basophils Percent Auto 0.7 0 - 2 % [facility] NRBC Pct Auto 0.0 0.0 - 0.2 /100WBC [facility] Neutrophils Absolute Auto 5.9 2.0 - 8.3 x10*3/uL [facility] Imm Gran Abs Auto 0.07(H) 0.00 - 0.03 X10*3/uL [facility] Lymphocytes Absolute Auto 2.7 1.2 - 4.9 X10*3/uL [facility] Monocytes Absolute Auto 1.0 0.1 - 1.2 X10*3/uL [facility] Eosinophils Absolute Auto 0.2 0.0 - 0.4 X10*3/uL [facility] Basophils Absolute Auto 0.1 0.0 - 0.2 X10*3/uL [facility] NRBC Abs Auto 0.000 0.0 - 0.012 X10*3/uL [facility] Blood Venous blood specimen / Unknown 06/03/2025 2:30 PM EST 06/03/2025 4:10 PM EST us Patricia Squires MD LAB BLOOD ORDERABLES Final Res ult [facility] [address] [place] [phone] documented in this encounter Visit Diagnoses Diagnosis LUQ pain- Primary Abdominal pain, left upper quadrant Simple chronic bronchitis (CMS/HCC) (HCC) Simple chronic bronchitis Dietary counseling Dietary surveillance and counseling Exercise counseling Hypertension, unspecified type documented in this encounter Additional Health Concerns Assessment Noted Time PHQ-9 Depression Total Score: 14 025 10:41 AM EDT documented as of this encounter Care Teams Crib Tender Relationship Specialty Start Date End Date Name, MD Deven [address] [place] [address] PCP - General Family Medicine 09/28/15 documented as of this encounter
[2025-06-03 16:12] LABS: MANUAL DIFF FLAG NO
[2025-06-03 16:30] LABS: Hematocrit 37.5 % (37.0-47.0); Hemoglobin 12.4 g/dl (12.0-16.0); Imm Gran Abs Auto 0.07 X10*3/uL (0.00-0.03); Imm Gran Pct Auto 0.7 % (0.0-0.4); Lymphocytes Absolute Auto 2.7 X10*3/uL (1.2-4.9); Mean Corpuscular HGB Conc 33.1 g/dl (31.0-35.0); Mean Corpuscular Hemoglobin 31.3 pg (27.0-33.0); Mean Corpuscular Volume 94.7 fL (80.0-98.0); NRBC Abs Auto 0.000 X10*3/uL (0.0-0.012); NRBC Pct Auto 0.0 /100WBC (0.0-0.2); Platelet Count 371 X10*3/uL (160-400); Red Blood Count 3.96 X10*6/uL (4.20-5.50); White Blood Count 9.9 X10*3/uL (4.8-10.8)
[2025-06-03 16:49] LABS: Alanine Aminotransferase 25 U/L (0-31); Albumin Level 4.5 g/dL (3.5-5.0); Alkaline Phosphatase 72 U/L (39-117); Anion Gap 13 (12-20); Aspartate Amino Transferase 22 U/L (5-31); Blood Urea Nitrogen 12 mg/dL (9-16); Calcium 9.2 mg/dL (8.4-10.2); Carbon Dioxide 24 mmol/L (22-29); Chloride 106 mmol/L (96-108); Estimated Glomerular Filt Rate > 60; Lipase 27 U/L (8-78); Potassium 3.9 mmol/L (3.3-5.1); Sodium 139 mmol/L (135-145); Total Protein 6.7 g/dL (6.5-8.0)
--- OUTSIDE RECORDS SUMMARY | 2025-06-03 22:40 | XMS_ITS | Encounter Summary ---
Author Organization [employer] Address [address] [facility] [address] [place] [address] Care Team Providers Care Rail Assembler Name Role Phone Name, Deven THOMPSON Primary Care Provider [phone] Encounter Details Date Type Department Care Team ([facility] st Contact Info) Description 06/03/2025 Telephone [facility] [address] [place] [address] Lydia Rowe RN [address] [place] [address] Social History Tobacco Use Types Packs/Day Years [...] encounter Miscellaneous Notes * Telephone Encounter - Lydia Rowe RN - 06/03/2025 12:12 PM EST Received call from pt, for triage through [facility], spoke to pt. Pt states about 2 weeks duration of pain under her left ribs with tenderness to touch. Pt denies sob, radiation, arm or jaw pain, vomiting, numbness, palpitations, or other associated or severe symptoms. Pt also states diarrhea with some incontinence and a lot of fatigue. Pt denies fevers, illness symptoms, or other associated symptoms.Pt reports some cramping and inability to make it to the BR at times. Pt speaking in full sentences, without audible distress. Given appointment at pt request with Red team provider today at 2:00 forexam. Advised home care: rest, bland diet, fluids, protect clothing, and call back as needed. Pt understands and agrees with plan. documented in this encounter Plan of Treatment Not on file documented as of this encounter Visit Diagnoses Not on filedocumented in this encounter Additional Health Concerns Assessment Noted Time PHQ-9 Depression Total Score: 14 025 10:41 AM EDT documented as of this encounter Care Teams Rail Assembler Relationship Specialty Start Date End Date Name, MD Deven [address] [place] [phone] PCP - General Family Medicine 09/28/15 documented as of this encounter
--- OUTSIDE RECORDS SUMMARY | 2025-06-03 22:40 | XMS_ITS | Encounter Summary ---
Author Organization [email or web address] Address [address] [facility] 7t [place] [address] Care Team Providers Care Loading Manager Name Role Phone Name, Deven THOMPSON Primary Care Provider [phone] Reason for Visit * Reason Onset Date Comments Nurse Triage 06/03/2025 Encounter Details Date Type Department Care Team ([facility] st Contact Info) Description 06/03/2025 Telephone [facility] [address] [place], [place] [phone] Name, MD Deven [address] [place] [address] Nurse Triage Social History Tobacco Use Types [...] encounter Miscellaneous Notes * Telephone Encounter - Deven Han - 06/03/2025 12:10 PM EST Symptoms: Chest Pain - Adult, Diarrhea pt also has a hard time controlling her bowel movements. Outcome: Transfer to a nurse or provider NOW! Reason: Severe pain now The caller accepted this outcome. Contact pt at [phone] documented in this encounter Plan of Treatment Not on file documented as of this encounter Visit Diagnoses Not on filedocumented in this encounter Additional Health Concerns Assessment Noted Time PHQ-9 Depression Total Score: 14 025 10:41 AM EDT documented as of this encounter Care Teams Loading Manager Relationship Specialty Start Date End Date Name, MD Deven [address] [place] [address] PCP - General Family Medicine 09/28/15 documented as of this encounter
--- OUTSIDE RECORDS SUMMARY | 2025-06-03 22:40 | XMS_ITS | Encounter Summary ---
Author Organization [employer] Address [address] [facility] [address] [place] [address] Care Team Providers Care Grinder Operator Name Role Phone Name, Deven THOMPSON Primary Care Provider [phone] Reason for Visit * Reason Onset Date Comments Nurse Triage 03/05/2024 Encounter Details Date Type Department Care Team ([facility] st Contact Info) Description 03/05/2024 Telephone [facility] [address] [place], [place] [phone] Name, MD Deven [address] [place] [address] Nurse Triage Social History Tobacco Use Types [...] by blue team nurse. Pt asks if [facility] preferred, Pt lives in [place] and is closer to [facility]. Advised to go to which ever ED is convenient for Pt, [facility] is able to obtain reports as [...] documented as of this encounter Care Teams Grinder Operator Relationship Specialty Start Date End Date Name, MD Deven [address] [place] [address] PCP - General Family Medicine 09/28/15 documented as of this encounter
--- OUTSIDE RECORDS SUMMARY | 2025-06-03 22:40 | XMS_ITS | Encounter Summary ---
Author Organization [employer] Address [address] [facility] [address] [place] [address] Care Team Providers Care Crna Name Role Phone Name, Deven THOMPSON Primary Care Provider [phone] Encounter Details Date Type Department Care Team (Latest Contact Info) Description 06/03/2025 Travel Social History Tobacco Use Types Packs/Day [...] documented as of this encounter Care Teams Crna Relationship Specialty Start Date End Date Name, MD Deven [address] [place] [address] PCP - General Family Medicine 09/28/15 documented as of this encounter
--- OUTSIDE RECORDS SUMMARY | 2025-06-03 22:40 | XMS_ITS | Clinical Summary ---
Author Organization [employer] Address [address] [facility] [address] [place] [address] Care Team Providers Care Corn Husker Name Role Phone Name, Deven THOMPSON Primary Care Provider [phone] Allergies Active Allergy Reactions Criticality Noted Date Comments Gabapentin Vomiting 02/26/2024 Penicillins 09/05/2023 Other Reaction(s): thrush Medications albuterol 108 (90 Base) MCG/ACT inhalerIndicat ions:Other cough Inhale 2 puffs every 6 (six) hours if needed for wheezing. 18 g 2 07/26/19 24 Active amphetamine-de xtroamphetamin e (Adderall) 15 MG tabletIndicati ons:Hypertensi on, unspecified type Take 1 tablet (15 mg) by mouth 2 times daily. 02/28/20 24 Active ezetimibe (Zetia) 10 MG tablet Take 1 tablet (10 mg) by mouth Once per day. 30 tablet 11 09/25/19 25 026 Active losartan-hydro CHLOROthiazide (Hyzaar) 100-12.5 MG tablet TAKE 1 TABLET BY MOUTH DAILY 30 tablet 11 06/03/20 25 Active sertraline (Zoloft) 25 MG tablet TAKE 1 TABLET BY MOUTH ONCE A DAY 60 DAY 05/12/20 25 Active nicotine (Nicoderm, Step 1) 21 MG/24HR patch APPLY 1 PATCH TO SKIN ONCE A DAY 08/03/19 25 Active LORazepam (Ativan) 0.5 MG tablet Take 1 tablet by mouth Once per day. 06/04/20 24 Active Xiidra 5 % solution Administer 1 drop into both eyes 2 times daily. 04/03/20 25 Active ipratropium-al buterol (Duo-Neb) 0.5-2.5 mg/3 mL nebulizer solution USE 3 ML VIA NEBULIZER EVERY 6 HOURS NEEDED FOR WHEEZING 01/24/20 Active Trelegy Ellipta 200-62.5-25 MCG/ACT aerosol powder inhale 1 puff by mouth daily 05/26/20 Active FLUoxetine (PROzac) 20 MG capsule Take 20 mg by mouth in the morning. 04/03/20 Active amLODIPine (Norvasc) 10 MG tabletIndicati ons:Hypertensi on, unspecified type Take 1 tablet (10 mg) by mouth Once per day. 90 tablet 1 06/03/20 Active ondansetron (Zofran) 4 MG tablet Take 1 tablet (4 mg) by mouth every 8 (eight) hours if needed for nausea or vomiting for up to 7 days. 20 tablet 06/03/20 Active losartan-hydro CHLOROthiazide (Hyzaar) 100-12.5 MG tablet Take 1 tablet by mouth Once per day. 30 tablet 11 08/20/19 Discontinued potassium chloride ER (Micro-K) 10 MEQ ER capsuleIndicat ions:Hypokalem ia TAKE 1 CAPSULE BY MOUTH EVERY DAY. DO NOT CRUSH OR CHEW. 30 capsule 11/28/19 Discontinued( erapy completed) amLODIPine (Norvasc) 10 MG tabletIndicati ons:Hypertensi on, unspecified type Take 1 tablet (10 mg) by mouth Once per day. 90 tablet 1 01/24/20 025 Discontinued(Re order (will not trigger notification to Pharmacy)) predniSONE (Deltasone) 20 MG tablet Take 2 tablets by mouth Once per day. 03/13/20 025 Discontinued(Th erapy completed) neomycin-polym yxin-dexAMETHa sone (Maxitrol) 3.5-14035-1.1 ophthalmic suspension INSTILL ONE DROP INTO BOTH EYES FOUR TIMES A DAY. USE FOR TWO WEEKS 07/16/19 025 Discontinued(Th erapy completed) hydroCHLOROthi azide 12.5 MG tablet Take 12.5 mg by mouth in the morning. 07/23/19 025 Discontinued(Th erapy completed) doxycycline (Vibramycin) 100 MG capsule Take 1 capsule by mouth 2 times daily. 03/13/20 025 Discontinued( erapy completed) cefpodoxime (Vantin) 200 MG tablet TAKE 1 TABLET BY MOUTH TWICE DAILY. MUST ADMINISTER WITH A MEAL / FOOD 07/18/19 025 Discontinued( erapy completed) Active Problems Problem Noted Date Diagnosed Date Renal stone 06/03/2025 Cervical spondylosis 06/03/2025 Cervical radiculitis 06/03/2025 Cervical disc herniation 06/03/2025 Encounter for screening mamm ogram for malignant [...] 01/29/2023 Disorder of joint of spine 08/24/2022 History of colonoscopy 08/24/2022 Overview (08/24/2022): Normal back in 2012 H/O total hysterectomy 08/24/2022 Overview (08/24/2022): With BSO 2016 at [facility] for fibroid uterus Coronary artery disease invo lving wales coronary artery of wales heart without angina pectoris 09/26/2017 Overview (08/24/2022): [...] then ADHD 01/08/2007 Tobacco dependence syndrome 01/08/1978 Resolved Problems Problem Noted Date Diagnosed Date Resolved Date Uterine leiomyoma 08/24/2022 06/03/2025 Encounters Date Type Department Care Team Description 06/03/2025 2:00 PM EST Office Visit [facility] [address] [place] [address] [phone] Patricia Squires MD LUQ pain (Primary Dx); Simple chronic bronchitis (CMS/HCC) (HCC); Dietary counseling; Exercise counseling; Hypertension, unspecified type 06/03/2025 Travel 06/03/2025 Telephone [facility] [address] [place] [address] [phone] Lydia Rowe, RN 06/03/2025 Telephone [facility] [address] [place] [address] [phone] Deven Solis MD Nurse Triage 06/03/2025 Refill [facility] [address] [place] [address] [phone] Deven Solis MD from Last 3 Months Immunizations Immunization Administration Dates Next Due Hep A, Adult 05/28/2012 Hep B, adult 05/28/2012 Influenza injectable quadriv alent IIV4 with preservative 06/23/2017 Influenza injectable quadriv alent preservative free 02/27/2023,03/24/2022,03/05/2021,03/03 Influenza, Injectable, MDCK, preservative free 04/03/2025,02/21/2024 Influenza, Split (incl. valorie fied surface antigen) 04/15/2012 Moderna Covid-19 Vaccine 12+ 03/14/2023 Pfizer Covid-19 Vaccine 12+ Bivalent 03/24/2022 Pfizer Covid-19 Vaccine 12+ delta-sucrose (Amin Cap) 10/06/2021 Pneumococcal Conjugate PCV 20 07/26/2023 Pneumococcal Polysaccharide PPSV23 11/19/2014, RSV Adjuvant 02/21/2024 Td (adult), unspecified 08/19/2001 Tdap 09/15/2020 Zoster, [...] Mass Index 25.05 06/03/2025 2:00 PM EST Plan of Treatment Health Maintenance Due Date Last Done Comments CT Colonography 1960 FIT DNA/Cologuard 1960 FIT 1960 FOBT 1960 HIV Screening 1960 Sigmoidoscopy 1960 Alcohol/Substance Use Screening 1972 Pap Smear 1981 Cervical Cancer Screening 1990 HPV/Cotest 1990 Hepatitis B Vaccines (2 of 3 - 19+ 3-dose series) 06/25/2012 05/28/2012 Zoster Vaccines (2 of 2) 04/30/2021 03/05/2021 Depression Monitoring 03/26/2025 09/24/2024, 025 SDOH Screening 09/17/2025 09/17/2024 Disability Screening 09/24/2025 09/24/2024 Tobacco Screening 06/03/2026 06/03/2025 Mammogram 03/05/2027 03/05/2025, 09/23, 10/09/2022, Additional history exists Colonoscopy 09/04/2028 09/05/2023, 03/27/2013 Colorectal Cancer Screening 09/04/2028 Lipid Panel 09/24/2029 09/24/2024, 06/25, 08/24/2022, Additional history exists DTaP/Tdap/Td Vaccines (2 - Td or Tdap) 09/15/2030 09/15/2020, 08/19/2001 Hepatitis A Vaccines Aged Out 05/28/2012 No long er eligible based on patient's age to complete this topic Hepatitis C Screening Completed 03/29/2023 Pneumococcal Vaccine: 50+ Years Completed 07/26/2023, 11/19/2014, 04/15/2012 RSV Patients and Patients Aged 60 years or older Completed 02/21/2024 COVID-19 Vaccine Completed 04/03/2025, , 03/14/2023, Additional history exists Influenza Vaccine Completed 04/03/2025, , 02/27/2023, Additional history exists HIB Vaccines Aged Out [...] W CHEST Routine 06/03/2025 2:45 PM EST C-REACTIVE PROTEIN Routine 06/03/2025 2: 30 PM EST LUQ pain SED RATE BY MODIFIED WESTERGREN Routine 06/03/2025 2:30 PM EST LUQ pain LIPASE Routine 06/03/2025 2:30 PM EST LUQ pain COMPREHENSIVE METABOLIC PANEL Routine 06/03/2025 2:30 PM EST LUQ pain CBC WITH AUTO DIFFERENTIAL Routine 06/03/2025 2:30 PM EST LUQ pain BI MAMMOGRAM SCREENING TOMOSYNTHESIS BILATERAL Routine 03/05/2025 3:40 PM EDT Encounter for screening mammogram for malignant neoplasm of breast LIPID PANEL, STANDARD Routine 09/24/2024 10:36 AM EDT Statin myopathy HM COLONOSCOPY Routine 09/05/2023 HEPATITIS C VIRAL RNA, QUANTITATIVE, REAL-TIME PCR Routine 03/29/2023 2:11 PM EDT from Last 3 Months or Most Recently Relevant to Health Maintenance Results * XR Ribs 3 Views Left w/ Chest (06/03/2025 2:45 PM EST) Anatomical Region Laterality Modality Radiographic Archana ging 06/03/2025 2:45 PM EST Narrative 06/03/2025 2:59 PM EST [place] [address] XRay Report Signed Patient: Elena Solis MR#: [id number] [birth year] : 1960 Acct:[id number] Age/Sex: 64 / F ADM Date: 06/03/25 Loc: [facility] Attending Dr: Deven Solis MD Ordering Physician: Patricia Squires Date of Service: 06/03/25 Procedure(s): XR ribs LT min 3V w CXR1V Accession Number(s): [id number] cc: Patricia Squires; Name,Deven THOMPSON Reason for [...] Neri Castellanos MD 06/03/2025 02:57 PM EST RP Dictated By: Neri Castellanos MD Signed By: <Electronically signed by Neri Castellanos MD in OV> 06/03/251456 DD/ 44 TD/TT: 06/03/251448 Alarm Mechanism Adjuster: Procedure Note Donotuseinterpreter, Image - 06/03/[address] [address] XRay Report Signed Patient: Elena Solis LMR#: [id number] [birth year] : 1960cct:[id number] Age/Sex: 64 / FADM Date: 06/03/25 Loc: [facility] Attending Dr: Deven Solis MD Ordering Physician: Patricia Squires Date of Service: 06/03/25 Procedure(s): XR ribs LT min 3V w CXR1V Accession Number(s): [id number] cc: Patriica Squires; Name,Deven THOMPSON Reason for Exam: pain [...] Neri Castellanos MD 06/03/2025 02:57 PM EST RP Dictated By: Neri Castellanos MD Signed By: <Electronically signed by Neri Castellanos MD in OV> 06/03/251456 DD/ 44 TD/TT: 06/03/251448 Alarm Mechanism Adjuster: Patricia Squires MD IMG XR PROCEDURES Final Result * (ABNORMAL) CBC auto differential (06/03/2025 2:30 PM EST) White Blood Count 9.9 4.8 - 10.8 X10*3/uL [facility] Red Blood Count 3.96(L) 4.20 - 5.50 X10*6/uL [facility] Hemoglobin 12.4 12.0 - 16.0 g/dl [facility] Hematocrit 37.5 37.0 - 47.0 % [facility] Mean Corpuscular Volume 94.7 80.0 - 98.0 fL [facility] Mean Corpuscular Hemoglobin 31.3 27.0 - 33.0 pg [facility] Mean Corpuscular HGB Conc 33.1 31.0 - 35.0 g/dl [facility] Red Cell Distribution Width 13.7 11.0 - 16.0 % [facility] Platelet Count 371 160 - 400 X10*3/uL [facility] Mean Platelet Volume 10.2 9.4 - 12.3 fL [facility] Neutrophils Percent Auto 59.7 45 - 73 % [facility] Imm Gran Pct Auto 0.7(H) 0.0 - 0.4 % [facility] Lymphocytes Percent Auto 26.9 20 - 40 % [facility] Monocytes Percent Auto 10.4 2 - 11 % [facility] Eosinophils Percent Auto 1.6 0 - 4 % [facility] Basophils Percent Auto 0.7 0 - 2 % [facility] NRBC Pct Auto 0.0 0.0 - 0.2 /100WBC [facility] Neutrophils Absolute Auto 5.9 2.0 - 8.3 x10*3/uL [facility] Imm Gran Abs Auto 0.07(H) 0.00 - 0.03 X10*3/uL [facility] Lymphocytes Absolute Auto 2.7 1.2 - 4.9 X10*3/uL [facility] Monocytes Absolute Auto 1.0 0.1 - 1.2 X10*3/uL [facility] Eosinophils Absolute Auto 0.2 0.0 - 0.4 X10*3/uL [facility] Basophils Absolute Auto 0.1 0.0 - 0.2 X10*3/uL [facility] NRBC Abs Auto 0.000 0.0 - 0.012 X10*3/uL [facility] Blood Venous blood specimen / Unknown 06/03/2025 2:30 PM EST 06/03/2025 4:10 PM EST Patricia Squires MD LAB BLOOD ORDERABLES Final Res ult Performing Organization Address City/[facility]/ZIP Co de Phone Number [facility] [address] [place] [address] [phone] * Sed Rate by Modified Ameliaren (06/03/2025 2:30 PM EST) Erythrocyte Sedimentation Rate 5 1 - 30 MM/HR [facility] Comment:Patients with polycy themia and many hemoglobin abnormalitiesmay have depressed sed rates whereas patients with anemiamay have elevated sed rates. Blood Venous blood specimen / Unknown 06/03/2025 2:30 PM EST 06/03/2025 4:10 PM EST Patricia Squires MD LAB BLOOD ORDERABLES Final Res ult Performing Organization Address City/[facility] Co de Phone Number [facility] [address] [place] [phone] * C-reactive Protein (06/03/2025 2:30 PM EST) C Reactive Protein 0.11 < or = 0.50 mg/dL [facility] Blood Venous blood specimen / Unknown 06/03/2025 2:30 PM EST 06/03/2025 4:10 PM EST Patricia Squires MD LAB BLOOD ORDERABLES Final Res ult Performing Organization Address City/[facility]/ZIP Co de Phone Number [facility] [address] [place] [phone] * Lipase (06/03/2025 2:30 PM EST) Lipase 27 8 - 78 U/L [facility] Blood Venous blood specimen / Unknown 06/03/2025 2:30 PM EST 06/03/2025 4:10 PM EST us Patricia Squires MD LAB BLOOD ORDERABLES Final Res ult [facility] [address] [place] [address] [phone] * Comprehensive Metabolic Panel (06/03/2025 2:30 PM EST) Sodium 139 135 - 145 mmol/L [facility] Potassium 3.9 3.3 - 5.1 mmol/L [facility] Chloride 106 96 - 108 mmol/L [facility] Carbon Dioxide 24 22 - 29 mmol/L [facility] Anion Gap 13 12 - 20 [facility] Urea Nitrogen (BUN) 12 9 - 16 mg/dL [facility] Creatinine, Serum 0.67 0.5 - 1.4 mg/dL [facility] Estimated Glomerular Filt Rate >60 [facility] Comment:Chronic Kidney Disea se: Estimated GFR < 60 mL/min/1.23s5Utwqlc Kidney Disease: Estimated GFR < 15 mL/min/1.73m2 Glucose 87 60 - 115 mg/dL [facility] Calcium 9.2 8.4 - 10.2 mg/dL [facility] Bilirubin, Total 0.3 0.0 - 1.0 mg/dL [facility] Aspartate Amino Transferase 22 5 - 31 U/L [facility] Alanine Aminotransferase 25 0 - 31 U/L [facility] Total Protein 6.7 6.5 - 8.0 g/dL [facility] Albumin Level 4.5 3.5 - 5.0 g/dL [facility] Alkaline Phosphatase 72 39 - 117 U/L [facility] Blood Venous blood specimen / Unknown 06/03/2025 2:30 PM EST 06/03/2025 4:10 PM EST us Patricia Squires MD LAB BLOOD ORDERABLES Final Res ult [facility] [address] [facility] [address] [phone] * BI Mammogram Screening Tomosynthesis Bilateral (03/05/2025 3:40 PM EDT) Anatomical Region Laterality Modality Breast Bilateral Mammography 03/05/2025 3:40 PM EDT Narrative 03/09/2025 7:39 PM EDT [address] [place] [address] Mammography Report Signed Patient: Elena Solis MR#: [id number] [birth year] : 1960 Acct:[id number] Age/Sex: 64 / F ADM Date: 03/05/25 Loc: HO.MAMMO Attending Dr: Юлия Sloan NP Ordering Physician: Юлия Sloan NP Results: 1Negati ve Date of Service: 03/05/25 Follow Up: 1 Year From [facility]a Mammogram Procedure(s): MM tomosynthesis screening BI Accession Number(s): [id number] cc: Юлия Sloan OFFICE PROFESSIONAL; Name,Deven THOMPSON Reason For Exam: screening EXAMINATION: MM SCREENING DIGITAL BREAST TOMOSYNTHESIS, BILATERAL CLINICAL INFORMATION: Screening. Asymptomatic. COMPARISON: Comparison made to multiple prior, most recent October 09, 2022, and most remote November 21, 2018. TECHNIQUE: Digital breast tomosynthesis is performed in mediolateral oblique and craniocaudal views along with computer-aided detection (CAD). Synthesized 2D images are generated from the tomosynthesis. FINDINGS: BREAST COMPOSITION: The breasts are heterogeneously dense, which may obscure small masses (ACR BI-RADS breast composition Category c). BILATERAL BREASTS: No significant masses, suspicious calcifications or other abnormalities are seen in either breast. MM/MM tomosynthesis screening BI IMPRESSION: BILATERAL BREASTS: Negative, no mammographic evidence of malignancy. Normal interval follow-up is recommended in 12 months. ASSESSMENT: BI-RADS 1 - Negative RECOMMENDATION: Routine annual mammography screening. FOLLOW-UP: 1 year F/U This examination should not preclude the clinical evaluation of a suspicious palpable abnormality. This patient's information was entered into a reminder system with a target due date for their next mammogram. Electronically signed by: Anayeli Shaw MD 03/09/2025 07:36 PM EDT Dictated By: Anayeli Shaw MD Signed By: <Electronically signed by Anayeli Shaw MD in OV> 03/09/25 1936 DD/ 1540 TD/TT: 03/05/25 1600 Alarm Mechanism Adjuster: Procedure Note Donotuseinterpreter, Image - 03/09/[address] [place] [address] Mammography Report Signed Patient: Elena Solis LMR#: [id number] [birth year] : 1960cct:[id number] Age/Sex: 64 / FADM Date: 03/05/25 Loc: HO.MAMMO Attending Dr: Юлия Sloan NP Ordering Physician: Юлия Sloan NPResults: 1Negati ve Date of Service: 03/05/25Follow Up: 1 Year From Orig inal Mammogram Procedure(s): MM tomosynthesis screening BI Accession Number(s): [id number] cc: Юлия Sloan OFFICE PROFESSIONAL; Name,Deven THOMPSON Reason For Exam: screening EXAMINATION: MM SCREENING DIGITAL BREAST TOMOSYNTHESIS, BILATERAL CLINICAL INFORMATION: Screening. Asymptomatic. COMPARISON: Comparison made to multiple prior, most recent October 09, 2022, and most remote November 21, 2018. TECHNIQUE: Digital breast tomosynthesis is performed in mediolateral oblique and craniocaudal views along with computer-aided detection (CAD). Synthesized 2D images are generated from the tomosynthesis. FINDINGS: BREAST COMPOSITION: The breasts are heterogeneously dense, which may obscure small masses (ACR BI-RADS breast composition Category c). BILATERAL BREASTS: No significant masses, suspicious calcifications or other abnormalities are seen in either breast. MM/MM tomosynthesis screening BI IMPRESSION: BILATERAL BREASTS: Negative, no mammographic evidence of malignancy. Normal interval follow-up is recommended in 12 months. ASSESSMENT: BI-RADS 1 - Negative RECOMMENDATION: Routine annual mammography screening. FOLLOW-UP: 1 year F/U This examination should not preclude the clinical evaluation of a suspicious palpable abnormality. This patient's information was entered into a reminder system with a target due date for their next mammogram. Electronically signed by: Anayeli Shaw MD 03/09/2025 07:36 PM EDT RP Workstation: [email or web address] Dictated By: Anayeli Shaw MD Signed By: <Electronically signed by Anayeli Shaw MD in OV> 03/09/25 1936 DD/ 1540 TD/TT: 03/05/25 1600 Alarm Mechanism Adjuster: Юлия Sloan NP IMG BI PROCEDURES Final Result * (ABNORMAL) Lipid Panel, Standard (09/24/2024 10:36 AM EDT) Triglycerides 71 <150 mg/dL [facility] Comment:Desirable Triglyceri de: less than 150 mg/dLBorderline High Triglyceride 150-199 mg/dLHigh Triglyceride: 200-499 mg/dLVery High Triglyceride: greater than or equal to 5OO mg/dL Cholesterol 226(H) <200 mg/dL [facility] Comment:Desirable Cholestero l: less than 200 mg/dLBorderline High Cholesterol: 200-239 mg/dLHigh Cholesterol: greater than 239 mg/dL LDL Cholesterol Calculated 126(H) <100 mg/dL [facility] Comment:Desirable LDL: less than 100 mg/dLNear Optimal/Above Optimal LDL: 110- 129 mg/dLBorderline High LDL: 130-159 mg/dLHigh LDL: 160-189 mg/dLVery High LDL: greater than or equal to 190 mg/dL HDL Cholesterol 86 >40 mg/dL [facility] Comment:Desirable HDL: great er than 40 mg/dL Note: This HDL assay may give artificially low results in patients with liver disease. Blood Venous blood specimen / Unknown 09/24/2024 10:36 AM EDT 09/24/2024 11:25 AM EDT Result Kelsey Solis MD LAB BLOOD ORDERABLES Final Resul t [facility] [address] [place] [phone] * (ABNORMAL) Hm Colonoscopy (09/05/2023) Colonoscopy Abnormal(A ) Normal Result Kelsey Solis MD HEALTH MAINTENANCE Final Result * Hepatitis C Viral RNA, Quantitative, Real-Time PCR (03/29/2023 2:11 PM EDT) [facility] Hepatitis C Viral Load <15 NOT DETECTED NOT DETECTED IU/mL [facility] HCV Log PCR <1.18 NOT DETECTED NOT DETECTED Log IU/mL [facility] Comment:This test was perfor med using Real-Time Polymerase ChainReaction.Reportable Range: 15 IU/mL to 100,000,000 IU/mL(1.18 Log IU/mL to 8.00 Log IU/mL).The analytical performance characteristics of thisassay have been determined by [employer].The modifications have not been cleared or approved bythe FDA. This assay has been validated pursuant to theCLIA regulations and is used for clinical purposes.For more information on this test, go to:http://education.[employer]/faq/NTD67v3(This link is being provided for informational/educational purposes only.)THIS TEST WAS PERFORMED AT:[employer] [place] [phone] THURSTON MD 03/29/2023 2:11 PM EDT 03/29/2023 2:11 PM EDT [facility] External Provider LAB BLO OD ORDERABLES Final Result [facility] [address] [place] [phone] from Last 3 Months or Most Recently Relevant to Health Maintenance Insurance [facility] Care Teams Corn Husker Relationship Specialty Start Date End Date Name, MD Deven [address] [place] [address] PCP - General Family Medicine 09/28/15
--- OUTSIDE RECORDS SUMMARY | 2025-06-03 22:40 | XMS_ITS | Encounter Summary ---
Author Organization [employer] Address [address] [facility] [place] [address] Care Team Providers Care C Java Developer Name Role Phone Name, Deven THOMPSON Primary Care Provider [phone] Reason for Visit * Reason Comments Med Refill Encounter Details Date Type Department Care Team ([facility] st Contact Info) Description 10/07/2024 Refill [facility] [address] [place], [place] [phone] Name, MD Deven [address] [place] [address] Hypertension, unspecified type Social History Tobacco Use [...] documented as of this encounter Care Teams C Java Developer Relationship Specialty Start Date End Date Name, MD Deven [address] [place] [address] PCP - General Family Medicine 09/28/15 documented as of this encounter
--- OUTSIDE RECORDS SUMMARY | 2025-06-03 22:40 | XMS_ITS | Encounter Summary ---
Author Organization [employer] Address [address] [address] [place] [address] Care Team Providers Care Cost Consultant Name Role Phone Name, Deven THOMPSON Primary Care Provider [phone] Reason for Visit * Reason Comments Med Change Request Encounter Details Date Type Department Care Team ([facility] Contact Info) Description 10/16/[address] [facility] [address] [place], [place] [phone] Name, MD Deven [address] [place] [address] Social History Tobacco Use Types Packs/Day Years [...] documented as of this encounter Care Teams Cost Consultant Relationship Specialty Start Date End Date Name, MD Deven [address] [place] [address] PCP - General Family Medicine 09/28/15 documented as of this encounter
--- OUTSIDE RECORDS SUMMARY | 2025-06-03 22:40 | XMS_ITS | Encounter Summary ---
Author Organization [employer] Address [address] [facility] [address] [place] [address] Care Team Providers Care Fishing Accessories Maker Name Role Phone Name, Deven THOMPSON Primary Care Provider [phone] Encounter Details Date Type Department Care Team ([facility] st Contact Info) Description 11/27/2022 Abstract [facility] [address] [place] [address] Name, MD Deven [address] [place] [address] Social History Tobacco Use Types Packs/Day Years [...] on filedocumented in this encounter Care Teams Fishing Accessories Maker Relationship Specialty Start Date End Date Name, MD Deven [address] [place] [address] PCP - General Family Medicine 09/28/15 documented as of this encounter
--- OUTSIDE RECORDS SUMMARY | 2025-06-03 22:40 | XMS_ITS | Encounter Summary ---
Author Organization [employer] Address [address] 7[address] [place] [address] Care Team Providers Care Mva Reactor Operator Name Role Phone Name, Deven THOMPSON Primary Care Provider [phone] Reason for Visit * Reason Comments Med Refill Encounter Details Date Type Department Care Team ([facility] st Contact Info) Description 10/24/2024 Refill [facility] [address] [place], [place] [phone] Name, MD Deven [address] [place] [address] Social History Tobacco Use Types Packs/Day Years [...] documented as of this encounter Care Teams Mva Reactor Operator Relationship Specialty Start Date End Date Name, MD Deven [address] [place] [address] PCP - General Family Medicine 09/28/15 documented as of this encounter
--- OUTSIDE RECORDS SUMMARY | 2025-06-03 22:40 | XMS_ITS | Encounter Summary ---
Author Organization [employer] Address [address] [facility] [facility] [address] 7[address] [place] [address] Care Team Providers Care Director Sales Support Name Role Phone Name, Deven THOMPSON Primary Care Provider [phone] Reason for Visit * Reason Comments Med Refill Encounter Details Date Type Department Care Team ([facility] st Contact Info) Description 06/03/2025 Refill [facility] 230 [place], [place] [phone] Name, MD Deven [address] [place] [address] Social History Tobacco Use Types Packs/Day Years [...] is your housing situation today? I have bk marina 09/17/[address] you [...] documented as of this encounter Care Teams Director Sales Support Relationship Specialty Start Date End Date Name, MD Deven [address] [place] [address] PCP - General Family Medicine 09/28/15 documented as of this encounter
== END 2025-06-03 14:26 | disposition home or self-care (01) ==
LOC: HO.HHCL 14:25
PROVIDERS: PCP Internal Medicine Geriatric Medicine; Referring Provider General Practice; Visit Provider Internal Medicine Geriatric Medicine
DX: R10.12 Left upper quadrant pain (principal)
CPT/HCPCS: 36415; 71101; 80053; 83690; 85025; 85652; 86140

== ENCOUNTER → 2025-06-03 14:35 | Outpatient (BNV) | payer OTHER, SELFPAY | PROVIDERS: PCP Internal Medicine Geriatric Medicine; Referring Provider General Practice; Visit Provider Radiology Diagnostic Radiology | DX: R07.89 Other chest pain (principal) | CPT/HCPCS: 71101 ==

== ENCOUNTER 2025-06-19 14:26 | Outpatient (AMB) | payer OTHER, SELFPAY ==
[2025-06-19 14:30] VITALS: BP 106/54; PULSE 83; O2SAT 100; BMI 24.2
--- NOTE | 2025-06-19 14:30 | MHC.OFFVIS ---
Vital Signs 06/19/25 14:30 Height 5 ft 3 in Weight 136 lb 8 oz BMI 24.2 BP 106/54 L Blood Pressure Location Rt brachial Position Sitting Pulse 83 Pulse Source Pulse Oximeter Pulse Oximetry (%) 100 Oxygen Delivery Method Room Air Intake Visit Reasons: Shortness of breath Allergies Penicillins Adverse Reaction (Verified 06/19/25 14:33) thrush Gabapentin Adverse Reaction (Uncoded 06/19/25 14:33) Vomiting HPI Comments Details: Elena is a pleasant 64-year-old female, current 45+ pack-year smoker and underlying COPD, emphysema, HTN and hyperlipidemia. At baseline she reports good control of respiratory symptoms with the use of Trelegy, requiring albuterol MDI infrequently. The patient also reports developing symptoms of a URI over the last few days with associated productive cough, chest congestion, a sore throat, and blocked ears. She denies fevers or chills but reports fatigue and an episode of profuse sweating. Regarding her pulmonary history, she has a diagnosis of COPD and reports her shortness of breath is at baseline, though she has experienced some wheezing. She continues to smoke one pack of cigarettes per day and is enrolled in a lung cancer screening program, with her last CT scan in November being RADS2. Her immunizations are up to date, including flu and pneumonia vaccines. Pulmonology History - Diagnosis of Chronic Obstructive Pulmonary Disease (COPD). - Current daily medication is Trelegy. - Uses albuterol inhaler and nebulizer as needed for dyspnea. - Reports baseline shortness of breath and some wheezing. - Current smoker of one pack per day. - Enrolled in lung cancer screening program; last CT scan in November RADS2 [facility] Medical History Cervical spondylosis Atherosclerotic cardiovascular disease Hypertension Elevated cholesterol Nicotine dependence, cigarettes, uncomplicated Emphysema of lung ADHD Anxiety Tubular adenoma of colon Surgical History History of colonoscopy History of hysterectomy History of History of carpal tunnel surgery Family History Brother Cancer Social History Household Members: None Housing: House Do you presently have visiting nurse or other home services: No Alcohol intake: current Alcohol intake frequency: does not drink Patient Tobacco Use Status: Current everyday Tobacco user Tobacco use type: Cigarette Cigarette Packs Per Day: 1 Years Smoked: (onset 16yo, 1ppd x 47yrs, 40+PYH) Substance Use Type: Marijuana service: No Review of Systems Narrative Const Denies chills, Denies excessive sweating, Denies fever(s), Denies headache(s) and Denies night sweats Eyes Denies dry eyes, Denies irritation and Denies itchy eyes ENT Reports Normal hearing present, Denies headache(s), Denies nasal congestion and Denies nasal discharge Card Denies chest pain, Denies chest pain at rest, Denies chest pain with activity, Denies claudication, Denies leg edema, Denies orthopnea and Denies paroxysmal nocturnal dyspnea Resp Denies pain on inspiration, Denies pain with cough and Denies stridor Musc Denies myalgias Neuro Reports Normal hearing present and Denies headache(s) Endo Denies excessive sweating Anselmo/Lymph Denies lymphadenopathy Aller/Immun Denies itchy eyes and Denies seasonal rhinorrhea Physical Exam Exam Exam: Vital Signs: Last Vital Signs Pulse 83 06/19/25 14:30 BP 106/54 L 06/19/25 14:30 Pulse Ox 100 06/19/25 14:30 Oxygen Delivery Method Room Air 06/19/25 14:30 BMI result Body Mass Index 24.2 Const General: cooperative, healthy appearing, comfortable, no acute distress, well developed and alert Orientation/consciousness: patient oriented x3 Limitations: no limitations HEENT Head: Yes normal to inspection, Yes normocephalic and Yes atraumatic Ears: hearing grossly normal bilaterally and external ears normal Eyes General: appearance normal, both eyes and all related structures Eyelids: Yes eyelids normal Sclerae: sclerae normal EOM: EOMs intact bilaterally Neck Neck: Yes normal visual inspection and Yes no lymphadenopathy Lymphatic: no lymphadenopathy noted Chest Chest palpation & inspection: normal inspection of the chest Resp Effort & Inspection: normal respiratory effort, able to speak in complete sentences, no audible wheezes, no cough, no stridor, not tachypneic, no tripod positioning and no use of accessory muscles Auscultation: clear to auscultation bilaterally Cardio Jugular venous distension: no JVD Rate: regular rate Rhythm: regular rhythm Skin Other: warm, dry General skin exam: no rashes or lesions noted Neuro General: patient oriented x3 Cranial nerves: Yes Normal hearing present Cognition (Neuro): normal cognition Gait exam (Neuro): Normal gait present Extrem General: Yes normal to inspection, Yes capillary refill normal, Yes no clubbing, cyanosis or edema and Yes no pedal edema Psych Appearance: grossly normal and well kempt Speech and movement: Normal speech and movement present and Clear speech present Affect: normal affect Attitude: cooperative Thought process: Normal thought process present Thought content: Normal thought content present Insight: Good insight present (Psych) Judgement: Good judgement present (Psych) Assessment & Plan Assessment & Plan (1) COPD (chronic obstructive pulmonary disease): Code(s): J44.9 - Chronic obstructive pulmonary disease, unspecified Category: Medical (2) Emphysema of lung: Code(s): J43.9 - Emphysema, unspecified Category: Medical (3) Nicotine dependence, cigarettes, uncomplicated: Comment: (current smoker, onset 16yo, 1ppd x 47yrs, 40pyh) Code(s): F17.210 - Nicotine dependence, cigarettes, uncomplicated Category: Medical Plan Will treat bronchitic symptoms with azithromycin. A prescription for prednisone was also provided as a contingency, to be taken only for a significant increase in respiratory symptoms not responsive to albuterol. [id number] Mucinex DM was recommended to help thin secretions, along with increased fluid intake. The patient's COPD is stable with baseline shortness of breath and an oxygen saturation of 100%. The plan is to continue her daily high-dose Trelegy and use the albuterol inhaler as needed for any breakthrough symptoms like wheezing or chest tightness. A new prescription for an albuterol inhaler was sent in case her current one has . She was advised to check the expiration date on her nebulizer solution as well. The patient continues to smoke one pack of cigarettes per day. She will continue with the annual lung cancer screening program, with her next CT scan scheduled for November. Recommended she follow up in our office in three months, or sooner if her respiratory symptoms worsen. All questions were answered and patient is in agreement of plan. Patient Instructions - Start taking the azithromycin (Z-Live) today. - Take two tablets on the first day, and then one tablet per day for the next four days. - A prescription for prednisone has been sent to your pharmacy. - Only take it if you have severe wheezing, chest tightness, or trouble breathing that does not get better after using your albuterol rescue inhaler. - Continue taking your Trelegy inhaler every morning. - Use your albuterol rescue inhaler as needed for shortness of breath or wheezing. - Check the expiration date on your albuterol inhaler; a new prescription was sent in case you need it. - You may take Mucinex DM for your congestion. - Be sure to drink plenty of fluids with it. - Wear a mask when you are on the airplane for your trip. - Call our office if you have trouble getting your inhalers covered by your new Medicare plan in June. - Please schedule a follow-up appointment in three months, or call us sooner if you are not feeling better. Patient was informed and verbally consented to the use of an ambient scribe for clinic note documentation during this visit. Medications: New prednisone 40 mg (2 x 20 mg) PO DAILY 10 tabs 0RF azithromycin For 250 mg dose pack: take 500 mg today (day 1), then 250 mg for 4 days (days 2-5) PO 6 tabs 0RF Refilled albuterol sulfate 90 mcg/actuation 2 puffs inhalation Q4-6H PRN 1 ea 6RF shortness of breath or wheezing Coding Level of Care Code Est Pt Level 4 (95711) Add On Problem Visit Only Diagnoses COPD (chronic obstructive pulmonary disease) J44.9 Emphysema of lung J43.9 Nicotine dependence, cigarettes, uncomplicated F17.210
--- OUTSIDE RECORDS SUMMARY | 2025-06-19 14:30 | XMS_ITS | Encounter Summary ---
Author Organization [employer] Address [address] 7[address] [place] [address] Care Team Providers Care Mdm Developer Name Role Phone Name, Deven THOMPSON Primary Care Provider [phone] Reason for Visit * Reason Comments Med Refill Encounter Details Date Type Department Care Team ([facility] st Contact Info) Description 10/24/2024 Refill [facility]INE 230 [place], [place] [phone] Name, MD Deven 230 [place] [address] Social History Tobacco Use Types Packs/Day Years [...] documented as of this encounter Care Teams Mdm Developer Relationship Specialty Start Date End Date Name, MD Deven [address] [place] [address] PCP - General Family Medicine 09/28/15 documented as of this encounter
--- OUTSIDE RECORDS SUMMARY | 2025-06-19 14:30 | XMS_ITS | Encounter Summary ---
Author Organization [employer] Address [address] [facility] 7t [place] [address] Care Team Providers Care Tag Stringer Name Role Phone Name, Deven THOMPSON Primary Care Provider [phone] Encounter Details Date Type Department Care Team ([facility] st Contact Info) Description 11/27/2022 Abstract [facility] MEDICINE 230 [place] [address] Name, MD Deven [address] [place] [address] Social History Tobacco Use Types Packs/Day Years [...] on filedocumented in this encounter Care Teams Tag Stringer Relationship Specialty Start Date End Date Name, MD Deven [address] [place] [address] PCP - General Family Medicine 09/28/15 documented as of this encounter
--- OUTSIDE RECORDS SUMMARY | 2025-06-19 14:30 | XMS_ITS | Encounter Summary ---
Author Organization [employer] Address [address] 7[address] [place] [address] Care Team Providers Care Regional Rehabilitation Director Name Role Phone Name, Deven THOMPSON Primary Care Provider [phone] Reason for Visit * Reason Comments Med Refill Encounter Details Date Type Department Care Team ([facility] st Contact Info) Description 10/07/2024 Refill [facility] MEDICINE 230 [place], [place] [phone] Name, MD Deven 230 [place] [address] Hypertension, unspecified type Social History Tobacco Use [...] documented as of this encounter Care Teams Regional Rehabilitation Director Relationship Specialty Start Date End Date Name, MD Deven [address] [place] [address] PCP - General Family Medicine 09/28/15 documented as of this encounter
--- OUTSIDE RECORDS SUMMARY | 2025-06-19 14:30 | XMS_ITS | Encounter Summary ---
Author Organization [employer] Address [address] [facility] 7t [place] [address] Care Team Providers Care Media Analytics Manager Name Role Phone Name, Deven THOMPSON Primary Care Provider [phone] Reason for Visit * Reason Onset Date Comments Nurse Triage 06/03/2025 Encounter Details Date Type Department Care Team ([facility] st Contact Info) Description 06/03/2025 Telephone [facility] MED[facility]INE 230 [place], [place] [phone] Name, MD Deven [address] [place] [address] Nurse Triage Social History Tobacco Use Types [...] caller accepted this outcome. Contact pt at [phone] documented in this encounter Plan of Treatment Not on file documented as of this encounter Visit Diagnoses Not on filedocumented in this encounter Additional Health Concerns Assessment Noted Time PHQ-9 Depression Total Score: 14 025 10:41 AM EDT documented as of this encounter Care Teams Media Analytics Manager Relationship Specialty Start Date End Date Name, MD Deven [address] [place] [address] PCP - General Family Medicine 09/28/15 documented as of this encounter
--- OUTSIDE RECORDS SUMMARY | 2025-06-19 14:30 | XMS_ITS | Encounter Summary ---
Author Organization [employer] Address [address] [facility] 7t [place] [address] Care Team Providers Care Raw Products Director Name Role Phone Name, Deven THOMPSON Primary Care Provider [phone] Reason for Visit * Reason Onset Date Comments Nurse Triage 03/05/2024 Encounter Details Date Type Department Care Team ([facility] st Contact Info) Description 03/05/2024 Telephone [facility] MEDICINE [address] [place], [place] [phone] Name, MD Deven [address] [place] [address] Nurse Triage Social History Tobacco Use Types [...] by blue team nurse. Pt asks if [facility] preferred, Pt lives in [place] and is closer to [facility]. Advised to go to which ever ED is convenient for Pt, [facility] is able to obtain reports as [...] documented as of this encounter Care Teams Raw Products Director Relationship Specialty Start Date End Date Name, MD Deven [address] [place] [address] PCP - General Family Medicine 09/28/15 documented as of this encounter
--- OUTSIDE RECORDS SUMMARY | 2025-06-19 14:30 | XMS_ITS | Clinical Summary ---
Author Organization [employer] Address [address] [facility] 7t [place] [address] Care Team Providers Care Trauma Nurse Name Role Phone Name, Deven THOMPSON Primary Care Provider [phone] Allergies Active Allergy Reactions Criticality Noted Date [...] per day. 90 tablet 1 06/03/20 Active losartan-hydro CHLOROthiazide (Hyzaar) 100-12.5 MG tablet Take 1 tablet by mouth Once per day. 30 tablet 11 08/20/19 Discontinued potassium chloride ER (Micro-K) 10 MEQ ER capsuleIndicat ions:Hypokalem ia TAKE 1 CAPSULE BY MOUTH EVERY DAY. DO NOT CRUSH OR CHEW. 30 capsule 11/28/19 025 Discontinued( erapy completed) amLODIPine (Norvasc) 10 MG tabletIndicati ons:Hypertensi on, unspecified type Take 1 tablet (10 mg) by mouth Once per day. 90 tablet 1 01/24/20 025 Discontinued(Re order (will not trigger notification to Pharmacy)) predniSONE (Deltasone) 20 MG tablet Take 2 tablets by mouth Once per day. 03/13/20 025 Discontinued( erapy completed) neomycin-polym yxin-dexAMETHa sone (Maxitrol) 3.5-28965-5.1 ophthalmic suspension INSTILL ONE DROP INTO BOTH EYES FOUR TIMES A DAY. USE FOR TWO WEEKS 07/16/19 025 Discontinued( erapy completed) hydroCHLOROthi azide 12.5 MG tablet Take 12.5 mg by mouth in the morning. 07/23/19 025 Discontinued( erapy completed) doxycycline (Vibramycin) 100 MG capsule Take 1 capsule by mouth 2 times daily. 03/13/20 025 Discontinued( erapy completed) cefpodoxime (Vantin) 200 MG tablet TAKE 1 TABLET BY MOUTH TWICE DAILY. MUST ADMINISTER WITH A MEAL / FOOD 07/18/19 25 025 Discontinued(Th erapy completed) ondansetron (Zofran) 4 MG tablet Take 1 tablet (4 mg) by mouth every 8 (eight) hours if needed for nausea or vomiting for up to 7 days. 20 tablet 06/03/20 25 025 Active Problems Problem Noted Date Diagnosed Date [...] 08/24/2022 Overview (08/24/2022): With BSO 2016 [place] [facility] for fibroid uterus Coronary artery disease invo lving [place] coronary artery of [place] heart without angina pectoris 09/26/2017 Overview (08/24/2022): [...] Description 06/03/2025 2:00 PM EST Office Visit [facility] [address] [place] [address] Patricia Squires MD LUQ pain (Primary Dx); Simple chronic bronchitis (CMS/HCC) (HCC); Dietary counseling; Exercise counseling; Hypertension, unspecified type 06/03/2025 Travel 06/03/2025 Telephone [facility] [address] [place] [phone] Lydia Rowe, RN 06/03/2025 Telephone [facility] [address] [place] [phone] Deven Solis MD Nurse Triage 06/03/2025 Refill [facility] [address] [place] [address] [phone] Deven Solis MD from Last 3 Months [...] PM EST Narrative 06/03/2025 2:59 PM EST [place] [address] XRay Report Signed Patient: Elena Solis MR#: [id number] [birth year] : 1960 Acct:[id number] Age/Sex: 64 / F ADM Date: 06/03/25 Loc: [facility] Attending Dr: Deven Solis MD Ordering Physician: Patricia Squires Date of Service: 06/03/25 Procedure(s): XR ribs LT min 3V w CXR1V Accession Number(s): [id number] cc: Patricia Squires; Name,Deven THOMPSON Reason for [...] in OV> 06/03/251456 DD/ 44 TD/TT: 06/03/251448 Jigsaw Operator: Procedure Note Donotuseinterpreter, Image - 06/03/[address] [address] XRay Report Signed Patient: Elena Solis LMR#: [id number] [birth year] : 1960cct:[id number] Age/Sex: 64 / FADM Date: 06/03/25 Loc: HO.[facility] Attending Dr: Dveen Solis MD Ordering Physician: Patricia Squires Date of Service: 06/03/25 Procedure(s): XR ribs LT min 3V w CXR1V Accession Number(s): [id number] cc: Patricia Squires; Name,Deven THOMPSON Reason for [...] by Neri Castellanos MD in OV> 06/03/25 145 DD/ 44 TD/TT: 06/03/251448 Jigsaw Operator: us Patricia Sqiures MD IMG XR PROCEDURES Final Result * (ABNORMAL) CBC auto differential (06/03/2025 2:30 PM EST) White Blood Count 9.9 4.8 - 10.8 X10*3/uL [facility] Red Blood Count 3.96(L) 4.20 - 5.50 X10*6/uL [facility] Hemoglobin 12.4 12.0 - 16.0 g/dl [facility] Hematocrit 37.5 37.0 - 47.0 % [facility] Mean Corpuscular Volume 94.7 80.0 - 98.0 fL [facility] Mean Corpuscular Hemoglobin 31.3 27.0 - 33.0 pg [facility] Mean Corpuscular HGB Conc 33.1 31.0 - 35.0 g/dl [facility] Red Cell Distribution Width 13.7 11.0 - 16.0 % [facility] Platelet Count 371 160 - 400 X10*3/uL [facility] Mean Platelet Volume 10.2 9.4 - 12.3 fL [facility] Neutrophils Percent Auto 59.7 45 - 73 % [facility] Imm Gran Pct Auto 0.7(H) 0.0 - 0.4 % [facility] Lymphocytes Percent Auto 26.9 20 - 40 % [facility] Monocytes Percent Auto 10.4 2 - 11 % [facility] Eosinophils Percent Auto 1.6 0 - 4 % [facility] Basophils Percent Auto 0.7 0 - 2 % [facility] NRBC Pct Auto 0.0 0.0 - 0.2 /100WBC [facility] Neutrophils Absolute Auto 5.9 2.0 - 8.3 x10*3/uL [facility] Imm Gran Abs Auto 0.07(H) 0.00 - 0.03 X10*3/uL [facility] Lymphocytes Absolute Auto 2.7 1.2 - 4.9 X10*3/uL [facility] Monocytes Absolute Auto 1.0 0.1 - 1.2 X10*3/uL [facility] Eosinophils Absolute Auto 0.2 0.0 - 0.4 X10*3/uL [facility] Basophils Absolute Auto 0.1 0.0 - 0.2 X10*3/uL [facility] NRBC Abs Auto 0.000 0.0 - 0.012 X10*3/uL [facility] Blood Venous blood specimen / Unknown 06/03/2025 2:30 PM EST 06/03/2025 4:10 PM EST Patricia Squires MD LAB BLOOD ORDERABLES Final Res ult Performing Organization Address City/[facility]/ZIP Co de Phone Number [facility] [address] [place] [phone] * Sed Rate by Modified Ameliaren (06/03/2025 2:30 PM EST) Erythrocyte Sedimentation Rate 5 1 - 30 MM/HR [facility] Comment:Patients with polycy themia and many hemoglobin abnormalitiesmay have depressed sed rates whereas patients with anemiamay have elevated sed rates. Blood Venous blood specimen / Unknown 06/03/2025 2:30 PM EST 06/03/2025 4:10 PM EST Patricia Squires MD LAB BLOOD ORDERABLES Final Res ult Performing Organization Address [facility] Co de Phone Number [facility] [address] [place] [phone] * C-reactive Protein (06/03/2025 2:30 PM EST) C Reactive Protein 0.11 < or = 0.50 mg/dL [facility] Blood Venous blood specimen / Unknown 06/03/2025 2:30 PM EST 06/03/2025 4:10 PM EST Patricia Squires MD LAB BLOOD ORDERABLES Final Res ult Performing Organization Address City/[facility]/ZIP Co de Phone Number [facility] [address] [place] [phone] * Lipase (06/03/2025 2:30 PM EST) Lipase 27 8 - 78 U/L [facility] Blood Venous blood specimen / Unknown 06/03/2025 2:30 PM EST 06/03/2025 4:10 PM EST us Patricia Squires MD LAB BLOOD ORDERABLES Final Res ult [facility] [address] [place] [address] [phone] * Comprehensive Metabolic Panel (06/03/2025 2:30 PM EST) Sodium 139 135 - 145 mmol/L [facility] Potassium 3.9 3.3 - 5.1 mmol/L [facility] Chloride 106 96 - 108 mmol/L [facility] Carbon Dioxide 24 22 - 29 mmol/L [facility] Anion Gap 13 12 - 20 [facility] Urea Nitrogen (BUN) 12 9 - 16 mg/dL [facility] Creatinine, Serum 0.67 0.5 - 1.4 mg/dL [facility] Estimated Glomerular Filt Rate >60 [facility] Comment:Chronic Kidney Disea se: Estimated GFR < 60 mL/min/1.76l1Eobfet Kidney Disease: Estimated GFR < 15 mL/min/1.73m2 Glucose 87 60 - 115 mg/dL [facility] Calcium 9.2 8.4 - 10.2 mg/dL [facility] Bilirubin, Total 0.3 0.0 - 1.0 mg/dL [facility] Aspartate Amino Transferase 22 5 - 31 U/L [facility] Alanine Aminotransferase 25 0 - 31 U/L [facility] Total Protein 6.7 6.5 - 8.0 g/dL [facility] Albumin Level 4.5 3.5 - 5.0 g/dL [facility] Alkaline Phosphatase 72 39 - 117 U/L [facility] Blood Venous blood specimen / Unknown 06/03/2025 2:30 PM EST 06/03/2025 4:10 PM EST us Patricia Squires MD LAB BLOOD ORDERABLES Final Res ult [facility] [address] [facility] [place] [phone] [phone] * BI Mammogram Screening Tomosynthesis Bilateral (03/05/2025 3:40 PM EDT) Anatomical Region Laterality Modality Breast Bilateral Mammography 03/05/2025 3:40 PM EDT Narrative 03/09/2025 7:39 PM EDT [address] [place] [address] Mammography Report Signed Patient: Elena Solis MR#: [id number] [birth year] : 1960 Acct:[id number] Age/Sex: 64 / F ADM Date: 03/05/25 Loc: HO.MAMMO Attending Dr: Юлия Sloan NP Ordering Physician: Юлия Sloan NP Results: 1Negati ve Date of Service: 03/05/25 Follow Up: 1 Year From [facility] Mammogram Procedure(s): MM tomosynthesis screening BI Accession Number(s): [id number] cc: Юлия Sloan REVERSER; Name,Deven THOMPSON Reason For Exam: screening EXAMINATION: [...] 03/09/25 1936 DD/ 1540 TD/TT: 03/05/25 1600 Jigsaw Operator: Procedure Note Donotuseinterpreter, Image - 03/09/2025 [facility]'[address] [place] [address] Mammography Report Signed Patient: Elena Solis LMR#: [id number] [birth year] : 1960cct:[id number] Age/Sex: 64 / FADM Date: 03/05/25 Loc: HO.MAMMO Attending Dr: Юлия Sloan NP Ordering Physician: Юлия Sloan NPResults: 1Negati ve Date of Service: 03/05/25Follow Up: 1 Year From Orig inal Mammogram Procedure(s): MM tomosynthesis screening BI Accession Number(s): [id number] cc: Юлия Sloan REVERSER; Name,Deven THOMPSON Reason For Exam: screening EXAMINATION: [...] MD 03/09/2025 07:36 PM EDT RP Workstation: [email or web address] Dictated By: Anayeli Shaw MD Signed By: <Electronically signed by Anayeli Shaw MD in OV> 03/09/25 1936 DD/ 1540 TD/TT: 03/05/25 1600 Jigsaw Operator: Юлия Sloan NP IMG BI PROCEDURES Final Result * (ABNORMAL) Lipid Panel, Standard (09/24/2024 10:36 AM EDT) Triglycerides 71 <150 mg/dL [facility] Comment:Desirable Triglyceri de: less than 150 mg/dLBorderline High Triglyceride 150-199 mg/dLHigh Triglyceride: 200-499 mg/dLVery High Triglyceride: greater than or equal to 5OO mg/dL Cholesterol 226(H) <200 mg/dL [facility] Comment:Desirable Cholestero l: less than 200 mg/dLBorderline High Cholesterol: 200-239 mg/dLHigh Cholesterol: greater than 239 mg/dL LDL Cholesterol Calculated 126(H) <100 mg/dL [facility] Comment:Desirable LDL: less than 100 mg/dLNear Optimal/Above Optimal LDL: 110- 129 mg/dLBorderline High LDL: 130-159 mg/dLHigh LDL: 160-189 mg/dLVery High LDL: greater than or equal to 190 mg/dL HDL Cholesterol 86 >40 mg/dL [facility] Comment:Desirable HDL: great er than 40 mg/dL Note: This HDL assay may give artificially low results in patients with liver disease. Blood Venous blood specimen / Unknown 09/24/2024 10:36 AM EDT 09/24/2024 11:25 AM EDT Result Kelsey Solis MD LAB BLOOD ORDERABLES Final Resul t [facility] [address] [place] [phone] * (ABNORMAL) Hm Colonoscopy (09/05/2023) Colonoscopy Abnormal(A ) Normal Result Kelsey Solis MD HEALTH MAINTENANCE Final Result * Hepatitis C Viral RNA, Quantitative, Real-Time PCR (03/29/2023 2:11 PM EDT) [facility] Hepatitis C Viral Load <15 NOT DETECTED NOT DETECTED IU/mL [facility] HCV Log PCR <1.18 NOT DETECTED NOT DETECTED Log IU/mL [facility] Comment:This test was perfor med using Real-Time Polymerase ChainReaction.Reportable Range: 15 IU/mL to 100,000,000 IU/mL(1.18 Log IU/mL to 8.00 Log IU/mL).The analytical performance characteristics of thisassay have been determined by [employer].The modifications have not been cleared or approved bythe FDA. This assay has been validated pursuant to theCLIA regulations and is used for clinical purposes.For more information on this test, go to:http://education.Eventcheq/faq/SXH76j0(This link is being provided for informational/educational purposes only.)THIS TEST WAS PERFORMED AT:[id number] [place] [phone] THURSTON MD 03/29/2023 2:11 PM EDT 03/29/2023 2:11 PM EDT Result [facility] External Provider LAB BLO OD ORDERABLES Final Result [facility] [address] [place] [phone] from Last 3 Months or Most Recently Relevant to Health Maintenance Insurance [facility] Care Teams Trauma Nurse Relationship Specialty Start Date End Date Name, MD Deven [address] [place] [address] PCP - General Family Medicine 09/28/15
--- OUTSIDE RECORDS SUMMARY | 2025-06-19 14:30 | XMS_ITS | Encounter Summary ---
Author Organization [employer] Address [address] [place] [address] Care Team Providers Care Java J2Ee Lead Name Role Phone Name, Deven THOMPSON Primary Care Provider [phone] Reason for Visit * Reason Comments Med Change Request Encounter Details Date Type Department Care Team ([facility] Contact Info) Description 10/16/2024 Refill [facility] [address] [place], [place] [phone] Name, MD Deven [address] [place] [address] Social History Tobacco Use Types Packs/Day Years [...] documented as of this encounter Care Teams Java J2Ee Lead Relationship Specialty Start Date End Date Name, MD Deven [address] [place] [address] PCP - General Family Medicine 09/28/15 documented as of this encounter
== END 2025-06-19 14:53 | disposition home or self-care (01) ==
LOC: HO.HPSW 14:27
PROVIDERS: PCP Internal Medicine Geriatric Medicine; Visit Provider Nurse Practitioner Family
DX: J44.9 Chronic obstructive pulmonary disease, unspecified (principal); J43.9 Emphysema, unspecified; F17.210 Nicotine dependence, cigarettes, uncomplicated
CPT/HCPCS: 99214

== ENCOUNTER → 2025-06-19 14:26 | Outpatient (BNVA) | payer OTHER, SELFPAY | PROVIDERS: PCP Internal Medicine Geriatric Medicine; Visit Provider Nurse Practitioner Family | DX: J44.9 Chronic obstructive pulmonary disease, unspecified (principal); J43.9 Emphysema, unspecified; F17.210 Nicotine dependence, cigarettes, uncomplicated; Z79.899 Other long term (current) drug therapy | CPT/HCPCS: 99212 ==